=== PATIENT | male | born 1955 | race Caucasian/White ===

== ENCOUNTER 2017-10-27 23:51 | Inpatient (IN) | payer BC ==
[~2017-10-27] VITALS: Ht 180.3 cm; Wt 81.2 kg
[2017-10-28] VITALS (11 sets, daily range): BP systolic 106–127; BP diastolic 54–76
[2017-10-28 00:28] LABS: BASO # 0.1 x10^3/uL (0.0-0.2); BASO % 1 % (0-3); EOS # 0.4 x10^3/uL (0.0-0.7); EOS % 5 % (0-3); HEMATOCRIT 44.5 % (39.0-53.0); HEMOGLOBIN 15.6 g/dL (13.0-17.5); LYMPH # 4.3 x10^3/uL (1.0-4.8); LYMPH % 47 % (24-48); MEAN CORPUSCULAR HEMOGLOBIN 35 pg (25-35); MEAN CORPUSCULAR HGB CONC 35 g/dL (31-37); MEAN CORPUSCULAR VOLUME 100 fL (79-100); MONO # 0.6 x10^3/uL (0.0-1.1); MONO % 7 % (0-9); NEUT # 3.7 x10^3uL (1.8-7.7); NEUT % 41 % (31-73); PLATELET COUNT 295 x10^3/uL (140-400); RED BLOOD COUNT 4.44 x10^6/uL (4.30-5.70); RED CELL DISTRIBUTION WIDTH 13.6 % (11.5-14.5); WHITE BLOOD COUNT 9.1 x10^3/uL (4.0-11.0)
[2017-10-28 00:41] LABS: CALCIUM 8.7 mg/dL (8.5-10.1); CREATININE 1.1 mg/dL (0.7-1.3); GFR 67.8; POTASSIUM 3.4 mmol/L (3.5-5.1)
[2017-10-28 00:43] LABS: PROTHROMBIN TIME PATIENT 13.1 SEC (11.7-14.0)
[2017-10-28 00:47] LABS: ALBUMIN 3.8 g/dL (3.4-5.0); ALBUMIN/GLOBULIN RATIO 1.1 (1.0-1.7); TOTAL BILIRUBIN 0.6 mg/dL (0.2-1.0); TOTAL PROTEIN 7.2 g/dL (6.4-8.2)
[2017-10-28 01:19] LABS: BASE EXCESS ABG -8 mmol/L (-3-3); HCO3 ABG 17 mmol/L (21-28); PCO2 ABG 36 mmHg (35-46); PO2 ABG 105 mmHg (65-108); SAT O2 ABG 97 % (92-99)
[2017-10-28] MEDS ORDERED: ASPIRIN CHEWABLE 81 MG TABLET. PO ONE (01:30)
[2017-10-28] MEDS ORDERED: ONDANSETRON PF 4 MG/2 ML VIAL. IV PRN (01:30)
[2017-10-28] MEDS ORDERED: NITROGLYCERIN OINT 1 GM PACKET. TP ONE (01:30)
[2017-10-28] MEDS ORDERED: FUROSEMIDE 40 MG/4 ML VIAL. IVP ONE ×2 (01:30→02:00)
[2017-10-28] MEDS ORDERED: HEPARIN for IV BOLUS 10,000 UNIT/10 ML VIAL. IV PRN (01:30)
[2017-10-28] MEDS ORDERED: fentaNYL PF VIAL 100 MCG/2 ML VIAL IV PRN (01:30)
[2017-10-28] MEDS ORDERED: ACETAMINOPHEN 325 MG TABLET. PO PRN (01:30)
--- NOTE | 2017-10-28 01:45 | RAD ---
AP chest x-ray HISTORY: Chest pain shortness of breath. FINDINGS: Small left pleural effusion at the costophrenic angle. Borderline cardiomegaly. Mediastinal silhouette is normal. Focal opacity right lower lobe. There is mild interstitial reticulation at the lung bases likely mild edema. No pneumothorax. Bones are unremarkable. IMPRESSION: 1. Right lower lobe pulmonary infiltrate may represent pneumonia. Follow-up x-rays advised to document that this resolves. 2. Mild lower lobe pulmonary interstitial edema and very small left pleural effusion could be due to congestive heart failure or volume overload. Electronically signed by: Abhijeet Ford MD (10/28/2017 1:42 AM) [facility]
--- NOTE | 2017-10-28 01:56 | PHYS DOC ---
Adult General Chief Complaint Chief Complaint: DYSPNEA/RESPIRATOY DISTRESS HPI HPI 61-year-old male presents to the emergency department via EMS secondary to progressive shortness of breath. Patient states this been ongoing for several hours. He states when it first started several hours ago he had some burning across to his chest but no tightness or heaviness. He states he's never had shortness of breath like this in the past. He denies any nausea or diaphoresis. When EMS was called on their arrival they noted that his oxygen saturation was in the 70s. He was given a couple of rounds of DuoNeb in route and placed on a CPAP. Patient states he was much more comfortable on a CPAP. Patient denies any fever chills or sweats. He's had no cough or congestion. He denies hemoptysis. He also states that he has not had any unilateral leg swelling. He states he's never had a problem with congestive heart failure in the past.[] Review of Systems Review of Systems Constitutional: Denies fever or chills [] Eyes: Denies change in visual acuity, redness, or eye pain [] HENT: Denies nasal congestion or sore throat [] Respiratory: Per history of present illness[] Cardiovascular: No additional information not addressed in HPI [] GI: Denies abdominal pain, nausea, vomiting, bloody stools or diarrhea [] : Denies dysuria or hematuria [] Musculoskeletal: Denies back pain or joint pain [] Integument: Denies rash or skin lesions [] Neurologic: Denies headache, focal weakness or sensory changes [] Endocrine: Denies polyuria or polydipsia [] All other systems were reviewed and found to be within normal limits, except as documented in this note. Current Medications Current Medications Current Medications Medications (Trade) Dose Ordered Sig/Raymundo Start Time Stop Time Status Last Admin Dose Admin Acetaminophen (Tylenol) 650 mg PRN Q4HRS PRN 10/28/17 01:30 10/29/17 01:29 Aspirin (Children'S Aspirin) 324 mg 1X ONCE 10/28/17 01:30 10/28/17 01:31 DC 10/28/17 01:28 324 MG Enoxaparin Sodium (Lovenox Per Pharmacy Treatment Dosing) 1 each PRN DAILY PRN 10/28/17 01:30 Cancel Fentanyl Citrate (Fentanyl 2ml Vial) 50 mcg PRN Q1HR PRN 10/28/17 01:30 10/29/17 01:29 Furosemide (Lasix) 40 mg 1X ONCE 10/28/17 02:00 10/28/17 02:01 Heparin Sodium (Porcine) (Heparin Sodium) 2,000 unit PRN Q6HRS PRN 10/28/17 01:30 Heparin Sodium/ Dextrose 500 ml @ 0 mls/hr CONT PRN 10/28/17 01:30 Info (Anti-Coagulation Monitoring By Pharmacy) 1 each PRN DAILY PRN 10/28/17 02:00 Nitroglycerin (Nitro-Bid Oint) 1 inch 1X ONCE 10/28/17 01:30 10/28/17 01:31 DC 10/28/17 01:29 1 INCH Ondansetron HCl (Zofran) 4 mg PRN Q8HRS PRN 10/28/17 01:30 10/29/17 01:29 Allergies Allergies Allergies Coded Allergies Type Severity Reaction Last Updated Verified No Known Drug Allergies 10/28/17 No Physical Exam Physical Exam Constitutional: Well developed, well nourished, moderate respiratory distress, non-toxic appearance. [] HENT: Normocephalic, atraumatic, bilateral external ears normal, oropharynx moist, no oral exudates, nose normal. [] Eyes: PERRLA, EOMI, conjunctiva normal, no discharge. [] Neck: Normal range of motion, no tenderness, supple, no stridor. [] Cardiovascular:Heart rate regular rhythm, no murmur [] Lungs & Thorax: Bibasilar rales no wheezing[] Abdomen: Bowel sounds normal, soft, no tenderness, no masses, no pulsatile masses. [] Skin: Warm, dry, no erythema, no rash. [] Back: No tenderness, no CVA tenderness. [] Extremities: He has some healing wounds on his lower extremities that he states are from weeds. [] Neurologic: Alert and oriented X 3, normal motor function, normal sensory function, no focal deficits noted. [] Psychologic: Anxious. [] Current Patient Data Vital Signs Vital Signs Date Time Temp Pulse Resp B/P (MAP) Pulse Ox O2 Delivery O2 Flow Rate FiO2 10/28/17 01:38 110 26 123/67 (85) 97 BiPAP/CPAP Lab Values Laboratory Tests Test 10/28/17 00:15 10/28/17 01:15 White Blood Count 9.1 x10^3/uL (4.0-11.0) Red Blood Count 4.44 x10^6/uL (4.30-5.70) Hemoglobin 15.6 g/dL (13.0-17.5) Hematocrit 44.5 % (39.0-53.0) Mean Corpuscular Volume 100 fL (79-100) Mean Corpuscular Hemoglobin 35 pg (25-35) Mean Corpuscular Hemoglobin Concent 35 g/dL (31-37) Red Cell Distribution Width 13.6 % (11.5-14.5) Platelet Count 295 x10^3/uL (140-400) Neutrophils (%) (Auto) 41 % (31-73) Lymphocytes (%) (Auto) 47 % (24-48) Monocytes (%) (Auto) 7 % (0-9) Eosinophils (%) (Auto) 5 % (0-3) H Basophils (%) (Auto) 1 % (0-3) Neutrophils # (Auto) 3.7 x10^3uL (1.8-7.7) Lymphocytes # (Auto) 4.3 x10^3/uL (1.0-4.8) Monocytes # (Auto) 0.6 x10^3/uL (0.0-1.1) Eosinophils # (Auto) 0.4 x10^3/uL (0.0-0.7) Basophils # (Auto) 0.1 x10^3/uL (0.0-0.2) Prothrombin Time 13.1 SEC (11.7-14.0) Prothrombin Time INR 1.0 (0.8-1.1) Sodium Level 124 mmol/L (136-145) L Potassium Level 3.4 mmol/L (3.5-5.1) L Chloride Level 91 mmol/L (98-107) L Carbon Dioxide Level 20 mmol/L (21-32) L Anion Gap 13 (6-14) Blood Urea Nitrogen 13 mg/dL (8-26) Creatinine 1.1 mg/dL (0.7-1.3) Estimated GFR (Cockcroft-Gault) 67.8 BUN/Creatinine Ratio 12 (6-20) Glucose Level 125 mg/dL (70-99) H Calcium Level 8.7 mg/dL (8.5-10.1) Total Bilirubin 0.6 mg/dL (0.2-1.0) Aspartate Amino Transferase (AST) 53 U/L (15-37) H Alanine Aminotransferase (ALT) 28 U/L (16-63) Alkaline Phosphatase 48 U/L (46-116) Troponin I Quantitative 0.078 ng/mL (0.000-0.055) ZC-Kck-X-Type Natriuretic Peptide 2686 pg/mL (0-124) H Total Protein 7.2 g/dL (6.4-8.2) Albumin 3.8 g/dL (3.4-5.0) Albumin/Globulin Ratio 1.1 (1.0-1.7) O2 Saturation 97 % (92-99) Arterial Blood pH 7.30 (7.35-7.45) L Arterial Blood pCO2 at Patient Temp 36 mmHg (35-46) Arterial Blood pO2 at Patient Temp 105 mmHg (65-108) Arterial Blood HCO3 17 mmol/L (21-28) L Arterial Blood Base Excess -8 mmol/L (-3-3) L FiO2 80.0 Laboratory Tests 10/28/17 00:15 Laboratory Tests 10/28/17 00:15 EKG EKG [EKG: Sinus tachycardia rate of 114 incomplete right bundle branch block with concerning ST depression anterior laterally EKG #2 done at 0154 on 94 shows marked improvement in the anterior lateral ST depression as his oxygenation is now much ] Radiology/Procedures Radiology/Procedures [] Impressions: PROCEDURE: CHEST AP ONLY AP chest x-ray HISTORY: Chest pain shortness of breath. FINDINGS: Small left pleural effusion at the costophrenic angle. Borderline cardiomegaly. Mediastinal silhouette is normal. Focal opacity right lower lobe. There is mild interstitial reticulation at the lung bases likely mild edema. No pneumothorax. Bones are unremarkable. IMPRESSION: 1. Right lower lobe pulmonary infiltrate may represent pneumonia. Follow-up x-rays advised to document that this resolves. 2. Mild lower lobe pulmonary interstitial edema and very small left pleural effusion could be due to congestive heart failure or volume overload. Course & Med Decision Making Course & Med Decision Making Pertinent Labs and Imaging studies reviewed. (See chart for details) [ED course: Evaluation reveals a 61-year-old male presents in moderate respiratory distress on CPAP initial EKG was abnormal this follow-up EKG was marked improved patient was given aspirin, Lasix, nitroglycerin and a heparin drip and remained chest pain-free throughout his stay in the department. His initial troponin was slightly elevated. We will admit the patient to the [facility] for likely heart catheterization and/or echo cardiogram in the morning. CRITICAL CARE: Time spent was 35 minutes. This includes medical management, evaluation, reevaluation, discussion with consultants and family. Critical Care does NOT include time spent on separately billed procedures. ] Dragon Disclaimer Dragon Disclaimer This electronic medical record was generated, in whole or in part, using a voice recognition dictation system. Departure Departure Impression: Primary Impression: Acute coronary syndrome Additional Impression: CHF (congestive heart failure) Disposition: 09 ADMITTED INPATIENT Admitting Physician: Xie. Brandon Condition: CRITICAL Referrals: NO PCP (PCP) Problem Qualifiers Additional Impression: CHF (congestive heart failure) Heart failure type: systolic Heart failure chronicity: acute Qualified Codes: I50.21 - Acute systolic (congestive) heart failure TRELL CALDERON DO Oct 28, 2017 01:56
[2017-10-28] MEDS: HEPARIN 25,000UTS/500ML PREMIX 500 ML IV PRN ×2 (02:23→17:19)
[2017-10-28] MEDS: ANTI-COAG MONITOR BY PHARMACY. MC PRN (03:41)
--- NOTE | 2017-10-28 06:39 | EKG ---
[facility] [address] [place] [address] Test Date: 2017-10-27 Test Time: 23:58:50 Pat Name: SAIMA MARTIN Department: Room: 108 1 Gender: M Online Services Manager: : 1955 Requested By: TRELL CALDERON Order Number: [id number] Reading MD: Stuart Alvarez MD Measurements Intervals [place] Rate: 114 P: -11 [place]: 132 QRS: 74 QRSD: 108 T: 144 QT: 316 QTc: 438 Interpretive Statements SINUS TACHYCARDIA SUSPECT INFEROLATERAL/ISCHEMIA Electronically Signed On 10-28-2017 12:34:57 CDT by Stuart Alvarez MD
--- NOTE | 2017-10-28 07:03 | EKG ---
[facility] [address] [place] [address] Test Date: 2017-10-28 Test Time: 01:54:02 Pat Name: SAIMA MARTIN Department: Room: 108 1 Gender: M Employee Development Specialist: ANUSHKA : 1955 Requested By: TRELL CALDERON Order Number: [id number] Reading MD: Stuart Alvarez MD Measurements Intervals [place] Rate: 108 P: 56 [place]: 142 QRS: 64 QRSD: 98 T: 128 QT: 336 QTc: 454 Interpretive Statements SINUS TACHYCARDIA NON-SPECIFIC ST/T CHANGES Electronically Signed On 10-28-2017 12:35:06 CDT by Stuart Alvarez MD
[2017-10-28] MEDS ORDERED: FUROSEMIDE 40 MG/4 ML VIAL. IVP SCH (09:00)
[2017-10-28 09:06] LABS: CALCIUM 8.5 mg/dL (8.5-10.1); CREATININE 1.1 mg/dL (0.7-1.3); GFR 67.8; MAGNESIUM 1.6 mg/dL (1.8-2.4); POTASSIUM 3.3 mmol/L (3.5-5.1)
--- NOTE | 2017-10-28 09:06 | PDOC2 ---
CLARISSA LORENZ TELEPHONE CLEANER 10/28/17 0906: CARDIAC CONSULT DATE OF CONSULT Date of Consult DATE: 10/28/17 TIME: 08:36 REASON FOR CONSULT Reason for Consult: ACS REFERRING PHYSICIAN Referring Physician: Isauro SOURCE Source: Chart review, Patient HISTORY OF PRESENT ILLNESS HISTORY OF PRESENT ILLNESS This is a pleasant 61 yo male admitted for complains of SOA. Reports that in the last week he has been having more heartburn than usual. Denies any HALE or exertional CP but last night he woke up SOA. Reports that he takes combo BP med for about 5 yrs now otherwise denies any other routine medications. Denies any chest pain, leg swelling, palpitations, diaphoresis, n/ v. No recent falls, injury or any recent infections or use of antibiotics. Reports no hx of CAD, VTE or arrhythmias. No known past stress test. PAST MEDICAL HISTORY Cardiovascular: HTN Pulmonary: No pertinent hx CENTRAL NERVOUS SYSTEM: Other (No pertinent history) GI: GERD Heme/Onc: No pertinent hx Hepatobiliary: No pertinent hx Psych: No pertinent hx Musculoskeletal: Osteoarthritis Rheumatologic: No pertinent hx Infectious disease: No pertinent hx ENT: No pertinent hx Renal/: No pertinent hx Endocrine: No pertinent hx Dermatology: Other (recent leg rash from mowing, described it as poison Elisa exposure. ) PAST SURGICAL HISTORY Past Surgical History: Cataract Removal FAMILY HISTORY Family History: Coronary Artery Disease (father) SOCIAL HISTORY Smoke: 1 pack per day (>40 yrs) ALCOHOL: other (2 beers daily at night) Drugs: None Lives: with Family CURRENT MEDICATIONS CURRENT MEDICATIONS Current Medications Medications (Trade) Dose Ordered Sig/Raymundo Route PRN Reason Start Time Stop Time Status Last Admin Dose Admin Aspirin (Children'S Aspirin) 324 mg 1X ONCE PO 10/28/17 01:30 10/28/17 01:31 DC 10/28/17 01:28 Nitroglycerin (Nitro-Bid Oint) 1 inch 1X ONCE TP 10/28/17 01:30 10/28/17 01:31 DC 10/28/17 01:29 Furosemide (Lasix) 40 mg 1X ONCE IVP 10/28/17 01:30 10/28/17 01:31 DC 10/28/17 01:28 Heparin Sodium/ Dextrose 500 ml @ 0 mls/hr CONT PRN IV SEE I/O RECORD 10/28/17 01:30 10/28/17 02:23 Heparin Sodium (Porcine) (Heparin Sodium) 2,000 unit PRN Q6HRS PRN IV FOR UFH LEVEL LESS THAN 0.2 10/28/17 01:30 10/28/17 02:17 Furosemide (Lasix) 40 mg 1X ONCE IVP 10/28/17 02:00 10/28/17 02:01 DC 10/28/17 02:13 Info (Anti-Coagulation Monitoring By Pharmacy) 1 each PRN DAILY PRN MC SEE COMMENTS 10/28/17 02:00 10/28/17 03:41 ALLERGIES ALLERGIES: Coded Allergies: No Known Drug Allergies (Unverified , 10/28/17) ROS Review of System 14 point ROS evaluated with pertinent positives noted per HPI PHYSICAL EXAM General: Alert, Oriented X3, Cooperative HEENT: Atraumatic, Mucous membr. moist/pink Lungs: Other (faint crackles) Heart: Regular rate (sinus tach), Normal S1, Normal S2, Other (diatolic murmur to PERCY border 3/6 ) Abdomen: Soft, No tenderness Extremities: No cyanosis, No edema Skin: Other (pink-red rash superior to left medial ankle with ping puntuate lesion to right ankle, recently mowed grass) Neuro: Normal speech, Sensation intact Psych/Mental Status: Mood NL MUSCULOSKELETAL: Osteoarthritic changes both hands VITALS VITALS Vital Signs Date Time Temp Pulse Resp B/P (MAP) Pulse Ox O2 Delivery O2 Flow Rate FiO2 10/28/17 06:00 100 17 110/68 (82) 96 Nasal Cannula 5.0 10/28/17 04:45 97.8 97.8 LABS Lab: Laboratory Tests Test 10/28/17 00:15 10/28/17 01:15 10/28/17 04:50 White Blood Count 9.1 x10^3/uL (4.0-11.0) Red Blood Count 4.44 x10^6/uL (4.30-5.70) Hemoglobin 15.6 g/dL (13.0-17.5) Hematocrit 44.5 % (39.0-53.0) Mean Corpuscular Volume 100 fL (79-100) Mean Corpuscular Hemoglobin 35 pg (25-35) Mean Corpuscular Hemoglobin Concent 35 g/dL (31-37) Red Cell Distribution Width 13.6 % (11.5-14.5) Platelet Count 295 x10^3/uL (140-400) Neutrophils (%) (Auto) 41 % (31-73) Lymphocytes (%) (Auto) 47 % (24-48) Monocytes (%) (Auto) 7 % (0-9) Eosinophils (%) (Auto) 5 % (0-3) Basophils (%) (Auto) 1 % (0-3) Neutrophils # (Auto) 3.7 x10^3uL (1.8-7.7) Lymphocytes # (Auto) 4.3 x10^3/uL (1.0-4.8) Monocytes # (Auto) 0.6 x10^3/uL (0.0-1.1) Eosinophils # (Auto) 0.4 x10^3/uL (0.0-0.7) Basophils # (Auto) 0.1 x10^3/uL (0.0-0.2) Prothrombin Time 13.1 SEC (11.7-14.0) Prothromb Time International Ratio 1.0 (0.8-1.1) Sodium Level 124 mmol/L (136-145) Potassium Level 3.4 mmol/L (3.5-5.1) Chloride Level 91 mmol/L (98-107) Carbon Dioxide Level 20 mmol/L (21-32) Anion Gap 13 (6-14) Blood Urea Nitrogen 13 mg/dL (8-26) Creatinine 1.1 mg/dL (0.7-1.3) Estimated GFR (Cockcroft-Gault) 67.8 BUN/Creatinine Ratio 12 (6-20) Glucose Level 125 mg/dL (70-99) Calcium Level 8.7 mg/dL (8.5-10.1) Total Bilirubin 0.6 mg/dL (0.2-1.0) Aspartate Amino Transf (AST/SGOT) 53 U/L (15-37) Alanine Aminotransferase (ALT/SGPT) 28 U/L (16-63) Alkaline Phosphatase 48 U/L (46-116) Troponin I Quantitative 0.078 ng/mL (0.000-0.055) 1.320 ng/mL (0.000-0.055) VG-Cfm-F-Type Natriuretic Peptide 2686 pg/mL (0-124) Total Protein 7.2 g/dL (6.4-8.2) Albumin 3.8 g/dL (3.4-5.0) Albumin/Globulin Ratio 1.1 (1.0-1.7) O2 Saturation 97 % (92-99) Arterial Blood pH 7.30 (7.35-7.45) Arterial Blood pCO2 at Patient Temp 36 mmHg (35-46) Arterial Blood pO2 at Patient Temp 105 mmHg (65-108) Arterial Blood HCO3 17 mmol/L (21-28) Arterial Blood Base Excess -8 mmol/L (-3-3) FiO2 80.0 ASSESSMENT/PLAN ASSESSMENT/PLAN 1. NSTEMI: Trop at 1.3, EKG with anterolateral ST depression 2. Acute CHF with possible diastolic dysfunction 3. HTN: controlled 4. Hypokalemia/hyponatremia 5. Tobaccoism Recommendations 1. LHC today, risks and benefits explained with spouse at the bedside. 2. Heparin in place. ASA. Low rate NS in anticipation to contrast load 3. Continue with lasix therapy. BP currently controlled will reeval need post LHC. 4. TSH, lipids, UDS, UA, BMP and Mg and TTE. 5. Smoking cessation. Dietitian consult. 6. Replace K and Mg as warranted KT KIRKPATRICK MD 10/28/17 0940: CARDIAC CONSULT ASSESSMENT/PLAN ASSESSMENT/PLAN Pt. seen and examined. Agree with above NEON SIGN MECHANIC note. Plan for LHC today. Thanks CLARISSA LORENZ APRN Oct 28, 2017 09:06 KT KIRKPATRICK MD Oct 28, 2017 09:40
[2017-10-28 09:08] LABS: CHOLESTEROL/HDL RATIO 2.5
[2017-10-28] MEDS ORDERED: LABETALOL 20 MG/4 ML DISP.SYRIN. IVP PRN (09:15)
[2017-10-28] MEDS ORDERED: IV NORMAL SALINE 1000ML BAG 1,000 ML IV ONE (09:30)
[2017-10-28] MEDS: ASPIRIN ENTERIC COATED 325 MG TABLET.DR. PO SCH (09:30)
[2017-10-28] MEDS ORDERED: POTASSIUM CHLORIDE 20 MEQ TABLET.ER. PO ONE (11:30)
[2017-10-28] MEDS ORDERED: MAGNESIUM SULFATE 2GM 50 ML IV ONE (11:30)
[2017-10-28 12:42] LABS: BARBITURATES NEG (NEG); BENZODIAZEPINES NEG (NEG); CANNABINOIDS NEG (NEG); COCAINE NEG (NEG); METHADONE NEG (NEG); OPIATES NEG (NEG); PHENCYCLIDINE NEG (NEG)
[2017-10-28 12:48] LABS: AMPHETAMINE/METHAMPHETAMINE NEG (NEG)
--- NOTE | 2017-10-28 12:55 | PDOC1 ---
History and Physical Date of Admission Date of Admission DATE: 10/28/17 TIME: 12:55 Identification/Chief Complaint Chief Complaint short of breath Source Source: Chart review, Patient History of Present Illness History of Present Illness Mr. Dunn, is a 61-year-old male admit w. progressive shortness of breath. new dyspnea for hours on admit, better now pain, with burning in chest without pressure. Pain was 6/10 and now is better 0s. He was given a couple of rounds of DuoNeb in route and placed on a CPAP. Patient states he was much more comfortable on a CPAP not much medical history Past Medical History Cardiovascular: HTN Pulmonary: No pertinent hx CENTRAL NERVOUS SYSTEM: Other (No pertinent history) GI: GERD Heme/Onc: No pertinent hx Hepatobiliary: No pertinent hx Psych: No pertinent hx Musculoskeletal: Osteoarthritis Rheumatologic: No pertinent hx Infectious disease: No pertinent hx ENT: No pertinent hx Renal/: No pertinent hx Endocrine: No pertinent hx Dermatology: Other (recent leg rash from mowing, described it as poison Elisa exposure. ) Past Surgical History Past Surgical History: Cataract Removal Family History Family History: Coronary Artery Disease (father) Social History Smoke: 1 pack per day (>40 yrs) ALCOHOL: other (2 beers daily at night) Drugs: None Current Medications Current Medications Current Medications Aspirin (Children'S Aspirin) 324 mg 1X ONCE PO Last administered on 10/28/17at 01:28; Start 10/28/17 at 01:30; Stop 10/28/17 at 01:31; Status DC Nitroglycerin (Nitro-Bid Oint) 1 inch 1X ONCE TP Last administered on at 01:29; Start 10/28/17 at 01:30; Stop 10/28/17 at 01:31; Status DC Furosemide (Lasix) 40 mg 1X ONCE IVP Last administered on 10/28/17at 01:28; Start 10/28/17 at 01:30; Stop 10/28/17 at 01:31; Status DC Enoxaparin Sodium (Lovenox Per Pharmacy Treatment Dosing) 1 each PRN DAILY PRN MC SEE COMMENTS; Start 10/28/17 at 01:30; Status Cancel Ondansetron HCl (Zofran) 4 mg PRN Q8HRS PRN IV NAUSEA/VOMITING 1ST CHOICE; Start 10/28/17 at 01:30; Stop 10/29/17 at 01:29 Fentanyl Citrate (Fentanyl 2ml Vial) 50 mcg PRN Q1HR PRN IV SEVERE PAIN; Start 10/28/17 at 01:30; Stop 10/29/17 at 01:29 Acetaminophen (Tylenol) 650 mg PRN Q4HRS PRN PO FEVER; Start 10/28/17 at 01:30; Stop 10/29/17 at 01:29 Heparin Sodium/ Dextrose 500 ml @ 0 mls/hr CONT PRN IV SEE I/O RECORD Last administered on 10/28/17at 02:23; Start 10/28/17 at 01:30 Heparin Sodium (Porcine) (Heparin Sodium) 2,000 unit PRN Q6HRS PRN IV FOR UFH LEVEL LESS THAN 0.2 Last administered on 10/28/17at 02:17; Start 10/28/17 at 01:30 Furosemide (Lasix) 40 mg [id number] IVP ; Start 10/28/17 at 09:00 Furosemide (Lasix) 40 mg 1X ONCE IVP Last administered on 10/28/17at 02:13; Start 10/28/17 at 02:00; Stop 10/28/17 at 02:01; Status DC Info (Anti-Coagulation Monitoring By Pharmacy) 1 each PRN DAILY PRN MC SEE COMMENTS Last administered on 10/28/17at 03:41; Start 10/28/17 at 02:00 Aspirin (Ecotrin) 325 mg DAILYWBKFT PO ; Start 10/28/17 at 09:30 Sodium Chloride 1,000 ml @ 50 mls/hr 1X ONCE IV Last administered on at 11:37; Start 10/28/17 at 09:30; Stop 10/29/17 at 05:29 Labetalol HCl (Normodyne Iv Push) 20 mg PRN Q2HR PRN IVP HYPERTENSION, SEE COMMENTS; Start 10/28/17 at 09:15 Magnesium Sulfate 50 ml @ 25 mls/hr 1X ONCE IV Last administered on 10/28/17at 11:29; Start 10/28/17 at 11:30; Stop 10/28/17 at 13:29 Potassium Chloride (Klor-Con) 40 meq 1X ONCE PO ; Start 10/28/17 at 11:30; Stop 10/28/17 at 11:31; Status DC Allergies Allergies: Coded Allergies: No Known Drug Allergies (Unverified , 10/28/17) ROS General: No: Chills, Night Sweats, Fatigue, Malaise, Appetite, Other PSYCHOLOGICAL ROS: No: Anxiety, Behavioral Disorder, Concentration difficultie , Decreased libido, Depression, Disorientation, Hallucinations, Hostility, Irritablity, Memory difficulties, Mood Swings, Obsessive thoughts, Physical abuse, Sexual abuse, Sleep disturbances, Suicidal ideation, Other Eyes: No Blurry vision, No Decreased vision, No Double vision, No Dry eyes, No Excessive tearing, No Eye Pain, No Itchy Eyes, No Loss of vision, No Photophobia , No Scotomata, No Uses contacts, No Uses glasses, No Other HEENT: No: Heacaches, Visual Changes, Hearing change, Nasal congestion, Nasal discharge, Oral lesions, Sinus pain, Sore Throat, Epistaxis, Sneezing, Snoring, Tinnitus, Vertigo, Vocal changes, Other Respiratory: No: Cough, Hemoptysis, Orthopnea, Pleuritic Pain, Shortness of breath, SOB with excertion, Sputum Changes, Stridor, Tachypnea, Wheezing, Other Cardiovascular: No Chest Pain, No Palpitations, No Orthopnea, No Paroxysmal Noc. Dyspnea, No Edema, No Lt Headedness, No Other Gastrointestinal: No Nausea, No Vomiting, No Abdominal Pain, No Diarrhea, No Constipation, No Melena, No Hematochezia, No Other Genitourinary: No Dysuria, No Frequency, No Incontinence, No Hematuria, No Retention, No Discharge, No Urgency, No Pain, No Flank Pain, No Other, No , No , No , No , No , No , No Musculoskeletal: No Gait Disturbance, No Joint Pain, No Joint Stiffness, No Joint Swelling, No Muscle Pain, No Muscular Weakness, No Pain In:, No Swelling In:, No Other Neurological: No Behavorial Changes, No Bowel/Bladder ControlChng, No Confusion , No Dizziness, No Gait Disturbance, No Headaches, No Impaired Coord/balance, No Memory Loss, No Numbness/Tingling, No Seizures, No Speech Problems, No Tremors, No Visual Changes, No Weakness, No Other Skin: Yes Dry Skin; No Eczema, No Hair Changes, No Lumps, No Mole Changes, No Mottling, No Nail Changes, No Pruritus, No Rash, No Skin Lesion Changes, No Other, No Acne Physical Exam General: Alert, Cooperative, No acute distress HEENT: EOMI Lungs: Normal air movement Heart: no murmurs Abdomen: Normal bowel sounds, Soft Rectal Exam: not examined Extremities: No cyanosis, No edema Skin: No rashes Neuro: Normal gait, Sensation intact Psych/Mental Status: Mental status NL, Mood NL Vitals Vitals Vital Signs Date Time Temp Pulse Resp B/P (MAP) Pulse Ox O2 Delivery O2 Flow Rate FiO2 10/28/17 11:00 98.9 100 18 111/65 (80) 98 Nasal Cannula 5.0 98.9 Labs Labs Laboratory Tests Test 10/28/17 00:15 10/28/17 01:15 10/28/17 04:50 10/28/17 08:28 White Blood Count 9.1 x10^3/uL (4.0-11.0) Red Blood Count 4.44 x10^6/uL (4.30-5.70) Hemoglobin 15.6 g/dL (13.0-17.5) Hematocrit 44.5 % (39.0-53.0) Mean Corpuscular Volume 100 fL (79-100) Mean Corpuscular Hemoglobin 35 pg (25-35) Mean Corpuscular Hemoglobin Concent 35 g/dL (31-37) Red Cell Distribution Width 13.6 % (11.5-14.5) Platelet Count 295 x10^3/uL (140-400) Neutrophils (%) (Auto) 41 % (31-73) Lymphocytes (%) (Auto) 47 % (24-48) Monocytes (%) (Auto) 7 % (0-9) Eosinophils (%) (Auto) 5 % (0-3) Basophils (%) (Auto) 1 % (0-3) Neutrophils # (Auto) 3.7 x10^3uL (1.8-7.7) Lymphocytes # (Auto) 4.3 x10^3/uL (1.0-4.8) Monocytes # (Auto) 0.6 x10^3/uL (0.0-1.1) Eosinophils # (Auto) 0.4 x10^3/uL (0.0-0.7) Basophils # (Auto) 0.1 x10^3/uL (0.0-0.2) Prothrombin Time 13.1 SEC (11.7-14.0) Prothromb Time International Ratio 1.0 (0.8-1.1) Sodium Level 124 mmol/L (136-145) 127 mmol/L (136-145) Potassium Level 3.4 mmol/L (3.5-5.1) 3.3 mmol/L (3.5-5.1) Chloride Level 91 mmol/L (98-107) 94 mmol/L (98-107) Carbon Dioxide Level 20 mmol/L (21-32) 18 mmol/L (21-32) Anion Gap 13 (6-14) 15 (6-14) Blood Urea Nitrogen 13 mg/dL (8-26) 14 mg/dL (8-26) Creatinine 1.1 mg/dL (0.7-1.3) 1.1 mg/dL (0.7-1.3) Estimated GFR (Cockcroft-Gault) 67.8 67.8 BUN/Creatinine Ratio 12 (6-20) Glucose Level 125 mg/dL (70-99) 115 mg/dL (70-99) Calcium Level 8.7 mg/dL (8.5-10.1) 8.5 mg/dL (8.5-10.1) Total Bilirubin 0.6 mg/dL (0.2-1.0) Aspartate Amino Transf (AST/SGOT) 53 U/L (15-37) Alanine Aminotransferase (ALT/SGPT) 28 U/L (16-63) Alkaline Phosphatase 48 U/L (46-116) Troponin I Quantitative 0.078 ng/mL (0.000-0.055) 1.320 ng/mL (0.000-0.055) 2.411 ng/mL (0.000-0.055) BT-Qxr-E-Type Natriuretic Peptide 2686 pg/mL (0-124) Total Protein 7.2 g/dL (6.4-8.2) Albumin 3.8 g/dL (3.4-5.0) Albumin/Globulin Ratio 1.1 (1.0-1.7) O2 Saturation 97 % (92-99) Arterial Blood pH 7.30 (7.35-7.45) Arterial Blood pCO2 at Patient Temp 36 mmHg (35-46) Arterial Blood pO2 at Patient Temp 105 mmHg (65-108) Arterial Blood HCO3 17 mmol/L (21-28) Arterial Blood Base Excess -8 mmol/L (-3-3) FiO2 80.0 Magnesium Level 1.6 mg/dL (1.8-2.4) Triglycerides Level 62 mg/dL (0-150) Cholesterol Level 192 mg/dL (0-200) LDL Cholesterol, Calculated 104 mg/dL (0-100) VLDL Cholesterol, Calculated 12 mg/dL (0-40) Non-HDL Cholesterol Calculated 116 mg/dL (0-129) HDL Cholesterol 76 mg/dL (40-60) Cholesterol/HDL Ratio 2.5 Thyroid Stimulating Hormone (TSH) 0.963 uIU/mL (0.358-3.74) Heparin Anti-Xa Act, Unfractionated 0.26 IU/mL (0.30-0.70) Test 10/28/17 11:50 Urine Opiates Screen Neg (NEG) Urine Methadone Screen Neg (NEG) Urine Barbiturates Neg (NEG) Urine Phencyclidine Screen Neg (NEG) Urine Amphetamine/Methamphetamine Neg (NEG) Urine Benzodiazepines Screen Neg (NEG) Urine Cocaine Screen Neg (NEG) Urine Cannabinoids Screen Neg (NEG) Urine Ethyl Alcohol Neg (NEG) Laboratory Tests Test 10/28/17 00:15 10/28/17 01:15 10/28/17 04:50 10/28/17 08:28 White Blood Count 9.1 x10^3/uL (4.0-11.0) Red Blood Count 4.44 x10^6/uL (4.30-5.70) Hemoglobin 15.6 g/dL (13.0-17.5) Hematocrit 44.5 % (39.0-53.0) Mean Corpuscular Volume 100 fL (79-100) Mean Corpuscular Hemoglobin 35 pg (25-35) Mean Corpuscular Hemoglobin Concent 35 g/dL (31-37) Red Cell Distribution Width 13.6 % (11.5-14.5) Platelet Count 295 x10^3/uL (140-400) Neutrophils (%) (Auto) 41 % (31-73) Lymphocytes (%) (Auto) 47 % (24-48) Monocytes (%) (Auto) 7 % (0-9) Eosinophils (%) (Auto) 5 % (0-3) Basophils (%) (Auto) 1 % (0-3) Neutrophils # (Auto) 3.7 x10^3uL (1.8-7.7) Lymphocytes # (Auto) 4.3 x10^3/uL (1.0-4.8) Monocytes # (Auto) 0.6 x10^3/uL (0.0-1.1) Eosinophils # (Auto) 0.4 x10^3/uL (0.0-0.7) Basophils # (Auto) 0.1 x10^3/uL (0.0-0.2) Prothrombin Time 13.1 SEC (11.7-14.0) Prothromb Time International Ratio 1.0 (0.8-1.1) Sodium Level 124 mmol/L (136-145) 127 mmol/L (136-145) Potassium Level 3.4 mmol/L (3.5-5.1) 3.3 mmol/L (3.5-5.1) Chloride Level 91 mmol/L (98-107) 94 mmol/L (98-107) Carbon Dioxide Level 20 mmol/L (21-32) 18 mmol/L (21-32) Anion Gap 13 (6-14) 15 (6-14) Blood Urea Nitrogen 13 mg/dL (8-26) 14 mg/dL (8-26) Creatinine 1.1 mg/dL (0.7-1.3) 1.1 mg/dL (0.7-1.3) Estimated GFR (Cockcroft-Gault) 67.8 67.8 BUN/Creatinine Ratio 12 (6-20) Glucose Level 125 mg/dL (70-99) 115 mg/dL (70-99) Calcium Level 8.7 mg/dL (8.5-10.1) 8.5 mg/dL (8.5-10.1) Total Bilirubin 0.6 mg/dL (0.2-1.0) Aspartate Amino Transf (AST/SGOT) 53 U/L (15-37) Alanine Aminotransferase (ALT/SGPT) 28 U/L (16-63) Alkaline Phosphatase 48 U/L (46-116) Troponin I Quantitative 0.078 ng/mL (0.000-0.055) 1.320 ng/mL (0.000-0.055) 2.411 ng/mL (0.000-0.055) OO-Jhf-F-Type Natriuretic Peptide 2686 pg/mL (0-124) Total Protein 7.2 g/dL (6.4-8.2) Albumin 3.8 g/dL (3.4-5.0) Albumin/Globulin Ratio 1.1 (1.0-1.7) O2 Saturation 97 % (92-99) Arterial Blood pH 7.30 (7.35-7.45) Arterial Blood pCO2 at Patient Temp 36 mmHg (35-46) Arterial Blood pO2 at Patient Temp 105 mmHg (65-108) Arterial Blood HCO3 17 mmol/L (21-28) Arterial Blood Base Excess -8 mmol/L (-3-3) FiO2 80.0 Magnesium Level 1.6 mg/dL (1.8-2.4) Triglycerides Level 62 mg/dL (0-150) Cholesterol Level 192 mg/dL (0-200) LDL Cholesterol, Calculated 104 mg/dL (0-100) VLDL Cholesterol, Calculated 12 mg/dL (0-40) Non-HDL Cholesterol Calculated 116 mg/dL (0-129) HDL Cholesterol 76 mg/dL (40-60) Cholesterol/HDL Ratio 2.5 Thyroid Stimulating Hormone (TSH) 0.963 uIU/mL (0.358-3.74) Heparin Anti-Xa Act, Unfractionated 0.26 IU/mL (0.30-0.70) Test 10/28/17 11:50 Urine Opiates Screen Neg (NEG) Urine Methadone Screen Neg (NEG) Urine Barbiturates Neg (NEG) Urine Phencyclidine Screen Neg (NEG) Urine Amphetamine/Methamphetamine Neg (NEG) Urine Benzodiazepines Screen Neg (NEG) Urine Cocaine Screen Neg (NEG) Urine Cannabinoids Screen Neg (NEG) Urine Ethyl Alcohol Neg (NEG) VTE Prophylaxis Ordered VTE Prophylaxis Devices: No VTE Pharmacological Prophylaxi: Yes Assessment/Plan Assessment/Plan acute systolic CHF, IV lasix given NSTEMI, acute [place] tobaccoism htn SANTOSH GRAF MD Oct 28, 2017 12:55
[2017-10-28 13:35] LABS: BILIRUBIN,URINE NEGATIVE (NEG); CLARITY,URINE CLEAR; NITRITE,URINE NEGATIVE (NEG); PH,URINE 6.5; PROTEIN,URINE NEGATIVE (NEG-TRACE); UROBILINOGEN,URINE 0.2 mg/dL (0.2 mg/dL)
[2017-10-28 13:51] LABS: COLOR,URINE STRAW; RBC,URINE RARE /HPF (0-2); WBC,URINE RARE /HPF (0-4)
[2017-10-28 13:52] LABS: BACTERIA,URINE 0 /HPF (0-FEW); SQUAMOUS EPITHELIAL CELL,UR OCC /LPF
[2017-10-28] MEDS ORDERED: LIDOCAINE 1% PF 2 ML VIAL. ONE (14:04)
[2017-10-28] MEDS ORDERED: IODIXANOL 320 MG/ML 100 ML VIAL. ONE (14:04)
[2017-10-28] MEDS ORDERED: HEPARIN for IV BOLUS 10,000 UNIT/10 ML VIAL. ONE (15:10)
[2017-10-28] MEDS ORDERED: MIDAZOLAM HCL/PF 2 MG/2 ML VIAL. ONE (15:10)
[2017-10-28] MEDS ORDERED: VERAPAMIL 5 MG/2 ML VIAL. ONE (15:10)
[2017-10-28] MEDS ORDERED: NITROGLYCERIN 200 MCG/2 ML SYRINGE FOR CATH/VASC LAB. ONE (15:10)
[2017-10-28] MEDS ORDERED: fentaNYL PF VIAL 100 MCG/2 ML VIAL ONE (15:10)
[2017-10-28] MEDS ORDERED: fentaNYL PF VIAL 100 MCG/2 ML VIAL IV ONE (16:00)
[2017-10-28] MEDS ORDERED: NITROGLYCERIN 200 MCG/2 ML SYRINGE FOR CATH/VASC LAB. IART ONE (16:00)
[2017-10-28] MEDS ORDERED: VERAPAMIL 5 MG/2 ML VIAL. IART ONE (16:00)
[2017-10-28] MEDS ORDERED: CONTRAST GIVEN. MC PRN (16:00)
[2017-10-28] MEDS ORDERED: LIDOCAINE 1% PF 2 ML VIAL. INJ ONE (16:00)
[2017-10-28] MEDS ORDERED: MIDAZOLAM HCL/PF 2 MG/2 ML VIAL. IV ONE (16:00)
[2017-10-28] MEDS ORDERED: HEPARIN for IV BOLUS 10,000 UNIT/10 ML VIAL. IART ONE (16:00)
[2017-10-28] MEDS ORDERED: IODIXANOL 320 MG/ML 100 ML VIAL. IART ONE (16:00)
--- NOTE | 2017-10-28 17:51 | CARD ---
MR#: [id number] Date of Study: 10/28/2017 Ordering Physician: CLARISSA LORENZ, Referring Physician: ANKIT LI Tech: RT Steven (R) LEFTY APPROVED REPORT Technologist: RT Steven (R) LEFTY Procedure(s) performed: MODERATE SEDATION:35 MIN Coronary angiography HISTORY The patient is a 61 year-old male with a history of : hypertension, dyslipidemia. INDICATION The indication(s) include : non-STEMI . PROCEDURE NARRATIVE INFORMED CONSENT: After explaining the risks and benefits of the procedure and alternatives, informed consent was obtained. The patient was brought electively to the cardiac catheterization lab. A timeout was performed confi rming the patient's name, date of , procedure, and site of procedure. All necessary personnel w ere wearing the appropriate protective equipment and radiation monitor devices. (See nursing notes for medications administered). ACCESS: The right wrist was sterilely prepped and draped in the usual fashion. The right wrist was infiltrat ed with 1 mL of 2% lidocaine for subcutaneous anesthesia. A 6 Czech Terumo glide sheath was inserte d into the right radial artery without difficulty. CORONARY ANGIOGRAPHY: Right and left coronary angiography was performed using a 6Fr TIG 4.0 catheter. Left ventricular en d diastolic pressure was obtained with a pigtail catheter and pullback was performed after left ventr iculography. All catheter exchanges and advancements were performed over a guidewire. CLOSURE: At case completion the right radial sheath was removed and a Terumo radial band was applied with 13 m l of air. COMPLICATIONS: The patient tolerated the procedure well and there were no immediate complications. FINDINGS: HEMODYNAMICS: AO: 128/78 LEFT VENTRICULOGRAM: Deferred due to known EF from echo. CORONARY ANGIOGRAPHY: LM is a large caliber vessel with normal angiographic appearance. LAD is a moderate caliber vessel proximally tapering to a 2.5 mm vessel in the mid to distal segment with a critical proximal to mid 95% stenosis. The vessel is heavily calcified in the proximal segment . -Large 1st septal insulation manager is noted. D1 is a small caliber vessel with an ostial 70% stenosis. LCx is a moderate caliber non-dominant vessel with a proximal 100% occlusion. OM1 is a small caliber vessel with normal angiographic appearance. OM2 is a very small caliber vessel that fills via faint left to left collaterals. LPL1 is a small caliber vessel that has a proximal subtotal occlusion, the distal vessel fills via fa int left to left collaterals. RCA is a large caliber dominant vessel with a long proximal to mid 60-70% stenosis. RPDA and RPL are moderate caliber vessels with normal angiographic appearance. Conclusion 1. Three vessel coronary artery disease with heavily calcified LAD and occluded LCx. (SYNTAX score 39 - suggestive of complex disease best treated by CABG if amenable) Recommendations Surgical consultation If deemed non-surgical candidate, plan for high risk PCI on . Signed by : Stuart Alvarez, Electronically Approved : 10/28/2017 17:51:03
[2017-10-28] MEDS: METOPROLOL TART IMMED RELEASE 25 MG TABLET. PO SCH (20:45)
[2017-10-29] VITALS (7 sets, daily range): BP systolic 108–131; BP diastolic 60–89
[2017-10-29] MEDS: HEPARIN 25,000UTS/500ML PREMIX 500 ML IV PRN (02:02)
--- NOTE | 2017-10-29 02:23 | RAD ---
MR#: [id number] Date of Study: 10/28/2017 Ordering Physician: KT KIRKPATRICK, Referring Physician: ANKIT LI Tech: Camila Wheeler RT R, CT RDMS AB, T APPROVED REPORT Patient Location: IN-PATIENT Laterality:Bilateral Indications PRE OP Doppler Spectral Velocity Analysis Right Left pCCA 48/22 cm/spCCA 59/22 cm/s mCCA 35/20 cm/smCCA 45/18 cm/s dCCA 27/15 cm/sdCCA 49/22 cm/s ECA ECA 196/ cm/s pICA 88/31 cm/spICA 74/37 cm/s Ada 86/36 cm/smICA 68/35 cm/s dICA 58/28 cm/sdICA 60/29 cm/s Vert. 48/ cm/sVert. 55/ cm/s ICA/CCA 1.83ICA/CCA 1.25 Findings Grayscale images of the bilateral common carotid, external and internal carotid vessels reveal diffus e atherosclerotic plaque grossly in the range of 50%. Spectral waveforms and peak systolic velocities in the internal carotid vessels reveal overall 0 to l ess than 50% stenosis. The right external carotid artery is not well visualized and may be occluded proximally. The left ext ernal carotid artery demonstrates elevated velocities suggestive greater than 50% stenosis. Bilateral vertebral velocities are blunted but antegrade fashion. ICA to CCA ratios on the right side are suggestive of moderate disease and within normal limits on th e left side. Critical Notification Critical Value: No <Conclusion> 1. Probable moderate right external and internal carotid disease in the range of 50%. No significant left-sided disease. Signed by : Kt Kirkpatrick, Electronically Approved : 10/29/2017 02:22:46
--- NOTE | 2017-10-29 02:25 | RAD ---
MR#: [id number] Date of Study: 10/28/2017 Ordering Physician: STUART KIRKPATRICK, Referring Physician: ANKIT LI Tech: Camila Wheeler RT R, [facility] APPROV[facility] REPORT Patient Location: IN-PATIENT Indications PRE OP Vein Measurements Great Saphenous Small Saphenous RightLeft RightLeft Saph-Fem. Junction 5.10mm4.60mmProximal 4.30mm3.60mm Mid Thigh 4.00mm3.90mmMid 3.40mm3.10mm Distal Thigh 3.00mm3.40mmDistal 4.40mm3.30mm Proximal Calf 3.20mm3.60mm Mid Calf 3.10mm3.10mm Distal Calf 3.40mm3.30mm Findings Bilateral greater and lesser saphenous veins were mapped for bypass conduit evaluation. The bilateral lesser saphenous veins appear to be adequate bypass conduits with measurements as noted above. The right great saphenous vein does not reveal any obvious evidence of thrombus and appears to be pat ent throughout its course and has adequate dimensions for bypass conduit. The left great saphenous ve in also appears to have adequate dimensions for bypass conduit but note is made that it is bifurcatin g below the knee. Critical Notification Critical Value: No <Conclusion> 1. Adequate bypass conduits in the form of the greater and lesser saphenous veins. Note is made that the left great saphenous vein bifurcates below the knee. Signed by : Stuart Kirkpatrick, Electronically Approved : 10/29/2017 02:24:30
[2017-10-29 03:24] LABS: BASO # 0.1 x10^3/uL (0.0-0.2); BASO % 1 % (0-3); EOS # 0.1 x10^3/uL (0.0-0.7); EOS % 1 % (0-3); HEMATOCRIT 42.1 % (39.0-53.0); HEMOGLOBIN 14.9 g/dL (13.0-17.5); LYMPH # 1.7 x10^3/uL (1.0-4.8); LYMPH % 21 % (24-48); MEAN CORPUSCULAR HEMOGLOBIN 35 pg (25-35); MEAN CORPUSCULAR HGB CONC 35 g/dL (31-37); MEAN CORPUSCULAR VOLUME 100 fL (79-100); MONO # 0.7 x10^3/uL (0.0-1.1); MONO % 9 % (0-9); NEUT # 5.5 x10^3uL (1.8-7.7); NEUT % 69 % (31-73); PLATELET COUNT 276 x10^3/uL (140-400); RED BLOOD COUNT 4.22 x10^6/uL (4.30-5.70); RED CELL DISTRIBUTION WIDTH 13.1 % (11.5-14.5)
[2017-10-29 04:09] LABS: ALBUMIN 3.4 g/dL (3.4-5.0); ALBUMIN/GLOBULIN RATIO 1.1 (1.0-1.7); CALCIUM 8.4 mg/dL (8.5-10.1); GFR 75.7; POTASSIUM 3.4 mmol/L (3.5-5.1); TOTAL BILIRUBIN 1.1 mg/dL (0.2-1.0); TOTAL PROTEIN 6.5 g/dL (6.4-8.2)
--- NOTE | 2017-10-29 08:29 | RAD ---
CT CHEST WO CONTRAST Indication: Preop coronary artery bypass graft Technique: Noncontrast CT imaging was performed of the chest, multiplanar reconstruction images submitted. One or more of the following individualized dose reduction techniques were utilized for this examination: 1. Automated exposure control 2. Adjustment of the mA and/or kV according to patient size 3. Use of iterative reconstruction technique. Comparison: None Findings: There are small dependent pleural effusions bilaterally, adjacent mild atelectasis and also mild infiltrate of the right lower lobe separate from the effusion extending more superiorly to the infrahilar region. There is no pneumothorax. There is no significant pericardial effusion. There is severe coronary calcification. Thoracic aortic caliber is within normal limits. The major airways are patent. No significantly enlarged nodes are identified of the chest, small mediastinal nodes present. There is atherosclerotic calcification near the visualized origins of the superior mesenteric artery and celiac artery. There are some small foci of groundglass density of the upper lobes bilaterally anteriorly abutting the pleural surfaces. There is mild centrilobular emphysema. IMPRESSION: 1. There are small dependent pleural effusions bilaterally with adjacent mild atelectasis, also mild infiltrate of the right lower lobe extending to the right infrahilar region. There are some small foci of faint groundglass density of the upper lobes bilaterally abutting the pleural surfaces. 2. There is severe coronary calcification. 3. There is mild centrilobular emphysema. Electronically signed by: Urban Jc MD (10/29/2017 8:26 AM) [id number]
[2017-10-29] MEDS: METOPROLOL TART IMMED RELEASE 25 MG TABLET. PO SCH ×2 (08:39→21:01)
[2017-10-29] MEDS ORDERED: POTASSIUM CHLORIDE 20 MEQ TABLET.ER. PO ONE (09:00)
[2017-10-29] MEDS ORDERED: FUROSEMIDE 40 MG/4 ML VIAL. IVP SCH (09:00)
[2017-10-29] MEDS ORDERED: ALPRAZolam 0.25 MG TABLET PO PRN (09:15)
--- NOTE | 2017-10-29 09:18 | PDOC ---
LORIRAMSES Linnea CANS VACUUM TESTER 10/29/17 0918: CARDIO Progress Notes Date and Time Date of Service 10/29/2017 Time of Evaluation 0906 Subjective Subjective: No Chest Pain, No shortness of breath, No Palpitations, No Dizziness Vitals Vitals Vital Signs Date Time Temp Pulse Resp B/P (MAP) Pulse Ox O2 Delivery O2 Flow Rate FiO2 10/29/17 08:39 94 126/84 10/29/17 07:30 Nasal Cannula 2.0 10/29/17 07:00 98.6 16 96 98.6 Weight Weight [ ] Input and Output Intake and Output Intake and Output 10/29/17 07:00 Intake Total 2230 ml Output Total 4400 ml Balance -2170 ml Intake Oral 750 ml IV Total 1480 ml Output Urine Total 4400 ml # Voids 2 Laboratory Labs Laboratory Tests Test 10/28/17 11:50 10/29/17 01:20 10/29/17 07:10 Urine Collection Type Unknown Urine Color Straw Urine Clarity Clear Urine pH 6.5 Urine Specific [place] 1.010 Urine Protein Negative mg/dL (NEG-TRACE) Urine Glucose (UA) Negative mg/dL (NEG) Urine Ketones (Stick) Negative mg/dL (NEG) Urine Blood Negative (NEG) Urine Nitrite Negative (NEG) Urine Bilirubin Negative (NEG) Urine Urobilinogen Dipstick 0.2 mg/dL (0.2 mg/dL) Urine Leukocyte Esterase Negative (NEG) Urine RBC Rare /HPF (0-2) Urine WBC Rare /HPF (0-4) Urine Squamous Epithelial Cells Occ /LPF Urine Bacteria 0 /HPF (0-FEW) Urine Opiates Screen Neg (NEG) Urine Methadone Screen Neg (NEG) Urine Barbiturates Neg (NEG) Urine Phencyclidine Screen Neg (NEG) Urine Amphetamine/Methamphetamine Neg (NEG) Urine Benzodiazepines Screen Neg (NEG) Urine Cocaine Screen Neg (NEG) Urine Cannabinoids Screen Neg (NEG) Urine Ethyl Alcohol Neg (NEG) White Blood Count 8.0 x10^3/uL (4.0-11.0) Red Blood Count 4.22 x10^6/uL (4.30-5.70) Hemoglobin 14.9 g/dL (13.0-17.5) Hematocrit 42.1 % (39.0-53.0) Mean Corpuscular Volume 100 fL (79-100) Mean Corpuscular Hemoglobin 35 pg (25-35) Mean Corpuscular Hemoglobin Concent 35 g/dL (31-37) Red Cell Distribution Width 13.1 % (11.5-14.5) Platelet Count 276 x10^3/uL (140-400) Neutrophils (%) (Auto) 69 % (31-73) Lymphocytes (%) (Auto) 21 % (24-48) Monocytes (%) (Auto) 9 % (0-9) Eosinophils (%) (Auto) 1 % (0-3) Basophils (%) (Auto) 1 % (0-3) Neutrophils # (Auto) 5.5 x10^3uL (1.8-7.7) Lymphocytes # (Auto) 1.7 x10^3/uL (1.0-4.8) Monocytes # (Auto) 0.7 x10^3/uL (0.0-1.1) Eosinophils # (Auto) 0.1 x10^3/uL (0.0-0.7) Basophils # (Auto) 0.1 x10^3/uL (0.0-0.2) Heparin Anti-Xa Act, Unfractionated 0.45 IU/mL (0.30-0.70) 0.50 IU/mL (0.30-0.70) Sodium Level 134 mmol/L (136-145) Potassium Level 3.4 mmol/L (3.5-5.1) Chloride Level 100 mmol/L (98-107) Carbon Dioxide Level 22 mmol/L (21-32) Anion Gap 12 (6-14) Blood Urea Nitrogen 12 mg/dL (8-26) Creatinine 1.0 mg/dL (0.7-1.3) Estimated GFR (Cockcroft-Gault) 75.7 BUN/Creatinine Ratio 12 (6-20) Glucose Level 97 mg/dL (70-99) Calcium Level 8.4 mg/dL (8.5-10.1) Total Bilirubin 1.1 mg/dL (0.2-1.0) Aspartate Amino Transf (AST/SGOT) 27 U/L (15-37) Alanine Aminotransferase (ALT/SGPT) 21 U/L (16-63) Alkaline Phosphatase 43 U/L (46-116) Total Protein 6.5 g/dL (6.4-8.2) Albumin 3.4 g/dL (3.4-5.0) Albumin/Globulin Ratio 1.1 (1.0-1.7) Physical Exam HEENT: Neck Supple W Full Motion Chest: Symmetric LUNGS: Other (soft basilar crackles R>L) Heart: S1S2, RRR, no murmurs, other (tele: SR) Abdomen: Soft N/T Extremities: No Edema, Other (right radial puncture site C/D/I; 2+ pulse at site; fingers mobile; brisk cap refill) Neurology: alert, oriented, follow commands Assessment Assessment 1. NSTEMI --troponin peaked @ 2.4 --cardiac cath with 3 vessel CAD; remains on heparin gtt --tentatively scheduled for CABG tomorrow, however, patient indicating he must leave to take care of financial issues ----advised of high risk of repeat IA with possible as outcome; states he must leave, even if he dies --notified primary teacher instrumental and cardiac surgeon 2. Acute CHF --LVEF unknown, TTE remains pending --continue IV diuretics; hypokalemic and will replace 3. HTN --controlled with meds 4. Hypokalemia/hyponatremia --replete K today 5. HLD --statin therapy 6. Emphysema with persistent tobacco abuse --CT demonstrates emphysema --cessation advised 7. moderate REIA and JEROME disease KT KIRKPATRICK MD 10/29/17 1714: CARDIO Progress Notes Plan Plan Pt. seen and examined. Agree with above MARINE SUPERINTENDENT note. Plan for high risk CABG in a.m. Discussed with patient. Supportive care. RAMSES SANDOVAL APRN Oct 29, 2017 09:18 KT KIRKPATRICK MD Oct 29, 2017 17:14
[2017-10-29] MEDS: ASPIRIN ENTERIC COATED 325 MG TABLET.DR. PO SCH (09:24)
[2017-10-29] MEDS: ANTI-COAG MONITOR BY PHARMACY. MC PRN (10:35)
--- NOTE | 2017-10-29 10:50 | CARD ---
MR#: [id number] Date of Study: 10/29/2017 Ordering Physician: CLARISSA LORENZ, Referring Physician: ANKIT LI Tech: Jesenia Faye RDCS APPROVED REPORT EXAM: Two-dimensional and M-mode echocardiogram with Doppler and color Doppler. Other Information Quality : Fair INDICATION Non STEMI Pre-Op CABG 2D DIMENSIONS RVDd2.5 (2.9-3.5cm)Left Atrium(2D)4.6 (1.6-4.0cm) IVSd1.1 (0.7-1.1cm)Aortic Root(2D)3.0 (2.0-3.7cm) LVDd5.8 (3.9-5.9cm)LVOT Diameter2.1 (1.8-2.4cm) PWd1.1 (0.7-1.1cm)LVDs5.3 (2.5-4.0cm) FS (%) 9.4 %SV34.5 ml LVEF(%)20.4 (>50%) Aortic Valve AoV Peak Tony.78.4cm/sAoV VTI11.5cm AO Peak GR.2.5mmHgLVOT Peak Tony.63.5cm/s AO Mean GR.2mmHgAVA (VMAX)2.76cm2 VANESA (VTI)3.20cm2 Mitral Valve MV E Irqbxiar107.9cm/sMV DECEL AOOT24fw MV A Velocity3.7cm/sE/A Ratio29.2 Tricuspid Valve TR P. [id number]/sRAP [id number] TR Peak Gr.[id number] Pulmonary Vein S1 Wteucrmx30.5cm/sD2 Rggnictf30.7cm/s LEFT VENTRICLE The left ventricle is normal size. There is normal left ventricular wall thickness. Left ventricle sy stolic function is severely impaired. The Ejection Fraction is 20-25%. There is severe global hypokin esis of the left ventricle with predominant anterior, apical and lateral wall hypokinesis. The inferi or wall is grossly normal. Tissue Doppler imaging reveals moderate left ventricular diastolic dysfunc tion. RIGHT VENTRICLE The right ventricle is normal size. The right ventricular systolic function is normal. ATRIA The left atrium is mildly dilated. The right atrium size is normal. The interatrial septum is intact with no evidence for an atrial septal defect or patent foramen ovale as noted on 2-D or Doppler imagi ng. AORTIC VALVE The aortic valve is calcified but opens well. Doppler and Color Flow revealed trace aortic regurgitat ion. There is no significant aortic valvular stenosis. MITRAL VALVE The mitral valve is calcified but opens well. The posterior leaflet appears restricted. There is no e vidence of mitral valve prolapse. There is no mitral valve stenosis. Doppler and Color-flow revealed mild to moderate mitral regurgitation. TRICUSPID VALVE The tricuspid valve is normal in structure and function. Doppler and Color Flow revealed trace to mil d tricuspid regurgitation. There is moderate pulmonary hypertension. The PA pressure was estimated at 51 mmHg. There is no tricuspid valve stenosis. PULMONIC VALVE The pulmonic valve is not well visualized. Doppler and Color Flow revealed mild pulmonic valvular reg urgitation. There is no pulmonic valvular stenosis. GREAT VESSELS The aortic root is normal in size. The ascending aorta is normal in size. The IVC is normal in size a nd collapses >50% with inspiration. PERICARDIAL EFFUSION There is no evidence of significant pericardial effusion. Critical Notification Critical Value: No <Conclusion> There is severe global hypokinesis of the left ventricle with predominant anterior, apical and latera l wall hypokinesis. The inferior wall is grossly normal. Doppler and Color-flow revealed mild to moderate mitral regurgitation. Doppler and Color Flow revealed trace to mild tricuspid regurgitation. There is moderate pulmonary hy pertension. The PA pressure was estimated at 51 mmHg. Left ventricle systolic function is severely impaired. The Ejection Fraction is 20-25%. Signed by : Stuart Alvarez, Electronically Approved : 10/29/2017 10:49:06
--- NOTE | 2017-10-29 12:16 | PDOC ---
PROGRESS NOTES Chief Complaint Chief Complaint acute systolic CHF, IV lasix given NSTEMI, acute NV 3 vessel CAD, need CABG tobacco use disorder hx htn History of Present Illness History of Present Illness pain better cath showed need for CABG, multivessel dz, cont current Vitals Vitals Vital Signs Date Time Temp Pulse Resp B/P (MAP) Pulse Ox O2 Delivery O2 Flow Rate FiO2 10/29/17 08:39 94 126/84 10/29/17 07:30 Nasal Cannula 2.0 10/29/17 07:00 98.6 16 96 98.6 Physical Exam General: Alert, Oriented X3, Cooperative, No acute distress Heart: Regular rate (sinus tach), Normal S1, Normal S2, No murmurs, Other ( diatolic murmur to PERCY border /6 ) Abdomen: Normal bowel sounds, Soft Extremities: No cyanosis, No edema Skin: No rashes Labs LABS Laboratory Tests Test 10/29/17 01:20 10/29/17 07:10 White Blood Count 8.0 x10^3/uL (4.0-11.0) Red Blood Count 4.22 x10^6/uL (4.30-5.70) Hemoglobin 14.9 g/dL (13.0-17.5) Hematocrit 42.1 % (39.0-53.0) Mean Corpuscular Volume 100 fL (79-100) Mean Corpuscular Hemoglobin 35 pg (25-35) Mean Corpuscular Hemoglobin Concent 35 g/dL (31-37) Red Cell Distribution Width 13.1 % (11.5-14.5) Platelet Count 276 x10^3/uL (140-400) Neutrophils (%) (Auto) 69 % (31-73) Lymphocytes (%) (Auto) 21 % (24-48) Monocytes (%) (Auto) 9 % (0-9) Eosinophils (%) (Auto) 1 % (0-3) Basophils (%) (Auto) 1 % (0-3) Neutrophils # (Auto) 5.5 x10^3uL (1.8-7.7) Lymphocytes # (Auto) 1.7 x10^3/uL (1.0-4.8) Monocytes # (Auto) 0.7 x10^3/uL (0.0-1.1) Eosinophils # (Auto) 0.1 x10^3/uL (0.0-0.7) Basophils # (Auto) 0.1 x10^3/uL (0.0-0.2) Heparin Anti-Xa Act, Unfractionated 0.45 IU/mL (0.30-0.70) 0.50 IU/mL (0.30-0.70) Sodium Level 134 mmol/L (136-145) Potassium Level 3.4 mmol/L (3.5-5.1) Chloride Level 100 mmol/L (98-107) Carbon Dioxide Level 22 mmol/L (21-32) Anion Gap 12 (6-14) Blood Urea Nitrogen 12 mg/dL (8-26) Creatinine 1.0 mg/dL (0.7-1.3) Estimated GFR (Cockcroft-Gault) 75.7 BUN/Creatinine Ratio 12 (6-20) Glucose Level 97 mg/dL (70-99) Calcium Level 8.4 mg/dL (8.5-10.1) Total Bilirubin 1.1 mg/dL (0.2-1.0) Aspartate Amino Transf (AST/SGOT) 27 U/L (15-37) Alanine Aminotransferase (ALT/SGPT) 21 U/L (16-63) Alkaline Phosphatase 43 U/L (46-116) Troponin I Quantitative 1.495 ng/mL (0.000-0.055) Total Protein 6.5 g/dL (6.4-8.2) Albumin 3.4 g/dL (3.4-5.0) Albumin/Globulin Ratio 1.1 (1.0-1.7) Comment Review of Relevant I have reviewed the following items bryce (where applicable) has been applied. Labs Laboratory Tests Test 10/28/17 00:15 10/28/17 01:15 10/28/17 04:50 10/28/17 04:52 White Blood Count 9.1 x10^3/uL (4.0-11.0) Red Blood Count 4.44 x10^6/uL (4.30-5.70) Hemoglobin 15.6 g/dL (13.0-17.5) Hematocrit 44.5 % (39.0-53.0) Mean Corpuscular Volume 100 fL (79-100) Mean Corpuscular Hemoglobin 35 pg (25-35) Mean Corpuscular Hemoglobin Concent 35 g/dL (31-37) Red Cell Distribution Width 13.6 % (11.5-14.5) Platelet Count 295 x10^3/uL (140-400) Neutrophils (%) (Auto) 41 % (31-73) Lymphocytes (%) (Auto) 47 % (24-48) Monocytes (%) (Auto) 7 % (0-9) Eosinophils (%) (Auto) 5 % (0-3) Basophils (%) (Auto) 1 % (0-3) Neutrophils # (Auto) 3.7 x10^3uL (1.8-7.7) Lymphocytes # (Auto) 4.3 x10^3/uL (1.0-4.8) Monocytes # (Auto) 0.6 x10^3/uL (0.0-1.1) Eosinophils # (Auto) 0.4 x10^3/uL (0.0-0.7) Basophils # (Auto) 0.1 x10^3/uL (0.0-0.2) Prothrombin Time 13.1 SEC (11.7-14.0) Prothromb Time International Ratio 1.0 (0.8-1.1) Sodium Level 124 mmol/L (136-145) 127 mmol/L (136-145) Potassium Level 3.4 mmol/L (3.5-5.1) 3.3 mmol/L (3.5-5.1) Chloride Level 91 mmol/L (98-107) 94 mmol/L (98-107) Carbon Dioxide Level 20 mmol/L (21-32) 18 mmol/L (21-32) Anion Gap 13 (6-14) 15 (6-14) Blood Urea Nitrogen 13 mg/dL (8-26) 14 mg/dL (8-26) Creatinine 1.1 mg/dL (0.7-1.3) 1.1 mg/dL (0.7-1.3) Estimated GFR (Cockcroft-Gault) 67.8 67.8 BUN/Creatinine Ratio 12 (6-20) Glucose Level 125 mg/dL (70-99) 115 mg/dL (70-99) Calcium Level 8.7 mg/dL (8.5-10.1) 8.5 mg/dL (8.5-10.1) Total Bilirubin 0.6 mg/dL (0.2-1.0) Aspartate Amino Transf (AST/SGOT) 53 U/L (15-37) Alanine Aminotransferase (ALT/SGPT) 28 U/L (16-63) Alkaline Phosphatase 48 U/L (46-116) Troponin I Quantitative 0.078 ng/mL (0.000-0.055) 1.320 ng/mL (0.000-0.055) XM-Xkw-V-Type Natriuretic Peptide 2686 pg/mL (0-124) Total Protein 7.2 g/dL (6.4-8.2) Albumin 3.8 g/dL (3.4-5.0) Albumin/Globulin Ratio 1.1 (1.0-1.7) O2 Saturation 97 % (92-99) Arterial Blood pH 7.30 (7.35-7.45) Arterial Blood pCO2 at Patient Temp 36 mmHg (35-46) Arterial Blood pO2 at Patient Temp 105 mmHg (65-108) Arterial Blood HCO3 17 mmol/L (21-28) Arterial Blood Base Excess -8 mmol/L (-3-3) FiO2 80.0 Magnesium Level 1.6 mg/dL (1.8-2.4) Triglycerides Level 62 mg/dL (0-150) Cholesterol Level 192 mg/dL (0-200) LDL Cholesterol, Calculated 104 mg/dL (0-100) VLDL Cholesterol, Calculated 12 mg/dL (0-40) Non-HDL Cholesterol Calculated 116 mg/dL (0-129) HDL Cholesterol 76 mg/dL (40-60) Cholesterol/HDL Ratio 2.5 Thyroid Stimulating Hormone (TSH) 0.963 uIU/mL (0.358-3.74) Nasal Screen MRSA (PCR) Negative (Negative) Test 10/28/17 08:28 10/28/17 11:50 10/29/17 01:20 10/29/17 07:10 Heparin Anti-Xa Act, Unfractionated 0.26 IU/mL (0.30-0.70) 0.45 IU/mL (0.30-0.70) 0.50 IU/mL (0.30-0.70) Troponin I Quantitative 2.411 ng/mL (0.000-0.055) 1.495 ng/mL (0.000-0.055) Urine Collection Type Unknown Urine Color Straw Urine Clarity Clear Urine pH 6.5 Urine Specific [place] 1.010 Urine Protein Negative mg/dL (NEG-TRACE) Urine Glucose (UA) Negative mg/dL (NEG) Urine Ketones (Stick) Negative mg/dL (NEG) Urine Blood Negative (NEG) Urine Nitrite Negative (NEG) Urine Bilirubin Negative (NEG) Urine Urobilinogen Dipstick 0.2 mg/dL (0.2 mg/dL) Urine Leukocyte Esterase Negative (NEG) Urine RBC Rare /HPF (0-2) Urine WBC Rare /HPF (0-4) Urine Squamous Epithelial Cells Occ /LPF Urine Bacteria 0 /HPF (0-FEW) Urine Opiates Screen Neg (NEG) Urine Methadone Screen Neg (NEG) Urine Barbiturates Neg (NEG) Urine Phencyclidine Screen Neg (NEG) Urine Amphetamine/Methamphetamine Neg (NEG) Urine Benzodiazepines Screen Neg (NEG) Urine Cocaine Screen Neg (NEG) Urine Cannabinoids Screen Neg (NEG) Urine Ethyl Alcohol Neg (NEG) White Blood Count 8.0 x10^3/uL (4.0-11.0) Red Blood Count 4.22 x10^6/uL (4.30-5.70) Hemoglobin 14.9 g/dL (13.0-17.5) Hematocrit 42.1 % (39.0-53.0) Mean Corpuscular Volume 100 fL (79-100) Mean Corpuscular Hemoglobin 35 pg (25-35) Mean Corpuscular Hemoglobin Concent 35 g/dL (31-37) Red Cell Distribution Width 13.1 % (11.5-14.5) Platelet Count 276 x10^3/uL (140-400) Neutrophils (%) (Auto) 69 % (31-73) Lymphocytes (%) (Auto) 21 % (24-48) Monocytes (%) (Auto) 9 % (0-9) Eosinophils (%) (Auto) 1 % (0-3) Basophils (%) (Auto) 1 % (0-3) Neutrophils # (Auto) 5.5 x10^3uL (1.8-7.7) Lymphocytes # (Auto) 1.7 x10^3/uL (1.0-4.8) Monocytes # (Auto) 0.7 x10^3/uL (0.0-1.1) Eosinophils # (Auto) 0.1 x10^3/uL (0.0-0.7) Basophils # (Auto) 0.1 x10^3/uL (0.0-0.2) Sodium Level 134 mmol/L (136-145) Potassium Level 3.4 mmol/L (3.5-5.1) Chloride Level 100 mmol/L (98-107) Carbon Dioxide Level 22 mmol/L (21-32) Anion Gap 12 (6-14) Blood Urea Nitrogen 12 mg/dL (8-26) Creatinine 1.0 mg/dL (0.7-1.3) Estimated GFR (Cockcroft-Gault) 75.7 BUN/Creatinine Ratio 12 (6-20) Glucose Level 97 mg/dL (70-99) Calcium Level 8.4 mg/dL (8.5-10.1) Total Bilirubin 1.1 mg/dL (0.2-1.0) Aspartate Amino Transf (AST/SGOT) 27 U/L (15-37) Alanine Aminotransferase (ALT/SGPT) 21 U/L (16-63) Alkaline Phosphatase 43 U/L (46-116) Total Protein 6.5 g/dL (6.4-8.2) Albumin 3.4 g/dL (3.4-5.0) Albumin/Globulin Ratio 1.1 (1.0-1.7) Laboratory Tests Test 10/29/17 01:20 10/29/17 07:10 White Blood Count 8.0 x10^3/uL (4.0-11.0) Red Blood Count 4.22 x10^6/uL (4.30-5.70) Hemoglobin 14.9 g/dL (13.0-17.5) Hematocrit 42.1 % (39.0-53.0) Mean Corpuscular Volume 100 fL (79-100) Mean Corpuscular Hemoglobin 35 pg (25-35) Mean Corpuscular Hemoglobin Concent 35 g/dL (31-37) Red Cell Distribution Width 13.1 % (11.5-14.5) Platelet Count 276 x10^3/uL (140-400) Neutrophils (%) (Auto) 69 % (31-73) Lymphocytes (%) (Auto) 21 % (24-48) Monocytes (%) (Auto) 9 % (0-9) Eosinophils (%) (Auto) 1 % (0-3) Basophils (%) (Auto) 1 % (0-3) Neutrophils # (Auto) 5.5 x10^3uL (1.8-7.7) Lymphocytes # (Auto) 1.7 x10^3/uL (1.0-4.8) Monocytes # (Auto) 0.7 x10^3/uL (0.0-1.1) Eosinophils # (Auto) 0.1 x10^3/uL (0.0-0.7) Basophils # (Auto) 0.1 x10^3/uL (0.0-0.2) Heparin Anti-Xa Act, Unfractionated 0.45 IU/mL (0.30-0.70) 0.50 IU/mL (0.30-0.70) Sodium Level 134 mmol/L (136-145) Potassium Level 3.4 mmol/L (3.5-5.1) Chloride Level 100 mmol/L (98-107) Carbon Dioxide Level 22 mmol/L (21-32) Anion Gap 12 (6-14) Blood Urea Nitrogen 12 mg/dL (8-26) Creatinine 1.0 mg/dL (0.7-1.3) Estimated GFR (Cockcroft-Gault) 75.7 BUN/Creatinine Ratio 12 (6-20) Glucose Level 97 mg/dL (70-99) Calcium Level 8.4 mg/dL (8.5-10.1) Total Bilirubin 1.1 mg/dL (0.2-1.0) Aspartate Amino Transf (AST/SGOT) 27 U/L (15-37) Alanine Aminotransferase (ALT/SGPT) 21 U/L (16-63) Alkaline Phosphatase 43 U/L (46-116) Troponin I Quantitative 1.495 ng/mL (0.000-0.055) Total Protein 6.5 g/dL (6.4-8.2) Albumin 3.4 g/dL (3.4-5.0) Albumin/Globulin Ratio 1.1 (1.0-1.7) Medications Current Medications Aspirin (Children'S Aspirin) 324 mg 1X ONCE PO Last administered on 10/28/17at 01:28; Start 10/28/17 at 01:30; Stop 10/28/17 at 01:31; Status DC Nitroglycerin (Nitro-Bid Oint) 1 inch 1X ONCE TP Last administered on at 01:29; Start 10/28/17 at 01:30; Stop 10/28/17 at 01:31; Status DC Furosemide (Lasix) 40 mg 1X ONCE IVP Last administered on 10/28/17at 01:28; Start 10/28/17 at 01:30; Stop 10/28/17 at 01:31; Status DC Enoxaparin Sodium (Lovenox Per Pharmacy Treatment Dosing) 1 each PRN DAILY PRN MC SEE COMMENTS; Start 10/28/17 at 01:30; Status Cancel Ondansetron HCl (Zofran) 4 mg PRN Q8HRS PRN IV NAUSEA/VOMITING 1ST CHOICE; Start 10/28/17 at 01:30; Stop 10/29/17 at 01:29; Status DC Fentanyl Citrate (Fentanyl 2ml Vial) 50 mcg PRN Q1HR PRN IV SEVERE PAIN; Start 10/28/17 at 01:30; Stop 10/29/17 at 01:29; Status DC Acetaminophen (Tylenol) 650 mg PRN Q4HRS PRN PO FEVER; Start 10/28/17 at 01:30; Stop 10/29/17 at 01:29; Status DC Heparin Sodium/ Dextrose 500 ml @ 0 mls/hr CONT PRN IV SEE I/O RECORD Last administered on 10/29/17at 02:02; Start 10/28/17 at 01:30; Stop 10/30/17 at 00:05 Heparin Sodium (Porcine) (Heparin Sodium) 2,000 unit PRN Q6HRS PRN IV FOR UFH LEVEL LESS THAN 0.2 Last administered on 10/28/17at 02:17; Start 10/28/17 at 01:30 Furosemide (Lasix) 40 mg [id number] IVP ; Start 10/28/17 at 09:00; Stop 10/28/17 at 13: 04; Status DC Furosemide (Lasix) 40 mg 1X ONCE IVP Last administered on 10/28/17at 02:13; Start 10/28/17 at 02:00; Stop 10/28/17 at 02:01; Status DC Info (Anti-Coagulation Monitoring By Pharmacy) 1 each PRN DAILY PRN MC SEE COMMENTS Last administered on 10/29/17at 10:35; Start 10/28/17 at 02:00 Aspirin (Ecotrin) 325 mg [id number] PO Last administered on 10/29/17at 09:24; Start 10/28/17 at 09:30 Sodium Chloride 1,000 ml @ 50 mls/hr 1X ONCE IV Last administered on at 11:37; Start 10/28/17 at 09:30; Stop 10/29/17 at 05:29; Status DC Labetalol HCl (Normodyne Iv Push) 20 mg PRN Q2HR PRN IVP HYPERTENSION, SEE COMMENTS; Start 10/28/17 at 09:15; Stop 10/29/17 at 23:55 Magnesium Sulfate 50 ml @ 25 mls/hr 1X ONCE IV Last administered on 10/28/17at 11:29; Start 10/28/17 at 11:30; Stop 10/28/17 at 13:29; Status DC Potassium Chloride (Klor-Con) 40 meq 1X ONCE PO Last administered on 10/28/17at 16:42; Start 10/28/17 at 11:30; Stop 10/28/17 at 11:31; Status DC Furosemide (Lasix) 40 mg DAILY IVP Last administered on 10/29/17at 09:35; Start 10/29/17 at 09:00 Iodixanol (Visipaque 320) 100 ml STK-MED ONCE .ROUTE ; Start 10/28/17 at 14:04; Stop 10/28/17 at 14:05; Status DC Lidocaine HCl (Xylocaine-Mpf 1% 2ml Vial) 2 ml STK-MED ONCE .ROUTE ; Start at 14:04; Stop 10/28/17 at 14:05; Status DC Heparin Sodium/ Sodium Chloride 1,000 ml @ As Directed STK-MED ONCE .ROUTE ; Start 10/28/17 at 14:05; Stop 10/28/17 at 14:06; Status DC Fentanyl Citrate (Fentanyl 2ml Vial) 100 mcg STK-MED ONCE .ROUTE ; Start at 15:10; Stop 10/28/17 at 15:11; Status DC Midazolam HCl (Versed) 2 mg STK-MED ONCE .ROUTE ; Start 10/28/17 at 15:10; Stop 10/28/17 at 15:11; Status DC Heparin Sodium (Porcine) (Heparin Sodium) 10,000 unit STK-MED ONCE .ROUTE ; Start 10/28/17 at 15:10; Stop 10/28/17 at 15:11; Status DC Verapamil HCl (Verapamil) 5 mg STK-MED ONCE .ROUTE ; Start 10/28/17 at 15:10; Stop 10/28/17 at 15:11; Status DC Nitroglycerin (Nitroglycerin) 200 mcg STK-MED ONCE .ROUTE ; Start 10/28/17 at 15: 10; Stop 10/28/17 at 15:11; Status DC Nitroglycerin (Nitroglycerin) 200 mcg 1X ONCE IART Last administered on at 15:57; Start 10/28/17 at 16:00; Stop 10/28/17 at 16:01; Status DC Verapamil HCl (Verapamil) 2.5 mg 1X ONCE IART Last administered on 10/28/17at 15 :57; Start 10/28/17 at 16:00; Stop 10/28/17 at 16:01; Status DC Heparin Sodium (Porcine) (Heparin Sodium) 2,500 unit 1X ONCE IART Last administered on 10/28/17at 15:30; Start 10/28/17 at 16:00; Stop 10/28/17 at 16:01; Status DC Heparin Sodium/ Sodium Chloride (HEPARIN for ARTERIAL LINE FLUSH) 1,000 unit 1X ONCE IART Last administered on 10/28/17at 15:56; Start 10/28/17 at 16:00; Stop 10/28/17 at 16:01; Status DC Midazolam HCl (Versed) 2 mg 1X ONCE IV Last administered on 10/28/17at 15:58; Start 10/28/17 at 16:00; Stop 10/28/17 at 16:01; Status DC Fentanyl Citrate (Fentanyl 2ml Vial) 50 mcg 1X ONCE IV Last administered on 10/28/17at 15:58; Start 10/28/17 at 16:00; Stop 10/28/17 at 16:01; Status DC Iodixanol (Visipaque 320) 65 ml 1X ONCE IART Last administered on 10/28/17at 15: 56; Start 10/28/17 at 16:00; Stop 10/28/17 at 16:01; Status DC Lidocaine HCl (Xylocaine-Mpf 1% 2ml Vial) 1 ml 1X ONCE INJ Last administered on 10/28/17at 15:57; Start 10/28/17 at 16:00; Stop 10/28/17 at 16:01; Status DC Info (CONTRAST GIVEN -- Rx MONITORING) 1 each PRN DAILY PRN MC SEE COMMENTS; Start 10/28/17 at 16:00; Stop 10/30/17 at 15:59 Metoprolol Tartrate (Lopressor) 12.5 mg BID PO Last administered on 10/29/17at 08 :39; Start 10/28/17 at 21:00; Stop 10/29/17 at 23:55 Potassium Chloride (Klor-Con) 40 meq 1X ONCE PO Last administered on 10/29/17at 09:24; Start 10/29/17 at 09:00; Stop 10/29/17 at 09:01; Status DC Alprazolam (Xanax) 0.25 mg PRN Q8HRS PRN PO ANXIETY / AGITATION; Start 10/29/17 at 09:15 Potassium Chloride 70 meq/ Sodium Bicarbonate 12.5 meq/Lidocaine HCl 24 ml/ Parenteral Electrolytes 571.5 ml @ 571.5 mls/ hr 1X ONCE IRR ; Start 10/30/17 at 06:00; Stop 10/30/17 at 06:59 Potassium Chloride 15 meq/ Sodium Bicarbonate 12.5 meq/Parenteral Electrolytes 520 ml @ 520 mls/hr 1X ONCE IRR ; Start 10/30/17 at 06:00; Stop 10/30/17 at 06: 59 Heparin Sodium (Porcine) 33693 unit/Ringer's Solution 1,020 ml @ 1,020 mls/hr 1X ONCE IRR ; Start 10/30/17 at 06:00; Stop 10/30/17 at 06:59 Heparin Sodium (Porcine) 800 unit/ Nitroglycerin 4 mg/Verapamil HCl 8 mg/Sodium Bicarbonate 0.34 meq/Ringer's Solution 512.34 ml @ 512.34 mls/hr 1X ONCE IRR ; Start 10/30/17 at 06:00; Stop 10/30/17 at 06:59 Ondansetron HCl (Zofran) 4 mg PRN Q6HRS PRN IV NAUSEA/VOMITING; Start 10/30/17 at 07:00; Stop 10/31/17 at 06:59 Fentanyl Citrate (Fentanyl 2ml Vial) 25 mcg PRN Q5MIN PRN IV MILD PAIN; Start 10/30/17 at 07:00; Stop 10/31/17 at 06:59 Fentanyl Citrate (Fentanyl 2ml Vial) 50 mcg PRN Q5MIN PRN IV MODERATE TO SEVERE PAIN; Start 10/30/17 at 07:00; Stop 10/31/17 at 06:59 Morphine Sulfate (Morphine Sulfate) 1 mg PRN Q10MIN PRN IV SEVERE PAIN; Start 10/30/17 at 07:00; Stop 10/31/17 at 06:59 Ringer's Solution 1,000 ml @ 30 mls/hr Q24H IV ; Start 10/30/17 at 07:00; Stop 10/30/17 at 18:59 Lidocaine HCl (Xylocaine-Mpf 1% 2ml Vial) 2 ml PRN 1X PRN ID IV START; Start at 07:00; Stop 10/31/17 at 06:59 Hydromorphone HCl (Dilaudid) 0.5 mg PRN Q10MIN PRN IV SEV PAIN, Second choice; Start 10/30/17 at 07:00; Stop 10/31/17 at 06:59 Prochlorperazine Edisylate (Compazine) 5 mg PACU PRN PRN IV NAUSEA, MRX1; Start 10/30/17 at 07:00; Stop 10/31/17 at 06:59 Vitals/I & O Vital Sign - Last 24 Hours 10/28/17 10/28/17 10/28/17 10/28/17 14:47 15:57 15:58 16:00 Temp 98.6 98.6 Pulse 106 95 98 Resp 18 15 15 B/P (MAP) 127/73 (91) Pulse Ox 94 95 94 O2 Delivery Nasal Cannula Nasal Cannula Nasal Cannula O2 Flow Rate 2.0 2.0 2.0 10/28/17 10/28/17 10/28/17 10/28/17 18:37 19:41 20:45 23:00 Temp 99.0 98.8 99.0 98.8 Pulse 101 99 94 Resp 18 18 B/P (MAP) 113/69 (84) 121/68 120/76 (91) Pulse Ox 97 92 O2 Delivery Nasal Cannula Nasal Cannula Nasal Cannula O2 Flow Rate 2.0 2.0 2.0 10/29/17 10/29/17 10/29/17 10/29/17 03:00 07:00 07:30 08:39 Temp 98.5 98.6 98.5 98.6 Pulse 93 94 94 Resp 16 16 B/P (MAP) 116/75 (89) 126/84 (98) 126/84 Pulse Ox 94 96 O2 Delivery Nasal Cannula Nasal Cannula Nasal Cannula O2 Flow Rate 2.0 2.0 2.0 Intake and Output 10/28/17 10/28/17 10/29/17 15:00 23:00 07:00 Intake Total 0 ml 450 ml 1780 ml Output Total 2200 ml 700 ml 1500 ml Balance -2200 ml -250 ml 280 ml SANTOSH GRAF MD Oct 29, 2017 12:15
--- NOTE | 2017-10-29 16:56 | PDOC2 ---
CONSULT Date of Consult Date of Consult DATE: 10/29/17 TIME: 16:41 Reason for Consult Reason for Consult: NSTEMI CHF Referring Physician Referring Physician: Dr Ardon Identification/Chief Complaint Chief Complaint SOB Source Source: Chart review, Patient History of Present Illness Reason for Visit: Patient is a 61 y old male with a hx of HTN, lifelong heavy smoking and strong family hx of IHD, who presented yesterday with SOB. Found to be in CHF and NSTEMI. Trop peaked at 2,4. LHC showed a 95% proximal LAD stenosis, 70 ostial D1 , a tight proximal/mid RCA lesion. He has severe ischemic cardiomyopathy with EF 20-25% Past Medical History Cardiovascular: HTN Pulmonary: No pertinent hx CENTRAL NERVOUS SYSTEM: Other (No pertinent history) GI: GERD Heme/Onc: No pertinent hx Hepatobiliary: No pertinent hx Psych: No pertinent hx Musculoskeletal: Osteoarthritis Rheumatologic: No pertinent hx Infectious disease: No pertinent hx ENT: No pertinent hx Renal/: No pertinent hx Endocrine: No pertinent hx Dermatology: Other (recent leg rash from mowing, described it as poison Elisa exposure. ) Past Surgical History Past Surgical History: Cataract Removal Family History Family History: Coronary Artery Disease (father) Social History 1 pack per day (>40 yrs) ALCOHOL: other (2 beers daily at night) Drugs: None Lives: with Family Current Medications Current Medications Current Medications Aspirin (Children'S Aspirin) 324 mg 1X ONCE PO Last administered on 10/28/17at 01:28; Start 10/28/17 at 01:30; Stop 10/28/17 at 01:31; Status DC Nitroglycerin (Nitro-Bid Oint) 1 inch 1X ONCE TP Last administered on at 01:29; Start 10/28/17 at 01:30; Stop 10/28/17 at 01:31; Status DC Furosemide (Lasix) 40 mg 1X ONCE IVP Last administered on 10/28/17at 01:28; Start 10/28/17 at 01:30; Stop 10/28/17 at 01:31; Status DC Enoxaparin Sodium (Lovenox Per Pharmacy Treatment Dosing) 1 each PRN DAILY PRN MC SEE COMMENTS; Start 10/28/17 at 01:30; Status Cancel Ondansetron HCl (Zofran) 4 mg PRN Q8HRS PRN IV NAUSEA/VOMITING 1ST CHOICE; Start 10/28/17 at 01:30; Stop 10/29/17 at 01:29; Status DC Fentanyl Citrate (Fentanyl 2ml Vial) 50 mcg PRN Q1HR PRN IV SEVERE PAIN; Start 10/28/17 at 01:30; Stop 10/29/17 at 01:29; Status DC Acetaminophen (Tylenol) 650 mg PRN Q4HRS PRN PO FEVER; Start 10/28/17 at 01:30; Stop 10/29/17 at 01:29; Status DC Heparin Sodium/ Dextrose 500 ml @ 0 mls/hr CONT PRN IV SEE I/O RECORD Last administered on 10/29/17at 02:02; Start 10/28/17 at 01:30; Stop 10/30/17 at 00:05 Heparin Sodium (Porcine) (Heparin Sodium) 2,000 unit PRN Q6HRS PRN IV FOR UFH LEVEL LESS THAN 0.2 Last administered on 10/28/17at 02:17; Start 10/28/17 at 01:30 Furosemide (Lasix) 40 mg [id number] IVP ; Start 10/28/17 at 09:00; Stop 10/28/17 at 13: 04; Status DC Furosemide (Lasix) 40 mg 1X ONCE IVP Last administered on 10/28/17at 02:13; Start 10/28/17 at 02:00; Stop 10/28/17 at 02:01; Status DC Info (Anti-Coagulation Monitoring By Pharmacy) 1 each PRN DAILY PRN MC SEE COMMENTS Last administered on 10/29/17at 10:35; Start 10/28/17 at 02:00 Aspirin (Ecotrin) 325 mg DAILYWBKFT PO Last administered on 10/29/17at 09:24; Start 10/28/17 at 09:30; Stop 10/29/17 at 14:52; Status DC Sodium Chloride 1,000 ml @ 50 mls/hr 1X ONCE IV Last administered on at 11:37; Start 10/28/17 at 09:30; Stop 10/29/17 at 05:29; Status DC Labetalol HCl (Normodyne Iv Push) 20 mg PRN Q2HR PRN IVP HYPERTENSION, SEE COMMENTS; Start 10/28/17 at 09:15; Stop 10/29/17 at 23:55 Magnesium Sulfate 50 ml @ 25 mls/hr 1X ONCE IV Last administered on 10/28/17at 11:29; Start 10/28/17 at 11:30; Stop 10/28/17 at 13:29; Status DC Potassium Chloride (Klor-Con) 40 meq 1X ONCE PO Last administered on 10/28/17at 16:42; Start 10/28/17 at 11:30; Stop 10/28/17 at 11:31; Status DC Furosemide (Lasix) 40 mg DAILY IVP Last administered on 10/29/17at 09:35; Start 10/29/17 at 09:00; Stop 10/29/17 at 14:54; Status DC Iodixanol (Visipaque 320) 100 ml STK-MED ONCE .ROUTE ; Start 10/28/17 at 14:04; Stop 10/28/17 at 14:05; Status DC Lidocaine HCl (Xylocaine-Mpf 1% 2ml Vial) 2 ml STK-MED ONCE .ROUTE ; Start at 14:04; Stop 10/28/17 at 14:05; Status DC Heparin Sodium/ Sodium Chloride 1,000 ml @ As Directed STK-MED ONCE .ROUTE ; Start 10/28/17 at 14:05; Stop 10/28/17 at 14:06; Status DC Fentanyl Citrate (Fentanyl 2ml Vial) 100 mcg STK-MED ONCE .ROUTE ; Start at 15:10; Stop 10/28/17 at 15:11; Status DC Midazolam HCl (Versed) 2 mg STK-MED ONCE .ROUTE ; Start 10/28/17 at 15:10; Stop 10/28/17 at 15:11; Status DC Heparin Sodium (Porcine) (Heparin Sodium) 10,000 unit STK-MED ONCE .ROUTE ; Start 10/28/17 at 15:10; Stop 10/28/17 at 15:11; Status DC Verapamil HCl (Verapamil) 5 mg STK-MED ONCE .ROUTE ; Start 10/28/17 at 15:10; Stop 10/28/17 at 15:11; Status DC Nitroglycerin (Nitroglycerin) 200 mcg STK-MED ONCE .ROUTE ; Start 10/28/17 at 15: 10; Stop 10/28/17 at 15:11; Status DC Nitroglycerin (Nitroglycerin) 200 mcg 1X ONCE IART Last administered on 15:57; Start 10/28/17 at 16:00; Stop 10/28/17 at 16:01; Status DC Verapamil HCl (Verapamil) 2.5 mg 1X ONCE IART Last administered on 10/28/17at 15 :57; Start 10/28/17 at 16:00; Stop 10/28/17 at 16:01; Status DC Heparin Sodium (Porcine) (Heparin Sodium) 2,500 unit 1X ONCE IART Last administered on 10/28/17at 15:30; Start 10/28/17 at 16:00; Stop 10/28/17 at 16:01; Status DC Heparin Sodium/ Sodium Chloride (HEPARIN for ARTERIAL LINE FLUSH) 1,000 unit 1X ONCE IART Last administered on 10/28/17at 15:56; Start 10/28/17 at 16:00; Stop 10/28/17 at 16:01; Status DC Midazolam HCl (Versed) 2 mg 1X ONCE IV Last administered on 10/28/17at 15:58; Start 10/28/17 at 16:00; Stop 10/28/17 at 16:01; Status DC Fentanyl Citrate (Fentanyl 2ml Vial) 50 mcg 1X ONCE IV Last administered on 10/28/17at 15:58; Start 10/28/17 at 16:00; Stop 10/28/17 at 16:01; Status DC Iodixanol (Visipaque 320) 65 ml 1X ONCE IART Last administered on 10/28/17at 15: 56; Start 10/28/17 at 16:00; Stop 10/28/17 at 16:01; Status DC Lidocaine HCl (Xylocaine-Mpf 1% 2ml Vial) 1 ml 1X ONCE INJ Last administered on 10/28/17at 15:57; Start 10/28/17 at 16:00; Stop 10/28/17 at 16:01; Status DC Info (CONTRAST GIVEN -- Rx MONITORING) 1 each PRN DAILY PRN MC SEE COMMENTS; Start 10/28/17 at 16:00; Stop 10/30/17 at 15:59 Metoprolol Tartrate (Lopressor) 12.5 mg BID PO Last administered on 10/29/17at 08 :39; Start 10/28/17 at 21:00; Stop 10/29/17 at 23:55 Potassium Chloride (Klor-Con) 40 meq 1X ONCE PO Last administered on 10/29/17at 09:24; Start 10/29/17 at 09:00; Stop 10/29/17 at 09:01; Status DC Alprazolam (Xanax) 0.25 mg PRN Q8HRS PRN PO ANXIETY / AGITATION; Start 10/29/17 at 09:15; Stop 10/29/17 at 22:00 Potassium Chloride 70 meq/ Sodium Bicarbonate 12.5 meq/Lidocaine HCl 24 ml/ Parenteral Electrolytes 571.5 ml @ 571.5 mls/ hr 1X ONCE IRR ; Start 10/30/17 at 06:00; Stop 10/30/17 at 06:59 Potassium Chloride 15 meq/ Sodium Bicarbonate 12.5 meq/Parenteral Electrolytes 520 ml @ 520 mls/hr 1X ONCE IRR ; Start 10/30/17 at 06:00; Stop 10/30/17 at 06: 59 Heparin Sodium (Porcine) 14339 unit/Ringer's Solution 1,020 ml @ 1,020 mls/hr 1X ONCE IRR ; Start 10/30/17 at 06:00; Stop 10/30/17 at 06:59 Heparin Sodium (Porcine) 800 unit/ Nitroglycerin 4 mg/Verapamil HCl 8 mg/Sodium Bicarbonate 0.34 meq/Ringer's Solution 512.34 ml @ 512.34 mls/hr 1X ONCE IRR ; Start 10/30/17 at 06:00; Stop 10/30/17 at 06:59 Ondansetron HCl (Zofran) 4 mg PRN Q6HRS PRN IV NAUSEA/VOMITING; Start 10/30/17 at 07:00; Stop 10/31/17 at 06:59 Fentanyl Citrate (Fentanyl 2ml Vial) 25 mcg PRN Q5MIN PRN IV MILD PAIN; Start 10/30/17 at 07:00; Stop 10/31/17 at 06:59 Fentanyl Citrate (Fentanyl 2ml Vial) 50 mcg PRN Q5MIN PRN IV MODERATE TO SEVERE PAIN; Start 10/30/17 at 07:00; Stop 10/31/17 at 06:59 Morphine Sulfate (Morphine Sulfate) 1 mg PRN Q10MIN PRN IV SEVERE PAIN; Start 10/30/17 at 07:00; Stop 10/31/17 at 06:59 Ringer's Solution 1,000 ml @ 30 mls/hr Q24H IV ; Start 10/30/17 at 07:00; Stop 10/30/17 at 18:59 Lidocaine HCl (Xylocaine-Mpf 1% 2ml Vial) 2 ml PRN 1X PRN ID IV START; Start at 07:00; Stop 10/31/17 at 06:59 Hydromorphone HCl (Dilaudid) 0.5 mg PRN Q10MIN PRN IV SEV PAIN, Second choice; Start 10/30/17 at 07:00; Stop 10/31/17 at 06:59 Prochlorperazine Edisylate (Compazine) 5 mg PACU PRN PRN IV NAUSEA, MRX1; Start 10/30/17 at 07:00; Stop 10/31/17 at 06:59 Allergies Allergies: Coded Allergies: No Known Drug Allergies (Unverified , 10/28/17) ROS General: No: Chills, Night Sweats, Fatigue, Malaise, Appetite PSYCHOLOGICAL ROS: No: Anxiety, Behavioral Disorder, Concentration difficultie , Decreased libido, Depression, Disorientation, Hallucinations, Hostility, Irritablity, Memory difficulties, Mood Swings, Obsessive thoughts, Physical abuse, Sexual abuse, Sleep disturbances, Suicidal ideation Eyes: No Blurry vision, No Decreased vision, No Double vision, No Dry eyes, No Excessive tearing, No Eye Pain, No Itchy Eyes, No Loss of vision, No Photophobia , No Scotomata, No Uses contacts, No Uses glasses HEENT: No: Heacaches, Visual Changes, Hearing change, Nasal congestion, Nasal discharge, Oral lesions, Sinus pain, Sore Throat, Epistaxis, Sneezing, Snoring, Tinnitus, Vertigo, Vocal changes ALLERGY AND IMMUNOLOGY: No: Hives, Insect Bite Sensitivity, Itchy/Watery Eyes, Nasal Congestion, Post Nasal Drip, Seasonal Allergies Hematological and Lymphatic: No: Bleeding Problems, Blood Clots, Blood Transfusions, Brusing, Night Sweats, Pallor, Swollen Lymph Nodes ENDOCRINE: No: Breast Changes, Galactorrhea, Hair Pattern Changes, Hot Flashes , Malaise/lethargy, Mood Swings, Palpitations, Polydipsia/polyuria, Skin Changes , Temperature Intolerance, Unexpected Weight Changes Respiratory: YES: Shortness of breath; No: Cough, Hemoptysis, Orthopnea, Pleuritic Pain, SOB with excertion, Sputum Changes, Stridor, Tachypnea, Wheezing Cardiovascular: yes Chest Pain; No Palpitations, No Orthopnea, No Paroxysmal Noc. Dyspnea, No Edema, No Lt Headedness Gastrointestinal: No Nausea, No Vomiting, No Abdominal Pain, No Diarrhea, No Constipation, No Melena, No Hematochezia Genitourinary: No Dysuria, No Frequency, No Incontinence, No Hematuria, No Retention, No Discharge, No Urgency, No Pain, No Flank Pain Musculoskeletal: No Gait Disturbance, No Joint Pain, No Joint Stiffness, No Joint Swelling, No Muscle Pain, No Muscular Weakness, No Pain In:, No Swelling In:, No Other Neurological: No Behavorial Changes, No Bowel/Bladder ControlChng, No Confusion , No Dizziness, No Gait Disturbance, No Headaches, No Impaired Coord/balance, No Memory Loss, No Numbness/Tingling, No Seizures, No Speech Problems, No Tremors, No Visual Changes, No Weakness Skin: No Dry Skin, No Eczema, No Hair Changes, No Lumps, No Mole Changes, No Mottling, No Nail Changes, No Pruritus, No Rash, No Skin Lesion Changes, No Acne Physical Exam General: Alert, Oriented X3, No acute distress HEENT: PERRLA Lungs: Clear to auscultation Heart: Regular rate, Normal S1, Normal S2 Abdomen: Soft, No tenderness Extremities: No edema Skin: No significant lesion Neuro: Normal gait, Normal speech, Strength at 5/5 X4 ext, Normal tone, Sensation intact, Cranial nerves 3-12 NL, Reflexes 2+ Psych/Mental Status: Mental status NL MUSCULOSKELETAL: No deformity Vitals VITALS Vital Signs Date Time Temp Pulse Resp B/P (MAP) Pulse Ox O2 Delivery O2 Flow Rate FiO2 10/29/17 14:46 97.7 95 18 131/89 (103) 97 Nasal Cannula 2.0 97.7 Labs Labs Laboratory Tests Test 10/28/17 00:15 10/28/17 01:15 10/28/17 04:50 10/28/17 04:52 White Blood Count 9.1 x10^3/uL (4.0-11.0) Red Blood Count 4.44 x10^6/uL (4.30-5.70) Hemoglobin 15.6 g/dL (13.0-17.5) Hematocrit 44.5 % (39.0-53.0) Mean Corpuscular Volume 100 fL (79-100) Mean Corpuscular Hemoglobin 35 pg (25-35) Mean Corpuscular Hemoglobin Concent 35 g/dL (31-37) Red Cell Distribution Width 13.6 % (11.5-14.5) Platelet Count 295 x10^3/uL (140-400) Neutrophils (%) (Auto) 41 % (31-73) Lymphocytes (%) (Auto) 47 % (24-48) Monocytes (%) (Auto) 7 % (0-9) Eosinophils (%) (Auto) 5 % (0-3) Basophils (%) (Auto) 1 % (0-3) Neutrophils # (Auto) 3.7 x10^3uL (1.8-7.7) Lymphocytes # (Auto) 4.3 x10^3/uL (1.0-4.8) Monocytes # (Auto) 0.6 x10^3/uL (0.0-1.1) Eosinophils # (Auto) 0.4 x10^3/uL (0.0-0.7) Basophils # (Auto) 0.1 x10^3/uL (0.0-0.2) Prothrombin Time 13.1 SEC (11.7-14.0) Prothromb Time International Ratio 1.0 (0.8-1.1) Sodium Level 124 mmol/L (136-145) 127 mmol/L (136-145) Potassium Level 3.4 mmol/L (3.5-5.1) 3.3 mmol/L (3.5-5.1) Chloride Level 91 mmol/L (98-107) 94 mmol/L (98-107) Carbon Dioxide Level 20 mmol/L (21-32) 18 mmol/L (21-32) Anion Gap 13 (6-14) 15 (6-14) Blood Urea Nitrogen 13 mg/dL (8-26) 14 mg/dL (8-26) Creatinine 1.1 mg/dL (0.7-1.3) 1.1 mg/dL (0.7-1.3) Estimated GFR (Cockcroft-Gault) 67.8 67.8 BUN/Creatinine Ratio 12 (6-20) Glucose Level 125 mg/dL (70-99) 115 mg/dL (70-99) Calcium Level 8.7 mg/dL (8.5-10.1) 8.5 mg/dL (8.5-10.1) Total Bilirubin 0.6 mg/dL (0.2-1.0) Aspartate Amino Transf (AST/SGOT) 53 U/L (15-37) Alanine Aminotransferase (ALT/SGPT) 28 U/L (16-63) Alkaline Phosphatase 48 U/L (46-116) Troponin I Quantitative 0.078 ng/mL (0.000-0.055) 1.320 ng/mL (0.000-0.055) GC-Tdf-J-Type Natriuretic Peptide 2686 pg/mL (0-124) Total Protein 7.2 g/dL (6.4-8.2) Albumin 3.8 g/dL (3.4-5.0) Albumin/Globulin Ratio 1.1 (1.0-1.7) O2 Saturation 97 % (92-99) Arterial Blood pH 7.30 (7.35-7.45) Arterial Blood pCO2 at Patient Temp 36 mmHg (35-46) Arterial Blood pO2 at Patient Temp 105 mmHg (65-108) Arterial Blood HCO3 17 mmol/L (21-28) Arterial Blood Base Excess -8 mmol/L (-3-3) FiO2 80.0 Magnesium Level 1.6 mg/dL (1.8-2.4) Triglycerides Level 62 mg/dL (0-150) Cholesterol Level 192 mg/dL (0-200) LDL Cholesterol, Calculated 104 mg/dL (0-100) VLDL Cholesterol, Calculated 12 mg/dL (0-40) Non-HDL Cholesterol Calculated 116 mg/dL (0-129) HDL Cholesterol 76 mg/dL (40-60) Cholesterol/HDL Ratio 2.5 Thyroid Stimulating Hormone (TSH) 0.963 uIU/mL (0.358-3.74) Nasal Screen MRSA (PCR) Negative (Negative) Test 10/28/17 08:28 10/28/17 11:50 10/29/17 01:20 10/29/17 07:10 Heparin Anti-Xa Act, Unfractionated 0.26 IU/mL (0.30-0.70) 0.45 IU/mL (0.30-0.70) 0.50 IU/mL (0.30-0.70) Troponin I Quantitative 2.411 ng/mL (0.000-0.055) 1.495 ng/mL (0.000-0.055) Urine Collection Type Unknown Urine Color Straw Urine Clarity Clear Urine pH 6.5 Urine Specific [place] 1.010 Urine Protein Negative mg/dL (NEG-TRACE) Urine Glucose (UA) Negative mg/dL (NEG) Urine Ketones (Stick) Negative mg/dL (NEG) Urine Blood Negative (NEG) Urine Nitrite Negative (NEG) Urine Bilirubin Negative (NEG) Urine Urobilinogen Dipstick 0.2 mg/dL (0.2 mg/dL) Urine Leukocyte Esterase Negative (NEG) Urine RBC Rare /HPF (0-2) Urine WBC Rare /HPF (0-4) Urine Squamous Epithelial Cells Occ /LPF Urine Bacteria 0 /HPF (0-FEW) Urine Opiates Screen Neg (NEG) Urine Methadone Screen Neg (NEG) Urine Barbiturates Neg (NEG) Urine Phencyclidine Screen Neg (NEG) Urine Amphetamine/Methamphetamine Neg (NEG) Urine Benzodiazepines Screen Neg (NEG) Urine Cocaine Screen Neg (NEG) Urine Cannabinoids Screen Neg (NEG) Urine Ethyl Alcohol Neg (NEG) White Blood Count 8.0 x10^3/uL (4.0-11.0) Red Blood Count 4.22 x10^6/uL (4.30-5.70) Hemoglobin 14.9 g/dL (13.0-17.5) Hematocrit 42.1 % (39.0-53.0) Mean Corpuscular Volume 100 fL (79-100) Mean Corpuscular Hemoglobin 35 pg (25-35) Mean Corpuscular Hemoglobin Concent 35 g/dL (31-37) Red Cell Distribution Width 13.1 % (11.5-14.5) Platelet Count 276 x10^3/uL (140-400) Neutrophils (%) (Auto) 69 % (31-73) Lymphocytes (%) (Auto) 21 % (24-48) Monocytes (%) (Auto) 9 % (0-9) Eosinophils (%) (Auto) 1 % (0-3) Basophils (%) (Auto) 1 % (0-3) Neutrophils # (Auto) 5.5 x10^3uL (1.8-7.7) Lymphocytes # (Auto) 1.7 x10^3/uL (1.0-4.8) Monocytes # (Auto) 0.7 x10^3/uL (0.0-1.1) Eosinophils # (Auto) 0.1 x10^3/uL (0.0-0.7) Basophils # (Auto) 0.1 x10^3/uL (0.0-0.2) Sodium Level 134 mmol/L (136-145) Potassium Level 3.4 mmol/L (3.5-5.1) Chloride Level 100 mmol/L (98-107) Carbon Dioxide Level 22 mmol/L (21-32) Anion Gap 12 (6-14) Blood Urea Nitrogen 12 mg/dL (8-26) Creatinine 1.0 mg/dL (0.7-1.3) Estimated GFR (Cockcroft-Gault) 75.7 BUN/Creatinine Ratio 12 (6-20) Glucose Level 97 mg/dL (70-99) Calcium Level 8.4 mg/dL (8.5-10.1) Total Bilirubin 1.1 mg/dL (0.2-1.0) Aspartate Amino Transf (AST/SGOT) 27 U/L (15-37) Alanine Aminotransferase (ALT/SGPT) 21 U/L (16-63) Alkaline Phosphatase 43 U/L (46-116) Total Protein 6.5 g/dL (6.4-8.2) Albumin 3.4 g/dL (3.4-5.0) Albumin/Globulin Ratio 1.1 (1.0-1.7) Laboratory Tests Test 10/29/17 01:20 10/29/17 07:10 White Blood Count 8.0 x10^3/uL (4.0-11.0) Red Blood Count 4.22 x10^6/uL (4.30-5.70) Hemoglobin 14.9 g/dL (13.0-17.5) Hematocrit 42.1 % (39.0-53.0) Mean Corpuscular Volume 100 fL (79-100) Mean Corpuscular Hemoglobin 35 pg (25-35) Mean Corpuscular Hemoglobin Concent 35 g/dL (31-37) Red Cell Distribution Width 13.1 % (11.5-14.5) Platelet Count 276 x10^3/uL (140-400) Neutrophils (%) (Auto) 69 % (31-73) Lymphocytes (%) (Auto) 21 % (24-48) Monocytes (%) (Auto) 9 % (0-9) Eosinophils (%) (Auto) 1 % (0-3) Basophils (%) (Auto) 1 % (0-3) Neutrophils # (Auto) 5.5 x10^3uL (1.8-7.7) Lymphocytes # (Auto) 1.7 x10^3/uL (1.0-4.8) Monocytes # (Auto) 0.7 x10^3/uL (0.0-1.1) Eosinophils # (Auto) 0.1 x10^3/uL (0.0-0.7) Basophils # (Auto) 0.1 x10^3/uL (0.0-0.2) Heparin Anti-Xa Act, Unfractionated 0.45 IU/mL (0.30-0.70) 0.50 IU/mL (0.30-0.70) Sodium Level 134 mmol/L (136-145) Potassium Level 3.4 mmol/L (3.5-5.1) Chloride Level 100 mmol/L (98-107) Carbon Dioxide Level 22 mmol/L (21-32) Anion Gap 12 (6-14) Blood Urea Nitrogen 12 mg/dL (8-26) Creatinine 1.0 mg/dL (0.7-1.3) Estimated GFR (Cockcroft-Gault) 75.7 BUN/Creatinine Ratio 12 (6-20) Glucose Level 97 mg/dL (70-99) Calcium Level 8.4 mg/dL (8.5-10.1) Total Bilirubin 1.1 mg/dL (0.2-1.0) Aspartate Amino Transf (AST/SGOT) 27 U/L (15-37) Alanine Aminotransferase (ALT/SGPT) 21 U/L (16-63) Alkaline Phosphatase 43 U/L (46-116) Troponin I Quantitative 1.495 ng/mL (0.000-0.055) Total Protein 6.5 g/dL (6.4-8.2) Albumin 3.4 g/dL (3.4-5.0) Albumin/Globulin Ratio 1.1 (1.0-1.7) Assessment/Plan Assessment/Plan 61 y old male with a hx of HTN, lifelong heavy smoking and strong family hx of IHD, who presents with CHF and NSTEMI. No Q waves on EKG. Trop peaked at 2,4. LHC showed a 95% proximal LAD stenosis, 70 ostial D1, a tight proximal/mid RCA lesion. He has severe ischemic cardiomyopathy with EF 20-25%. Risks which include but are not limited to mortality 5%, stroke 5%, renal failure needing dialysis 5%, resternotomy for bleeding 5%, VDRF 10%, arrhythmia 30%. The patient accepts these risks and agrees to proceed. Informed consent has been obtained. Plan for high risk CABG tomorrow SHAY HARRIS MD Oct 29, 2017 16:56
[2017-10-30] VITALS (8 sets, daily range): BP systolic 80–123; BP diastolic 48–83
[2017-10-30] MEDS ORDERED: POTASSIUM CHLORIDE 15 MEQ, SODIUM BICARBONATE VIAL 12.5 MEQ in IV ELECTROLYTE-S (PH 7.4... IRR ONE (06:00)
[2017-10-30] MEDS ORDERED: HEPARIN PRESERVATIVE FREE 800 UNIT, NITROGLYCERIN 4 MG, VERAPAMIL 8 MG, SODIUM BICARBON... IRR ONE ×5 (06:00)
[2017-10-30] MEDS ORDERED: POTASSIUM CHLORIDE 70 MEQ, SODIUM BICARBONATE VIAL 12.5 MEQ, LIDOCAINE 2% 24 ML in IV E... IRR ONE (06:00)
[2017-10-30] MEDS ORDERED: HEPARIN 20,000 UNIT in IV RINGERS,LACTATED 1000ML 1,000 ML IRR ONE (06:00)
[2017-10-30] MEDS ORDERED: ASPIRIN 300 MG SUPP.RECT ONE (06:06)
[2017-10-30] MEDS ORDERED: SURGICEL HEMOSTAT 4X8 EACH. ONE (06:06)
[2017-10-30] MEDS ORDERED: VANCOMYCIN 10GM VIAL for OR. ONE (06:06)
[2017-10-30] MEDS ORDERED: PAPAVERINE 60 MG/2 ML VIAL FOR OR ONLY. ONE (06:06)
[2017-10-30] MEDS ORDERED: 0.9 % SODIUM CHLORIDE 20 ML VIAL. IJ ONE ×3 (06:06→06:07)
[2017-10-30] MEDS ORDERED: ROCURONIUM 100 MG/10 ML VIAL. ONE ×2 (06:08→08:19)
[2017-10-30] MEDS ORDERED: ETOMIDATE 20 MG/10 ML VIAL. IV ONE (06:08)
[2017-10-30] MEDS ORDERED: LIDOCAINE 2% PF Vial for OR 5 ML VIAL. ONE ×2 (06:08→13:36)
[2017-10-30] MEDS ORDERED: ePHEDrine PF IN SALINE 50 MG/5 ML DISP.SYRIN IV ONE (06:09)
[2017-10-30] MEDS ORDERED: HEPARIN 30,000 UNIT/30 ML VIAL. ONE ×3 (06:09→13:38)
[2017-10-30] MEDS ORDERED: PHENYLEPHRINE 10 MG/ML VIAL. ONE (06:09)
[2017-10-30] MEDS ORDERED: NITROGLYCERIN PREMIX 250 ML IV ONE (06:09)
[2017-10-30] MEDS ORDERED: AMINOCAPROIC ACID 5,000 MG/20 ML VIAL. IV ONE (06:09)
[2017-10-30] MEDS ORDERED: MIDAZOLAM HCL/PF 2 MG/2 ML VIAL. ONE ×4 (06:11→14:10)
[2017-10-30] MEDS ORDERED: SUFentanil 100 MCG/2 ML AMPUL. ONE ×2 (06:11→08:19)
[2017-10-30] MEDS ORDERED: ONDANSETRON PF 4 MG/2 ML VIAL. IV PRN ×2 (07:00→13:00)
[2017-10-30] MEDS ORDERED: IV RINGERS,LACTATED 1000ML 1,000 ML IV SCH (07:00)
[2017-10-30] MEDS ORDERED: LIDOCAINE 1% PF 2 ML VIAL. ID PRN (07:00)
[2017-10-30] MEDS ORDERED: HYDROmorphone 2 MG/ML VIAL IV PRN (07:00)
[2017-10-30] MEDS ORDERED: PROCHLORPERAZINE 10 MG/2 ML VIAL. IV PRN ×2 (07:00→13:00)
[2017-10-30] MEDS ORDERED: fentaNYL PF VIAL 100 MCG/2 ML VIAL IV PRN ×2 (07:00)
[2017-10-30] MEDS ORDERED: MORPHINE SULFATE 2 MG/ML VIAL. IV PRN (07:00)
[2017-10-30] MEDS ORDERED: LIDOCAINE 2% PF 2ML VIAL. ONE (07:05)
[2017-10-30 07:06] LABS: CALCIUM 8.6 mg/dL (8.5-10.1); GFR 75.7; MAGNESIUM 1.6 mg/dL (1.8-2.4); POTASSIUM 3.6 mmol/L (3.5-5.1)
[2017-10-30] MEDS ORDERED: ISOFLURANE > 120 MINUTES. IH ONE (08:22)
[2017-10-30] MEDS ORDERED: NOREPINEPHRIN 8MG/250ML PREMIX 250 ML IV ONE (10:45)
[2017-10-30] MEDS ORDERED: PROTAMINE 50 MG/5 ML VIAL. IV ONE ×2 (11:19→14:44)
[2017-10-30] MEDS ORDERED: PROTAMINE 250 MG/25 ML VIAL IV ONE ×2 (11:19→14:44)
[2017-10-30] MEDS ORDERED: MIDAZOLAM HCL/PF 5 MG/5 ML VIAL. ONE (11:54)
[2017-10-30] MEDS ORDERED: PROPOFOL 20 ML IV ONE (12:36)
--- NOTE | 2017-10-30 12:36 | PDOC ---
PROGRESS NOTES Chief Complaint Chief Complaint acute systolic CHF, NSTEMI, acute NH 3 vessel CAD, CABG surg planned tobacco use disorder - htn History of Present Illness History of Present Illness to CABG today then transfer to ICU will follow Vitals Vitals Vital Signs Date Time Temp Pulse Resp B/P (MAP) Pulse Ox O2 Delivery O2 Flow Rate FiO2 10/30/17 04:25 98.3 90 20 119/75 (90) 96 Room Air 98.3 123/83 (96) 10/29/17 22:25 2.0 Physical Exam General: Alert, Oriented X3, No acute distress Heart: Regular rate, Normal S1, Normal S2 Abdomen: Soft, No tenderness Extremities: No edema Skin: No significant lesion Labs LABS Laboratory Tests Test 10/30/17 04:17 10/30/17 06:50 Glucose (Fingerstick) 99 mg/dL (70-99) Sodium Level 129 mmol/L (136-145) Potassium Level 3.6 mmol/L (3.5-5.1) Chloride Level 98 mmol/L (98-107) Carbon Dioxide Level 22 mmol/L (21-32) Anion Gap 9 (6-14) Blood Urea Nitrogen 13 mg/dL (8-26) Creatinine 1.0 mg/dL (0.7-1.3) Estimated GFR (Cockcroft-Gault) 75.7 Glucose Level 102 mg/dL (70-99) Calcium Level 8.6 mg/dL (8.5-10.1) Magnesium Level 1.6 mg/dL (1.8-2.4) Comment Review of Relevant I have reviewed the following items bryce (where applicable) has been applied. Labs Laboratory Tests Test 10/29/17 01:20 10/29/17 07:10 10/30/17 04:17 10/30/17 06:50 White Blood Count 8.0 x10^3/uL (4.0-11.0) Red Blood Count 4.22 x10^6/uL (4.30-5.70) Hemoglobin 14.9 g/dL (13.0-17.5) Hematocrit 42.1 % (39.0-53.0) Mean Corpuscular Volume 100 fL (79-100) Mean Corpuscular Hemoglobin 35 pg (25-35) Mean Corpuscular Hemoglobin Concent 35 g/dL (31-37) Red Cell Distribution Width 13.1 % (11.5-14.5) Platelet Count 276 x10^3/uL (140-400) Neutrophils (%) (Auto) 69 % (31-73) Lymphocytes (%) (Auto) 21 % (24-48) Monocytes (%) (Auto) 9 % (0-9) Eosinophils (%) (Auto) 1 % (0-3) Basophils (%) (Auto) 1 % (0-3) Neutrophils # (Auto) 5.5 x10^3uL (1.8-7.7) Lymphocytes # (Auto) 1.7 x10^3/uL (1.0-4.8) Monocytes # (Auto) 0.7 x10^3/uL (0.0-1.1) Eosinophils # (Auto) 0.1 x10^3/uL (0.0-0.7) Basophils # (Auto) 0.1 x10^3/uL (0.0-0.2) Heparin Anti-Xa Act, Unfractionated 0.45 IU/mL (0.30-0.70) 0.50 IU/mL (0.30-0.70) Sodium Level 134 mmol/L (136-145) 129 mmol/L (136-145) Potassium Level 3.4 mmol/L (3.5-5.1) 3.6 mmol/L (3.5-5.1) Chloride Level 100 mmol/L (98-107) 98 mmol/L (98-107) Carbon Dioxide Level 22 mmol/L (21-32) 22 mmol/L (21-32) Anion Gap 12 (6-14) 9 (6-14) Blood Urea Nitrogen 12 mg/dL (8-26) 13 mg/dL (8-26) Creatinine 1.0 mg/dL (0.7-1.3) 1.0 mg/dL (0.7-1.3) Estimated GFR (Cockcroft-Gault) 75.7 75.7 BUN/Creatinine Ratio 12 (6-20) Glucose Level 97 mg/dL (70-99) 102 mg/dL (70-99) Calcium Level 8.4 mg/dL (8.5-10.1) 8.6 mg/dL (8.5-10.1) Total Bilirubin 1.1 mg/dL (0.2-1.0) Aspartate Amino Transf (AST/SGOT) 27 U/L (15-37) Alanine Aminotransferase (ALT/SGPT) 21 U/L (16-63) Alkaline Phosphatase 43 U/L (46-116) Troponin I Quantitative 1.495 ng/mL (0.000-0.055) Total Protein 6.5 g/dL (6.4-8.2) Albumin 3.4 g/dL (3.4-5.0) Albumin/Globulin Ratio 1.1 (1.0-1.7) Glucose (Fingerstick) 99 mg/dL (70-99) Magnesium Level 1.6 mg/dL (1.8-2.4) Laboratory Tests Test 10/30/17 04:17 10/30/17 06:50 Glucose (Fingerstick) 99 mg/dL (70-99) Sodium Level 129 mmol/L (136-145) Potassium Level 3.6 mmol/L (3.5-5.1) Chloride Level 98 mmol/L (98-107) Carbon Dioxide Level 22 mmol/L (21-32) Anion Gap 9 (6-14) Blood Urea Nitrogen 13 mg/dL (8-26) Creatinine 1.0 mg/dL (0.7-1.3) Estimated GFR (Cockcroft-Gault) 75.7 Glucose Level 102 mg/dL (70-99) Calcium Level 8.6 mg/dL (8.5-10.1) Magnesium Level 1.6 mg/dL (1.8-2.4) Medications Current Medications Aspirin (Children'S Aspirin) 324 mg 1X ONCE PO Last administered on 10/28/17 01:28; Start 10/28/17 at 01:30; Stop 10/28/17 at 01:31; Status DC Nitroglycerin (Nitro-Bid Oint) 1 inch 1X ONCE TP Last administered on 01:29; Start 10/28/17 at 01:30; Stop 10/28/17 at 01:31; Status DC Furosemide (Lasix) 40 mg 1X ONCE IVP Last administered on 10/28/17 01:28; Start 10/28/17 at 01:30; Stop 10/28/17 at 01:31; Status DC Enoxaparin Sodium (Lovenox Per Pharmacy Treatment Dosing) 1 each PRN DAILY PRN MC SEE COMMENTS; Start 10/28/17 at 01:30; Status Cancel Ondansetron HCl (Zofran) 4 mg PRN Q8HRS PRN IV NAUSEA/VOMITING 1ST CHOICE; Start 10/28/17 at 01:30; Stop 10/29/17 at 01:29; Status DC Fentanyl Citrate (Fentanyl 2ml Vial) 50 mcg PRN Q1HR PRN IV SEVERE PAIN; Start 10/28/17 at 01:30; Stop 10/29/17 at 01:29; Status DC Acetaminophen (Tylenol) 650 mg PRN Q4HRS PRN PO FEVER; Start 10/28/17 at 01:30; Stop 10/29/17 at 01:29; Status DC Heparin Sodium/ Dextrose 500 ml @ 0 mls/hr CONT PRN IV SEE I/O RECORD Last administered on 10/29/17at 02:02; Start 10/28/17 at 01:30; Stop 10/30/17 at 00:05; Status DC Heparin Sodium (Porcine) (Heparin Sodium) 2,000 unit PRN Q6HRS PRN IV FOR UFH LEVEL LESS THAN 0.2 Last administered on 10/28/17at 02:17; Start 10/28/17 at 01:30 ; Stop 10/30/17 at 07:44; Status DC Furosemide (Lasix) 40 mg [id number] IVP ; Start 10/28/17 at 09:00; Stop 10/28/17 at 13: 04; Status DC Furosemide (Lasix) 40 mg 1X ONCE IVP Last administered on 10/28/17at 02:13; Start 10/28/17 at 02:00; Stop 10/28/17 at 02:01; Status DC Info (Anti-Coagulation Monitoring By Pharmacy) 1 each PRN DAILY PRN MC SEE COMMENTS Last administered on 10/29/17at 10:35; Start 10/28/17 at 02:00; Stop at 07:44; Status DC Aspirin (Ecotrin) 325 mg [id number] PO Last administered on 10/29/17at 09:24; Start 10/28/17 at 09:30; Stop 10/29/17 at 14:52; Status DC Sodium Chloride 1,000 ml @ 50 mls/hr 1X ONCE IV Last administered on at 11:37; Start 10/28/17 at 09:30; Stop 10/29/17 at 05:29; Status DC Labetalol HCl (Normodyne Iv Push) 20 mg PRN Q2HR PRN IVP HYPERTENSION, SEE COMMENTS; Start 10/28/17 at 09:15; Stop 10/29/17 at 23:55; Status DC Magnesium Sulfate 50 ml @ 25 mls/hr 1X ONCE IV Last administered on 10/28/17at 11:29; Start 10/28/17 at 11:30; Stop 10/28/17 at 13:29; Status DC Potassium Chloride (Klor-Con) 40 meq 1X ONCE PO Last administered on 10/28/17at 16:42; Start 10/28/17 at 11:30; Stop 10/28/17 at 11:31; Status DC Furosemide (Lasix) 40 mg DAILY IVP Last administered on 10/29/17at 09:35; Start 10/29/17 at 09:00; Stop 10/29/17 at 14:54; Status DC Iodixanol (Visipaque 320) 100 ml STK-MED ONCE .ROUTE ; Start 10/28/17 at 14:04; Stop 10/28/17 at 14:05; Status DC Lidocaine HCl (Xylocaine-Mpf 1% 2ml Vial) 2 ml STK-MED ONCE .ROUTE ; Start at 14:04; Stop 10/28/17 at 14:05; Status DC Heparin Sodium/ Sodium Chloride 1,000 ml @ As Directed STK-MED ONCE .ROUTE ; Start 10/28/17 at 14:05; Stop 10/28/17 at 14:06; Status DC Fentanyl Citrate (Fentanyl 2ml Vial) 100 mcg STK-MED ONCE .ROUTE ; Start at 15:10; Stop 10/28/17 at 15:11; Status DC Midazolam HCl (Versed) 2 mg STK-MED ONCE .ROUTE ; Start 10/28/17 at 15:10; Stop 10/28/17 at 15:11; Status DC Heparin Sodium (Porcine) (Heparin Sodium) 10,000 unit STK-MED ONCE .ROUTE ; Start 10/28/17 at 15:10; Stop 10/28/17 at 15:11; Status DC Verapamil HCl (Verapamil) 5 mg STK-MED ONCE .ROUTE ; Start 10/28/17 at 15:10; Stop 10/28/17 at 15:11; Status DC Nitroglycerin (Nitroglycerin) 200 mcg STK-MED ONCE .ROUTE ; Start 10/28/17 at 15: 10; Stop 10/28/17 at 15:11; Status DC Nitroglycerin (Nitroglycerin) 200 mcg 1X ONCE IART Last administered on at 15:57; Start 10/28/17 at 16:00; Stop 10/28/17 at 16:01; Status DC Verapamil HCl (Verapamil) 2.5 mg 1X ONCE IART Last administered on 10/28/17at 15 :57; Start 10/28/17 at 16:00; Stop 10/28/17 at 16:01; Status DC Heparin Sodium (Porcine) (Heparin Sodium) 2,500 unit 1X ONCE IART Last administered on 10/28/17at 15:30; Start 10/28/17 at 16:00; Stop 10/28/17 at 16:01; Status DC Heparin Sodium/ Sodium Chloride (HEPARIN for ARTERIAL LINE FLUSH) 1,000 unit 1X ONCE IART Last administered on 10/28/17at 15:56; Start 10/28/17 at 16:00; Stop 10/28/17 at 16:01; Status DC Midazolam HCl (Versed) 2 mg 1X ONCE IV Last administered on 10/28/17at 15:58; Start 10/28/17 at 16:00; Stop 10/28/17 at 16:01; Status DC Fentanyl Citrate (Fentanyl 2ml Vial) 50 mcg 1X ONCE IV Last administered on 10/28/17at 15:58; Start 10/28/17 at 16:00; Stop 10/28/17 at 16:01; Status DC Iodixanol (Visipaque 320) 65 ml 1X ONCE IART Last administered on 10/28/17at 15: 56; Start 10/28/17 at 16:00; Stop 10/28/17 at 16:01; Status DC Lidocaine HCl (Xylocaine-Mpf 1% 2ml Vial) 1 ml 1X ONCE INJ Last administered on 10/28/17at 15:57; Start 10/28/17 at 16:00; Stop 10/28/17 at 16:01; Status DC Info (CONTRAST GIVEN -- Rx MONITORING) 1 each PRN DAILY PRN MC SEE COMMENTS; Start 10/28/17 at 16:00; Stop 10/30/17 at 15:59 Metoprolol Tartrate (Lopressor) 12.5 mg BID PO Last administered on 10/29/17at 21 :01; Start 10/28/17 at 21:00; Stop 10/29/17 at 23:55; Status DC Potassium Chloride (Klor-Con) 40 meq 1X ONCE PO Last administered on 10/29/17at 09:24; Start 10/29/17 at 09:00; Stop 10/29/17 at 09:01; Status DC Alprazolam (Xanax) 0.25 mg PRN Q8HRS PRN PO ANXIETY / AGITATION Last administered on 10/29/17at 21:00; Start 10/29/17 at 09:15; Stop 10/29/17 at 22:00; Status DC Potassium Chloride 70 meq/ Sodium Bicarbonate 12.5 meq/Lidocaine HCl 24 ml/ Parenteral Electrolytes 571.5 ml @ 571.5 mls/ hr 1X ONCE IRR Last administered on 10/30/17at 10:59; Start 10/30/17 at 06:00; Stop 10/30/17 at 06:59; Status DC Potassium Chloride 15 meq/ Sodium Bicarbonate 12.5 meq/Parenteral Electrolytes 520 ml @ 520 mls/hr 1X ONCE IRR Last administered on 10/30/17at 10:59; Start at 06:00; Stop 10/30/17 at 06:59; Status DC Heparin Sodium (Porcine) 16365 unit/Ringer's Solution 1,020 ml @ 1,020 mls/hr 1X ONCE IRR Last administered on 10/30/17at 08:58; Start 10/30/17 at 06:00; Stop 10/30/17 at 06:59; Status DC Heparin Sodium (Porcine) 800 unit/ Nitroglycerin 4 mg/Verapamil HCl 8 mg/Sodium Bicarbonate 0.34 meq/Ringer's Solution 512.34 ml @ 512.34 mls/hr 1X ONCE IRR ; Start 10/30/17 at 06:00; Stop 10/30/17 at 06:59; Status DC Ondansetron HCl (Zofran) 4 mg PRN Q6HRS PRN IV NAUSEA/VOMITING; Start 10/30/17 at 07:00; Stop 10/31/17 at 06:59 Fentanyl Citrate (Fentanyl 2ml Vial) 25 mcg PRN Q5MIN PRN IV MILD PAIN; Start 10/30/17 at 07:00; Stop 10/31/17 at 06:59 Fentanyl Citrate (Fentanyl 2ml Vial) 50 mcg PRN Q5MIN PRN IV MODERATE TO SEVERE PAIN; Start 10/30/17 at 07:00; Stop 10/31/17 at 06:59 Morphine Sulfate (Morphine Sulfate) 1 mg PRN Q10MIN PRN IV SEVERE PAIN; Start 10/30/17 at 07:00; Stop 10/31/17 at 06:59 Ringer's Solution 1,000 ml @ 30 mls/hr Q24H IV ; Start 10/30/17 at 07:00; Stop 10/30/17 at 18:59 Lidocaine HCl (Xylocaine-Mpf 1% 2ml Vial) 2 ml PRN 1X PRN ID IV START; Start at 07:00; Stop 10/31/17 at 06:59 Hydromorphone HCl (Dilaudid) 0.5 mg PRN Q10MIN PRN IV SEV PAIN, Second choice; Start 10/30/17 at 07:00; Stop 10/31/17 at 06:59 Prochlorperazine Edisylate (Compazine) 5 mg PACU PRN PRN IV NAUSEA, MRX1; Start 10/30/17 at 07:00; Stop 10/31/17 at 06:59 Cefazolin Sodium 1 gm/Sodium Chloride 500 ml @ 500 mls/hr 1X ONCE IRR Last administered on 10/30/17at 08:58; Start 10/30/17 at 06:00; Stop 10/30/17 at 06:59; Status DC Etomidate (Amidate) 20 mg STK-MED ONCE IV ; Start 10/30/17 at 06:08; Stop at 06:09; Status DC Lidocaine HCl (Lidocaine Pf 2% Vial) 5 ml STK-MED ONCE .ROUTE ; Start 10/30/17 at 06:08; Stop 10/30/17 at 06:09; Status DC Rocuronium [place] (Zemuron) 100 mg STK-MED ONCE .ROUTE ; Start 10/30/17 at 06:08 ; Stop 9/6/18 at 06:09; Status DC Phenylephrine HCl (Rui-Synephrine Inj) 10 mg STK-MED ONCE .ROUTE ; Start at 06:09; Stop 10/30/17 at 06:10; Status DC Ephedrine Sulfate (ePHEDrine PF IN SALINE SYRINGE) 50 mg STK-MED ONCE IV ; Start 10/30/17 at 06:09; Stop 10/30/17 at 06:10; Status DC Heparin Sodium (Porcine) 30,000 unit STK-MED ONCE .ROUTE ; Start 10/30/17 at 06: 09; Stop 10/30/17 at 06:10; Status DC Aminocaproic Acid (Amicar) 5,000 mg STK-MED ONCE IV ; Start 10/30/17 at 06:09; Stop 10/30/17 at 06:10; Status DC Nitroglycerin/ Dextrose 250 ml @ As Directed STK-MED ONCE IV ; Start 10/30/17 at 06:09; Stop 10/30/17 at 06:10; Status DC Midazolam HCl (Versed) 2 mg STK-MED ONCE .ROUTE ; Start 10/30/17 at 06:11; Stop 10/30/17 at 06:12; Status DC Sufentanil Citrate (Sufenta) 100 mcg STK-MED ONCE .ROUTE ; Start 10/30/17 at 06: 11; Stop 10/30/17 at 06:12; Status DC Lidocaine HCl (Xylocaine-Mpf 2% Vial) 2 ml STK-MED ONCE .ROUTE ; Start 10/30/17 at 07:05; Stop 10/30/17 at 07:06; Status DC Vancomycin HCl (VANCO for OR ONLY) 10 gm STK-MED ONCE .ROUTE Last administered on 10/30/17at 08:58; Start 10/30/17 at 06:06; Stop 10/30/17 at 07:06; Status DC Cellulose (Surgicel Hemostat 4x8) 1 each STK-MED ONCE .ROUTE Last administered on 10/30/17at 08:58; Start 10/30/17 at 06:06; Stop 10/30/17 at 07:06; Status DC Papaverine HCl 60 mg STK-MED ONCE .ROUTE Last administered on 10/30/17at 08:58; Start 10/30/17 at 06:06; Stop 10/30/17 at 07:07; Status DC Aspirin (Aspirin) 300 mg STK-MED ONCE .ROUTE Last administered on 10/30/17at 10: 36; Start 10/30/17 at 06:06; Stop 10/30/17 at 07:07; Status DC Sodium Chloride (SODIUM CHLORIDE 20ml) 20 ml STK-MED ONCE IJ Last administered on 10/30/17at 08:58; Start 10/30/17 at 06:06; Stop 10/30/17 at 07:07; Status DC Sodium Chloride (SODIUM CHLORIDE 20ml) 20 ml STK-MED ONCE IJ Last administered on 10/30/17at 08:58; Start 10/30/17 at 06:06; Stop 10/30/17 at 07:07; Status DC Sodium Chloride (SODIUM CHLORIDE 20ml) 20 ml STK-MED ONCE IJ Last administered on 10/30/17at 08:58; Start 10/30/17 at 06:07; Stop 10/30/17 at 07:07; Status DC Cefazolin Sodium/ Dextrose 50 ml @ 100 mls/hr 1X PREOP PRN IV PRIOR TO SURGERY Last administered on 10/30/17at 08:13; Start 10/30/17 at 08:15 Rocuronium [place] (Zemuron) 100 mg STK-MED ONCE .ROUTE ; Start 10/30/17 at 08:19 ; Stop 10/30/17 at 08:20; Status DC Sufentanil Citrate (Sufenta) 100 mcg STK-MED ONCE .ROUTE ; Start 10/30/17 at 08: 19; Stop 10/30/17 at 08:20; Status DC Isoflurane (Isoflurane) 90 ml STK-MED ONCE IH ; Start 10/30/17 at 08:22; Stop 10/30/17 at 08:23; Status DC Midazolam HCl (Versed) 2 mg STK-MED ONCE .ROUTE ; Start 10/30/17 at 08:55; Stop 10/30/17 at 08:56; Status DC Cefazolin Sodium/ Dextrose 50 ml @ 100 mls/hr 1X ONCE IV ; Start 10/30/17 at 10 :45; Stop 10/30/17 at 11:14; Status DC Epinephrine HCl 4 mg/Sodium Chloride 254 ml @ 3.81 mls/hr 1X ONCE IV ; Start 10/30/17 at 10:45; Stop 11/02/17 at 05:24 Norepinephrine Bitartrate 250 ml @ 1.875 mls/ hr 1X ONCE IV ; Start 10/30/17 at 10:45; Stop 11/05/17 at 00:04 Midazolam HCl (Versed) 2 mg STK-MED ONCE .ROUTE ; Start 10/30/17 at 11:03; Stop 10/30/17 at 11:04; Status DC Protamine Sulfate (Protamine) 50 mg STK-MED ONCE IV ; Start 10/30/17 at 11:19; Stop 10/30/17 at 11:20; Status DC Protamine Sulfate (Protamine) 250 mg STK-MED ONCE IV ; Start 10/30/17 at 11:19; Stop 10/30/17 at 11:20; Status DC Midazolam HCl (Versed) 5 mg STK-MED ONCE .ROUTE ; Start 10/30/17 at 11:54; Stop 10/30/17 at 11:55; Status DC Vitals/I & O Vital Sign - Last 24 Hours 10/29/17 10/29/17 10/29/17 10/29/17 14:46 17:10 17:10 18:37 Temp 97.7 98.4 97.7 98.4 Pulse 95 89 88 92 Resp 18 18 B/P (MAP) 131/89 (103) 118/72 (87) 116/76 (89) 121/78 (92) Pulse Ox 97 96 O2 Delivery Nasal Cannula Nasal Cannula O2 Flow Rate 2.0 2.0 10/29/17 10/29/17 10/29/17 10/29/17 19:30 20:00 21:01 22:25 Temp 97.7 98.5 97.7 98.5 Pulse 98 95 87 Resp 20 18 B/P (MAP) 123/78 (93) 128/75 108/60 (76) Pulse Ox 98 99 O2 Delivery Room Air Nasal Cannula Nasal Cannula O2 Flow Rate 2.0 2.0 10/30/17 10/30/17 03:00 04:25 Temp 98.3 98.3 Pulse 82 90 Resp 20 B/P (MAP) 119/75 (90) 123/83 (96) Pulse Ox 96 O2 Delivery Room Air Intake and Output 10/29/17 10/29/17 10/30/17 15:00 23:00 07:00 Intake Total 760 ml 1750 ml 306 ml Output Total 550 ml 600 ml 400 ml Balance 210 ml 1150 ml -94 ml SANTOSH GRAF MD Oct 30, 2017 12:36
[2017-10-30] MEDS ORDERED: ALBUTEROL SULFATE 2.5 MG/3 ML NEBU. NEB PRN (13:00)
[2017-10-30] MEDS ORDERED: ASPIRIN 300 MG SUPP.RECT PR PRN (13:00)
[2017-10-30] MEDS ORDERED: ELECTROLYTE (ICU) PROTOCOL. MC PRN (13:00)
[2017-10-30] MEDS ORDERED: ACETAMINOPHEN 325 MG TABLET. PO PRN (13:00)
[2017-10-30] MEDS ORDERED: MEPERIDINE PF 25 MG/ML VIAL. IV PRN (13:00)
[2017-10-30] MEDS ORDERED: ACETAMINOPHEN 650 MG SUPP.RECT. PR PRN (13:00)
[2017-10-30] MEDS ORDERED: MAGNESIUM SULFATE 1GM 100 ML IV PRN (13:00)
[2017-10-30] MEDS ORDERED: DEXTROSE 50% 25 GM / 50ML DISP.SYRIN. IV PRN (13:00)
[2017-10-30] MEDS ORDERED: PROPOFOL 100 ML IV PRN (13:00)
[2017-10-30] MEDS ORDERED: BISACODYL 10 MG SUPP.RECT. PR PRN (13:00)
[2017-10-30] MEDS ORDERED: MANNITOL 25% 12.5 G/50 ML VIAL FOR OR. ONE ×2 (13:36→14:53)
[2017-10-30] MEDS ORDERED: SODIUM BICARB ADULT 8.4% 50 MEQ/50 ML DISP.SYRIN. ONE ×3 (13:36→15:24)
[2017-10-30] MEDS ORDERED: CALCIUM CHLORIDE 1,000 MG/10 ML DISP.SYRIN ONE ×2 (13:36→14:53)
[2017-10-30] MEDS ORDERED: HEPARIN for IV BOLUS 10,000 UNIT/10 ML VIAL. ONE ×3 (13:36→14:54)
[2017-10-30] MEDS ORDERED: ALBUMIN HUMAN 25% 100 ML IV ONE (13:36)
[2017-10-30] MEDS ORDERED: MAGNESIUM SULFATE 5 GM/10 ML VIAL. ONE (13:36)
[2017-10-30] MEDS ORDERED: MILRINONE 20MG/100ML PREMIX 100 ML IV ONE (13:43)
[2017-10-30] MEDS ORDERED: MILRINONE 10 MG/10 ML VIAL. IV ONE (13:43)
[2017-10-30] MEDS ORDERED: EPINEPHrine SYRINGE 1 MG/10 ML SYRINGE ONE (13:53)
[2017-10-30] MEDS: FAMOTIDINE 20 MG/2 ML VIAL IVP SCH ×2 (14:00→21:19)
[2017-10-30] MEDS ORDERED: ESMOLOL 100 MG/10 ML VIAL. IV ONE (14:20)
--- NOTE | 2017-10-30 14:39 | CARD ---
MR#: [id number] Date of Study: 10/30/2017 Ordering Physician: KT KIRKPATRICK, Referring Physician: ANKIT LI Tech: CATALINA Moreno APPROVED REPORT EXAM: Two-dimensional and M-mode echocardiogram with Doppler and color Doppler. INDICATION Pre-Op 2D DIMENSIONS FS (%) 18.0 %LVEF(%)35.0 (>50%) Reason For Test : Pre Op CABG PROCEDURE After obtaining informed consent, patient underwent transesophageal echo in the OR Type of Sedation : General Anesthesia Transesophageal probe was inserted and advanced into esophagus by Kj Kirkpatrick MD. The KUNAL was performed without complications. Throughout the procedure, the blood pressure, pulse oximetry, cardiac rhythm, and rate were monitored . LEFT VENTRICLE The left ventricle is normal size. There is normal left ventricular wall thickness. The ejection frac tion is severely impaired. The Ejection Fraction improved from 20-25% to 30-35% The mid to distal LV is severely hypokinetic with full thickness, likely due to stunning. Tissue Doppler imaging reveals m oderate left ventricular diastolic dysfunction. RIGHT VENTRICLE The right ventricle is normal size. There is normal right ventricular wall thickness. The right ventr icular systolic function is normal. ATRIA The left atrium size is normal. The right atrium size is normal. The interatrial septum is intact wit h no evidence for an atrial septal defect or patent foramen ovale as noted on 2-D or Doppler imaging. There is no thrombus noted in the left atrial appendage. AORTIC VALVE The aortic valve is thickened but opens well. Doppler and Color Flow revealed no significant aortic r egurgitation. There is no significant aortic valvular stenosis. There is no aortic valvular vegetatio n. MITRAL VALVE The mitral valve is thickened but opens well. There is no evidence of mitral valve prolapse. There is no mitral valve stenosis. Doppler and Color-flow revealed mild mitral regurgitation. TRICUSPID VALVE The tricuspid valve leaflets are thickened , but open well. Doppler and Color Flow revealed mild tric uspid regurgitation. There is no tricuspid valve prolapse or vegetation. There is no tricuspid valve stenosis. PULMONIC VALVE The pulmonic valve is not well visualized. Doppler and Color Flow revealed no pulmonic valvular regur gitation. There is no pulmonic valvular stenosis. GREAT VESSELS The aortic root is normal in size. The IVC is normal in size and collapses >50% with inspiration. Critical Notification Critical Value: No <Conclusion> The ejection fraction is severely impaired. The Ejection Fraction improved from 20-25% to 30-35% The mid to distal LV is severely hypokinetic with full thickness, likely due to stunning. There is no thrombus noted in the left atrial appendage. Doppler and Color-flow revealed mild mitral regurgitation. Signed by : Kt Kirkpatrick, Electronically Approved : 10/30/2017 14:39:14
[2017-10-30] MEDS ORDERED: ALBUMIN HUMAN 5% 500 ML IV ONE ×2 (14:57→15:16)
[2017-10-30] MEDS ORDERED: AMIODARONE 900 MG in IV DEXTROSE 5% 500 ML IV PRN (15:45)
[2017-10-30 15:52] LABS: HEMATOCRIT 24.9 % (39.0-53.0); HEMOGLOBIN 8.7 g/dL (13.0-17.5); WHITE BLOOD COUNT 9.2 x10^3/uL (4.0-11.0)
--- NOTE | 2017-10-30 15:57 | PDOC ---
BRIEF OPERATIVE NOTE Date: Oct 30, 2017 Pre-Op Diagnosis NSTEMI Severe ischemic cardiomyopathy (EF 20%) Diabetes Hypertension Hyperlipidemia Heavy smoker COPD Post-Op Diagnosis NSTEMI Severe ischemic cardiomyopathy (EF 20%) Diabetes Hypertension Hyperlipidemia Heavy smoker COPD Procedure Performed CABG x 4 (free TUCKER to LAD, SVG to LPL, SVG to diagonal, SVG to RPDA) Endoscopic left and open right greater saphenous vein harvest Surgeon Charan Harris MD Water Softener Service Supervisor Melinda Sanders, BRICKLAYER SEWERSherron Zimmer BRICKLAYER SEWER Anesthesiologist Dr Lovell Anesthesia Type: General Blood Loss Cellsaver IV Fluid Crystalloid: 4500 mls Colloid: 500 mls Cellsaver: 900 mls 1 unit PRBC Urine Output 1000 mls Specimens Obtained None Findings CPB time:185 min x-clamp time: 118 min Off CPB on epinephrine and levophed Post CPB KUNAL showed slightly improved EF 30-35% Small 1,5mm RPDA and LPL targets Calcified 2mm diagonal Diffusely calcified LAD, only distal portion was appropriate for anastomosis Too much tension on TUCKER owing to very distal anastomosis and left rotation of apex. Re-instituted CPB and performed a free graft TUCKER to LAD, which was tension free Complications None immediate CHARAN HARRIS MD Oct 30, 2017 15:57
--- NOTE | 2017-10-30 15:58 | PDOC4 ---
Operative Note Operative Note Date Oct 30, 2017 Preoperative diagnosis NSTEMI Severe ischemic cardiomyopathy (EF 20%) Diabetes Hypertension Hyperlipidemia Heavy smoker COPD Postoperative diagnosis NSTEMI Severe ischemic cardiomyopathy (EF 20%) Diabetes Hypertension Hyperlipidemia Heavy smoker COPD Procedure performed CABG x 4 (free TUCKER to LAD, SVG to LPL, SVG to diagonal, SVG to RPDA) Endoscopic left and open right greater saphenous vein harvest Surgeon Charan Harris MD Die Set Up Worker Melinda Sanders, FAMILIA Leong Anesthesiologist Dr Lovell Anesthesia type General Blood loss Cellsaver IV fluids Crystalloid: 4500 mls Colloid: 500 mls Cellsaver: 900 mls 1 unit PRBC Urine output 1000 mls Specimens obtained None Findings CPB time:185 min x-clamp time: 118 min Off CPB on epinephrine and levophed Post CPB KUNAL showed slightly improved EF 30-35% Small 1,5mm RPDA and LPL targets Calcified 2mm diagonal Diffusely calcified LAD, only distal portion was appropriate for anastomosis Too much tension on TUCKER owing to very distal anastomosis and left rotation of apex. Re-instituted CPB and performed a free graft TUCKER to LAD, which was tension free Complications None immediate Indication Patient is a 61 y old male with a hx of HTN, lifelong heavy smoking and strong family hx of IHD, who presented with SOB. Found to be in CHF and NSTEMI. Trop peaked at 2,4. LHC showed a 95% proximal LAD stenosis, 70 ostial D1, a tight proximal/mid RCA lesion and an occluded LCx. He has severe ischemic cardiomyopathy with EF 20-25%. A CABG was indicated. Operation After appropriate identification, the patient was brought to the operating room and placed supine on the operating table. Anesthesia was induced and the airway was secured with an endotracheal tube. A right IJ [place]-Mikala catheter was placed. A right radial arterial line was placed. Antibiotics were delivered and the patient was preped and draped in the usual standard surgical sterile fashion. A timeout was then performed. The preoperative KUNAL showed severely impaired LV function with an EF of 15-20%. A median sternotomy was performed and the left internal mammary artery was harvested, which was of moderate size, with excellent flow. Simultaneously the left greater saphenous vein was harvested endoscopically, which was of good quality and caliber. We also harvested open the right greater saphenous vein, since the vein from the left was not long enough. The right vein was of good quality and caliber. The pericardium was incised. The patient was heparinized. Cardiopulmonary bypass was established through the ascending aorta and the right atrium. A retrograde catheter was placed in the coronary sinus. The patient was cooled to 34. Arrest was achieved with induction antegrade and retrograde cold blood cardioplegia. The cross-clamp was applied and diastolic arrest was achieved. Intermittent dosages of antegrade and retrograde cardioplegia were given every 20 minutes. Grafts: Saphenous vein graft to right posterior descending coronary artery, end to side anastomosis with 7-0 Prolene. 1,5 mm vessel. Saphenous vein graft to left posterolateral coronary artery, end to side anastomosis with 7-0 Prolene, 1.5mm vessel. Saphenous vein graft to diagonal coronary artery, end to side anastomosis with 7 -0 Prolene, 2 mm diffusely calcified vessel. Left internal mammary artery to distal left anterior descending coronary artery , end to side anastomosis with 7-0 Prolene. 2 mm diffusely calcified vessel. Three proximal anastomosis were performed using a 5-0 Prolene running suture. The cross-clamp was removed. The heart was allowed to rewarm and reperfuse. The grafts were de-aired. The patient resumed normal sinus rhythm after cardioversion and was from cardiopulmonary bypass with pharmacologic support of epinephrine and levophed. The post CPB KUNAL showed slightly improved EF of 30%. All cannulae were removed. Heparin was reversed with protamine. I then examined all the grafts and felt that there was too much tension on the TUCKER, since the anastomosis was at the very distal LAD. At that point I decided to re-heparinize and re-establish CPB through the ascending aorta and right atrium. The proximal TUCKER was divided and secured with a 0 Silk and surgical clips. A side bitting clamped was applied onto the aorta and the proximal TUCKER was sewn on the ascending aorta with a running 6-0 Prolene suture. The patient resumed normal sinus rhythm and was from cardiopulmonary bypass with pharmacologic support of epinephrine and levophed. All cannulae were again removed. Heparin was reversed with protamine. Atrial and ventricular pacing wires were placed. Hemostasis was confirmed. Angled 32 Latvian chest tubes were placed in the left and right pleural spaces, a 32Fr angled in the posterior pericardium and a 32 straight in the anterior pericardium. The sternotomy was closed with seven stainless steel wires. The incision was closed with a layer of 0 Vicryl, followed by 2-0 Vicryl and then 4-0 Monocryl for the epidermis. Sterile dressings were applied. The total cardiopulmonary bypass time was 185 minutes and the cross-clamp time was 118 minutes. The instrument, sponge and needle counts were correct. The patient was then transferred to the ICU in critical condition. CHARAN HARRIS MD Oct 30, 2017 15:58
[2017-10-30 16:04] LABS: PROTHROMBIN TIME PATIENT 21.7 SEC (11.7-14.0)
--- NOTE | 2017-10-30 16:21 | RAD ---
Portable chest, 10/30/2017: HISTORY: Postop evaluation Comparison is made to a study from 10/28/2017. There has been an interval median sternotomy. The ET tube tip lies well above the dean. A right jugular [place]-Mikala catheter is in place with its tip overlying the right hilum. The tip of the NG tube lies in the distal esophagus superior to the level of the GE junction. Bilateral chest tubes and 2 mediastinal drains are in place. The heart is at the upper limits of normal in size. Coronary artery calcifications are present. The pulmonary vascularity appears to be within normal limits. Moderate discoid atelectasis is present in the left parahilar region. No pneumothorax or significant pleural fluid is evident. IMPRESSION: 1. Numerous tubes and catheters have been placed as described above. Of note is malpositioned of the NG tube with its tip lying in the distal esophagus. 2. Moderate left parahilar discoid atelectasis. Note: The findings were called to the patient's nurse in the ICU at 4:17 PM on 10/30/2017. Electronically signed by: Will Joaquin MD (10/30/2017 4:18 PM) [facility]
[2017-10-30 16:49] LABS: BASE EXCESS COOX -6 mmol/L (-3-3); HCO3 COOX 19 mmol/L (21-28); METHEMOGLOBIN 0.2 % (0.0-1.9); OXYHEMOGLOBIN 95.6 %; PCO2 COOX 39 mmHg (35-46); PO2 COOX 98 mmHg (65-108); SAT O2 COOX 96 % (92-99)
[2017-10-30 16:52] LABS: HEMATOCRIT 29.6 % (39.0-53.0); HEMOGLOBIN 10.5 g/dL (13.0-17.5); RED BLOOD COUNT 3.05 x10^6/uL (4.30-5.70); RED CELL DISTRIBUTION WIDTH 14.9 % (11.5-14.5); WHITE BLOOD COUNT 11.6 x10^3/uL (4.0-11.0)
[2017-10-30] MEDS ORDERED: SODIUM BICARB ADULT 8.4% 50 MEQ/50 ML DISP.SYRIN. IV ONE ×4 (17:00)
[2017-10-30 17:02] LABS: PROTHROMBIN TIME PATIENT 19.1 SEC (11.7-14.0)
[2017-10-30 17:03] LABS: CALCIUM 8.5 mg/dL (8.5-10.1); CREATININE 1.1 mg/dL (0.7-1.3); GFR 67.8; POTASSIUM 3.8 mmol/L (3.5-5.1)
[2017-10-30 17:04] LABS: MAGNESIUM 1.7 mg/dL (1.8-2.4)
[2017-10-30] MEDS: INSULIN REGULAR VIAL 150 UNIT in 0.9 % SODIUM CHLORIDE 150ML 150 ML IV PRN (17:13)
[2017-10-30] MEDS: IV RINGERS,LACTATED 1000ML 1,000 ML IV SCH (17:15)
[2017-10-30] MEDS: MORPHINE SULFATE 2 MG/ML VIAL. IV PRN ×4 (17:43→23:08)
--- NOTE | 2017-10-30 17:43 | EKG ---
[facility] [address] [place] [address] Test Date: 2017-10-30 Test Time: 16:48:32 Pat Name: SAIMA MARTIN Department: Room: 111 1 Gender: M Artist Scientific: PRAVEEN : 1955 Requested By: RAMSES SANDOVAL Order Number: [id number] Reading MD: Stuart Alvarez MD Measurements Intervals [place] Rate: 117 P: -20 NC: 110 QRS: 57 QRSD: 80 T: 75 QT: 334 QTc: 470 Interpretive Statements SINUS TACHYCARDIA Electronically Signed On 11-04-2017 12:09:28 CDT by Stuart Alvarez MD
[2017-10-30] MEDS: POTASSIUM CHLORIDE 20MEQ 50 ML IV SCH ×2 (18:10→19:12)
[2017-10-30] MEDS: ALBUMIN HUMAN 5% 250 ML IV PRN ×2 (18:21→19:16)
[2017-10-30 20:24] LABS: BASE EXCESS ABG -2 mmol/L (-3-3); HCO3 ABG 22 mmol/L (21-28); PCO2 ABG 35 mmHg (35-46); PO2 ABG 65 mmHg (65-108); SAT O2 ABG 92 % (92-99)
[2017-10-30 20:55] LABS: FIO2 ABG 40
[2017-10-30] MEDS ORDERED: CHLORHEXIDINE 0.12% 15 ML MOUTHWASH. MM SCH (21:00)
[2017-10-30 21:06] LABS: HEMATOCRIT 22.8 % (39.0-53.0); HEMOGLOBIN 8.1 g/dL (13.0-17.5); RED BLOOD COUNT 2.35 x10^6/uL (4.30-5.70); RED CELL DISTRIBUTION WIDTH 15.2 % (11.5-14.5); WHITE BLOOD COUNT 12.6 x10^3/uL (4.0-11.0)
[2017-10-30] MEDS: ALPRAZolam 0.25 MG TABLET PO PRN (21:19)
[2017-10-30] MEDS: SENNOSIDES/DOCUSATE 8.6/50MG TABLET. PO SCH (21:19)
[2017-10-30] MEDS: oxyCODONE/APAP 5/325 1 TAB TABLET PO PRN (21:20)
[2017-10-30] MEDS ORDERED: POTASSIUM CHLORIDE 20MEQ 50 ML IV ONE (21:45)
[2017-10-31] VITALS (29 sets, daily range): BP systolic 91–148; BP diastolic 43–65
[2017-10-31] MEDS: MORPHINE SULFATE 2 MG/ML VIAL. IV PRN (01:19)
[2017-10-31] MEDS: oxyCODONE/APAP 5/325 1 TAB TABLET PO PRN ×5 (01:20→21:12)
--- NOTE | 2017-10-31 04:05 | EKG ---
[facility] [address] [place] [address] Test Date: 2017-10-31 Test Time: 03:10:17 Pat Name: SAIMA MARTIN Department: Room: 111 1 Gender: M General Partner: JUNIOR : 1955 Requested By: RAMSES SANDOVAL Order Number: [id number] Reading MD: Stuart Alvarez MD Measurements Intervals [place] Rate: 108 P: 38 [place]: 142 QRS: 41 QRSD: 80 T: 76 QT: 330 QTc: 446 Interpretive Statements SINUS TACHYCARDIA NON-SPECIFIC ST/T CHANGES Electronically Signed On 11-01-2017 6:54:20 CDT by Stuart Alvarez MD
[2017-10-31 05:12] LABS: RED CELL DISTRIBUTION WIDTH 15.3 % (11.5-14.5); WHITE BLOOD COUNT 8.9 x10^3/uL (4.0-11.0)
[2017-10-31 05:21] LABS: HEMATOCRIT 19.4 % (39.0-53.0)
[2017-10-31 05:50] LABS: CALCIUM 8.6 mg/dL (8.5-10.1); CREATININE 1.4 mg/dL (0.7-1.3); GFR 51.4; POTASSIUM 4.7 mmol/L (3.5-5.1)
[2017-10-31] MEDS: ALBUMIN HUMAN 5% 250 ML IV PRN ×2 (05:54→10:49)
[2017-10-31] MEDS ORDERED: MAGNESIUM SULFATE 1GM 100 ML IV ONE (06:45)
[2017-10-31] MEDS: SENNOSIDES/DOCUSATE 8.6/50MG TABLET. PO SCH ×2 (07:48→21:11)
[2017-10-31] MEDS: ALPRAZolam 0.25 MG TABLET PO PRN ×2 (07:48→17:29)
[2017-10-31] MEDS: FAMOTIDINE 20 MG/2 ML VIAL IVP SCH (07:48)
[2017-10-31] MEDS: ASPIRIN ENTERIC COATED 325 MG TABLET.DR. PO SCH (07:48)
--- NOTE | 2017-10-31 08:08 | RAD ---
Portable chest, 10/31/2017: HISTORY: Postop evaluation Comparison is made to yesterday's study. The ET tube and NG tube have been removed. The right jugular [place]-Mikala catheter tip now lies at the level the proximal right main pulmonary artery. Bilateral chest tubes and mediastinal drains remain in place. The heart is enlarged and unchanged. A moderate left basilar opacity has developed obscuring the hemidiaphragm. The appearance suggests a combination of left lower lobe atelectasis and probable pleural fluid. There is a lesser degree right lower lobe atelectasis. No pneumothorax is seen. IMPRESSION: 1. A moderate left basilar opacity has developed suggesting left lower lobe atelectasis and probable pleural fluid. 2. Partial right lower lobe atelectasis. Electronically signed by: Will Joaquin MD (10/31/2017 8:06 AM) [facility]
[2017-10-31] MEDS ORDERED: METOPROLOL TART IMMED RELEASE 25 MG TABLET. PO SCH (09:00)
[2017-10-31] MEDS ORDERED: FUROSEMIDE 40 MG/4 ML VIAL. IVP ONE (09:15)
--- NOTE | 2017-10-31 09:34 | PDOC ---
RAMSES SANDOVAL SOFA BACK UPHOLSTERER 10/31/17 0934: CARDIO Progress Notes Date and Time Date of Service 10/31/2017 Time of Evaluation 0933 Subjective Subjective: No Chest Pain, No Palpitations, No Dizziness, Other (would be a great vacation if I wasn't sick) Vitals Vitals Vital Signs Date Time Temp Pulse Resp B/P (MAP) Pulse Ox O2 Delivery O2 Flow Rate FiO2 10/31/17 09:03 10/31/17 09:03 97.5 104 20 97 Nasal Cannula 3.0 97.5 Weight Weight [ ] Input and Output Intake and Output Intake and Output 10/31/17 07:00 Intake Total 1807 ml Output Total 2382 ml Balance -575 ml Intake Oral 50 ml IV Total 1457 ml Blood Product IV Normal Saline Flush 300 ml Output Urine Total 955 ml Gastric Drainage Total 20 ml Chest Tube Drainage Total 1407 ml Laboratory Labs Laboratory Tests Test 10/30/17 10:00 10/30/17 11:17 10/30/17 11:47 10/30/17 12:17 Activated Clotting Time 431 SEC (90-125) 500 SEC (90-125) 411 SEC (90-125) 494 SEC (90-125) Test 10/30/17 12:48 10/30/17 13:18 10/30/17 14:02 10/30/17 14:14 Activated Clotting Time 441 SEC (90-125) 480 SEC (90-125) 399 SEC (90-125) 399 SEC (90-125) Test 10/30/17 14:32 10/30/17 15:00 10/30/17 15:45 10/30/17 16:35 Activated Clotting Time > 1005 SEC (90-125) 118 SEC (90-125) White Blood Count 9.2 x10^3/uL (4.0-11.0) 11.6 x10^3/uL (4.0-11.0) Hemoglobin 8.7 g/dL (13.0-17.5) 10.5 g/dL (13.0-17.5) Hematocrit 24.9 % (39.0-53.0) 29.6 % (39.0-53.0) Platelet Count 74 x10^3/uL (140-400) 92 x10^3/uL (140-400) Prothrombin Time 21.7 SEC (11.7-14.0) 19.1 SEC (11.7-14.0) Prothromb Time International Ratio 2.0 (0.8-1.1) 1.7 (0.8-1.1) Activated Partial Thromboplast Time 43 SEC (24-38) 36 SEC (24-38) Fibrinogen 103 mg/dL (200-440) Red Blood Count 3.05 x10^6/uL (4.30-5.70) Mean Corpuscular Volume 97 fL (79-100) Mean Corpuscular Hemoglobin 34 pg (25-35) Mean Corpuscular Hemoglobin Concent 35 g/dL (31-37) Red Cell Distribution Width 14.9 % (11.5-14.5) Sodium Level 140 mmol/L (136-145) Potassium Level 3.8 mmol/L (3.5-5.1) Chloride Level 109 mmol/L (98-107) Carbon Dioxide Level 23 mmol/L (21-32) Anion Gap 8 (6-14) Blood Urea Nitrogen 12 mg/dL (8-26) Creatinine 1.1 mg/dL (0.7-1.3) Estimated GFR (Cockcroft-Gault) 67.8 Glucose Level 170 mg/dL (70-99) Calcium Level 8.5 mg/dL (8.5-10.1) Magnesium Level 1.7 mg/dL (1.8-2.4) Test 10/30/17 16:45 10/30/17 18:05 10/30/17 19:07 10/30/17 20:10 O2 Saturation 96 % (92-99) Arterial Blood pH 7.31 (7.35-7.45) Arterial Blood pCO2 at Patient Temp 39 mmHg (35-46) Arterial Blood pO2 at Patient Temp 98 mmHg (65-108) Arterial Blood HCO3 19 mmol/L (21-28) Arterial Blood Base Excess -6 mmol/L (-3-3) Oxyhemoglobin 95.6 % Methemoglobin 0.2 % (0.0-1.9) Carbon Monoxide, Quantitative 0.4 % (0.0-1.9) FiO2 80 Glucose (Fingerstick) 166 mg/dL (70-99) 153 mg/dL (70-99) 147 mg/dL (70-99) 116 mg/dL (70-99) Test 10/30/17 20:15 10/30/17 20:50 10/30/17 21:19 10/30/17 22:21 O2 Saturation 92 % (92-99) Arterial Blood pH 7.43 (7.35-7.45) Arterial Blood pCO2 at Patient Temp 35 mmHg (35-46) Arterial Blood pO2 at Patient Temp 65 mmHg (65-108) Arterial Blood HCO3 22 mmol/L (21-28) Arterial Blood Base Excess -2 mmol/L (-3-3) FiO2 40 White Blood Count 12.6 x10^3/uL (4.0-11.0) Red Blood Count 2.35 x10^6/uL (4.30-5.70) Hemoglobin 8.1 g/dL (13.0-17.5) Hematocrit 22.8 % (39.0-53.0) Mean Corpuscular Volume 97 fL (79-100) Mean Corpuscular Hemoglobin 34 pg (25-35) Mean Corpuscular Hemoglobin Concent 36 g/dL (31-37) Red Cell Distribution Width 15.2 % (11.5-14.5) Platelet Count 152 x10^3/uL (140-400) Potassium Level 4.4 mmol/L (3.5-5.1) Glucose (Fingerstick) 163 mg/dL (70-99) 166 mg/dL (70-99) Test 10/30/17 23:25 10/31/17 00:27 10/31/17 01:31 10/31/17 02:27 Glucose (Fingerstick) 129 mg/dL (70-99) 112 mg/dL (70-99) 139 mg/dL (70-99) 140 mg/dL (70-99) Test 10/31/17 03:44 10/31/17 04:56 10/31/17 04:59 10/31/17 06:01 Glucose (Fingerstick) 131 mg/dL (70-99) 141 mg/dL (70-99) 144 mg/dL (70-99) White Blood Count 8.9 x10^3/uL (4.0-11.0) Red Blood Count 2.00 x10^6/uL (4.30-5.70) Hemoglobin 7.0 g/dL (13.0-17.5) Hematocrit 19.4 % (39.0-53.0) Mean Corpuscular Volume 97 fL (79-100) Mean Corpuscular Hemoglobin 35 pg (25-35) Mean Corpuscular Hemoglobin Concent 36 g/dL (31-37) Red Cell Distribution Width 15.3 % (11.5-14.5) Platelet Count 140 x10^3/uL (140-400) Sodium Level 144 mmol/L (136-145) Potassium Level 4.7 mmol/L (3.5-5.1) Chloride Level 110 mmol/L (98-107) Carbon Dioxide Level 21 mmol/L (21-32) Anion Gap 13 (6-14) Blood Urea Nitrogen 15 mg/dL (8-26) Creatinine 1.4 mg/dL (0.7-1.3) Estimated GFR (Cockcroft-Gault) 51.4 Glucose Level 142 mg/dL (70-99) Calcium Level 8.6 mg/dL (8.5-10.1) Magnesium Level 2.0 mg/dL (1.8-2.4) Physical Exam HEENT: Neck Supple W Full Motion Chest: Symmetric LUNGS: Other (diminished in bases anteriorly) Heart: S1S2, RRR, no murmurs, other (tele: SR; pericardial rub) Abdomen: Soft N/T Extremities: No Edema, Other (right radial puncture site C/D/I; 2+ pulse at site; fingers mobile; brisk cap refill) Neurology: alert, oriented, follow commands Assessment Assessment 1. NSTEMI --troponin peaked @ 2.4 --s/p CABG X x 4: free TUCKER to LAD, SVG to LPL, SVG to diagonal, SVG to RPDA ; POD #1 --low dose inotropes being weaned --management per CTS; ASA, beta-blockers, statins 2. ischemic cardiomyopathy --LVEF 20-25% --continue beta-blockers 3. HTN --controlled with meds 4. HLD --statin therapy 5. Emphysema with persistent tobacco abuse --CT demonstrates emphysema --cessation advised 6. moderate REIA and JEROME disease 7. acute blood loss anemia, post-operative, expectant --to be transfused. KT KIRKPATRICK MD 10/31/17 3567: CARDIO Progress Notes Plan Plan Pt. seen and examined. Agree with above CURLING MACHINE OPERATOR note. Doing well POD #1 UOP minimal. On pressors per Dr. Sales Will follow along. RAMSES SANDOVAL APRN Oct 31, 2017 09:34 KT KIRKPATRICK MD Oct 31, 2017 17:41
[2017-10-31] MEDS: ALBUTEROL SULFATE 2.5 MG/3 ML NEBU. NEB SCH ×3 (09:58→19:26)
[2017-10-31] MEDS: IV RINGERS,LACTATED 1000ML 1,000 ML IV SCH (12:33)
[2017-10-31 12:48] LABS: HEMATOCRIT 21.9 % (39.0-53.0)
[2017-10-31 13:05] LABS: HEMOGLOBIN 7.7 g/dL (13.0-17.5)
--- NOTE | 2017-10-31 13:53 | PDOC ---
Progress Note Subjective Subjective Fast track extubation yesterday. 2 lit NC. On epinephrine for low EF and to improve cardiac output. Levophed weaned off. Systolic blood pressure above 90, sinus tachycardia 90-100. Hemoglobin this morning was 7, one unit PRBC given repeat H&H 7.7. 40 mg IV Lasix given with excellent response. Mediastinal tubes still a little oozy approximately 40-50 mL per hour. Cardiac index was above 2.5 , [place]-Mikala catheter has now been removed. Right thigh saphenous vein harvest site with ecchymosis but otherwise soft without significant swelling. Creatinine 1.4. ROS ROS No nausea No vomiting No pain No rash Vital Sign Vital Signs Vital Signs Date Time Temp Pulse Resp B/P (MAP) Pulse Ox O2 Delivery O2 Flow Rate FiO2 10/31/17 10:35 20 97 Nasal Cannula 2.0 10/31/17 10:00 10/31/17 10:00 97.7 97 97.7 Physical Exam PHYSICAL EXAM GENERAL: NAD, Alert HEENT: PERRL, OC/OP NECK: Supple, no JVD, no LN LUNGS: Clear HEART: S1S2, no gallop, no murmur ABD: Soft, NT, no organomegaly, no rebound EXT: No edema, no cyanosis ENVIRONMENTAL MANAGER: Alert, oriented x 3, no focal neurologic deficit SKIN: No rash IV: ok Labs Lab Laboratory Tests Test 10/30/17 14:02 10/30/17 14:14 10/30/17 14:32 10/30/17 15:00 Activated Clotting Time 399 SEC (90-125) 399 SEC (90-125) > 1005 SEC (90-125) 118 SEC (90-125) Test 10/30/17 15:45 10/30/17 16:35 10/30/17 16:45 10/30/17 18:05 White Blood Count 9.2 x10^3/uL (4.0-11.0) 11.6 x10^3/uL (4.0-11.0) Hemoglobin 8.7 g/dL (13.0-17.5) 10.5 g/dL (13.0-17.5) Hematocrit 24.9 % (39.0-53.0) 29.6 % (39.0-53.0) Platelet Count 74 x10^3/uL (140-400) 92 x10^3/uL (140-400) Prothrombin Time 21.7 SEC (11.7-14.0) 19.1 SEC (11.7-14.0) Prothromb Time International Ratio 2.0 (0.8-1.1) 1.7 (0.8-1.1) Activated Partial Thromboplast Time 43 SEC (24-38) 36 SEC (24-38) Fibrinogen 103 mg/dL (200-440) Red Blood Count 3.05 x10^6/uL (4.30-5.70) Mean Corpuscular Volume 97 fL (79-100) Mean Corpuscular Hemoglobin 34 pg (25-35) Mean Corpuscular Hemoglobin Concent 35 g/dL (31-37) Red Cell Distribution Width 14.9 % (11.5-14.5) Sodium Level 140 mmol/L (136-145) Potassium Level 3.8 mmol/L (3.5-5.1) Chloride Level 109 mmol/L (98-107) Carbon Dioxide Level 23 mmol/L (21-32) Anion Gap 8 (6-14) Blood Urea Nitrogen 12 mg/dL (8-26) Creatinine 1.1 mg/dL (0.7-1.3) Estimated GFR (Cockcroft-Gault) 67.8 Glucose Level 170 mg/dL (70-99) Calcium Level 8.5 mg/dL (8.5-10.1) Magnesium Level 1.7 mg/dL (1.8-2.4) O2 Saturation 96 % (92-99) Arterial Blood pH 7.31 (7.35-7.45) Arterial Blood pCO2 at Patient Temp 39 mmHg (35-46) Arterial Blood pO2 at Patient Temp 98 mmHg (65-108) Arterial Blood HCO3 19 mmol/L (21-28) Arterial Blood Base Excess -6 mmol/L (-3-3) Oxyhemoglobin 95.6 % Methemoglobin 0.2 % (0.0-1.9) Carbon Monoxide, Quantitative 0.4 % (0.0-1.9) FiO2 80 Glucose (Fingerstick) 166 mg/dL (70-99) 153 mg/dL (70-99) Test 10/30/17 19:07 10/30/17 20:10 10/30/17 20:15 10/30/17 20:50 Glucose (Fingerstick) 147 mg/dL (70-99) 116 mg/dL (70-99) O2 Saturation 92 % (92-99) Arterial Blood pH 7.43 (7.35-7.45) Arterial Blood pCO2 at Patient Temp 35 mmHg (35-46) Arterial Blood pO2 at Patient Temp 65 mmHg (65-108) Arterial Blood HCO3 22 mmol/L (21-28) Arterial Blood Base Excess -2 mmol/L (-3-3) FiO2 40 White Blood Count 12.6 x10^3/uL (4.0-11.0) Red Blood Count 2.35 x10^6/uL (4.30-5.70) Hemoglobin 8.1 g/dL (13.0-17.5) Hematocrit 22.8 % (39.0-53.0) Mean Corpuscular Volume 97 fL (79-100) Mean Corpuscular Hemoglobin 34 pg (25-35) Mean Corpuscular Hemoglobin Concent 36 g/dL (31-37) Red Cell Distribution Width 15.2 % (11.5-14.5) Platelet Count 152 x10^3/uL (140-400) Potassium Level 4.4 mmol/L (3.5-5.1) Test 10/30/17 21:19 10/30/17 22:21 10/30/17 23:25 10/31/17 00:27 Glucose (Fingerstick) 163 mg/dL (70-99) 166 mg/dL (70-99) 129 mg/dL (70-99) 112 mg/dL (70-99) Test 10/31/17 01:31 10/31/17 02:27 10/31/17 03:44 10/31/17 04:56 Glucose (Fingerstick) 139 mg/dL (70-99) 140 mg/dL (70-99) 131 mg/dL (70-99) 141 mg/dL (70-99) Test 10/31/17 04:59 10/31/17 06:01 10/31/17 08:26 10/31/17 09:43 White Blood Count 8.9 x10^3/uL (4.0-11.0) Red Blood Count 2.00 x10^6/uL (4.30-5.70) Hemoglobin 7.0 g/dL (13.0-17.5) Hematocrit 19.4 % (39.0-53.0) Mean Corpuscular Volume 97 fL (79-100) Mean Corpuscular Hemoglobin 35 pg (25-35) Mean Corpuscular Hemoglobin Concent 36 g/dL (31-37) Red Cell Distribution Width 15.3 % (11.5-14.5) Platelet Count 140 x10^3/uL (140-400) Sodium Level 144 mmol/L (136-145) Potassium Level 4.7 mmol/L (3.5-5.1) Chloride Level 110 mmol/L (98-107) Carbon Dioxide Level 21 mmol/L (21-32) Anion Gap 13 (6-14) Blood Urea Nitrogen 15 mg/dL (8-26) Creatinine 1.4 mg/dL (0.7-1.3) Estimated GFR (Cockcroft-Gault) 51.4 Glucose Level 142 mg/dL (70-99) Calcium Level 8.6 mg/dL (8.5-10.1) Magnesium Level 2.0 mg/dL (1.8-2.4) Glucose (Fingerstick) 144 mg/dL (70-99) 164 mg/dL (70-99) 169 mg/dL (70-99) Test // 11:30 10/31/18 11:33 // 13:15 Hemoglobin 7.7 g/dL (13.0-17.5) Hematocrit 21.9 % (39.0-53.0) Glucose (Fingerstick) 82 mg/dL (70-99) 132 mg/dL (70-99) Objective Assessment POD#1, s/p CABG x 4 (TUCKER to LAD, SVG to LPL, SVG to diag, SVG to RPDA). Severe ischemic cardiomyopathy with EF 20% Fast track extubation yesterday. 2 lit NC. On epinephrine for low EF and to improve cardiac output. Levophed weaned off. Systolic blood pressure above 90, sinus tachycardia 90-100. Hemoglobin this morning was 7, one unit PRBC given repeat H&H 7.7. 40 mg IV Lasix given with excellent response. Mediastinal tubes still a little oozy approximately 40-50 mL per hour. Cardiac index was above 2.5 , [place]-Mikala catheter has now been removed. Right thigh saphenous vein harvest site with ecchymosis but otherwise soft without significant swelling. Creatinine 1.4. Plan Plan of Care Will give one more unit PRBC 40 mg IV Lasix twice daily Keep mediastinal tubes today Keep epinephrine to help maintain cardiac output in the immediate postoperative period. We will wean tomorrow. Switch amiodarone drip to po 200 mg twice a day for atrial fibrillation prophylaxis SHAY HARRIS MD Oct 31, 2017 13:53
[2017-10-31] MEDS ORDERED: FUROSEMIDE 40 MG/4 ML VIAL. IVP SCH (14:00)
--- NOTE | 2017-10-31 14:45 | PDOC ---
PROGRESS NOTES Chief Complaint Chief Complaint acute systolic CHF, w/ hypotension NSTEMI, acute LA 3 vessel CAD, CABG surg planned tobacco use disorder - htn History of Present Illness History of Present Illness s.p CABG POD #1, doing well in ICU, some BP support reqw. 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: Alert, oriented x 3, no focal neurologic deficit SKIN: No rash IV: ok General: Alert, Oriented X3, No acute distress Heart: Regular rate, Normal S1, Normal S2 Abdomen: Soft, No tenderness Extremities: No edema Skin: No rashes, No significant lesion Labs LABS Laboratory Tests Test 10/30/17 15:00 10/30/17 15:45 10/30/17 16:35 10/30/17 16:45 Activated Clotting Time 118 SEC (90-125) White Blood Count 9.2 x10^3/uL (4.0-11.0) 11.6 x10^3/uL (4.0-11.0) Hemoglobin 8.7 g/dL (13.0-17.5) 10.5 g/dL (13.0-17.5) Hematocrit 24.9 % (39.0-53.0) 29.6 % (39.0-53.0) Platelet Count 74 x10^3/uL (140-400) 92 x10^3/uL (140-400) Prothrombin Time 21.7 SEC (11.7-14.0) 19.1 SEC (11.7-14.0) Prothromb Time International Ratio 2.0 (0.8-1.1) 1.7 (0.8-1.1) Activated Partial Thromboplast Time 43 SEC (24-38) 36 SEC (24-38) Fibrinogen 103 mg/dL (200-440) Red Blood Count 3.05 x10^6/uL (4.30-5.70) Mean Corpuscular Volume 97 fL (79-100) Mean Corpuscular Hemoglobin 34 pg (25-35) Mean Corpuscular Hemoglobin Concent 35 g/dL (31-37) Red Cell Distribution Width 14.9 % (11.5-14.5) Sodium Level 140 mmol/L (136-145) Potassium Level 3.8 mmol/L (3.5-5.1) Chloride Level 109 mmol/L (98-107) Carbon Dioxide Level 23 mmol/L (21-32) Anion Gap 8 (6-14) Blood Urea Nitrogen 12 mg/dL (8-26) Creatinine 1.1 mg/dL (0.7-1.3) Estimated GFR (Cockcroft-Gault) 67.8 Glucose Level 170 mg/dL (70-99) Calcium Level 8.5 mg/dL (8.5-10.1) Magnesium Level 1.7 mg/dL (1.8-2.4) O2 Saturation 96 % (92-99) Arterial Blood pH 7.31 (7.35-7.45) Arterial Blood pCO2 at Patient Temp 39 mmHg (35-46) Arterial Blood pO2 at Patient Temp 98 mmHg (65-108) Arterial Blood HCO3 19 mmol/L (21-28) Arterial Blood Base Excess -6 mmol/L (-3-3) Oxyhemoglobin 95.6 % Methemoglobin 0.2 % (0.0-1.9) Carbon Monoxide, Quantitative 0.4 % (0.0-1.9) FiO2 80 Glucose (Fingerstick) 166 mg/dL (70-99) Test 10/30/17 18:05 10/30/17 19:07 10/30/17 20:10 10/30/17 20:15 Glucose (Fingerstick) 153 mg/dL (70-99) 147 mg/dL (70-99) 116 mg/dL (70-99) O2 Saturation 92 % (92-99) Arterial Blood pH 7.43 (7.35-7.45) Arterial Blood pCO2 at Patient Temp 35 mmHg (35-46) Arterial Blood pO2 at Patient Temp 65 mmHg (65-108) Arterial Blood HCO3 22 mmol/L (21-28) Arterial Blood Base Excess -2 mmol/L (-3-3) FiO2 40 Test 10/30/17 20:50 10/30/17 21:19 10/30/17 22:21 10/30/17 23:25 White Blood Count 12.6 x10^3/uL (4.0-11.0) Red Blood Count 2.35 x10^6/uL (4.30-5.70) Hemoglobin 8.1 g/dL (13.0-17.5) Hematocrit 22.8 % (39.0-53.0) Mean Corpuscular Volume 97 fL (79-100) Mean Corpuscular Hemoglobin 34 pg (25-35) Mean Corpuscular Hemoglobin Concent 36 g/dL (31-37) Red Cell Distribution Width 15.2 % (11.5-14.5) Platelet Count 152 x10^3/uL (140-400) Potassium Level 4.4 mmol/L (3.5-5.1) Glucose (Fingerstick) 163 mg/dL (70-99) 166 mg/dL (70-99) 129 mg/dL (70-99) Test 10/31/17 00:27 10/31/17 01:31 10/31/17 02:27 10/31/17 03:44 Glucose (Fingerstick) 112 mg/dL (70-99) 139 mg/dL (70-99) 140 mg/dL (70-99) 131 mg/dL (70-99) Test 10/31/17 04:56 10/31/17 04:59 10/31/17 06:01 10/31/17 08:26 Glucose (Fingerstick) 141 mg/dL (70-99) 144 mg/dL (70-99) 164 mg/dL (70-99) White Blood Count 8.9 x10^3/uL (4.0-11.0) Red Blood Count 2.00 x10^6/uL (4.30-5.70) Hemoglobin 7.0 g/dL (13.0-17.5) Hematocrit 19.4 % (39.0-53.0) Mean Corpuscular Volume 97 fL (79-100) Mean Corpuscular Hemoglobin 35 pg (25-35) Mean Corpuscular Hemoglobin Concent 36 g/dL (31-37) Red Cell Distribution Width 15.3 % (11.5-14.5) Platelet Count 140 x10^3/uL (140-400) Sodium Level 144 mmol/L (136-145) Potassium Level 4.7 mmol/L (3.5-5.1) Chloride Level 110 mmol/L (98-107) Carbon Dioxide Level 21 mmol/L (21-32) Anion Gap 13 (6-14) Blood Urea Nitrogen 15 mg/dL (8-26) Creatinine 1.4 mg/dL (0.7-1.3) Estimated GFR (Cockcroft-Gault) 51.4 Glucose Level 142 mg/dL (70-99) Calcium Level 8.6 mg/dL (8.5-10.1) Magnesium Level 2.0 mg/dL (1.8-2.4) Test 10/31/17 09:43 10/31/17 11:30 10/31/17 11:33 10/31/17 13:15 Glucose (Fingerstick) 169 mg/dL (70-99) 82 mg/dL (70-99) 132 mg/dL (70-99) Hemoglobin 7.7 g/dL (13.0-17.5) Hematocrit 21.9 % (39.0-53.0) Test 10/31/17 14:20 Glucose (Fingerstick) 170 mg/dL (70-99) Comment Review of Relevant I have reviewed the following items bryce (where applicable) has been applied. Labs Laboratory Tests Test 10/30/17 04:17 10/30/17 06:50 10/30/17 08:09 10/30/17 10:00 Glucose (Fingerstick) 99 mg/dL (70-99) Sodium Level 129 mmol/L (136-145) Potassium Level 3.6 mmol/L (3.5-5.1) Chloride Level 98 mmol/L (98-107) Carbon Dioxide Level 22 mmol/L (21-32) Anion Gap 9 (6-14) Blood Urea Nitrogen 13 mg/dL (8-26) Creatinine 1.0 mg/dL (0.7-1.3) Estimated GFR (Cockcroft-Gault) 75.7 Glucose Level 102 mg/dL (70-99) Calcium Level 8.6 mg/dL (8.5-10.1) Magnesium Level 1.6 mg/dL (1.8-2.4) Activated Clotting Time 106 SEC (90-125) 431 SEC (90-125) Test 10/30/17 11:17 10/30/17 11:47 10/30/17 12:17 10/30/17 12:48 Activated Clotting Time 500 SEC (90-125) 411 SEC (90-125) 494 SEC (90-125) 441 SEC (90-125) Test 10/30/17 13:18 10/30/17 14:02 10/30/17 14:14 10/30/17 14:32 Activated Clotting Time 480 SEC (90-125) 399 SEC (90-125) 399 SEC (90-125) > 1005 SEC (90-125) Test 10/30/17 15:00 10/30/17 15:45 10/30/17 16:35 10/30/17 16:45 Activated Clotting Time 118 SEC (90-125) White Blood Count 9.2 x10^3/uL (4.0-11.0) 11.6 x10^3/uL (4.0-11.0) Hemoglobin 8.7 g/dL (13.0-17.5) 10.5 g/dL (13.0-17.5) Hematocrit 24.9 % (39.0-53.0) 29.6 % (39.0-53.0) Platelet Count 74 x10^3/uL (140-400) 92 x10^3/uL (140-400) Prothrombin Time 21.7 SEC (11.7-14.0) 19.1 SEC (11.7-14.0) Prothromb Time International Ratio 2.0 (0.8-1.1) 1.7 (0.8-1.1) Activated Partial Thromboplast Time 43 SEC (24-38) 36 SEC (24-38) Fibrinogen 103 mg/dL (200-440) Red Blood Count 3.05 x10^6/uL (4.30-5.70) Mean Corpuscular Volume 97 fL (79-100) Mean Corpuscular Hemoglobin 34 pg (25-35) Mean Corpuscular Hemoglobin Concent 35 g/dL (31-37) Red Cell Distribution Width 14.9 % (11.5-14.5) Sodium Level 140 mmol/L (136-145) Potassium Level 3.8 mmol/L (3.5-5.1) Chloride Level 109 mmol/L (98-107) Carbon Dioxide Level 23 mmol/L (21-32) Anion Gap 8 (6-14) Blood Urea Nitrogen 12 mg/dL (8-26) Creatinine 1.1 mg/dL (0.7-1.3) Estimated GFR (Cockcroft-Gault) 67.8 Glucose Level 170 mg/dL (70-99) Calcium Level 8.5 mg/dL (8.5-10.1) Magnesium Level 1.7 mg/dL (1.8-2.4) O2 Saturation 96 % (92-99) Arterial Blood pH 7.31 (7.35-7.45) Arterial Blood pCO2 at Patient Temp 39 mmHg (35-46) Arterial Blood pO2 at Patient Temp 98 mmHg (65-108) Arterial Blood HCO3 19 mmol/L (21-28) Arterial Blood Base Excess -6 mmol/L (-3-3) Oxyhemoglobin 95.6 % Methemoglobin 0.2 % (0.0-1.9) Carbon Monoxide, Quantitative 0.4 % (0.0-1.9) FiO2 80 Glucose (Fingerstick) 166 mg/dL (70-99) Test 10/30/17 18:05 10/30/17 19:07 10/30/17 20:10 10/30/17 20:15 Glucose (Fingerstick) 153 mg/dL (70-99) 147 mg/dL (70-99) 116 mg/dL (70-99) O2 Saturation 92 % (92-99) Arterial Blood pH 7.43 (7.35-7.45) Arterial Blood pCO2 at Patient Temp 35 mmHg (35-46) Arterial Blood pO2 at Patient Temp 65 mmHg (65-108) Arterial Blood HCO3 22 mmol/L (21-28) Arterial Blood Base Excess -2 mmol/L (-3-3) FiO2 40 Test 10/30/17 20:50 10/30/17 21:19 10/30/17 22:21 10/30/17 23:25 White Blood Count 12.6 x10^3/uL (4.0-11.0) Red Blood Count 2.35 x10^6/uL (4.30-5.70) Hemoglobin 8.1 g/dL (13.0-17.5) Hematocrit 22.8 % (39.0-53.0) Mean Corpuscular Volume 97 fL (79-100) Mean Corpuscular Hemoglobin 34 pg (25-35) Mean Corpuscular Hemoglobin Concent 36 g/dL (31-37) Red Cell Distribution Width 15.2 % (11.5-14.5) Platelet Count 152 x10^3/uL (140-400) Potassium Level 4.4 mmol/L (3.5-5.1) Glucose (Fingerstick) 163 mg/dL (70-99) 166 mg/dL (70-99) 129 mg/dL (70-99) Test 10/31/17 00:27 10/31/17 01:31 10/31/17 02:27 10/31/17 03:44 Glucose (Fingerstick) 112 mg/dL (70-99) 139 mg/dL (70-99) 140 mg/dL (70-99) 131 mg/dL (70-99) Test 10/31/17 04:56 10/31/17 04:59 10/31/17 06:01 10/31/17 08:26 Glucose (Fingerstick) 141 mg/dL (70-99) 144 mg/dL (70-99) 164 mg/dL (70-99) White Blood Count 8.9 x10^3/uL (4.0-11.0) Red Blood Count 2.00 x10^6/uL (4.30-5.70) Hemoglobin 7.0 g/dL (13.0-17.5) Hematocrit 19.4 % (39.0-53.0) Mean Corpuscular Volume 97 fL (79-100) Mean Corpuscular Hemoglobin 35 pg (25-35) Mean Corpuscular Hemoglobin Concent 36 g/dL (31-37) Red Cell Distribution Width 15.3 % (11.5-14.5) Platelet Count 140 x10^3/uL (140-400) Sodium Level 144 mmol/L (136-145) Potassium Level 4.7 mmol/L (3.5-5.1) Chloride Level 110 mmol/L (98-107) Carbon Dioxide Level 21 mmol/L (21-32) Anion Gap 13 (6-14) Blood Urea Nitrogen 15 mg/dL (8-26) Creatinine 1.4 mg/dL (0.7-1.3) Estimated GFR (Cockcroft-Gault) 51.4 Glucose Level 142 mg/dL (70-99) Calcium Level 8.6 mg/dL (8.5-10.1) Magnesium Level 2.0 mg/dL (1.8-2.4) Test 10/31/17 09:43 10/31/17 11:30 10/31/17 11:33 10/31/17 13:15 Glucose (Fingerstick) 169 mg/dL (70-99) 82 mg/dL (70-99) 132 mg/dL (70-99) Hemoglobin 7.7 g/dL (13.0-17.5) Hematocrit 21.9 % (39.0-53.0) Test 10/31/17 14:20 Glucose (Fingerstick) 170 mg/dL (70-99) Laboratory Tests Test 10/30/17 15:00 10/30/17 15:45 10/30/17 16:35 10/30/17 16:45 Activated Clotting Time 118 SEC (90-125) White Blood Count 9.2 x10^3/uL (4.0-11.0) 11.6 x10^3/uL (4.0-11.0) Hemoglobin 8.7 g/dL (13.0-17.5) 10.5 g/dL (13.0-17.5) Hematocrit 24.9 % (39.0-53.0) 29.6 % (39.0-53.0) Platelet Count 74 x10^3/uL (140-400) 92 x10^3/uL (140-400) Prothrombin Time 21.7 SEC (11.7-14.0) 19.1 SEC (11.7-14.0) Prothromb Time International Ratio 2.0 (0.8-1.1) 1.7 (0.8-1.1) Activated Partial Thromboplast Time 43 SEC (24-38) 36 SEC (24-38) Fibrinogen 103 mg/dL (200-440) Red Blood Count 3.05 x10^6/uL (4.30-5.70) Mean Corpuscular Volume 97 fL (79-100) Mean Corpuscular Hemoglobin 34 pg (25-35) Mean Corpuscular Hemoglobin Concent 35 g/dL (31-37) Red Cell Distribution Width 14.9 % (11.5-14.5) Sodium Level 140 mmol/L (136-145) Potassium Level 3.8 mmol/L (3.5-5.1) Chloride Level 109 mmol/L (98-107) Carbon Dioxide Level 23 mmol/L (21-32) Anion Gap 8 (6-14) Blood Urea Nitrogen 12 mg/dL (8-26) Creatinine 1.1 mg/dL (0.7-1.3) Estimated GFR (Cockcroft-Gault) 67.8 Glucose Level 170 mg/dL (70-99) Calcium Level 8.5 mg/dL (8.5-10.1) Magnesium Level 1.7 mg/dL (1.8-2.4) O2 Saturation 96 % (92-99) Arterial Blood pH 7.31 (7.35-7.45) Arterial Blood pCO2 at Patient Temp 39 mmHg (35-46) Arterial Blood pO2 at Patient Temp 98 mmHg (65-108) Arterial Blood HCO3 19 mmol/L (21-28) Arterial Blood Base Excess -6 mmol/L (-3-3) Oxyhemoglobin 95.6 % Methemoglobin 0.2 % (0.0-1.9) Carbon Monoxide, Quantitative 0.4 % (0.0-1.9) FiO2 80 Glucose (Fingerstick) 166 mg/dL (70-99) Test 10/30/17 18:05 10/30/17 19:07 10/30/17 20:10 10/30/17 20:15 Glucose (Fingerstick) 153 mg/dL (70-99) 147 mg/dL (70-99) 116 mg/dL (70-99) O2 Saturation 92 % (92-99) Arterial Blood pH 7.43 (7.35-7.45) Arterial Blood pCO2 at Patient Temp 35 mmHg (35-46) Arterial Blood pO2 at Patient Temp 65 mmHg (65-108) Arterial Blood HCO3 22 mmol/L (21-28) Arterial Blood Base Excess -2 mmol/L (-3-3) FiO2 40 Test 10/30/17 20:50 10/30/17 21:19 10/30/17 22:21 10/30/17 23:25 White Blood Count 12.6 x10^3/uL (4.0-11.0) Red Blood Count 2.35 x10^6/uL (4.30-5.70) Hemoglobin 8.1 g/dL (13.0-17.5) Hematocrit 22.8 % (39.0-53.0) Mean Corpuscular Volume 97 fL (79-100) Mean Corpuscular Hemoglobin 34 pg (25-35) Mean Corpuscular Hemoglobin Concent 36 g/dL (31-37) Red Cell Distribution Width 15.2 % (11.5-14.5) Platelet Count 152 x10^3/uL (140-400) Potassium Level 4.4 mmol/L (3.5-5.1) Glucose (Fingerstick) 163 mg/dL (70-99) 166 mg/dL (70-99) 129 mg/dL (70-99) Test 10/31/17 00:27 10/31/17 01:31 10/31/17 02:27 10/31/17 03:44 Glucose (Fingerstick) 112 mg/dL (70-99) 139 mg/dL (70-99) 140 mg/dL (70-99) 131 mg/dL (70-99) Test 10/31/17 04:56 10/31/17 04:59 10/31/17 06:01 10/31/17 08:26 Glucose (Fingerstick) 141 mg/dL (70-99) 144 mg/dL (70-99) 164 mg/dL (70-99) White Blood Count 8.9 x10^3/uL (4.0-11.0) Red Blood Count 2.00 x10^6/uL (4.30-5.70) Hemoglobin 7.0 g/dL (13.0-17.5) Hematocrit 19.4 % (39.0-53.0) Mean Corpuscular Volume 97 fL (79-100) Mean Corpuscular Hemoglobin 35 pg (25-35) Mean Corpuscular Hemoglobin Concent 36 g/dL (31-37) Red Cell Distribution Width 15.3 % (11.5-14.5) Platelet Count 140 x10^3/uL (140-400) Sodium Level 144 mmol/L (136-145) Potassium Level 4.7 mmol/L (3.5-5.1) Chloride Level 110 mmol/L (98-107) Carbon Dioxide Level 21 mmol/L (21-32) Anion Gap 13 (6-14) Blood Urea Nitrogen 15 mg/dL (8-26) Creatinine 1.4 mg/dL (0.7-1.3) Estimated GFR (Cockcroft-Gault) 51.4 Glucose Level 142 mg/dL (70-99) Calcium Level 8.6 mg/dL (8.5-10.1) Magnesium Level 2.0 mg/dL (1.8-2.4) Test 10/31/17 09:43 10/31/17 11:30 10/31/17 11:33 10/31/17 13:15 Glucose (Fingerstick) 169 mg/dL (70-99) 82 mg/dL (70-99) 132 mg/dL (70-99) Hemoglobin 7.7 g/dL (13.0-17.5) Hematocrit 21.9 % (39.0-53.0) Test 10/31/17 14:20 Glucose (Fingerstick) 170 mg/dL (70-99) Medications Current Medications Aspirin (Children'S Aspirin) 324 mg 1X ONCE PO Last administered on 10/28/17at 01:28; Start 10/28/17 at 01:30; Stop 10/28/17 at 01:31; Status DC Nitroglycerin (Nitro-Bid Oint) 1 inch 1X ONCE TP Last administered on at 01:29; Start 10/28/17 at 01:30; Stop 10/28/17 at 01:31; Status DC Furosemide (Lasix) 40 mg 1X ONCE IVP Last administered on 10/28/17at 01:28; Start 10/28/17 at 01:30; Stop 10/28/17 at 01:31; Status DC Enoxaparin Sodium (Lovenox Per Pharmacy Treatment Dosing) 1 each PRN DAILY PRN MC SEE COMMENTS; Start 10/28/17 at 01:30; Status Cancel Ondansetron HCl (Zofran) 4 mg PRN Q8HRS PRN IV NAUSEA/VOMITING 1ST CHOICE; Start 10/28/17 at 01:30; Stop 10/29/17 at 01:29; Status DC Fentanyl Citrate (Fentanyl 2ml Vial) 50 mcg PRN Q1HR PRN IV SEVERE PAIN; Start 10/28/17 at 01:30; Stop 10/29/17 at 01:29; Status DC Acetaminophen (Tylenol) 650 mg PRN Q4HRS PRN PO FEVER; Start 10/28/17 at 01:30; Stop 10/29/17 at 01:29; Status DC Heparin Sodium/ Dextrose 500 ml @ 0 mls/hr CONT PRN IV SEE I/O RECORD Last administered on 10/29/17at 02:02; Start 10/28/17 at 01:30; Stop 10/30/17 at 00:05; Status DC Heparin Sodium (Porcine) (Heparin Sodium) 2,000 unit PRN Q6HRS PRN IV FOR UFH LEVEL LESS THAN 0.2 Last administered on 10/28/17at 02:17; Start 10/28/17 at 01:30 ; Stop 10/30/17 at 07:44; Status DC Furosemide (Lasix) 40 mg [id number] IVP ; Start 10/28/17 at 09:00; Stop 10/28/17 at 13: 04; Status DC Furosemide (Lasix) 40 mg 1X ONCE IVP Last administered on 10/28/17at 02:13; Start 10/28/17 at 02:00; Stop 10/28/17 at 02:01; Status DC Info (Anti-Coagulation Monitoring By Pharmacy) 1 each PRN DAILY PRN MC SEE COMMENTS Last administered on 10/29/17at 10:35; Start 10/28/17 at 02:00; Stop at 07:44; Status DC Aspirin (Ecotrin) 325 mg [id number] PO Last administered on 10/29/17at 09:24; Start 10/28/17 at 09:30; Stop 10/29/17 at 14:52; Status DC Sodium Chloride 1,000 ml @ 50 mls/hr 1X ONCE IV Last administered on at 11:37; Start 10/28/17 at 09:30; Stop 10/29/17 at 05:29; Status DC Labetalol HCl (Normodyne Iv Push) 20 mg PRN Q2HR PRN IVP HYPERTENSION, SEE COMMENTS; Start 10/28/17 at 09:15; Stop 10/29/17 at 23:55; Status DC Magnesium Sulfate 50 ml @ 25 mls/hr 1X ONCE IV Last administered on 10/28/17at 11:29; Start 10/28/17 at 11:30; Stop 10/28/17 at 13:29; Status DC Potassium Chloride (Klor-Con) 40 meq 1X ONCE PO Last administered on 10/28/17at 16:42; Start 10/28/17 at 11:30; Stop 10/28/17 at 11:31; Status DC Furosemide (Lasix) 40 mg DAILY IVP Last administered on 10/29/17at 09:35; Start 10/29/17 at 09:00; Stop 10/29/17 at 14:54; Status DC Iodixanol (Visipaque 320) 100 ml STK-MED ONCE .ROUTE ; Start 10/28/17 at 14:04; Stop 10/28/17 at 14:05; Status DC Lidocaine HCl (Xylocaine-Mpf 1% 2ml Vial) 2 ml STK-MED ONCE .ROUTE ; Start at 14:04; Stop 10/28/17 at 14:05; Status DC Heparin Sodium/ Sodium Chloride 1,000 ml @ As Directed STK-MED ONCE .ROUTE ; Start 10/28/17 at 14:05; Stop 10/28/17 at 14:06; Status DC Fentanyl Citrate (Fentanyl 2ml Vial) 100 mcg STK-MED ONCE .ROUTE ; Start at 15:10; Stop 10/28/17 at 15:11; Status DC Midazolam HCl (Versed) 2 mg STK-MED ONCE .ROUTE ; Start 10/28/17 at 15:10; Stop 10/28/17 at 15:11; Status DC Heparin Sodium (Porcine) (Heparin Sodium) 10,000 unit STK-MED ONCE .ROUTE ; Start 10/28/17 at 15:10; Stop 10/28/17 at 15:11; Status DC Verapamil HCl (Verapamil) 5 mg STK-MED ONCE .ROUTE ; Start 10/28/17 at 15:10; Stop 10/28/17 at 15:11; Status DC Nitroglycerin (Nitroglycerin) 200 mcg STK-MED ONCE .ROUTE ; Start 10/28/17 at 15: 10; Stop 10/28/17 at 15:11; Status DC Nitroglycerin (Nitroglycerin) 200 mcg 1X ONCE IART Last administered on 15:57; Start 10/28/17 at 16:00; Stop 10/28/17 at 16:01; Status DC Verapamil HCl (Verapamil) 2.5 mg 1X ONCE IART Last administered on 10/28/17at 15 :57; Start 10/28/17 at 16:00; Stop 10/28/17 at 16:01; Status DC Heparin Sodium (Porcine) (Heparin Sodium) 2,500 unit 1X ONCE IART Last administered on 10/28/17at 15:30; Start 10/28/17 at 16:00; Stop 10/28/17 at 16:01; Status DC Heparin Sodium/ Sodium Chloride (HEPARIN for ARTERIAL LINE FLUSH) 1,000 unit 1X ONCE IART Last administered on 10/28/17at 15:56; Start 10/28/17 at 16:00; Stop 10/28/17 at 16:01; Status DC Midazolam HCl (Versed) 2 mg 1X ONCE IV Last administered on 10/28/17at 15:58; Start 10/28/17 at 16:00; Stop 10/28/17 at 16:01; Status DC Fentanyl Citrate (Fentanyl 2ml Vial) 50 mcg 1X ONCE IV Last administered on 10/28/17at 15:58; Start 10/28/17 at 16:00; Stop 10/28/17 at 16:01; Status DC Iodixanol (Visipaque 320) 65 ml 1X ONCE IART Last administered on 10/28/17at 15: 56; Start 10/28/17 at 16:00; Stop 10/28/17 at 16:01; Status DC Lidocaine HCl (Xylocaine-Mpf 1% 2ml Vial) 1 ml 1X ONCE INJ Last administered on 10/28/17at 15:57; Start 10/28/17 at 16:00; Stop 10/28/17 at 16:01; Status DC Info (CONTRAST GIVEN -- Rx MONITORING) 1 each PRN DAILY PRN MC SEE COMMENTS; Start 10/28/17 at 16:00; Stop 10/30/17 at 16:00; Status DC Metoprolol Tartrate (Lopressor) 12.5 mg BID PO Last administered on 10/29/17at 21 :01; Start 10/28/17 at 21:00; Stop 10/29/17 at 23:55; Status DC Potassium Chloride (Klor-Con) 40 meq 1X ONCE PO Last administered on 10/29/17at 09:24; Start 10/29/17 at 09:00; Stop 10/29/17 at 09:01; Status DC Alprazolam (Xanax) 0.25 mg PRN Q8HRS PRN PO ANXIETY / AGITATION Last administered on 10/29/17at 21:00; Start 10/29/17 at 09:15; Stop 10/29/17 at 22:00; Status DC Potassium Chloride 70 meq/ Sodium Bicarbonate 12.5 meq/Lidocaine HCl 24 ml/ Parenteral Electrolytes 571.5 ml @ 571.5 mls/ hr 1X ONCE IRR Last administered on 10/30/17at 10:59; Start 10/30/17 at 06:00; Stop 10/30/17 at 06:59; Status DC Potassium Chloride 15 meq/ Sodium Bicarbonate 12.5 meq/Parenteral Electrolytes 520 ml @ 520 mls/hr 1X ONCE IRR Last administered on 10/30/17at 10:59; Start at 06:00; Stop 10/30/17 at 06:59; Status DC Heparin Sodium (Porcine) 83335 unit/Ringer's Solution 1,020 ml @ 1,020 mls/hr 1X ONCE IRR Last administered on 10/30/17at 08:58; Start 10/30/17 at 06:00; Stop 10/30/17 at 06:59; Status DC Heparin Sodium (Porcine) 800 unit/ Nitroglycerin 4 mg/Verapamil HCl 8 mg/Sodium Bicarbonate 0.34 meq/Ringer's Solution 512.34 ml @ 512.34 mls/hr 1X ONCE IRR ; Start 10/30/17 at 06:00; Stop 10/30/17 at 06:59; Status DC Ondansetron HCl (Zofran) 4 mg PRN Q6HRS PRN IV NAUSEA/VOMITING; Start 10/30/17 at 07:00; Stop 10/31/17 at 06:59; Status DC Fentanyl Citrate (Fentanyl 2ml Vial) 25 mcg PRN Q5MIN PRN IV MILD PAIN; Start 10/30/17 at 07:00; Stop 10/31/17 at 06:59; Status DC Fentanyl Citrate (Fentanyl 2ml Vial) 50 mcg PRN Q5MIN PRN IV MODERATE TO SEVERE PAIN; Start 10/30/17 at 07:00; Stop 10/31/17 at 06:59; Status DC Morphine Sulfate (Morphine Sulfate) 1 mg PRN Q10MIN PRN IV SEVERE PAIN; Start 10/30/17 at 07:00; Stop 10/31/17 at 06:59; Status DC Ringer's Solution 1,000 ml @ 30 mls/hr Q24H IV Last administered on 10/30/17at 17:12; Start 10/30/17 at 07:00; Stop 10/30/17 at 18:59; Status DC Lidocaine HCl (Xylocaine-Mpf 1% 2ml Vial) 2 ml PRN 1X PRN ID IV START; Start at 07:00; Stop 10/31/17 at 06:59; Status DC Hydromorphone HCl (Dilaudid) 0.5 mg PRN Q10MIN PRN IV SEV PAIN, Second choice; Start 10/30/17 at 07:00; Stop 10/31/17 at 06:59; Status DC Prochlorperazine Edisylate (Compazine) 5 mg PACU PRN PRN IV NAUSEA, MRX1; Start 10/30/17 at 07:00; Stop 10/31/17 at 06:59; Status DC Cefazolin Sodium 1 gm/Sodium Chloride 500 ml @ 500 mls/hr 1X ONCE IRR Last administered on 10/30/17at 08:58; Start 10/30/17 at 06:00; Stop 10/30/17 at 06:59; Status DC Etomidate (Amidate) 20 mg STK-MED ONCE IV ; Start 10/30/17 at 06:08; Stop at 06:09; Status DC Lidocaine HCl (Lidocaine Pf 2% Vial) 5 ml STK-MED ONCE .ROUTE ; Start 10/30/17 at 06:08; Stop 10/30/17 at 06:09; Status DC Rocuronium [place] (Zemuron) 100 mg STK-MED ONCE .ROUTE ; Start 10/30/17 at 06:08 ; Stop 10/30/17 at 06:09; Status DC Phenylephrine HCl (Rui-Synephrine Inj) 10 mg STK-MED ONCE .ROUTE ; Start at 06:09; Stop 10/30/17 at 06:10; Status DC Ephedrine Sulfate (ePHEDrine PF IN SALINE SYRINGE) 50 mg STK-MED ONCE IV ; Start 10/30/17 at 06:09; Stop 10/30/17 at 06:10; Status DC Heparin Sodium (Porcine) 30,000 unit STK-MED ONCE .ROUTE ; Start 10/30/17 at 06: 09; Stop 10/30/17 at 06:10; Status DC Aminocaproic Acid (Amicar) 5,000 mg STK-MED ONCE IV ; Start 10/30/17 at 06:09; Stop 10/30/17 at 06:10; Status DC Nitroglycerin/ Dextrose 250 ml @ As Directed STK-MED ONCE IV ; Start 10/30/17 at 06:09; Stop 10/30/17 at 06:10; Status DC Midazolam HCl (Versed) 2 mg STK-MED ONCE .ROUTE ; Start 10/30/17 at 06:11; Stop 10/30/17 at 06:12; Status DC Sufentanil Citrate (Sufenta) 100 mcg STK-MED ONCE .ROUTE ; Start 10/30/17 at 06: 11; Stop 10/30/17 at 06:12; Status DC Lidocaine HCl (Xylocaine-Mpf 2% Vial) 2 ml STK-MED ONCE .ROUTE ; Start 10/30/17 at 07:05; Stop 10/30/17 at 07:06; Status DC Vancomycin HCl (VANCO for OR ONLY) 10 gm STK-MED ONCE .ROUTE Last administered on 10/30/17at 08:58; Start 10/30/17 at 06:06; Stop 10/30/17 at 07:06; Status DC Cellulose (Surgicel Hemostat 4x8) 1 each STK-MED ONCE .ROUTE Last administered on 10/30/17at 08:58; Start 10/30/17 at 06:06; Stop 10/30/17 at 07:06; Status DC Papaverine HCl 60 mg STK-MED ONCE .ROUTE Last administered on 10/30/17at 08:58; Start 10/30/17 at 06:06; Stop 10/30/17 at 07:07; Status DC Aspirin (Aspirin) 300 mg STK-MED ONCE .ROUTE Last administered on 10/30/17at 15: 59; Start 10/30/17 at 06:06; Stop 10/30/17 at 07:07; Status DC Sodium Chloride (SODIUM CHLORIDE 20ml) 20 ml STK-MED ONCE IJ Last administered on 10/30/17at 08:58; Start 10/30/17 at 06:06; Stop 10/30/17 at 07:07; Status DC Sodium Chloride (SODIUM CHLORIDE 20ml) 20 ml STK-MED ONCE IJ Last administered on 10/30/17at 08:58; Start 10/30/17 at 06:06; Stop 10/30/17 at 07:07; Status DC Sodium Chloride (SODIUM CHLORIDE 20ml) 20 ml STK-MED ONCE IJ Last administered on 10/30/17at 08:58; Start 10/30/17 at 06:07; Stop 10/30/17 at 07:07; Status DC Cefazolin Sodium/ Dextrose 50 ml @ 100 mls/hr 1X PREOP PRN IV PRIOR TO SURGERY Last administered on 10/30/17at 08:13; Start 10/30/17 at 08:15 Rocuronium [place] (Zemuron) 100 mg STK-MED ONCE .ROUTE ; Start 10/30/17 at 08:19 ; Stop 10/30/17 at 08:20; Status DC Sufentanil Citrate (Sufenta) 100 mcg STK-MED ONCE .ROUTE ; Start 10/30/17 at 08: 19; Stop 10/30/17 at 08:20; Status DC Isoflurane (Isoflurane) 90 ml STK-MED ONCE IH ; Start 10/30/17 at 08:22; Stop 10/30/17 at 08:23; Status DC Midazolam HCl (Versed) 2 mg STK-MED ONCE .ROUTE ; Start 10/30/17 at 08:55; Stop 10/30/17 at 08:56; Status DC Cefazolin Sodium/ Dextrose 50 ml @ 100 mls/hr 1X ONCE IV Last administered on 10/30/17at 13:45; Start 10/30/17 at 10:45; Stop 10/30/17 at 11:14; Status DC Epinephrine HCl 4 mg/Sodium Chloride 254 ml @ 3.81 mls/hr 1X ONCE IV Last administered on 10/30/17at 17:14; Start 10/30/17 at 10:45; Stop 11/02/17 at 05:24 Norepinephrine Bitartrate 250 ml @ 1.875 mls/ hr 1X ONCE IV Last administered on 10/30/17at 17:14; Start 10/30/17 at 10:45; Stop 11/05/17 at 00:04 Midazolam HCl (Versed) 2 mg STK-MED ONCE .ROUTE ; Start 10/30/17 at 11:03; Stop 10/30/17 at 11:04; Status DC Protamine Sulfate (Protamine) 50 mg STK-MED ONCE IV ; Start 10/30/17 at 11:19; Stop 10/30/17 at 11:20; Status DC Protamine Sulfate (Protamine) 250 mg STK-MED ONCE IV ; Start 10/30/17 at 11:19; Stop 10/30/17 at 11:20; Status DC Midazolam HCl (Versed) 5 mg STK-MED ONCE .ROUTE ; Start 10/30/17 at 11:54; Stop 10/30/17 at 11:55; Status DC Propofol 20 ml @ As Directed STK-MED ONCE IV ; Start 10/30/17 at 12:36; Stop 10/30 at 12:37; Status DC Ringer's Solution 1,000 ml @ 30 mls/hr Q24H IV Last administered on 10/31/17at 12:33; Start 10/30/17 at 13:00 Albumin Human 250 ml @ 60 mls/hr PRN Q4HRS PRN IV SEE I/O RECORD Last administered on 10/31/17at 10:49; Start 10/30/17 at 13:00 Insulin Human Regular 150 unit/ Sodium Chloride 151.5 ml @ 0 mls/hr CONT PRN PRN IV SEE I/O RECORD Last administered on 10/30/17at 17:13; Start 10/30/17 at 13: 00 Dextrose (Dextrose 50%-Water Syringe) 25 gm PRN Q15MIN PRN IV LOW BLOOD SUGAR; Start 10/30/17 at 13:00 Info (Icu Electrolyte Protocol) 1 ea CONT PRN PRN MC SEE COMMENTS; Start at 13:00 Magnesium Sulfate/ Dextrose 100 ml @ 100 mls/hr PRN DAILY PRN IV FOR MAG < 2.2 Last administered on 10/30/17at 18:10; Start 10/30/17 at 13:00 Famotidine (Pepcid Vial) 20 mg BID IVP Last administered on 10/31/17at 07:48; Start 10/30/17 at 14:00; Stop 10/31/17 at 14:38; Status DC Ondansetron HCl (Zofran) 4 mg PRN Q4HRS PRN IV NAUSEA/VOMITING; Start 10/30/17 at 13:00 Prochlorperazine Edisylate (Compazine) 10 mg PRN Q6HRS PRN IV NAUSEA/VOMITING; Start 10/30/17 at 13:00 Morphine Sulfate (Morphine Sulfate) 2 mg PRN Q1HR PRN IV PAIN Last administered on 10/31/17at 01:19; Start 10/30/17 at 13:00 Acetaminophen (Tylenol) 650 mg PRN Q4HRS PRN PO MILD PAIN / TEMP; Start at 13:00 Acetaminophen (Tylenol Supp) 650 mg PRN Q4HRS PRN MO MILD PAIN / TEMP; Start at 13:00 Meperidine HCl (Demerol) 12.5 mg PRN Q15MIN PRN IV SHIVERING; Start 10/30/17 at 13:00; Stop 10/31/17 at 13:00; Status DC Propofol 100 ml @ 0 mls/hr CONT PRN PRN IV POSTOP SEDATION UNTIL EXTUBATE Last administered on 10/30/17at 17:11; Start 10/30/17 at 13:00 Senna/Docusate Sodium (Senna Plus) 1 tab BID PO Last administered on 10/31/17at 07:48; Start 10/30/17 at 21:00 Bisacodyl (Dulcolax Supp) 10 mg PRN DAILY PRN MO NO BOWEL MOVEMENT; Start at 13:00 Chlorhexidine Gluconate (Peridex) 15 ml BID MM ; Start 10/30/17 at 21:00; Stop at 21:52; Status DC Aspirin (Ecotrin) 325 mg DAILYWBKFT PO Last administered on 10/31/17at 07:48; Start 10/31/17 at 08:00 Aspirin (Aspirin) 300 mg PRN DAILY PRN MO IF UNABLE TO TAKE PO; Start 10/30/17 at 13:00 Albuterol Sulfate (Ventolin Neb Soln) 2.5 mg PRN Q4HRS PRN NEB SHORTNESS OF BREATH; Start 10/30/17 at 13:00 Metoprolol Tartrate (Lopressor) 25 mg BID PO ; Start 10/31/17 at 09:00; Stop 10/31 at 11:26; Status DC Nicardipine HCl 50 mg/Sodium Chloride 270 ml @ 0 mls/hr CONT PRN PRN IV PER PROTOCOL; Start 10/30/17 at 13:00 Oxycodone/ Acetaminophen (Percocet 5/325) 1 tab PRN Q4HRS PRN PO MILD PAIN; Start 10/30/17 at 13:00 Oxycodone/ Acetaminophen (Percocet 5/325) 2 tab PRN Q4HRS PRN PO MODERATE PAIN , SEVERE PAIN Last administered on 10/31/17at 09:35; Start 10/30/17 at 13:00 Cefazolin Sodium/ Dextrose 50 ml @ 100 mls/hr Q8H IV Last administered on at 12:30; Start 10/30/17 at 20:00; Stop 11/01/17 at 04:29 Polyethylene Glycol (miraLAX PACKET) 17 gm DAILYWSUP PO ; Start 10/31/17 at 17:00 Alprazolam (Xanax) 0.25 mg PRN Q8HRS PRN PO ANXIETY / AGITATION Last administered on 10/31/17at 07:48; Start 10/30/17 at 13:00 Heparin Sodium (Porcine) (Heparin Sodium) 10,000 unit STK-MED ONCE .ROUTE ; Start 10/30/17 at 13:36; Stop 10/30/17 at 13:37; Status DC Lidocaine HCl (Lidocaine Pf 2% Vial) 5 ml STK-MED ONCE .ROUTE ; Start 10/30/17 at 13:36; Stop 10/30/17 at 13:37; Status DC Magnesium Sulfate 5 gm STK-MED ONCE .ROUTE ; Start 10/30/17 at 13:36; Stop at 13:37; Status DC Heparin Sodium (Porcine) 30,000 unit STK-MED ONCE .ROUTE ; Start 10/30/17 at 13: 36; Stop 10/30/17 at 13:37; Status DC Mannitol (Mannitol) 12.5 g STK-MED ONCE .ROUTE ; Start 10/30/17 at 13:36; Stop at 13:37; Status DC Albumin Human 100 ml @ As Directed STK-MED ONCE IV ; Start 10/30/17 at 13:36; Stop 10/30/17 at 13:37; Status DC Calcium Chloride (Calcium Chloride) 1,000 mg STK-MED ONCE .ROUTE ; Start at 13:36; Stop 10/30/17 at 13:37; Status DC Sodium Bicarbonate (Sodium Bicarb Adult 8.4% Syr) 50 meq STK-MED ONCE .ROUTE ; Start 10/30/17 at 13:36; Stop 10/30/17 at 13:37; Status DC Heparin Sodium (Porcine) 30,000 unit STK-MED ONCE .ROUTE ; Start 10/30/17 at 13: 38; Stop 10/30/17 at 13:39; Status DC Milrinone Lactate (Primacor) 10 mg STK-MED ONCE IV ; Start 10/30/17 at 13:43; Stop 10/30/17 at 13:44; Status DC Milrinone Lactate/ Dextrose 100 ml @ As Directed STK-MED ONCE IV ; Start at 13:43; Stop 10/30/17 at 13:44; Status DC Epinephrine HCl (EPINEPHrine SYRINGE) 1 mg STK-MED ONCE .ROUTE ; Start 10/30/17 at 13:53; Stop 10/30/17 at 13:54; Status DC Heparin Sodium (Porcine) (Heparin Sodium) 10,000 unit STK-MED ONCE .ROUTE ; Start 10/30/17 at 14:02; Stop 10/30/17 at 14:03; Status DC Midazolam HCl (Versed) 2 mg STK-MED ONCE .ROUTE ; Start 10/30/17 at 14:10; Stop 10/30/17 at 14:11; Status DC Esmolol HCl (Brevibloc) 100 mg STK-MED ONCE IV ; Start 10/30/17 at 14:20; Stop at 14:21; Status DC Protamine Sulfate (Protamine) 50 mg STK-MED ONCE IV ; Start 10/30/17 at 14:44; Stop 10/30/17 at 14:45; Status DC Protamine Sulfate (Protamine) 250 mg STK-MED ONCE IV ; Start 10/30/17 at 14:44; Stop 10/30/17 at 14:45; Status DC Mannitol (Mannitol) 12.5 g STK-MED ONCE .ROUTE ; Start 10/30/17 at 14:53; Stop at 14:54; Status DC Calcium Chloride (Calcium Chloride) 1,000 mg STK-MED ONCE .ROUTE ; Start at 14:53; Stop 10/30/17 at 14:54; Status DC Sodium Bicarbonate (Sodium Bicarb Adult 8.4% Syr) 50 meq STK-MED ONCE .ROUTE ; Start 10/30/17 at 14:53; Stop 10/30/17 at 14:54; Status DC Heparin Sodium (Porcine) (Heparin Sodium) 10,000 unit STK-MED ONCE .ROUTE ; Start 10/30/17 at 14:54; Stop 10/30/17 at 14:55; Status DC Albumin Human 500 ml @ As Directed STK-MED ONCE IV ; Start 10/30/17 at 14:57; Stop 10/30/17 at 14:58; Status DC Albumin Human 500 ml @ As Directed STK-MED ONCE IV ; Start 10/30/17 at 15:16; Stop 10/30/17 at 15:17; Status DC Sodium Bicarbonate (Sodium Bicarb Adult 8.4% Syr) 50 meq STK-MED ONCE .ROUTE ; Start 10/30/17 at 15:24; Stop 10/30/17 at 15:25; Status DC Amiodarone HCl 900 mg/Dextrose 518 ml @ 33 mls/hr CONT PRN IV SEE I/O RECORD; Start 10/30/17 at 15:45 Sodium Bicarbonate (Sodium Bicarb Adult 8.4% Syr) 50 meq 1X ONCE IV Last administered on 10/30/17at 17:03; Start 10/30/17 at 17:00; Stop 10/30/17 at 17:01; Status DC Sodium Bicarbonate (Sodium Bicarb Adult 8.4% Syr) 50 meq 1X ONCE IV Last administered on 10/30/17at 17:04; Start 10/30/17 at 17:00; Stop 10/30/17 at 17:01; Status DC Sodium Bicarbonate (Sodium Bicarb Adult 8.4% Syr) 50 meq 1X ONCE IV ; Start 10/30/17 at 17:00; Stop 10/30/17 at 17:01; Status DC Sodium Bicarbonate (Sodium Bicarb Adult 8.4% Syr) 50 meq 1X ONCE IV ; Start 10/30/17 at 17:00; Stop 10/30/17 at 17:01; Status DC Potassium Chloride/Water 50 ml @ 50 mls/hr Q1H IV Last administered on at 19:12; Start 10/30/17 at 18:00; Stop 10/30/17 at 19:59; Status DC Potassium Chloride/Water 50 ml @ 50 mls/hr 1X ONCE IV Last administered on 10/30at 21:44; Start 10/30/17 at 21:45; Stop 10/30/17 at 22:44; Status DC Magnesium Sulfate/ Dextrose 100 ml @ 100 mls/hr 1X ONCE IV Last administered on 10/31/17at 06:37; Start 10/31/17 at 06:45; Stop 10/31/17 at 07:44; Status DC Furosemide (Lasix) 40 mg 1X ONCE IVP Last administered on 10/31/17at 09:32; Start 10/31/17 at 09:15; Stop 10/31/17 at 09:23; Status DC Albuterol Sulfate (Ventolin Neb Soln) 2.5 mg RTQID NEB Last administered on 10/31at 09:58; Start 10/31/17 at 10:00 Furosemide (Lasix) 40 mg BID92 IVP ; Start 10/31/17 at 14:00 Amiodarone HCl (Cordarone) 200 mg BID PO ; Start 10/31/17 at 15:00 Famotidine (Pepcid) 20 mg BID PO ; Start 10/31/17 at 21:00 Vitals/I & O Vital Sign - Last 24 Hours 10/30/17 10/30/17 10/30/17 10/30/17 16:15 16:15 16:30 17:00 Temp 97.7 97.7 Pulse 106 Resp 16 B/P (MAP) 108/53 (71) Pulse Ox 100 100 O2 Delivery Ventilator Ventilator Mechanical Ventilator Mechanical Ventilator 10/30/17 10/30/17 10/30/17 10/30/17 17:20 17:43 18:00 19:00 Resp 16 B/P (MAP) Pulse Ox 100 100 O2 Delivery Ventilator Ventilator Mechanical Ventilator 10/30/17 10/30/17 10/30/17 10/30/17 19:00 19:31 19:44 19:49 Temp 98.7 98.7 Pulse 122 Resp 22 16 B/P (MAP) 80/48 (59) Pulse Ox 97 99 100 98 O2 Delivery Ventilator Ventilator Ventilator Ventilator 10/30/17 10/30/17 10/30/17 10/30/17 20:00 20:00 20:00 20:46 Temp 99.2 99.2 Pulse 120 Resp 16 16 B/P (MAP) 103/55 (71) Pulse Ox 99 99 O2 Delivery Mechanical Ventilator Ventilator Nasal Cannula O2 Flow Rate 5.0 10/30/17 10/30/17 10/30/17 10/30/17 21:00 21:00 21:20 22:00 Temp 99.2 99.2 99.2 99.2 Pulse 115 113 Resp 16 18 18 B/P (MAP) 111/51 (71) 119/51 (73) Pulse Ox 100 99 96 O2 Delivery Nasal Cannula Nasal Cannula Nasal Cannula O2 Flow Rate 3.0 3.0 3.0 10/30/17 10/30/17 10/30/17 10/30/17 22:00 23:00 23:00 23:08 Temp 99.3 99.3 Pulse 112 Resp 19 11 B/P (MAP) 105/52 (69) Pulse Ox 96 93 O2 Delivery Nasal Cannula Nasal Cannula O2 Flow Rate 3.0 3.0 10/30/17 10/30/17 10/30/17 10/31/17 23:47 23:59 23:59 01:00 Temp 99.3 99.3 Pulse 110 Resp 12 B/P (MAP) 112/50 (70) Pulse Ox 100 O2 Delivery Nasal Cannula Nasal Cannula O2 Flow Rate 3.0 3.0 10/31/17 10/31/17 10/31/17 10/31/17 01:00 01:19 01:20 01:49 Temp 99.2 99.2 Pulse 110 Resp 13 16 18 14 B/P (MAP) 111/43 (65) Pulse Ox 98 100 100 97 O2 Delivery Nasal Cannula Nasal Cannula Nasal Cannula Nasal Cannula O2 Flow Rate 3.0 3.0 3.0 3.0 10/31/17 10/31/17 10/31/17 10/31/17 02:00 02:00 02:15 03:00 Temp 99.1 99.1 Pulse 107 Resp 12 B/P (MAP) 117/52 (73) 106/50 (68) Pulse Ox 97 O2 Delivery Nasal Cannula O2 Flow Rate 3.0 18 10/31/18 //18 10/31/17 03:00 03:15 03:57 04:00 Temp 99.1 99.1 Pulse 108 Resp 20 B/P (MAP) 118/54 (75) 102/51 (68) Pulse Ox 100 O2 Delivery Nasal Cannula Nasal Cannula O2 Flow Rate 3.0 3.0 10/31/17 10/31/1710/31/18 10/31/17 04:00 05:00 05:00 05:29 Temp 99.1 99.0 99.1 99.0 Pulse 104 100 Resp 14 14 18 B/P (MAP) 102/57 (72) 101/52 (68) Pulse Ox 100 100 100 O2 Delivery Nasal Cannula Nasal Cannula Nasal Cannula O2 Flow Rate 3.0 3.0 3.0 10/31/1710/31/10/31/10/31/17 06:00 06:00 07:00 07:00 Temp 98.5 98.2 98.5 98.2 Pulse 108 101 Resp 16 16 B/P (MAP) 96/50 (65) 98/49 (65) Pulse Ox 95 96 O2 Delivery Nasal Cannula Nasal Cannula O2 Flow Rate 3.0 3.0 10/31/1710/31/10/31/18 10/31/17 08:00 08:00 08:01 08:01 Temp 98.2 98.2 98.2 98.2 Pulse 112 112 Resp 20 20 B/P (MAP) 95/50 95/50 (65) Pulse Ox 94 O2 Delivery Nasal Cannula Nasal Cannula O2 Flow Rate 2.0 3.0 18 10/31/18 10/31/18 10/31/17 08:15 09:03 09:03 09:35 Temp 97.5 97.5 97.5 97.5 Pulse 105 104 Resp 20 20 20 B/P (MAP) 104/50 102/52 (69) Pulse Ox 97 97 O2 Delivery Nasal Cannula Nasal Cannula O2 Flow Rate 3.0 2.0 10/3110/31/17 10/31/17 10/31/17 10:00 10:00 10:02 10:35 Temp 97.7 97.7 Pulse 97 Resp 20 20 B/P (MAP) 106/64 (78) Pulse Ox 97 97 97 O2 Delivery Nasal Cannula Nasal Cannula Nasal Cannula O2 Flow Rate 2.0 2.0 2.0 10/31/17 10/31/17 10/31/17 10/31/17 11:00 11:00 12:00 12:00 Temp 97.8 97.8 Pulse 98 98 Resp 20 20 B/P (MAP) 104/46 (65) 104/50 (68) Pulse Ox 92 92 O2 Delivery Nasal Cannula Nasal Cannula O2 Flow Rate 2.0 2.0 10/31/17 10/31/17 10/31/17 10/31/17 13:00 13:00 14:00 14:00 Temp 97.8 97.8 Pulse 104 94 Resp 20 20 B/P (MAP) 111/58 (75) 91/50 (64) Pulse Ox 92 92 O2 Delivery Nasal Cannula Nasal Cannula O2 Flow Rate 2.0 2.0 10/31/17 14:16 Temp 97.5 97.5 Pulse 95 Resp 18 B/P (MAP) 95/56 Intake and Output 10/30/17 10/30/17 10/31/17 15:00 23:00 07:00 Intake Total 980 ml 827 ml Output Total 1322 ml 1060 ml Balance -342 ml -233 ml SANTOSH GRAF MD Oct 31, 2017 14:45
[2017-10-31] MEDS ORDERED: HYDROmorphone 2 MG/ML VIAL IVP PRN (15:15)
[2017-10-31] MEDS: AMIODARONE HCL 200 MG TABLET. PO SCH ×2 (15:18→21:11)
[2017-10-31] MEDS: INSULIN REGULAR VIAL 150 UNIT in 0.9 % SODIUM CHLORIDE 150ML 150 ML IV PRN (15:36)
[2017-10-31] MEDS: POLYETHYLENE GLYCOL 3350 17 GM PACKET. PO SCH (16:27)
[2017-10-31] MEDS: FUROSEMIDE 40 MG/4 ML VIAL. IVP SCH (21:11)
[2017-10-31] MEDS: FAMOTIDINE 20 MG TABLET. PO SCH (21:11)
[2017-11-01] VITALS (24 sets, daily range): BP systolic 97–137; BP diastolic 37–88
[2017-11-01] MEDS: oxyCODONE/APAP 5/325 1 TAB TABLET PO PRN (04:48)
[2017-11-01 06:43] LABS: BASO # 0.1 x10^3/uL (0.0-0.2); BASO % 1 % (0-3); EOS % 0 % (0-3); HEMATOCRIT 24.8 % (39.0-53.0); HEMOGLOBIN 8.7 g/dL (13.0-17.5); LYMPH # 1.4 x10^3/uL (1.0-4.8); LYMPH % 15 % (24-48); MEAN CORPUSCULAR HEMOGLOBIN 34 pg (25-35); MEAN CORPUSCULAR HGB CONC 35 g/dL (31-37); MEAN CORPUSCULAR VOLUME 97 fL (79-100); MONO # 0.9 x10^3/uL (0.0-1.1); MONO % 10 % (0-9); NEUT # 7.2 x10^3uL (1.8-7.7); NEUT % 75 % (31-73); PLATELET COUNT 121 x10^3/uL (140-400); RED BLOOD COUNT 2.56 x10^6/uL (4.30-5.70); RED CELL DISTRIBUTION WIDTH 15.3 % (11.5-14.5); WHITE BLOOD COUNT 9.6 x10^3/uL (4.0-11.0)
[2017-11-01 06:44] LABS: ALBUMIN 3.3 g/dL (3.4-5.0); ALBUMIN/GLOBULIN RATIO 1.6 (1.0-1.7); CALCIUM 8.6 mg/dL (8.5-10.1); CREATININE 2.2 mg/dL (0.7-1.3); GFR 30.5; MAGNESIUM 1.9 mg/dL (1.8-2.4); POTASSIUM 4.2 mmol/L (3.5-5.1); TOTAL BILIRUBIN 0.5 mg/dL (0.2-1.0); TOTAL PROTEIN 5.4 g/dL (6.4-8.2)
--- NOTE | 2017-11-01 07:20 | PDOC ---
CARDIOLOGY PROGRESS NOTE SUBJECTIVE: No acute events overnight. Intermittent ICU psychosis and Post-op delirium Overall stable OBJECTIVE: Vital SIgns: vss: HR 90's, BP 130/80's, Pox - 95% on 3L I & O +2.5 L Objective: More alert and oriented today. Normal heart tones. Rub improved. Lungs with decreased breath sounds throughout Soft abd. Chest tubes with continued drainage. LLE with mild bruising and tense but no significant pitting edema RLE without much edema. CURRENT MEDICATIONS: Amiodarone 200mg bid ASA 325mg daily Lasix 40mg IVP TID Epi gtt DIAGNOSTIC TESTING: Cr 2.2 Hgb 8 CXR reviewed - mild left basilar atelectasis+/- effusion ASSESSMENT: 1. 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 Post-operative IVAN - Cr 2.2 4. Post-operative acute anemia on underlying anemia of chronic disease PLAN: 1. Check CVP and diurese per trend to prevent further renal failure. 2. Continue transfusion prn. 3. If patient had reaction to milrinone, could try dobutamine now that he is revascularized for improved outpt. 4. Check venous SVO2. KT KIRKPATRICK MD Nov 01, 2017 07:20
[2017-11-01] MEDS: ALBUTEROL SULFATE 2.5 MG/3 ML NEBU. NEB SCH ×4 (08:09→19:43)
[2017-11-01] MEDS: ASPIRIN ENTERIC COATED 325 MG TABLET.DR. PO SCH (08:40)
[2017-11-01] MEDS: FAMOTIDINE 20 MG TABLET. PO SCH (08:41)
[2017-11-01] MEDS: AMIODARONE HCL 200 MG TABLET. PO SCH ×2 (08:41→20:54)
[2017-11-01] MEDS: SENNOSIDES/DOCUSATE 8.6/50MG TABLET. PO SCH ×2 (08:41→20:54)
[2017-11-01 09:08] LABS: ISTAT BE VENOUS -5 mmol/L (0-3); ISTAT HCO3 VEN 20 mmol/L (24-28); ISTAT PCO2 VEN 38 mmHg (41-51); ISTAT PH VEN 7.34 (7.32-7.42); ISTAT PO2 VEN 42 mmHg (20-40); ISTAT SAT O2 VEN 74 %; ISTAT TCO2 VEN 22 mmol/L (21-32)
[2017-11-01] MEDS: FUROSEMIDE 40 MG/4 ML VIAL. IVP SCH ×3 (10:32→20:53)
--- NOTE | 2017-11-01 11:34 | RAD ---
EXAM: PORTABLE CHEST 1V DATE: 11/01/2017 7:02 AM INDICATION: POST OP CABG COMPARISON: 10/31/2017 10/30/2017 FINDINGS/ IMPRESSION: Interval removal of [place] catheter with residual right cordis. Chest tubes are in stable position. Changes of cardiothoracic surgery with sternotomy wires and mediastinal surgical clips are seen. Cardiomediastinal silhouette is grossly stable accounting for differences in positioning and technique. Bilateral parenchymal opacities are grossly stable accounting for differences in projection and technique Small bilateral pleural effusions. No pneumothorax. Electronically signed by: Kevyn Borrego MD (11/01/2017 11:31 AM) [facility]
--- NOTE | 2017-11-01 11:40 | PDOC ---
Progress Note Subjective Subjective Doing well. Ambulated this am. On 2 lit NC. On epinephrine for low EF to improve cardiac output. Normotensive and NSR. Hemoglobin 8.7, Creatinine up to 2 ,2 from 1,4. Mediastinal tubes slowed down significantly, more serous. ROS ROS No nausea No vomiting No pain No rash Vital Sign Vital Signs Vital Signs Date Time Temp Pulse Resp B/P (MAP) Pulse Ox O2 Delivery O2 Flow Rate FiO2 11/01/17 11:00 96 20 134/54 (80) 92 Nasal Cannula 2.0 11/01/17 04:00 98.5 98.5 Physical Exam PHYSICAL EXAM GENERAL: NAD, Alert HEENT: PERRL, OC/OP NECK: Supple, no JVD, no LN LUNGS: Clear HEART: S1S2, no gallop, no murmur ABD: Soft, NT, no organomegaly, no rebound EXT: No edema, no cyanosis PER ASSESSMENT NURSE: Alert, oriented x 3, no focal neurologic deficit SKIN: No rash IV: ok Labs Lab Laboratory Tests Test 10/31/17 13:15 10/31/17 14:20 10/31/17 15:27 10/31/17 16:40 Glucose (Fingerstick) 132 mg/dL (70-99) 170 mg/dL (70-99) 109 mg/dL (70-99) 92 mg/dL (70-99) Test 10/31/17 17:39 11/01/17 06:10 11/01/17 08:08 Glucose (Fingerstick) 123 mg/dL (70-99) White Blood Count 9.6 x10^3/uL (4.0-11.0) Red Blood Count 2.56 x10^6/uL (4.30-5.70) Hemoglobin 8.7 g/dL (13.0-17.5) Hematocrit 24.8 % (39.0-53.0) Mean Corpuscular Volume 97 fL (79-100) Mean Corpuscular Hemoglobin 34 pg (25-35) Mean Corpuscular Hemoglobin Concent 35 g/dL (31-37) Red Cell Distribution Width 15.3 % (11.5-14.5) Platelet Count 121 x10^3/uL (140-400) Neutrophils (%) (Auto) 75 % (31-73) Lymphocytes (%) (Auto) 15 % (24-48) Monocytes (%) (Auto) 10 % (0-9) Eosinophils (%) (Auto) 0 % (0-3) Basophils (%) (Auto) 1 % (0-3) Neutrophils # (Auto) 7.2 x10^3uL (1.8-7.7) Lymphocytes # (Auto) 1.4 x10^3/uL (1.0-4.8) Monocytes # (Auto) 0.9 x10^3/uL (0.0-1.1) Eosinophils # (Auto) 0.0 x10^3/uL (0.0-0.7) Basophils # (Auto) 0.1 x10^3/uL (0.0-0.2) Sodium Level 136 mmol/L (136-145) Potassium Level 4.2 mmol/L (3.5-5.1) Chloride Level 102 mmol/L (98-107) Carbon Dioxide Level 20 mmol/L (21-32) Anion Gap 14 (6-14) Blood Urea Nitrogen 24 mg/dL (8-26) Creatinine 2.2 mg/dL (0.7-1.3) Estimated GFR (Cockcroft-Gault) 30.5 BUN/Creatinine Ratio 11 (6-20) Glucose Level 140 mg/dL (70-99) Calcium Level 8.6 mg/dL (8.5-10.1) Magnesium Level 1.9 mg/dL (1.8-2.4) Total Bilirubin 0.5 mg/dL (0.2-1.0) Aspartate Amino Transf (AST/SGOT) 74 U/L (15-37) Alanine Aminotransferase (ALT/SGPT) 22 U/L (16-63) Alkaline Phosphatase 34 U/L (46-116) Total Protein 5.4 g/dL (6.4-8.2) Albumin 3.3 g/dL (3.4-5.0) Albumin/Globulin Ratio 1.6 (1.0-1.7) Bedside Venous pH 7.34 (7.32-7.42) Bedside Venous pCO2 38 mmHg (41-51) Bedside Venous pO2 42 mmHg (20-40) Venous Blood HCO3 20 mmol/L (24-28) POC Venous O2 Saturation (Yulissa) 74 % Bedside FiO2 21.0 Objective Assessment POD#2, s/p CABG x 4 (TUCKER to LAD, SVG to LPL, SVG to diag, SVG to RPDA). Severe ischemic cardiomyopathy with EF 20% Doing well. Ambulated this am. On 2 lit NC. On epinephrine for low EF to improve cardiac output. Normotensive and NSR. Hemoglobin 8.7, Creatinine up to 2 ,2 from 1,4. Mediastinal tubes slowed down significantly, more serous. Plan Plan of Care Continue 40 mg IV Lasix TID D/c mediastinal tubes, keep pleurals Wean epinephrine to 1mcg today, then off tomorrow Amiodarone po 200 mg twice a day for atrial fibrillation prophylaxis Keep osei, will continue to monitor creatinine, hopefully will plateau. Will manage IVAN with epi and lasix for now SHAY HARRIS MD Nov 01, 2017 11:40
[2017-11-01] MEDS: IV RINGERS,LACTATED 1000ML 1,000 ML IV SCH (14:19)
--- NOTE | 2017-11-01 14:19 | PDOC ---
PROGRESS NOTES Chief Complaint Chief Complaint acute systolic CHF, w/ hypotension NSTEMI, acute CA 3 vessel CAD, s/p CABG surg tobacco use disorder - htn acute renal failure, on CKD3, possible ATN, will hydrate History of Present Illness History of Present Illness s.p CABG 10/30, doing well in ICU, some BP support eating OK , pain OK Vitals Vitals Vital Signs Date Time Temp Pulse Resp B/P (MAP) Pulse Ox O2 Delivery O2 Flow Rate FiO2 11/01/17 13:00 95 19 120/42 (68) 94 Nasal Cannula 2.0 11/01/17 12:00 98.7 98.7 Physical Exam Physical Exam GENERAL: NAD, Alert HEENT: PERRL, OC/OP NECK: Supple, no JVD, no LN LUNGS: Clear HEART: S1S2, no gallop, no murmur ABD: Soft, NT, no organomegaly, no rebound EXT: No edema, no cyanosis 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: Alert, oriented x 3, no focal neurologic deficit SKIN: No rash IV: ok General: Alert, Oriented X3, No acute distress Heart: Regular rate, Normal S1, Normal S2 Abdomen: Soft, No tenderness Extremities: No edema Skin: No rashes, No significant lesion Labs LABS Laboratory Tests Test 10/31/17 14:20 10/31/17 15:27 10/31/17 16:40 10/31/17 17:39 Glucose (Fingerstick) 170 mg/dL (70-99) 109 mg/dL (70-99) 92 mg/dL (70-99) 123 mg/dL (70-99) Test 11/01/17 06:10 11/01/17 08:08 White Blood Count 9.6 x10^3/uL (4.0-11.0) Red Blood Count 2.56 x10^6/uL (4.30-5.70) Hemoglobin 8.7 g/dL (13.0-17.5) Hematocrit 24.8 % (39.0-53.0) Mean Corpuscular Volume 97 fL (79-100) Mean Corpuscular Hemoglobin 34 pg (25-35) Mean Corpuscular Hemoglobin Concent 35 g/dL (31-37) Red Cell Distribution Width 15.3 % (11.5-14.5) Platelet Count 121 x10^3/uL (140-400) Neutrophils (%) (Auto) 75 % (31-73) Lymphocytes (%) (Auto) 15 % (24-48) Monocytes (%) (Auto) 10 % (0-9) Eosinophils (%) (Auto) 0 % (0-3) Basophils (%) (Auto) 1 % (0-3) Neutrophils # (Auto) 7.2 x10^3uL (1.8-7.7) Lymphocytes # (Auto) 1.4 x10^3/uL (1.0-4.8) Monocytes # (Auto) 0.9 x10^3/uL (0.0-1.1) Eosinophils # (Auto) 0.0 x10^3/uL (0.0-0.7) Basophils # (Auto) 0.1 x10^3/uL (0.0-0.2) Sodium Level 136 mmol/L (136-145) Potassium Level 4.2 mmol/L (3.5-5.1) Chloride Level 102 mmol/L (98-107) Carbon Dioxide Level 20 mmol/L (21-32) Anion Gap 14 (6-14) Blood Urea Nitrogen 24 mg/dL (8-26) Creatinine 2.2 mg/dL (0.7-1.3) Estimated GFR (Cockcroft-Gault) 30.5 BUN/Creatinine Ratio 11 (6-20) Glucose Level 140 mg/dL (70-99) Calcium Level 8.6 mg/dL (8.5-10.1) Magnesium Level 1.9 mg/dL (1.8-2.4) Total Bilirubin 0.5 mg/dL (0.2-1.0) Aspartate Amino Transf (AST/SGOT) 74 U/L (15-37) Alanine Aminotransferase (ALT/SGPT) 22 U/L (16-63) Alkaline Phosphatase 34 U/L (46-116) Total Protein 5.4 g/dL (6.4-8.2) Albumin 3.3 g/dL (3.4-5.0) Albumin/Globulin Ratio 1.6 (1.0-1.7) Bedside Venous pH 7.34 (7.32-7.42) Bedside Venous pCO2 38 mmHg (41-51) Bedside Venous pO2 42 mmHg (20-40) Venous Blood HCO3 20 mmol/L (24-28) POC Venous O2 Saturation (Yulissa) 74 % Bedside FiO2 21.0 Comment Review of Relevant I have reviewed the following items bryce (where applicable) has been applied. Labs Laboratory Tests Test 10/30/17 14:14 10/30/17 14:32 10/30/17 15:00 10/30/17 15:45 Activated Clotting Time 399 SEC (90-125) > 1005 SEC (90-125) 118 SEC (90-125) White Blood Count 9.2 x10^3/uL (4.0-11.0) Hemoglobin 8.7 g/dL (13.0-17.5) Hematocrit 24.9 % (39.0-53.0) Platelet Count 74 x10^3/uL (140-400) Prothrombin Time 21.7 SEC (11.7-14.0) Prothromb Time International Ratio 2.0 (0.8-1.1) Activated Partial Thromboplast Time 43 SEC (24-38) Fibrinogen 103 mg/dL (200-440) Test 10/30/17 16:35 10/30/17 16:45 10/30/17 18:05 10/30/17 19:07 White Blood Count 11.6 x10^3/uL (4.0-11.0) Red Blood Count 3.05 x10^6/uL (4.30-5.70) Hemoglobin 10.5 g/dL (13.0-17.5) Hematocrit 29.6 % (39.0-53.0) Mean Corpuscular Volume 97 fL (79-100) Mean Corpuscular Hemoglobin 34 pg (25-35) Mean Corpuscular Hemoglobin Concent 35 g/dL (31-37) Red Cell Distribution Width 14.9 % (11.5-14.5) Platelet Count 92 x10^3/uL (140-400) Prothrombin Time 19.1 SEC (11.7-14.0) Prothromb Time International Ratio 1.7 (0.8-1.1) Activated Partial Thromboplast Time 36 SEC (24-38) Sodium Level 140 mmol/L (136-145) Potassium Level 3.8 mmol/L (3.5-5.1) Chloride Level 109 mmol/L (98-107) Carbon Dioxide Level 23 mmol/L (21-32) Anion Gap 8 (6-14) Blood Urea Nitrogen 12 mg/dL (8-26) Creatinine 1.1 mg/dL (0.7-1.3) Estimated GFR (Cockcroft-Gault) 67.8 Glucose Level 170 mg/dL (70-99) Calcium Level 8.5 mg/dL (8.5-10.1) Magnesium Level 1.7 mg/dL (1.8-2.4) O2 Saturation 96 % (92-99) Arterial Blood pH 7.31 (7.35-7.45) Arterial Blood pCO2 at Patient Temp 39 mmHg (35-46) Arterial Blood pO2 at Patient Temp 98 mmHg (65-108) Arterial Blood HCO3 19 mmol/L (21-28) Arterial Blood Base Excess -6 mmol/L (-3-3) Oxyhemoglobin 95.6 % Methemoglobin 0.2 % (0.0-1.9) Carbon Monoxide, Quantitative 0.4 % (0.0-1.9) FiO2 80 Glucose (Fingerstick) 166 mg/dL (70-99) 153 mg/dL (70-99) 147 mg/dL (70-99) Test 10/30/17 20:10 10/30/17 20:15 10/30/17 20:50 10/30/17 21:19 Glucose (Fingerstick) 116 mg/dL (70-99) 163 mg/dL (70-99) O2 Saturation 92 % (92-99) Arterial Blood pH 7.43 (7.35-7.45) Arterial Blood pCO2 at Patient Temp 35 mmHg (35-46) Arterial Blood pO2 at Patient Temp 65 mmHg (65-108) Arterial Blood HCO3 22 mmol/L (21-28) Arterial Blood Base Excess -2 mmol/L (-3-3) FiO2 40 White Blood Count 12.6 x10^3/uL (4.0-11.0) Red Blood Count 2.35 x10^6/uL (4.30-5.70) Hemoglobin 8.1 g/dL (13.0-17.5) Hematocrit 22.8 % (39.0-53.0) Mean Corpuscular Volume 97 fL (79-100) Mean Corpuscular Hemoglobin 34 pg (25-35) Mean Corpuscular Hemoglobin Concent 36 g/dL (31-37) Red Cell Distribution Width 15.2 % (11.5-14.5) Platelet Count 152 x10^3/uL (140-400) Potassium Level 4.4 mmol/L (3.5-5.1) Test 10/30/17 22:21 10/30/17 23:25 10/31/17 00:27 10/31/17 01:31 Glucose (Fingerstick) 166 mg/dL (70-99) 129 mg/dL (70-99) 112 mg/dL (70-99) 139 mg/dL (70-99) Test 10/31/17 02:27 10/31/17 03:44 10/31/17 04:56 10/31/17 04:59 Glucose (Fingerstick) 140 mg/dL (70-99) 131 mg/dL (70-99) 141 mg/dL (70-99) White Blood Count 8.9 x10^3/uL (4.0-11.0) Red Blood Count 2.00 x10^6/uL (4.30-5.70) Hemoglobin 7.0 g/dL (13.0-17.5) Hematocrit 19.4 % (39.0-53.0) Mean Corpuscular Volume 97 fL (79-100) Mean Corpuscular Hemoglobin 35 pg (25-35) Mean Corpuscular Hemoglobin Concent 36 g/dL (31-37) Red Cell Distribution Width 15.3 % (11.5-14.5) Platelet Count 140 x10^3/uL (140-400) Sodium Level 144 mmol/L (136-145) Potassium Level 4.7 mmol/L (3.5-5.1) Chloride Level 110 mmol/L (98-107) Carbon Dioxide Level 21 mmol/L (21-32) Anion Gap 13 (6-14) Blood Urea Nitrogen 15 mg/dL (8-26) Creatinine 1.4 mg/dL (0.7-1.3) Estimated GFR (Cockcroft-Gault) 51.4 Glucose Level 142 mg/dL (70-99) Calcium Level 8.6 mg/dL (8.5-10.1) Magnesium Level 2.0 mg/dL (1.8-2.4) Test 10/31/17 06:01 10/31/17 08:26 10/31/17 09:43 10/31/17 11:30 Glucose (Fingerstick) 144 mg/dL (70-99) 164 mg/dL (70-99) 169 mg/dL (70-99) Hemoglobin 7.7 g/dL (13.0-17.5) Hematocrit 21.9 % (39.0-53.0) Test 10/31/17 11:33 10/31/17 13:15 10/31/17 14:20 10/31/17 15:27 Glucose (Fingerstick) 82 mg/dL (70-99) 132 mg/dL (70-99) 170 mg/dL (70-99) 109 mg/dL (70-99) Test 10/31/17 16:40 10/31/17 17:39 11/01/17 06:10 11/01/17 08:08 Glucose (Fingerstick) 92 mg/dL (70-99) 123 mg/dL (70-99) White Blood Count 9.6 x10^3/uL (4.0-11.0) Red Blood Count 2.56 x10^6/uL (4.30-5.70) Hemoglobin 8.7 g/dL (13.0-17.5) Hematocrit 24.8 % (39.0-53.0) Mean Corpuscular Volume 97 fL (79-100) Mean Corpuscular Hemoglobin 34 pg (25-35) Mean Corpuscular Hemoglobin Concent 35 g/dL (31-37) Red Cell Distribution Width 15.3 % (11.5-14.5) Platelet Count 121 x10^3/uL (140-400) Neutrophils (%) (Auto) 75 % (31-73) Lymphocytes (%) (Auto) 15 % (24-48) Monocytes (%) (Auto) 10 % (0-9) Eosinophils (%) (Auto) 0 % (0-3) Basophils (%) (Auto) 1 % (0-3) Neutrophils # (Auto) 7.2 x10^3uL (1.8-7.7) Lymphocytes # (Auto) 1.4 x10^3/uL (1.0-4.8) Monocytes # (Auto) 0.9 x10^3/uL (0.0-1.1) Eosinophils # (Auto) 0.0 x10^3/uL (0.0-0.7) Basophils # (Auto) 0.1 x10^3/uL (0.0-0.2) Sodium Level 136 mmol/L (136-145) Potassium Level 4.2 mmol/L (3.5-5.1) Chloride Level 102 mmol/L (98-107) Carbon Dioxide Level 20 mmol/L (21-32) Anion Gap 14 (6-14) Blood Urea Nitrogen 24 mg/dL (8-26) Creatinine 2.2 mg/dL (0.7-1.3) Estimated GFR (Cockcroft-Gault) 30.5 BUN/Creatinine Ratio 11 (6-20) Glucose Level 140 mg/dL (70-99) Calcium Level 8.6 mg/dL (8.5-10.1) Magnesium Level 1.9 mg/dL (1.8-2.4) Total Bilirubin 0.5 mg/dL (0.2-1.0) Aspartate Amino Transf (AST/SGOT) 74 U/L (15-37) Alanine Aminotransferase (ALT/SGPT) 22 U/L (16-63) Alkaline Phosphatase 34 U/L (46-116) Total Protein 5.4 g/dL (6.4-8.2) Albumin 3.3 g/dL (3.4-5.0) Albumin/Globulin Ratio 1.6 (1.0-1.7) Bedside Venous pH 7.34 (7.32-7.42) Bedside Venous pCO2 38 mmHg (41-51) Bedside Venous pO2 42 mmHg (20-40) Venous Blood HCO3 20 mmol/L (24-28) POC Venous O2 Saturation (Yulissa) 74 % Bedside FiO2 21.0 Laboratory Tests Test 10/31/17 14:20 10/31/17 15:27 10/31/17 16:40 10/31/17 17:39 Glucose (Fingerstick) 170 mg/dL (70-99) 109 mg/dL (70-99) 92 mg/dL (70-99) 123 mg/dL (70-99) Test 11/01/17 06:10 11/01/17 08:08 White Blood Count 9.6 x10^3/uL (4.0-11.0) Red Blood Count 2.56 x10^6/uL (4.30-5.70) Hemoglobin 8.7 g/dL (13.0-17.5) Hematocrit 24.8 % (39.0-53.0) Mean Corpuscular Volume 97 fL (79-100) Mean Corpuscular Hemoglobin 34 pg (25-35) Mean Corpuscular Hemoglobin Concent 35 g/dL (31-37) Red Cell Distribution Width 15.3 % (11.5-14.5) Platelet Count 121 x10^3/uL (140-400) Neutrophils (%) (Auto) 75 % (31-73) Lymphocytes (%) (Auto) 15 % (24-48) Monocytes (%) (Auto) 10 % (0-9) Eosinophils (%) (Auto) 0 % (0-3) Basophils (%) (Auto) 1 % (0-3) Neutrophils # (Auto) 7.2 x10^3uL (1.8-7.7) Lymphocytes # (Auto) 1.4 x10^3/uL (1.0-4.8) Monocytes # (Auto) 0.9 x10^3/uL (0.0-1.1) Eosinophils # (Auto) 0.0 x10^3/uL (0.0-0.7) Basophils # (Auto) 0.1 x10^3/uL (0.0-0.2) Sodium Level 136 mmol/L (136-145) Potassium Level 4.2 mmol/L (3.5-5.1) Chloride Level 102 mmol/L (98-107) Carbon Dioxide Level 20 mmol/L (21-32) Anion Gap 14 (6-14) Blood Urea Nitrogen 24 mg/dL (8-26) Creatinine 2.2 mg/dL (0.7-1.3) Estimated GFR (Cockcroft-Gault) 30.5 BUN/Creatinine Ratio 11 (6-20) Glucose Level 140 mg/dL (70-99) Calcium Level 8.6 mg/dL (8.5-10.1) Magnesium Level 1.9 mg/dL (1.8-2.4) Total Bilirubin 0.5 mg/dL (0.2-1.0) Aspartate Amino Transf (AST/SGOT) 74 U/L (15-37) Alanine Aminotransferase (ALT/SGPT) 22 U/L (16-63) Alkaline Phosphatase 34 U/L (46-116) Total Protein 5.4 g/dL (6.4-8.2) Albumin 3.3 g/dL (3.4-5.0) Albumin/Globulin Ratio 1.6 (1.0-1.7) Bedside Venous pH 7.34 (7.32-7.42) Bedside Venous pCO2 38 mmHg (41-51) Bedside Venous pO2 42 mmHg (20-40) Venous Blood HCO3 20 mmol/L (24-28) POC Venous O2 Saturation (Yulissa) 74 % Bedside FiO2 21.0 Medications Current Medications Aspirin (Children'S Aspirin) 324 mg 1X ONCE PO Last administered on 10/28/17at :28; Start 10/28/17 at :30; Stop 10/28/17 at :31; Status DC Nitroglycerin (Nitro-Bid Oint) 1 inch 1X ONCE TP Last administered on at :29; Start 10/28/17 at 01:30; Stop 10/28/17 at :31; Status DC Furosemide (Lasix) 40 mg 1X ONCE IVP Last administered on 10/28/17at :28; Start 10/28/17 at :30; Stop 10/28/17 at :31; Status DC Enoxaparin Sodium (Lovenox Per Pharmacy Treatment Dosing) 1 each PRN DAILY PRN MC SEE COMMENTS; Start 10/28/17 at 01:30; Status Cancel Ondansetron HCl (Zofran) 4 mg PRN Q8HRS PRN IV NAUSEA/VOMITING 1ST CHOICE; Start 10/28/17 at 01:30; Stop 10/29/17 at 01:29; Status DC Fentanyl Citrate (Fentanyl 2ml Vial) 50 mcg PRN Q1HR PRN IV SEVERE PAIN; Start 10/28/17 at 01:30; Stop 10/29/17 at 01:29; Status DC Acetaminophen (Tylenol) 650 mg PRN Q4HRS PRN PO FEVER; Start 10/28/17 at 01:30; Stop 10/29/17 at 01:29; Status DC Heparin Sodium/ Dextrose 500 ml @ 0 mls/hr CONT PRN IV SEE I/O RECORD Last administered on 10/29/17at 02:02; Start 10/28/17 at 01:30; Stop 10/30/17 at 00:05; Status DC Heparin Sodium (Porcine) (Heparin Sodium) 2,000 unit PRN Q6HRS PRN IV FOR UFH LEVEL LESS THAN 0.2 Last administered on 10/28/17 02:17; Start 10/28/17 at 01:30 ; Stop 10/30/17 at 07:44; Status DC Furosemide (Lasix) 40 mg [id number] IVP ; Start 10/28/17 at 09:00; Stop 10/28/17 at 13: 04; Status DC Furosemide (Lasix) 40 mg 1X ONCE IVP Last administered on 10/28/17at 02:13; Start 10/28/17 at 02:00; Stop 10/28/17 at 02:01; Status DC Info (Anti-Coagulation Monitoring By Pharmacy) 1 each PRN DAILY PRN MC SEE COMMENTS Last administered on 10/29/17at 10:35; Start 10/28/17 at 02:00; Stop at 07:44; Status DC Aspirin (Ecotrin) 325 mg [id number] PO Last administered on 10/29/17at 09:24; Start 10/28/17 at 09:30; Stop 10/29/17 at 14:52; Status DC Sodium Chloride 1,000 ml @ 50 mls/hr 1X ONCE IV Last administered on at 11:37; Start 10/28/17 at 09:30; Stop 10/29/17 at 05:29; Status DC Labetalol HCl (Normodyne Iv Push) 20 mg PRN Q2HR PRN IVP HYPERTENSION, SEE COMMENTS; Start 10/28/17 at 09:15; Stop 10/29/17 at 23:55; Status DC Magnesium Sulfate 50 ml @ 25 mls/hr 1X ONCE IV Last administered on 10/28/17at 11:29; Start 10/28/17 at 11:30; Stop 10/28/17 at 13:29; Status DC Potassium Chloride (Klor-Con) 40 meq 1X ONCE PO Last administered on 10/28/17at 16:42; Start 10/28/17 at 11:30; Stop 10/28/17 at 11:31; Status DC Furosemide (Lasix) 40 mg DAILY IVP Last administered on 10/29/17at 09:35; Start 10/29/17 at 09:00; Stop 10/29/17 at 14:54; Status DC Iodixanol (Visipaque 320) 100 ml STK-MED ONCE .ROUTE ; Start 10/28/17 at 14:04; Stop 10/28/17 at 14:05; Status DC Lidocaine HCl (Xylocaine-Mpf 1% 2ml Vial) 2 ml STK-MED ONCE .ROUTE ; Start at 14:04; Stop 10/28/17 at 14:05; Status DC Heparin Sodium/ Sodium Chloride 1,000 ml @ As Directed STK-MED ONCE .ROUTE ; Start 10/28/17 at 14:05; Stop 10/28/17 at 14:06; Status DC Fentanyl Citrate (Fentanyl 2ml Vial) 100 mcg STK-MED ONCE .ROUTE ; Start at 15:10; Stop 10/28/17 at 15:11; Status DC Midazolam HCl (Versed) 2 mg STK-MED ONCE .ROUTE ; Start 10/28/17 at 15:10; Stop 10/28/17 at 15:11; Status DC Heparin Sodium (Porcine) (Heparin Sodium) 10,000 unit STK-MED ONCE .ROUTE ; Start 10/28/17 at 15:10; Stop 10/28/17 at 15:11; Status DC Verapamil HCl (Verapamil) 5 mg STK-MED ONCE .ROUTE ; Start 10/28/17 at 15:10; Stop 10/28/17 at 15:11; Status DC Nitroglycerin (Nitroglycerin) 200 mcg STK-MED ONCE .ROUTE ; Start 10/28/17 at 15: 10; Stop 10/28/17 at 15:11; Status DC Nitroglycerin (Nitroglycerin) 200 mcg 1X ONCE IART Last administered on at 15:57; Start 10/28/17 at 16:00; Stop 10/28/17 at 16:01; Status DC Verapamil HCl (Verapamil) 2.5 mg 1X ONCE IART Last administered on 10/28/17at 15 :57; Start 10/28/17 at 16:00; Stop 10/28/17 at 16:01; Status DC Heparin Sodium (Porcine) (Heparin Sodium) 2,500 unit 1X ONCE IART Last administered on 10/28/17at 15:30; Start 10/28/17 at 16:00; Stop 10/28/17 at 16:01; Status DC Heparin Sodium/ Sodium Chloride (HEPARIN for ARTERIAL LINE FLUSH) 1,000 unit 1X ONCE IART Last administered on 10/28/17at 15:56; Start 10/28/17 at 16:00; Stop 10/28/17 at 16:01; Status DC Midazolam HCl (Versed) 2 mg 1X ONCE IV Last administered on 10/28/17at 15:58; Start 10/28/17 at 16:00; Stop 10/28/17 at 16:01; Status DC Fentanyl Citrate (Fentanyl 2ml Vial) 50 mcg 1X ONCE IV Last administered on 10/28/17at 15:58; Start 10/28/17 at 16:00; Stop 10/28/17 at 16:01; Status DC Iodixanol (Visipaque 320) 65 ml 1X ONCE IART Last administered on 10/28/17at 15: 56; Start 10/28/17 at 16:00; Stop 10/28/17 at 16:01; Status DC Lidocaine HCl (Xylocaine-Mpf 1% 2ml Vial) 1 ml 1X ONCE INJ Last administered on 10/28/17at 15:57; Start 10/28/17 at 16:00; Stop 10/28/17 at 16:01; Status DC Info (CONTRAST GIVEN -- Rx MONITORING) 1 each PRN DAILY PRN MC SEE COMMENTS; Start 10/28/17 at 16:00; Stop 10/30/17 at 16:00; Status DC Metoprolol Tartrate (Lopressor) 12.5 mg BID PO Last administered on 10/29/17at 21 :01; Start 10/28/17 at 21:00; Stop 10/29/17 at 23:55; Status DC Potassium Chloride (Klor-Con) 40 meq 1X ONCE PO Last administered on 10/29/17at 09:24; Start 10/29/17 at 09:00; Stop 10/29/17 at 09:01; Status DC Alprazolam (Xanax) 0.25 mg PRN Q8HRS PRN PO ANXIETY / AGITATION Last administered on 10/29/17at 21:00; Start 10/29/17 at 09:15; Stop 10/29/17 at 22:00; Status DC Potassium Chloride 70 meq/ Sodium Bicarbonate 12.5 meq/Lidocaine HCl 24 ml/ Parenteral Electrolytes 571.5 ml @ 571.5 mls/ hr 1X ONCE IRR Last administered on 10/30/17at 10:59; Start 10/30/17 at 06:00; Stop 10/30/17 at 06:59; Status DC Potassium Chloride 15 meq/ Sodium Bicarbonate 12.5 meq/Parenteral Electrolytes 520 ml @ 520 mls/hr 1X ONCE IRR Last administered on 10/30/17at 10:59; Start at 06:00; Stop 10/30/17 at 06:59; Status DC Heparin Sodium (Porcine) 99678 unit/Ringer's Solution 1,020 ml @ 1,020 mls/hr 1X ONCE IRR Last administered on 10/30/17at 08:58; Start 10/30/17 at 06:00; Stop 10/30/17 at 06:59; Status DC Heparin Sodium (Porcine) 800 unit/ Nitroglycerin 4 mg/Verapamil HCl 8 mg/Sodium Bicarbonate 0.34 meq/Ringer's Solution 512.34 ml @ 512.34 mls/hr 1X ONCE IRR ; Start 10/30/17 at 06:00; Stop 10/30/17 at 06:59; Status DC Ondansetron HCl (Zofran) 4 mg PRN Q6HRS PRN IV NAUSEA/VOMITING; Start 10/30/17 at 07:00; Stop 10/31/17 at 06:59; Status DC Fentanyl Citrate (Fentanyl 2ml Vial) 25 mcg PRN Q5MIN PRN IV MILD PAIN; Start 10/30/17 at 07:00; Stop 10/31/17 at 06:59; Status DC Fentanyl Citrate (Fentanyl 2ml Vial) 50 mcg PRN Q5MIN PRN IV MODERATE TO SEVERE PAIN; Start 10/30/17 at 07:00; Stop 10/31/17 at 06:59; Status DC Morphine Sulfate (Morphine Sulfate) 1 mg PRN Q10MIN PRN IV SEVERE PAIN; Start 10/30/17 at 07:00; Stop 10/31/17 at 06:59; Status DC Ringer's Solution 1,000 ml @ 30 mls/hr Q24H IV Last administered on 10/30/17at 17:12; Start 10/30/17 at 07:00; Stop 10/30/17 at 18:59; Status DC Lidocaine HCl (Xylocaine-Mpf 1% 2ml Vial) 2 ml PRN 1X PRN ID IV START; Start at 07:00; Stop 10/31/17 at 06:59; Status DC Hydromorphone HCl (Dilaudid) 0.5 mg PRN Q10MIN PRN IV SEV PAIN, Second choice; Start 10/30/17 at 07:00; Stop 10/31/17 at 06:59; Status DC Prochlorperazine Edisylate (Compazine) 5 mg PACU PRN PRN IV NAUSEA, MRX1; Start 10/30/17 at 07:00; Stop 10/31/17 at 06:59; Status DC Cefazolin Sodium 1 gm/Sodium Chloride 500 ml @ 500 mls/hr 1X ONCE IRR Last administered on 10/30/17at 08:58; Start 10/30/17 at 06:00; Stop 10/30/17 at 06:59; Status DC Etomidate (Amidate) 20 mg STK-MED ONCE IV ; Start 10/30/17 at 06:08; Stop at 06:09; Status DC Lidocaine HCl (Lidocaine Pf 2% Vial) 5 ml STK-MED ONCE .ROUTE ; Start 10/30/17 at 06:08; Stop 10/30/17 at 06:09; Status DC Rocuronium [place] (Zemuron) 100 mg STK-MED ONCE .ROUTE ; Start 10/30/17 at 06:08 ; Stop 10/30/17 at 06:09; Status DC Phenylephrine HCl (Rui-Synephrine Inj) 10 mg STK-MED ONCE .ROUTE ; Start at 06:09; Stop 10/30/17 at 06:10; Status DC Ephedrine Sulfate (ePHEDrine PF IN SALINE SYRINGE) 50 mg STK-MED ONCE IV ; Start 10/30/17 at 06:09; Stop 10/30/17 at 06:10; Status DC Heparin Sodium (Porcine) 30,000 unit STK-MED ONCE .ROUTE ; Start 10/30/17 at 06: 09; Stop 10/30/17 at 06:10; Status DC Aminocaproic Acid (Amicar) 5,000 mg STK-MED ONCE IV ; Start 10/30/17 at 06:09; Stop 10/30/17 at 06:10; Status DC Nitroglycerin/ Dextrose 250 ml @ As Directed STK-MED ONCE IV ; Start 10/30/17 at 06:09; Stop 10/30/17 at 06:10; Status DC Midazolam HCl (Versed) 2 mg STK-MED ONCE .ROUTE ; Start 10/30/17 at 06:11; Stop 10/30/17 at 06:12; Status DC Sufentanil Citrate (Sufenta) 100 mcg STK-MED ONCE .ROUTE ; Start 10/30/17 at 06: 11; Stop 10/30/17 at 06:12; Status DC Lidocaine HCl (Xylocaine-Mpf 2% Vial) 2 ml STK-MED ONCE .ROUTE ; Start 10/30/17 at 07:05; Stop 10/30/17 at 07:06; Status DC Vancomycin HCl (VANCO for OR ONLY) 10 gm STK-MED ONCE .ROUTE Last administered on 10/30/17at 08:58; Start 10/30/17 at 06:06; Stop 10/30/17 at 07:06; Status DC Cellulose (Surgicel Hemostat 4x8) 1 each STK-MED ONCE .ROUTE Last administered on 10/30/17at 08:58; Start 10/30/17 at 06:06; Stop 10/30/17 at 07:06; Status DC Papaverine HCl 60 mg STK-MED ONCE .ROUTE Last administered on 10/30/17at 08:58; Start 10/30/17 at 06:06; Stop 10/30/17 at 07:07; Status DC Aspirin (Aspirin) 300 mg STK-MED ONCE .ROUTE Last administered on 10/30/17at 15: 59; Start 10/30/17 at 06:06; Stop 10/30/17 at 07:07; Status DC Sodium Chloride (SODIUM CHLORIDE 20ml) 20 ml STK-MED ONCE IJ Last administered on 10/30/17at 08:58; Start 10/30/17 at 06:06; Stop 10/30/17 at 07:07; Status DC Sodium Chloride (SODIUM CHLORIDE 20ml) 20 ml STK-MED ONCE IJ Last administered on 10/30/17at 08:58; Start 10/30/17 at 06:06; Stop 10/30/17 at 07:07; Status DC Sodium Chloride (SODIUM CHLORIDE 20ml) 20 ml STK-MED ONCE IJ Last administered on 10/30/17at 08:58; Start 10/30/17 at 06:07; Stop 10/30/17 at 07:07; Status DC Cefazolin Sodium/ Dextrose 50 ml @ 100 mls/hr 1X PREOP PRN IV PRIOR TO SURGERY Last administered on 10/30/17at 08:13; Start 10/30/17 at 08:15; Stop at 13:38; Status DC Rocuronium [place] (Zemuron) 100 mg STK-MED ONCE .ROUTE ; Start 10/30/17 at 08:19 ; Stop 10/30/17 at 08:20; Status DC Sufentanil Citrate (Sufenta) 100 mcg STK-MED ONCE .ROUTE ; Start 10/30/17 at 08: 19; Stop 10/30/17 at 08:20; Status DC Isoflurane (Isoflurane) 90 ml STK-MED ONCE IH ; Start 10/30/17 at 08:22; Stop 10/30/17 at 08:23; Status DC Midazolam HCl (Versed) 2 mg STK-MED ONCE .ROUTE ; Start 10/30/17 at 08:55; Stop 10/30/17 at 08:56; Status DC Cefazolin Sodium/ Dextrose 50 ml @ 100 mls/hr 1X ONCE IV Last administered on 10/30/17at 13:45; Start 10/30/17 at 10:45; Stop 10/30/17 at 11:14; Status DC Epinephrine HCl 4 mg/Sodium Chloride 254 ml @ 3.81 mls/hr 1X ONCE IV Last administered on 10/30/17at 17:14; Start 10/30/17 at 10:45; Stop 11/02/17 at 05:24 Norepinephrine Bitartrate 250 ml @ 1.875 mls/ hr 1X ONCE IV Last administered on 10/30/17at 17:14; Start 10/30/17 at 10:45; Stop 11/05/17 at 00:04 Midazolam HCl (Versed) 2 mg STK-MED ONCE .ROUTE ; Start 10/30/17 at 11:03; Stop 10/30/17 at 11:04; Status DC Protamine Sulfate (Protamine) 50 mg STK-MED ONCE IV ; Start 10/30/17 at 11:19; Stop 10/30/17 at 11:20; Status DC Protamine Sulfate (Protamine) 250 mg STK-MED ONCE IV ; Start 10/30/17 at 11:19; Stop 10/30/17 at 11:20; Status DC Midazolam HCl (Versed) 5 mg STK-MED ONCE .ROUTE ; Start 10/30/17 at 11:54; Stop 10/30/17 at 11:55; Status DC Propofol 20 ml @ As Directed STK-MED ONCE IV ; Start 10/30/17 at 12:36; Stop 10/30 at 12:37; Status DC Ringer's Solution 1,000 ml @ 30 mls/hr Q24H IV Last administered on 10/31/17at 12:33; Start 10/30/17 at 13:00 Albumin Human 250 ml @ 60 mls/hr PRN Q4HRS PRN IV SEE I/O RECORD Last administered on 10/31/17at 10:49; Start 10/30/17 at 13:00 Insulin Human Regular 150 unit/ Sodium Chloride 151.5 ml @ 0 mls/hr CONT PRN PRN IV SEE I/O RECORD Last administered on 10/31/17at 15:36; Start 10/30/17 at 13: 00 Dextrose (Dextrose 50%-Water Syringe) 25 gm PRN Q15MIN PRN IV LOW BLOOD SUGAR; Start 10/30/17 at 13:00 Info (Icu Electrolyte Protocol) 1 ea CONT PRN PRN MC SEE COMMENTS; Start at 13:00 Magnesium Sulfate/ Dextrose 100 ml @ 100 mls/hr PRN DAILY PRN IV FOR MAG < 2.2 Last administered on 10/30/17at 18:10; Start 10/30/17 at 13:00 Famotidine (Pepcid Vial) 20 mg BID IVP Last administered on 10/31/17at 07:48; Start 10/30/17 at 14:00; Stop 10/31/17 at 14:38; Status DC Ondansetron HCl (Zofran) 4 mg PRN Q4HRS PRN IV NAUSEA/VOMITING 1ST CHOIC; Start 10/30/17 at 13:00 Prochlorperazine Edisylate (Compazine) 10 mg PRN Q6HRS PRN IV NAUSEA/VOMITING 2ND CHOICE; Start 10/30/17 at 13:00 Morphine Sulfate (Morphine Sulfate) 2 mg PRN Q1HR PRN IV MODERATE PAIN Last administered on 10/31/17at 01:19; Start 10/30/17 at 13:00 Acetaminophen (Tylenol) 650 mg PRN Q4HRS PRN PO MILD PAIN / TEMP; Start at 13:00 Acetaminophen (Tylenol Supp) 650 mg PRN Q4HRS PRN VT MILD PAIN / TEMP; Start at 13:00 Meperidine HCl (Demerol) 12.5 mg PRN Q15MIN PRN IV SHIVERING; Start 10/30/17 at 13:00; Stop 10/31/17 at 13:00; Status DC Propofol 100 ml @ 0 mls/hr CONT PRN PRN IV POSTOP SEDATION UNTIL EXTUBATE Last administered on 10/30/17at 17:11; Start 10/30/17 at 13:00; Stop 10/31/17 at 15:11; Status DC Senna/Docusate Sodium (Senna Plus) 1 tab BID PO Last administered on 11/01/17at 08:41; Start 10/30/17 at 21:00 Bisacodyl (Dulcolax Supp) 10 mg PRN DAILY PRN [place] NO BOWEL MOVEMENT; Start at 13:00 Chlorhexidine Gluconate (Peridex) 15 ml BID MM ; Start 10/30/17 at 21:00; Stop at 21:52; Status DC Aspirin (Ecotrin) 325 mg DAILYWBKFT PO Last administered on 11/01/17at 08:40; Start 10/31/17 at 08:00 Aspirin (Aspirin) 300 mg PRN DAILY PRN VT IF UNABLE TO TAKE PO; Start 10/30/17 at 13:00 Albuterol Sulfate (Ventolin Neb Soln) 2.5 mg PRN Q4HRS PRN NEB SHORTNESS OF BREATH Last administered on 11/01/17at 05:41; Start 10/30/17 at 13:00 Metoprolol Tartrate (Lopressor) 25 mg BID PO ; Start 10/31/17 at 09:00; Stop 10/31 at 11:26; Status DC Nicardipine HCl 50 mg/Sodium Chloride 270 ml @ 0 mls/hr CONT PRN PRN IV PER PROTOCOL; Start 10/30/17 at 13:00 Oxycodone/ Acetaminophen (Percocet 5/325) 1 tab PRN Q4HRS PRN PO MODERATE PAIN Last administered on 11/01/17at 04:48; Start 10/30/17 at 13:00 Oxycodone/ Acetaminophen (Percocet 5/325) 2 tab PRN Q4HRS PRN PO SEVERE PAIN Last administered on 10/31/17at 21:12; Start 10/30/17 at 13:00 Cefazolin Sodium/ Dextrose 50 ml @ 100 mls/hr Q8H IV Last administered on at 04:16; Start 10/30/17 at 20:00; Stop 11/01/17 at 04:29; Status DC Polyethylene Glycol (miraLAX PACKET) 17 gm DAILYWSUP PO ; Start 10/31/17 at 17:00 Alprazolam (Xanax) 0.25 mg PRN Q8HRS PRN PO ANXIETY / AGITATION Last administered on 10/31/17at 17:29; Start 10/30/17 at 13:00 Heparin Sodium (Porcine) (Heparin Sodium) 10,000 unit STK-MED ONCE .ROUTE ; Start 10/30/17 at 13:36; Stop 10/30/17 at 13:37; Status DC Lidocaine HCl (Lidocaine Pf 2% Vial) 5 ml STK-MED ONCE .ROUTE ; Start 10/30/17 at 13:36; Stop 10/30/17 at 13:37; Status DC Magnesium Sulfate 5 gm STK-MED ONCE .ROUTE ; Start 10/30/17 at 13:36; Stop at 13:37; Status DC Heparin Sodium (Porcine) 30,000 unit STK-MED ONCE .ROUTE ; Start 10/30/17 at 13: 36; Stop 10/30/17 at 13:37; Status DC Mannitol (Mannitol) 12.5 g STK-MED ONCE .ROUTE ; Start 10/30/17 at 13:36; Stop at 13:37; Status DC Albumin Human 100 ml @ As Directed STK-MED ONCE IV ; Start 10/30/17 at 13:36; Stop 10/30/17 at 13:37; Status DC Calcium Chloride (Calcium Chloride) 1,000 mg STK-MED ONCE .ROUTE ; Start at 13:36; Stop 10/30/17 at 13:37; Status DC Sodium Bicarbonate (Sodium Bicarb Adult 8.4% Syr) 50 meq STK-MED ONCE .ROUTE ; Start 10/30/17 at 13:36; Stop 10/30/17 at 13:37; Status DC Heparin Sodium (Porcine) 30,000 unit STK-MED ONCE .ROUTE ; Start 10/30/17 at 13: 38; Stop 10/30/17 at 13:39; Status DC Milrinone Lactate (Primacor) 10 mg STK-MED ONCE IV ; Start 10/30/17 at 13:43; Stop 10/30/17 at 13:44; Status DC Milrinone Lactate/ Dextrose 100 ml @ As Directed STK-MED ONCE IV ; Start at 13:43; Stop 10/30/17 at 13:44; Status DC Epinephrine HCl (EPINEPHrine SYRINGE) 1 mg STK-MED ONCE .ROUTE ; Start 10/30/17 at 13:53; Stop 10/30/17 at 13:54; Status DC Heparin Sodium (Porcine) (Heparin Sodium) 10,000 unit STK-MED ONCE .ROUTE ; Start 10/30/17 at 14:02; Stop 10/30/17 at 14:03; Status DC Midazolam HCl (Versed) 2 mg STK-MED ONCE .ROUTE ; Start 10/30/17 at 14:10; Stop 10/30/17 at 14:11; Status DC Esmolol HCl (Brevibloc) 100 mg STK-MED ONCE IV ; Start 10/30/17 at 14:20; Stop at 14:21; Status DC Protamine Sulfate (Protamine) 50 mg STK-MED ONCE IV ; Start 10/30/17 at 14:44; Stop 10/30/17 at 14:45; Status DC Protamine Sulfate (Protamine) 250 mg STK-MED ONCE IV ; Start 10/30/17 at 14:44; Stop 10/30/17 at 14:45; Status DC Mannitol (Mannitol) 12.5 g STK-MED ONCE .ROUTE ; Start 10/30/17 at 14:53; Stop at 14:54; Status DC Calcium Chloride (Calcium Chloride) 1,000 mg STK-MED ONCE .ROUTE ; Start at 14:53; Stop 10/30/17 at 14:54; Status DC Sodium Bicarbonate (Sodium Bicarb Adult 8.4% Syr) 50 meq STK-MED ONCE .ROUTE ; Start 10/30/17 at 14:53; Stop 10/30/17 at 14:54; Status DC Heparin Sodium (Porcine) (Heparin Sodium) 10,000 unit STK-MED ONCE .ROUTE ; Start 10/30/17 at 14:54; Stop 10/30/17 at 14:55; Status DC Albumin Human 500 ml @ As Directed STK-MED ONCE IV ; Start 10/30/17 at 14:57; Stop 10/30/17 at 14:58; Status DC Albumin Human 500 ml @ As Directed STK-MED ONCE IV ; Start 10/30/17 at 15:16; Stop 10/30/17 at 15:17; Status DC Sodium Bicarbonate (Sodium Bicarb Adult 8.4% Syr) 50 meq STK-MED ONCE .ROUTE ; Start 10/30/17 at 15:24; Stop 10/30/17 at 15:25; Status DC Amiodarone HCl 900 mg/Dextrose 518 ml @ 33 mls/hr CONT PRN IV SEE I/O RECORD; Start 10/30/17 at 15:45; Stop 10/31/17 at 15:11; Status DC Sodium Bicarbonate (Sodium Bicarb Adult 8.4% Syr) 50 meq 1X ONCE IV Last administered on 10/30/17at 17:03; Start 10/30/17 at 17:00; Stop 10/30/17 at 17:01; Status DC Sodium Bicarbonate (Sodium Bicarb Adult 8.4% Syr) 50 meq 1X ONCE IV Last administered on 10/30/17at 17:04; Start 10/30/17 at 17:00; Stop 10/30/17 at 17:01; Status DC Sodium Bicarbonate (Sodium Bicarb Adult 8.4% Syr) 50 meq 1X ONCE IV ; Start 10/30/17 at 17:00; Stop 10/30/17 at 17:01; Status DC Sodium Bicarbonate (Sodium Bicarb Adult 8.4% Syr) 50 meq 1X ONCE IV ; Start 10/30/17 at 17:00; Stop 10/30/17 at 17:01; Status DC Potassium Chloride/Water 50 ml @ 50 mls/hr Q1H IV Last administered on 19:12; Start 10/30/17 at 18:00; Stop 10/30/17 at 19:59; Status DC Potassium Chloride/Water 50 ml @ 50 mls/hr 1X ONCE IV Last administered on 10/30at 21:44; Start 10/30/17 at 21:45; Stop 10/30/17 at 22:44; Status DC Magnesium Sulfate/ Dextrose 100 ml @ 100 mls/hr 1X ONCE IV Last administered on 10/31/17at 06:37; Start 10/31/17 at 06:45; Stop 10/31/17 at 07:44; Status DC Furosemide (Lasix) 40 mg 1X ONCE IVP Last administered on 10/31/17at 09:32; Start 10/31/17 at 09:15; Stop 10/31/17 at 09:23; Status DC Albuterol Sulfate (Ventolin Neb Soln) 2.5 mg RTQID NEB Last administered on 11/01at 12:01; Start 10/31/17 at 10:00 Furosemide (Lasix) 40 mg BID92 IVP Last administered on 10/31/17 15:40; Start 10/31/17 at 14:00; Stop 10/31/17 at 17:51; Status DC Amiodarone HCl (Cordarone) 200 mg BID PO Last administered on 11/01/17at 08:41; Start 10/31/17 at 15:00 Famotidine (Pepcid) 20 mg BID PO Last administered on 11/01/17at 08:41; Start 10/31/17 at 21:00 Hydromorphone HCl (Dilaudid) 0.2 mg PRN Q4HRS PRN IVP SEVERE PAIN; Start at 15:15 Epinephrine HCl 4 mg/Sodium Chloride 254 ml @ 0 mls/hr CONT PRN IV SEE I/O RECORD Last administered on 10/31/17at 15:48; Start 10/31/17 at 15:30 Furosemide (Lasix) 40 mg TID IVP Last administered on 11/01/17at 10:32; Start 10/31/17 at 21:00 Vitals/I & O Vital Sign - Last 24 Hours 10/31/17 10/31/17 10/31/17 10/31/17 14:16 14:35 15:00 15:00 Temp 97.5 97.8 97.5 97.8 Pulse 95 90 91 Resp 18 20 20 B/P (MAP) 95/56 102/49 114/53 (73) Pulse Ox 94 O2 Delivery Nasal Cannula O2 Flow Rate 2.0 10/31/17 10/31/17 10/31/17 10/31/17 15:18 15:18 16:00 16:00 Pulse 91 Resp 20 B/P (MAP) 114/53 Pulse Ox 94 O2 Delivery Nasal Cannula Nasal Cannula O2 Flow Rate 2.0 2.0 10/31/17 10/31/17 10/31/17 10/31/17 16:00 16:01 16:20 17:00 Pulse 92 95 Resp 20 20 B/P (MAP) 108/50 (69) 101/62 (75) Pulse Ox 97 97 97 95 O2 Delivery Nasal Cannula Nasal Cannula Nasal Cannula O2 Flow Rate 2.0 2.0 2.0 10/31/17 10/31/17 10/31/17 10/31/17 17:00 18:00 18:00 19:00 Temp 97.9 97.9 Pulse 92 91 Resp 20 20 B/P (MAP) 100/65 (77) 124/57 (79) Pulse Ox 94 91 O2 Delivery Nasal Cannula Nasal Cannula O2 Flow Rate 2.0 2.0 10/31/17 10/31/17 10/31/17 10/31/17 19:27 20:00 20:00 21:00 Temp 98.2 98.2 Pulse 93 95 Resp 22 18 B/P (MAP) 112/46 (68) 148/62 (90) Pulse Ox 97 94 96 O2 Delivery Nasal Cannula Nasal Cannula Nasal Cannula Nasal Cannula O2 Flow Rate 2.0 2.0 2.0 2.0 10/31/17 10/31/17 10/31/17 10/31/17 21:11 21:12 22:00 23:00 Pulse 96 94 95 Resp 18 19 21 B/P (MAP) 126/51 127/54 (78) 112/55 (74) Pulse Ox 97 O2 Delivery Nasal Cannula Nasal Cannula Nasal Cannula O2 Flow Rate 2.0 2.0 2.0 10/31/17 11/01/17 11/01/17 11/01/17 23:05 00:00 00:00 01:00 Temp 98.8 98.8 Pulse 98 97 Resp 15 20 23 B/P (MAP) 109/56 (73) 110/55 (73) Pulse Ox 95 97 O2 Delivery Nasal Cannula Nasal Cannula Nasal Cannula Nasal Cannula O2 Flow Rate 2.0 2.0 2.0 2.0 11/01/17 11/01/17 11/01/17 11/01/17 02:00 03:00 04:00 04:00 Temp 98.5 98.5 Pulse 94 92 92 Resp 25 13 16 B/P (MAP) 105/55 (72) 133/57 (82) 134/59 (84) Pulse Ox 96 O2 Delivery Nasal Cannula Nasal Cannula Nasal Cannula Nasal Cannula O2 Flow Rate 2.0 2.0 2.0 2.0 11/01/17 11/01/17 11/01/17 11/01/17 04:48 05:00 05:41 05:54 Pulse 92 Resp 24 18 25 B/P (MAP) 126/57 (80) Pulse Ox 95 96 97 O2 Delivery Nasal Cannula Nasal Cannula Nasal Cannula Nasal Cannula O2 Flow Rate 2.0 2.0 2.0 2.0 11/01/17 11/01/17 11/01/17 11/01/17 06:00 07:00 08:00 08:00 Pulse 96 92 92 Resp 20 22 22 B/P (MAP) 137/52 (80) 112/45 (67) 116/44 (68) Pulse Ox 96 98 O2 Delivery Nasal Cannula Nasal Cannula Nasal Cannula Nasal Cannula O2 Flow Rate 2.0 2.0 2.0 2.0 11/01/17 11/01/17 11/01/17 11/01/17 08:02 08:41 09:00 10:00 Pulse 96 91 92 Resp 22 19 B/P (MAP) 108/45 105/43 (63) 131/48 (75) Pulse Ox 97 98 93 O2 Delivery Nasal Cannula Nasal Cannula Nasal Cannula O2 Flow Rate 2.0 2.0 2.0 11/01/17 11/01/17 11/01/17 11/01/17 11:00 12:00 12:00 12:01 Temp 98.7 98.7 Pulse 96 94 Resp 20 18 B/P (MAP) 134/54 (80) 103/37 (59) Pulse Ox 92 97 O2 Delivery Nasal Cannula Nasal Cannula Nasal Cannula Nasal Cannula O2 Flow Rate 2.0 2.0 2.0 2.0 11/01/17 13:00 Pulse 95 Resp 19 B/P (MAP) 120/42 (68) Pulse Ox 94 O2 Delivery Nasal Cannula O2 Flow Rate 2.0 Intake and Output 10/31/17 10/31/17 11/01/17 15:00 23:00 07:00 Intake Total 1290 ml 1471 ml 1851.2 ml Output Total 690 ml 615 ml 775 ml Balance 600 ml 856 ml 1076.2 ml SANTOSH GRAF MD Nov 01, 2017 14:19
[2017-11-01] MEDS: POLYETHYLENE GLYCOL 3350 17 GM PACKET. PO SCH (17:00)
[2017-11-02] VITALS (24 sets, daily range): BP systolic 92–126; BP diastolic 50–76
[2017-11-02] MEDS: IV RINGERS,LACTATED 1000ML 1,000 ML IV SCH (04:50)
[2017-11-02 05:42] LABS: BASO % 0 % (0-3); EOS % 0 % (0-3); HEMATOCRIT 25.6 % (39.0-53.0); HEMOGLOBIN 9.1 g/dL (13.0-17.5); LYMPH # 0.9 x10^3/uL (1.0-4.8); LYMPH % 10 % (24-48); MEAN CORPUSCULAR HEMOGLOBIN 35 pg (25-35); MEAN CORPUSCULAR HGB CONC 36 g/dL (31-37); MEAN CORPUSCULAR VOLUME 97 fL (79-100); MONO # 0.8 x10^3/uL (0.0-1.1); MONO % 9 % (0-9); NEUT # 6.6 x10^3uL (1.8-7.7); NEUT % 80 % (31-73); PLATELET COUNT 135 x10^3/uL (140-400); RED BLOOD COUNT 2.64 x10^6/uL (4.30-5.70); RED CELL DISTRIBUTION WIDTH 15.3 % (11.5-14.5); WHITE BLOOD COUNT 8.2 x10^3/uL (4.0-11.0)
[2017-11-02] MEDS: ALBUTEROL SULFATE 2.5 MG/3 ML NEBU. NEB SCH ×4 (05:44→19:49)
[2017-11-02 06:02] LABS: CALCIUM 8.3 mg/dL (8.5-10.1); MAGNESIUM 1.8 mg/dL (1.8-2.4); POTASSIUM 3.6 mmol/L (3.5-5.1)
[2017-11-02] MEDS ORDERED: MAGNESIUM SULFATE 1GM 100 ML IV ONE (06:15)
[2017-11-02] MEDS: POTASSIUM CHLORIDE 20MEQ 50 ML IV SCH ×2 (06:21→07:23)
--- NOTE | 2017-11-02 08:37 | RAD ---
EXAM: PORTABLE CHEST 1V DATE: 11/02/2017 7:31 AM INDICATION: POST OP COMPARISON: 11/01/2017, 10/31/2017 FINDINGS/ IMPRESSION: Right IJ cordis is in stable position. Bilateral chest tubes are in stable position. The PICC mediastinal drain is not visualized.. Cardiomediastinal silhouette is grossly stable accounting for differences in positioning and technique. Bilateral parenchymal opacities are grossly stable accounting for differences in projection and technique Small bilateral pleural effusions. No pneumothorax. Electronically signed by: Kevyn Borrego MD (11/02/2017 8:33 AM) [facility]
[2017-11-02] MEDS: FUROSEMIDE 40 MG/4 ML VIAL. IVP SCH ×3 (09:00→21:25)
[2017-11-02] MEDS: SENNOSIDES/DOCUSATE 8.6/50MG TABLET. PO SCH ×2 (10:15→21:25)
[2017-11-02] MEDS: AMIODARONE HCL 200 MG TABLET. PO SCH ×2 (10:16→21:25)
[2017-11-02] MEDS: ASPIRIN ENTERIC COATED 325 MG TABLET.DR. PO SCH (10:16)
[2017-11-02] MEDS: FAMOTIDINE 20 MG TABLET. PO SCH (10:16)
--- NOTE | 2017-11-02 11:03 | PDOC ---
CARDIOLOGY PROGRESS NOTE SUBJECTIVE: No acute events overnight. No arrhythmias on tele. OBJECTIVE: Vital SIgns: AF, HR 100, BP 113/80, Pox 95% on 3L I & O Even since 10/29/2017 Objective: Exam stable Lungs fairly clear heart tones regular. no murmurs trace edema no neurologic abn. CURRENT MEDICATIONS: asa amiodarone lasix epi gtt DIAGNOSTIC TESTING: CXR: Stable appearance. Cr 2.0 hgb stable. ASSESSMENT: 1. 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 Post-operative IVAN - Cr 2.0 4. Post-operative acute anemia on underlying anemia of chronic disease PLAN: -Would decrease lasix to 40mg daily to keep even to slightly negative. -Epi titration per Dr. Sales -Continue rehab. -Will start statin therapy. Supportive care. KT KIRKPATRICK MD Nov 02, 2017 11:03
[2017-11-02] MEDS: ALPRAZolam 0.25 MG TABLET PO PRN ×2 (11:06→21:25)
--- NOTE | 2017-11-02 14:50 | PDOC ---
PROGRESS NOTES Chief Complaint Chief Complaint acute systolic CHF, w/ hypotension NSTEMI, acute MS 3 vessel CAD, CABG surg 10/30 tobacco use disorder - htn acute renal failure, on CKD3, possible ATN, will hydrate History of Present Illness History of Present Illness s.p CABG 10/30 doing well atill in ICU, can only walk about 40 feet before resting eating OK , pain OK Vitals Vitals Vital Signs Date Time Temp Pulse Resp B/P (MAP) Pulse Ox O2 Delivery O2 Flow Rate FiO2 11/02/17 12:26 97 Nasal Cannula 2.0 11/02/17 10:16 103 115/71 11/02/17 10:00 20 11/02/17 08:00 98.2 98.2 Physical Exam Physical Exam GENERAL: NAD, Alert HEENT: PERRL, OC/OP NECK: Supple, no JVD, no LN LUNGS: Clear HEART: S1S2, no gallop, no murmur ABD: Soft, NT, no organomegaly, no rebound EXT: No edema, no cyanosis [employer] M113: Alert, oriented x 3, no focal neurologic deficit SKIN: No rash IV: ok General: Alert, Oriented X3, No acute distress Heart: Regular rate, Normal S1, Normal S2 Abdomen: Soft, No tenderness Extremities: No edema Skin: No rashes, No significant lesion Labs LABS Laboratory Tests Test 11/02/17 05:20 White Blood Count 8.2 x10^3/uL (4.0-11.0) Red Blood Count 2.64 x10^6/uL (4.30-5.70) Hemoglobin 9.1 g/dL (13.0-17.5) Hematocrit 25.6 % (39.0-53.0) Mean Corpuscular Volume 97 fL (79-100) Mean Corpuscular Hemoglobin 35 pg (25-35) Mean Corpuscular Hemoglobin Concent 36 g/dL (31-37) Red Cell Distribution Width 15.3 % (11.5-14.5) Platelet Count 135 x10^3/uL (140-400) Neutrophils (%) (Auto) 80 % (31-73) Lymphocytes (%) (Auto) 10 % (24-48) Monocytes (%) (Auto) 9 % (0-9) Eosinophils (%) (Auto) 0 % (0-3) Basophils (%) (Auto) 0 % (0-3) Neutrophils # (Auto) 6.6 x10^3uL (1.8-7.7) Lymphocytes # (Auto) 0.9 x10^3/uL (1.0-4.8) Monocytes # (Auto) 0.8 x10^3/uL (0.0-1.1) Eosinophils # (Auto) 0.0 x10^3/uL (0.0-0.7) Basophils # (Auto) 0.0 x10^3/uL (0.0-0.2) Sodium Level 136 mmol/L (136-145) Potassium Level 3.6 mmol/L (3.5-5.1) Chloride Level 102 mmol/L (98-107) Carbon Dioxide Level 22 mmol/L (21-32) Anion Gap 12 (6-14) Blood Urea Nitrogen 33 mg/dL (8-26) Creatinine 2.0 mg/dL (0.7-1.3) Estimated GFR (Cockcroft-Gault) 34.0 Glucose Level 115 mg/dL (70-99) Calcium Level 8.3 mg/dL (8.5-10.1) Magnesium Level 1.8 mg/dL (1.8-2.4) Comment Review of Relevant I have reviewed the following items bryce (where applicable) has been applied. Labs Laboratory Tests Test 10/31/17 15:27 10/31/17 16:40 10/31/17 17:39 11/01/17 06:10 Glucose (Fingerstick) 109 mg/dL (70-99) 92 mg/dL (70-99) 123 mg/dL (70-99) White Blood Count 9.6 x10^3/uL (4.0-11.0) Red Blood Count 2.56 x10^6/uL (4.30-5.70) Hemoglobin 8.7 g/dL (13.0-17.5) Hematocrit 24.8 % (39.0-53.0) Mean Corpuscular Volume 97 fL (79-100) Mean Corpuscular Hemoglobin 34 pg (25-35) Mean Corpuscular Hemoglobin Concent 35 g/dL (31-37) Red Cell Distribution Width 15.3 % (11.5-14.5) Platelet Count 121 x10^3/uL (140-400) Neutrophils (%) (Auto) 75 % (31-73) Lymphocytes (%) (Auto) 15 % (24-48) Monocytes (%) (Auto) 10 % (0-9) Eosinophils (%) (Auto) 0 % (0-3) Basophils (%) (Auto) 1 % (0-3) Neutrophils # (Auto) 7.2 x10^3uL (1.8-7.7) Lymphocytes # (Auto) 1.4 x10^3/uL (1.0-4.8) Monocytes # (Auto) 0.9 x10^3/uL (0.0-1.1) Eosinophils # (Auto) 0.0 x10^3/uL (0.0-0.7) Basophils # (Auto) 0.1 x10^3/uL (0.0-0.2) Sodium Level 136 mmol/L (136-145) Potassium Level 4.2 mmol/L (3.5-5.1) Chloride Level 102 mmol/L (98-107) Carbon Dioxide Level 20 mmol/L (21-32) Anion Gap 14 (6-14) Blood Urea Nitrogen 24 mg/dL (8-26) Creatinine 2.2 mg/dL (0.7-1.3) Estimated GFR (Cockcroft-Gault) 30.5 BUN/Creatinine Ratio 11 (6-20) Glucose Level 140 mg/dL (70-99) Calcium Level 8.6 mg/dL (8.5-10.1) Magnesium Level 1.9 mg/dL (1.8-2.4) Total Bilirubin 0.5 mg/dL (0.2-1.0) Aspartate Amino Transf (AST/SGOT) 74 U/L (15-37) Alanine Aminotransferase (ALT/SGPT) 22 U/L (16-63) Alkaline Phosphatase 34 U/L (46-116) Total Protein 5.4 g/dL (6.4-8.2) Albumin 3.3 g/dL (3.4-5.0) Albumin/Globulin Ratio 1.6 (1.0-1.7) Test 11/01/17 08:08 11/02/17 05:20 Bedside Venous pH 7.34 (7.32-7.42) Bedside Venous pCO2 38 mmHg (41-51) Bedside Venous pO2 42 mmHg (20-40) Venous Blood HCO3 20 mmol/L (24-28) POC Venous O2 Saturation (Yulissa) 74 % Bedside FiO2 21.0 White Blood Count 8.2 x10^3/uL (4.0-11.0) Red Blood Count 2.64 x10^6/uL (4.30-5.70) Hemoglobin 9.1 g/dL (13.0-17.5) Hematocrit 25.6 % (39.0-53.0) Mean Corpuscular Volume 97 fL (79-100) Mean Corpuscular Hemoglobin 35 pg (25-35) Mean Corpuscular Hemoglobin Concent 36 g/dL (31-37) Red Cell Distribution Width 15.3 % (11.5-14.5) Platelet Count 135 x10^3/uL (140-400) Neutrophils (%) (Auto) 80 % (31-73) Lymphocytes (%) (Auto) 10 % (24-48) Monocytes (%) (Auto) 9 % (0-9) Eosinophils (%) (Auto) 0 % (0-3) Basophils (%) (Auto) 0 % (0-3) Neutrophils # (Auto) 6.6 x10^3uL (1.8-7.7) Lymphocytes # (Auto) 0.9 x10^3/uL (1.0-4.8) Monocytes # (Auto) 0.8 x10^3/uL (0.0-1.1) Eosinophils # (Auto) 0.0 x10^3/uL (0.0-0.7) Basophils # (Auto) 0.0 x10^3/uL (0.0-0.2) Sodium Level 136 mmol/L (136-145) Potassium Level 3.6 mmol/L (3.5-5.1) Chloride Level 102 mmol/L (98-107) Carbon Dioxide Level 22 mmol/L (21-32) Anion Gap 12 (6-14) Blood Urea Nitrogen 33 mg/dL (8-26) Creatinine 2.0 mg/dL (0.7-1.3) Estimated GFR (Cockcroft-Gault) 34.0 Glucose Level 115 mg/dL (70-99) Calcium Level 8.3 mg/dL (8.5-10.1) Magnesium Level 1.8 mg/dL (1.8-2.4) Laboratory Tests Test 11/02/17 05:20 White Blood Count 8.2 x10^3/uL (4.0-11.0) Red Blood Count 2.64 x10^6/uL (4.30-5.70) Hemoglobin 9.1 g/dL (13.0-17.5) Hematocrit 25.6 % (39.0-53.0) Mean Corpuscular Volume 97 fL (79-100) Mean Corpuscular Hemoglobin 35 pg (25-35) Mean Corpuscular Hemoglobin Concent 36 g/dL (31-37) Red Cell Distribution Width 15.3 % (11.5-14.5) Platelet Count 135 x10^3/uL (140-400) Neutrophils (%) (Auto) 80 % (31-73) Lymphocytes (%) (Auto) 10 % (24-48) Monocytes (%) (Auto) 9 % (0-9) Eosinophils (%) (Auto) 0 % (0-3) Basophils (%) (Auto) 0 % (0-3) Neutrophils # (Auto) 6.6 x10^3uL (1.8-7.7) Lymphocytes # (Auto) 0.9 x10^3/uL (1.0-4.8) Monocytes # (Auto) 0.8 x10^3/uL (0.0-1.1) Eosinophils # (Auto) 0.0 x10^3/uL (0.0-0.7) Basophils # (Auto) 0.0 x10^3/uL (0.0-0.2) Sodium Level 136 mmol/L (136-145) Potassium Level 3.6 mmol/L (3.5-5.1) Chloride Level 102 mmol/L (98-107) Carbon Dioxide Level 22 mmol/L (21-32) Anion Gap 12 (6-14) Blood Urea Nitrogen 33 mg/dL (8-26) Creatinine 2.0 mg/dL (0.7-1.3) Estimated GFR (Cockcroft-Gault) 34.0 Glucose Level 115 mg/dL (70-99) Calcium Level 8.3 mg/dL (8.5-10.1) Magnesium Level 1.8 mg/dL (1.8-2.4) Medications Current Medications Aspirin (Children'S Aspirin) 324 mg 1X ONCE PO Last administered on 10/28/17at 01:28; Start 10/28/17 at 01:30; Stop 10/28/17 at 01:31; Status DC Nitroglycerin (Nitro-Bid Oint) 1 inch 1X ONCE TP Last administered on at 01:29; Start 10/28/17 at 01:30; Stop 10/28/17 at 01:31; Status DC Furosemide (Lasix) 40 mg 1X ONCE IVP Last administered on 10/28/17at 01:28; Start 10/28/17 at 01:30; Stop 10/28/17 at 01:31; Status DC Enoxaparin Sodium (Lovenox Per Pharmacy Treatment Dosing) 1 each PRN DAILY PRN MC SEE COMMENTS; Start 10/28/17 at 01:30; Status Cancel Ondansetron HCl (Zofran) 4 mg PRN Q8HRS PRN IV NAUSEA/VOMITING 1ST CHOICE; Start 10/28/17 at 01:30; Stop 10/29/17 at 01:29; Status DC Fentanyl Citrate (Fentanyl 2ml Vial) 50 mcg PRN Q1HR PRN IV SEVERE PAIN; Start 10/28/17 at 01:30; Stop 10/29/17 at 01:29; Status DC Acetaminophen (Tylenol) 650 mg PRN Q4HRS PRN PO FEVER; Start 10/28/17 at 01:30; Stop 10/29/17 at 01:29; Status DC Heparin Sodium/ Dextrose 500 ml @ 0 mls/hr CONT PRN IV SEE I/O RECORD Last administered on 10/29/17at 02:02; Start 10/28/17 at 01:30; Stop 10/30/17 at 00:05; Status DC Heparin Sodium (Porcine) (Heparin Sodium) 2,000 unit PRN Q6HRS PRN IV FOR UFH LEVEL LESS THAN 0.2 Last administered on 10/28/17at 02:17; Start 10/28/17 at 01:30 ; Stop 10/30/17 at 07:44; Status DC Furosemide (Lasix) 40 mg [id number] IVP ; Start 10/28/17 at 09:00; Stop 10/28/17 at 13: 04; Status DC Furosemide (Lasix) 40 mg 1X ONCE IVP Last administered on 10/28/17at 02:13; Start 10/28/17 at 02:00; Stop 10/28/17 at 02:01; Status DC Info (Anti-Coagulation Monitoring By Pharmacy) 1 each PRN DAILY PRN MC SEE COMMENTS Last administered on 10/29/17at 10:35; Start 10/28/17 at 02:00; Stop at 07:44; Status DC Aspirin (Ecotrin) 325 mg DAILYWBKFT PO Last administered on 10/29/17at 09:24; Start 10/28/17 at 09:30; Stop 10/29/17 at 14:52; Status DC Sodium Chloride 1,000 ml @ 50 mls/hr 1X ONCE IV Last administered on at 11:37; Start 10/28/17 at 09:30; Stop 10/29/17 at 05:29; Status DC Labetalol HCl (Normodyne Iv Push) 20 mg PRN Q2HR PRN IVP HYPERTENSION, SEE COMMENTS; Start 10/28/17 at 09:15; Stop 10/29/17 at 23:55; Status DC Magnesium Sulfate 50 ml @ 25 mls/hr 1X ONCE IV Last administered on 10/28/17at 11:29; Start 10/28/17 at 11:30; Stop 10/28/17 at 13:29; Status DC Potassium Chloride (Klor-Con) 40 meq 1X ONCE PO Last administered on 10/28/17at 16:42; Start 10/28/17 at 11:30; Stop 10/28/17 at 11:31; Status DC Furosemide (Lasix) 40 mg DAILY IVP Last administered on 10/29/17at 09:35; Start 10/29/17 at 09:00; Stop 10/29/17 at 14:54; Status DC Iodixanol (Visipaque 320) 100 ml STK-MED ONCE .ROUTE ; Start 10/28/17 at 14:04; Stop 10/28/17 at 14:05; Status DC Lidocaine HCl (Xylocaine-Mpf 1% 2ml Vial) 2 ml STK-MED ONCE .ROUTE ; Start at 14:04; Stop 10/28/17 at 14:05; Status DC Heparin Sodium/ Sodium Chloride 1,000 ml @ As Directed STK-MED ONCE .ROUTE ; Start 10/28/17 at 14:05; Stop 10/28/17 at 14:06; Status DC Fentanyl Citrate (Fentanyl 2ml Vial) 100 mcg STK-MED ONCE .ROUTE ; Start at 15:10; Stop 10/28/17 at 15:11; Status DC Midazolam HCl (Versed) 2 mg STK-MED ONCE .ROUTE ; Start 10/28/17 at 15:10; Stop 10/28/17 at 15:11; Status DC Heparin Sodium (Porcine) (Heparin Sodium) 10,000 unit STK-MED ONCE .ROUTE ; Start 10/28/17 at 15:10; Stop 10/28/17 at 15:11; Status DC Verapamil HCl (Verapamil) 5 mg STK-MED ONCE .ROUTE ; Start 10/28/17 at 15:10; Stop 10/28/17 at 15:11; Status DC Nitroglycerin (Nitroglycerin) 200 mcg STK-MED ONCE .ROUTE ; Start 10/28/17 at 15: 10; Stop 10/28/17 at 15:11; Status DC Nitroglycerin (Nitroglycerin) 200 mcg 1X ONCE IART Last administered on at 15:57; Start 10/28/17 at 16:00; Stop 10/28/17 at 16:01; Status DC Verapamil HCl (Verapamil) 2.5 mg 1X ONCE IART Last administered on 10/28/17at 15 :57; Start 10/28/17 at 16:00; Stop 10/28/17 at 16:01; Status DC Heparin Sodium (Porcine) (Heparin Sodium) 2,500 unit 1X ONCE IART Last administered on 10/28/17at 15:30; Start 10/28/17 at 16:00; Stop 10/28/17 at 16:01; Status DC Heparin Sodium/ Sodium Chloride (HEPARIN for ARTERIAL LINE FLUSH) 1,000 unit 1X ONCE IART Last administered on 10/28/17at 15:56; Start 10/28/17 at 16:00; Stop 10/28/17 at 16:01; Status DC Midazolam HCl (Versed) 2 mg 1X ONCE IV Last administered on 10/28/17at 15:58; Start 10/28/17 at 16:00; Stop 10/28/17 at 16:01; Status DC Fentanyl Citrate (Fentanyl 2ml Vial) 50 mcg 1X ONCE IV Last administered on 10/28/17at 15:58; Start 10/28/17 at 16:00; Stop 10/28/17 at 16:01; Status DC Iodixanol (Visipaque 320) 65 ml 1X ONCE IART Last administered on 10/28/17at 15: 56; Start 10/28/17 at 16:00; Stop 10/28/17 at 16:01; Status DC Lidocaine HCl (Xylocaine-Mpf 1% 2ml Vial) 1 ml 1X ONCE INJ Last administered on 10/28/17at 15:57; Start 10/28/17 at 16:00; Stop 10/28/17 at 16:01; Status DC Info (CONTRAST GIVEN -- Rx MONITORING) 1 each PRN DAILY PRN MC SEE COMMENTS; Start 10/28/17 at 16:00; Stop 10/30/17 at 16:00; Status DC Metoprolol Tartrate (Lopressor) 12.5 mg BID PO Last administered on 10/29/17at 21 :01; Start 10/28/17 at 21:00; Stop 10/29/17 at 23:55; Status DC Potassium Chloride (Klor-Con) 40 meq 1X ONCE PO Last administered on 10/29/17at 09:24; Start 10/29/17 at 09:00; Stop 10/29/17 at 09:01; Status DC Alprazolam (Xanax) 0.25 mg PRN Q8HRS PRN PO ANXIETY / AGITATION Last administered on 10/29/17at 21:00; Start 10/29/17 at 09:15; Stop 10/29/17 at 22:00; Status DC Potassium Chloride 70 meq/ Sodium Bicarbonate 12.5 meq/Lidocaine HCl 24 ml/ Parenteral Electrolytes 571.5 ml @ 571.5 mls/ hr 1X ONCE IRR Last administered on 10/30/17at 10:59; Start 10/30/17 at 06:00; Stop 10/30/17 at 06:59; Status DC Potassium Chloride 15 meq/ Sodium Bicarbonate 12.5 meq/Parenteral Electrolytes 520 ml @ 520 mls/hr 1X ONCE IRR Last administered on 10/30/17at 10:59; Start at 06:00; Stop 10/30/17 at 06:59; Status DC Heparin Sodium (Porcine) 81574 unit/Ringer's Solution 1,020 ml @ 1,020 mls/hr 1X ONCE IRR Last administered on 10/30/17at 08:58; Start 10/30/17 at 06:00; Stop 10/30/17 at 06:59; Status DC Heparin Sodium (Porcine) 800 unit/ Nitroglycerin 4 mg/Verapamil HCl 8 mg/Sodium Bicarbonate 0.34 meq/Ringer's Solution 512.34 ml @ 512.34 mls/hr 1X ONCE IRR ; Start 10/30/17 at 06:00; Stop 10/30/17 at 06:59; Status DC Ondansetron HCl (Zofran) 4 mg PRN Q6HRS PRN IV NAUSEA/VOMITING; Start 10/30/17 at 07:00; Stop 10/31/17 at 06:59; Status DC Fentanyl Citrate (Fentanyl 2ml Vial) 25 mcg PRN Q5MIN PRN IV MILD PAIN; Start 10/30/17 at 07:00; Stop 10/31/17 at 06:59; Status DC Fentanyl Citrate (Fentanyl 2ml Vial) 50 mcg PRN Q5MIN PRN IV MODERATE TO SEVERE PAIN; Start 10/30/17 at 07:00; Stop 10/31/17 at 06:59; Status DC Morphine Sulfate (Morphine Sulfate) 1 mg PRN Q10MIN PRN IV SEVERE PAIN; Start 10/30/17 at 07:00; Stop 10/31/17 at 06:59; Status DC Ringer's Solution 1,000 ml @ 30 mls/hr Q24H IV Last administered on 10/30/17at 17:12; Start 10/30/17 at 07:00; Stop 10/30/17 at 18:59; Status DC Lidocaine HCl (Xylocaine-Mpf 1% 2ml Vial) 2 ml PRN 1X PRN ID IV START; Start at 07:00; Stop 10/31/17 at 06:59; Status DC Hydromorphone HCl (Dilaudid) 0.5 mg PRN Q10MIN PRN IV SEV PAIN, Second choice; Start 10/30/17 at 07:00; Stop 10/31/17 at 06:59; Status DC Prochlorperazine Edisylate (Compazine) 5 mg PACU PRN PRN IV NAUSEA, MRX1; Start 10/30/17 at 07:00; Stop 10/31/17 at 06:59; Status DC Cefazolin Sodium 1 gm/Sodium Chloride 500 ml @ 500 mls/hr 1X ONCE IRR Last administered on 10/30/17at 08:58; Start 10/30/17 at 06:00; Stop 10/30/17 at 06:59; Status DC Etomidate (Amidate) 20 mg STK-MED ONCE IV ; Start 10/30/17 at 06:08; Stop at 06:09; Status DC Lidocaine HCl (Lidocaine Pf 2% Vial) 5 ml STK-MED ONCE .ROUTE ; Start 10/30/17 at 06:08; Stop 10/30/17 at 06:09; Status DC Rocuronium [place] (Zemuron) 100 mg STK-MED ONCE .ROUTE ; Start 10/30/17 at 06:08 ; Stop 10/30/17 at 06:09; Status DC Phenylephrine HCl (Rui-Synephrine Inj) 10 mg STK-MED ONCE .ROUTE ; Start at 06:09; Stop 10/30/17 at 06:10; Status DC Ephedrine Sulfate (ePHEDrine PF IN SALINE SYRINGE) 50 mg STK-MED ONCE IV ; Start 10/30/17 at 06:09; Stop 10/30/17 at 06:10; Status DC Heparin Sodium (Porcine) 30,000 unit STK-MED ONCE .ROUTE ; Start 10/30/17 at 06: 09; Stop 10/30/17 at 06:10; Status DC Aminocaproic Acid (Amicar) 5,000 mg STK-MED ONCE IV ; Start 10/30/17 at 06:09; Stop 10/30/17 at 06:10; Status DC Nitroglycerin/ Dextrose 250 ml @ As Directed STK-MED ONCE IV ; Start 10/30/17 at 06:09; Stop 10/30/17 at 06:10; Status DC Midazolam HCl (Versed) 2 mg STK-MED ONCE .ROUTE ; Start 10/30/17 at 06:11; Stop 10/30/17 at 06:12; Status DC Sufentanil Citrate (Sufenta) 100 mcg STK-MED ONCE .ROUTE ; Start 10/30/17 at 06: 11; Stop 10/30/17 at 06:12; Status DC Lidocaine HCl (Xylocaine-Mpf 2% Vial) 2 ml STK-MED ONCE .ROUTE ; Start 10/30/17 at 07:05; Stop 10/30/17 at 07:06; Status DC Vancomycin HCl (VANCO for OR ONLY) 10 gm STK-MED ONCE .ROUTE Last administered on 10/30/17at 08:58; Start 10/30/17 at 06:06; Stop 10/30/17 at 07:06; Status DC Cellulose (Surgicel Hemostat 4x8) 1 each STK-MED ONCE .ROUTE Last administered on 10/30/17at 08:58; Start 10/30/17 at 06:06; Stop 10/30/17 at 07:06; Status DC Papaverine HCl 60 mg STK-MED ONCE .ROUTE Last administered on 10/30/17at 08:58; Start 10/30/17 at 06:06; Stop 10/30/17 at 07:07; Status DC Aspirin (Aspirin) 300 mg STK-MED ONCE .ROUTE Last administered on 10/30/17at 15: 59; Start 10/30/17 at 06:06; Stop 10/30/17 at 07:07; Status DC Sodium Chloride (SODIUM CHLORIDE 20ml) 20 ml STK-MED ONCE IJ Last administered on 10/30/17at 08:58; Start 10/30/17 at 06:06; Stop 10/30/17 at 07:07; Status DC Sodium Chloride (SODIUM CHLORIDE 20ml) 20 ml STK-MED ONCE IJ Last administered on 10/30/17at 08:58; Start 10/30/17 at 06:06; Stop 10/30/17 at 07:07; Status DC Sodium Chloride (SODIUM CHLORIDE 20ml) 20 ml STK-MED ONCE IJ Last administered on 10/30/17at 08:58; Start 10/30/17 at 06:07; Stop 10/30/17 at 07:07; Status DC Cefazolin Sodium/ Dextrose 50 ml @ 100 mls/hr 1X PREOP PRN IV PRIOR TO SURGERY Last administered on 10/30/17at 08:13; Start 10/30/17 at 08:15; Stop at 13:38; Status DC Rocuronium [place] (Zemuron) 100 mg STK-MED ONCE .ROUTE ; Start 10/30/17 at 08:19 ; Stop 10/30/17 at 08:20; Status DC Sufentanil Citrate (Sufenta) 100 mcg STK-MED ONCE .ROUTE ; Start 10/30/17 at 08: 19; Stop 10/30/17 at 08:20; Status DC Isoflurane (Isoflurane) 90 ml STK-MED ONCE IH ; Start 10/30/17 at 08:22; Stop 10/30/17 at 08:23; Status DC Midazolam HCl (Versed) 2 mg STK-MED ONCE .ROUTE ; Start 10/30/17 at 08:55; Stop 10/30/17 at 08:56; Status DC Cefazolin Sodium/ Dextrose 50 ml @ 100 mls/hr 1X ONCE IV Last administered on 10/30/17at 13:45; Start 10/30/17 at 10:45; Stop 10/30/17 at 11:14; Status DC Epinephrine HCl 4 mg/Sodium Chloride 254 ml @ 3.81 mls/hr 1X ONCE IV Last administered on 10/30/17at 17:14; Start 10/30/17 at 10:45; Stop 11/02/17 at 05:24; Status DC Norepinephrine Bitartrate 250 ml @ 1.875 mls/ hr 1X ONCE IV Last administered on 10/30/17at 17:14; Start 10/30/17 at 10:45; Stop 11/05/17 at 00:04 Midazolam HCl (Versed) 2 mg STK-MED ONCE .ROUTE ; Start 10/30/17 at 11:03; Stop 10/30/17 at 11:04; Status DC Protamine Sulfate (Protamine) 50 mg STK-MED ONCE IV ; Start 10/30/17 at 11:19; Stop 10/30/17 at 11:20; Status DC Protamine Sulfate (Protamine) 250 mg STK-MED ONCE IV ; Start 10/30/17 at 11:19; Stop 10/30/17 at 11:20; Status DC Midazolam HCl (Versed) 5 mg STK-MED ONCE .ROUTE ; Start 10/30/17 at 11:54; Stop 10/30/17 at 11:55; Status DC Propofol 20 ml @ As Directed STK-MED ONCE IV ; Start 10/30/17 at 12:36; Stop 10/30 at 12:37; Status DC Ringer's Solution 1,000 ml @ 30 mls/hr Q24H IV Last administered on 11/02/17at 04:50; Start 10/30/17 at 13:00 Albumin Human 250 ml @ 60 mls/hr PRN Q4HRS PRN IV SEE I/O RECORD Last administered on 10/31/17at 10:49; Start 10/30/17 at 13:00 Insulin Human Regular 150 unit/ Sodium Chloride 151.5 ml @ 0 mls/hr CONT PRN PRN IV SEE I/O RECORD Last administered on 10/31/17at 15:36; Start 10/30/17 at 13: 00 Dextrose (Dextrose 50%-Water Syringe) 25 gm PRN Q15MIN PRN IV LOW BLOOD SUGAR; Start 10/30/17 at 13:00 Info ([facility] Electrolyte Protocol) 1 ea CONT PRN PRN MC SEE COMMENTS; Start at 13:00 Magnesium Sulfate/ Dextrose 100 ml @ 100 mls/hr PRN DAILY PRN IV FOR MAG < 2.2 Last administered on 10/30/17at 18:10; Start 10/30/17 at 13:00 Famotidine (Pepcid Vial) 20 mg BID IVP Last administered on 10/31/17at 07:48; Start 10/30/17 at 14:00; Stop 10/31/17 at 14:38; Status DC Ondansetron HCl (Zofran) 4 mg PRN Q4HRS PRN IV NAUSEA/VOMITING 1ST CHOIC; Start 10/30/17 at 13:00 Prochlorperazine Edisylate (Compazine) 10 mg PRN Q6HRS PRN IV NAUSEA/VOMITING 2ND CHOICE; Start 10/30/17 at 13:00 Morphine Sulfate (Morphine Sulfate) 2 mg PRN Q1HR PRN IV MODERATE PAIN Last administered on 10/31/17at 01:19; Start 10/30/17 at 13:00 Acetaminophen (Tylenol) 650 mg PRN Q4HRS PRN PO MILD PAIN / TEMP; Start at 13:00 Acetaminophen (Tylenol Supp) [address] MILD PAIN / TEMP; Start at 13:00 Meperidine HCl (Demerol) 12.5 mg PRN Q15MIN PRN IV SHIVERING; Start 10/30/17 at 13:00; Stop 10/31/17 at 13:00; Status DC Propofol 100 ml @ 0 mls/hr CONT PRN PRN IV POSTOP SEDATION UNTIL EXTUBATE Last administered on 10/30/17at 17:11; Start 10/30/17 at 13:00; Stop 10/31/17 at 15:11; Status DC Senna/Docusate Sodium (Senna Plus) 1 tab BID PO Last administered on 11/02/17at 10:15; Start 10/30/17 at 21:00 Bisacodyl (Dulcolax Supp) [address] NO BOWEL MOVEMENT; Start at 13:00 Chlorhexidine Gluconate (Peridex) 15 ml BID MM ; Start 10/30/17 at 21:00; Stop at 21:52; Status DC Aspirin (Ecotrin) 325 mg DAILYWBKFT PO Last administered on 11/02/17at 10:16; Start 10/31/17 at 08:00 Aspirin (Aspirin) [address] IF UNABLE TO TAKE PO; Start 10/30/17 at 13:00 Albuterol Sulfate (Ventolin Neb Soln) 2.5 mg PRN Q4HRS PRN NEB SHORTNESS OF BREATH Last administered on 11/01/17at 05:41; Start 10/30/17 at 13:00 Metoprolol Tartrate (Lopressor) 25 mg BID PO ; Start 10/31/17 at 09:00; Stop 10/31 at 11:26; Status DC Nicardipine HCl 50 mg/Sodium Chloride 270 ml @ 0 mls/hr CONT PRN PRN IV PER PROTOCOL; Start 10/30/17 at 13:00 Oxycodone/ Acetaminophen (Percocet 5/325) 1 tab PRN Q4HRS PRN PO MODERATE PAIN Last administered on 11/01/17at 04:48; Start 10/30/17 at 13:00 Oxycodone/ Acetaminophen (Percocet 5/325) 2 tab PRN Q4HRS PRN PO SEVERE PAIN Last administered on 10/31/17at 21:12; Start 10/30/17 at 13:00 Cefazolin Sodium/ Dextrose 50 ml @ 100 mls/hr Q8H IV Last administered on at 04:16; Start 10/30/17 at 20:00; Stop 11/01/17 at 04:29; Status DC Polyethylene Glycol (miraLAX PACKET) 17 gm DAILYWSUP PO Last administered on 11/01/17at 17:00; Start 10/31/17 at 17:00 Alprazolam (Xanax) 0.25 mg PRN Q8HRS PRN PO ANXIETY / AGITATION Last administered on 11/02/17at 11:06; Start 10/30/17 at 13:00 Heparin Sodium (Porcine) (Heparin Sodium) 10,000 unit STK-MED ONCE .ROUTE ; Start 10/30/17 at 13:36; Stop 10/30/17 at 13:37; Status DC Lidocaine HCl (Lidocaine Pf 2% Vial) 5 ml STK-MED ONCE .ROUTE ; Start 10/30/17 at 13:36; Stop 10/30/17 at 13:37; Status DC Magnesium Sulfate 5 gm STK-MED ONCE .ROUTE ; Start 10/30/17 at 13:36; Stop at 13:37; Status DC Heparin Sodium (Porcine) 30,000 unit STK-MED ONCE .ROUTE ; Start 10/30/17 at 13: 36; Stop 10/30/17 at 13:37; Status DC Mannitol (Mannitol) 12.5 g STK-MED ONCE .ROUTE ; Start 10/30/17 at 13:36; Stop at 13:37; Status DC Albumin Human 100 ml @ As Directed STK-MED ONCE IV ; Start 10/30/17 at 13:36; Stop 10/30/17 at 13:37; Status DC Calcium Chloride (Calcium Chloride) 1,000 mg STK-MED ONCE .ROUTE ; Start at 13:36; Stop 10/30/17 at 13:37; Status DC Sodium Bicarbonate (Sodium Bicarb Adult 8.4% Syr) 50 meq STK-MED ONCE .ROUTE ; Start 10/30/17 at 13:36; Stop 10/30/17 at 13:37; Status DC Heparin Sodium (Porcine) 30,000 unit STK-MED ONCE .ROUTE ; Start 10/30/17 at 13: 38; Stop 10/30/17 at 13:39; Status DC Milrinone Lactate (Primacor) 10 mg STK-MED ONCE IV ; Start 10/30/17 at 13:43; Stop 10/30/17 at 13:44; Status DC Milrinone Lactate/ Dextrose 100 ml @ As Directed STK-MED ONCE IV ; Start at 13:43; Stop 10/30/17 at 13:44; Status DC Epinephrine HCl (EPINEPHrine SYRINGE) 1 mg STK-MED ONCE .ROUTE ; Start 10/30/17 at 13:53; Stop 10/30/17 at 13:54; Status DC Heparin Sodium (Porcine) (Heparin Sodium) 10,000 unit STK-MED ONCE .ROUTE ; Start 10/30/17 at 14:02; Stop 10/30/17 at 14:03; Status DC Midazolam HCl (Versed) 2 mg STK-MED ONCE .ROUTE ; Start 10/30/17 at 14:10; Stop 10/30/17 at 14:11; Status DC Esmolol HCl (Brevibloc) 100 mg STK-MED ONCE IV ; Start 10/30/17 at 14:20; Stop at 14:21; Status DC Protamine Sulfate (Protamine) 50 mg STK-MED ONCE IV ; Start 10/30/17 at 14:44; Stop 10/30/17 at 14:45; Status DC Protamine Sulfate (Protamine) 250 mg STK-MED ONCE IV ; Start 10/30/17 at 14:44; Stop 10/30/17 at 14:45; Status DC Mannitol (Mannitol) 12.5 g STK-MED ONCE .ROUTE ; Start 10/30/17 at 14:53; Stop at 14:54; Status DC Calcium Chloride (Calcium Chloride) 1,000 mg STK-MED ONCE .ROUTE ; Start at 14:53; Stop 10/30/17 at 14:54; Status DC Sodium Bicarbonate (Sodium Bicarb Adult 8.4% Syr) 50 meq STK-MED ONCE .ROUTE ; Start 10/30/17 at 14:53; Stop 10/30/17 at 14:54; Status DC Heparin Sodium (Porcine) (Heparin Sodium) 10,000 unit STK-MED ONCE .ROUTE ; Start 10/30/17 at 14:54; Stop 10/30/17 at 14:55; Status DC Albumin Human 500 ml @ As Directed STK-MED ONCE IV ; Start 10/30/17 at 14:57; Stop 10/30/17 at 14:58; Status DC Albumin Human 500 ml @ As Directed STK-MED ONCE IV ; Start 10/30/17 at 15:16; Stop 10/30/17 at 15:17; Status DC Sodium Bicarbonate (Sodium Bicarb Adult 8.4% Syr) 50 meq STK-MED ONCE .ROUTE ; Start 10/30/17 at 15:24; Stop 10/30/17 at 15:25; Status DC Amiodarone HCl 900 mg/Dextrose 518 ml @ 33 mls/hr CONT PRN IV SEE I/O RECORD; Start 10/30/17 at 15:45; Stop 10/31/17 at 15:11; Status DC Sodium Bicarbonate (Sodium Bicarb Adult 8.4% Syr) 50 meq 1X ONCE IV Last administered on 10/30/17at 17:03; Start 10/30/17 at 17:00; Stop 10/30/17 at 17:01; Status DC Sodium Bicarbonate (Sodium Bicarb Adult 8.4% Syr) 50 meq 1X ONCE IV Last administered on 10/30/17at 17:04; Start 10/30/17 at 17:00; Stop 10/30/17 at 17:01; Status DC Sodium Bicarbonate (Sodium Bicarb Adult 8.4% Syr) 50 meq 1X ONCE IV ; Start 10/30/17 at 17:00; Stop 10/30/17 at 17:01; Status DC Sodium Bicarbonate (Sodium Bicarb Adult 8.4% Syr) 50 meq 1X ONCE IV ; Start 10/30/17 at 17:00; Stop 10/30/17 at 17:01; Status DC Potassium Chloride/Water 50 ml @ 50 mls/hr Q1H IV Last administered on at 19:12; Start 10/30/17 at 18:00; Stop 10/30/17 at 19:59; Status DC Potassium Chloride/Water 50 ml @ 50 mls/hr 1X ONCE IV Last administered on 10/30at 21:44; Start 10/30/17 at 21:45; Stop 10/30/17 at 22:44; Status DC Magnesium Sulfate/ Dextrose 100 ml @ 100 mls/hr 1X ONCE IV Last administered on 10/31/17 06:37; Start 10/31/17 at 06:45; Stop 10/31/17 at 07:44; Status DC Furosemide (Lasix) 40 mg 1X ONCE IVP Last administered on 10/31/17at 09:32; Start 10/31/17 at 09:15; Stop 10/31/17 at 09:23; Status DC Albuterol Sulfate (Ventolin Neb Soln) 2.5 mg RTQID NEB Last administered on 11/02at 12:24; Start 10/31/17 at 10:00 Furosemide (Lasix) 40 mg [id number] IVP Last administered on 10/31/17at 15:40; Start 10/31/17 at 14:00; Stop 10/31/17 at 17:51; Status DC Amiodarone HCl (Cordarone) 200 mg BID PO Last administered on 11/02/17 10:16; Start 10/31/17 at 15:00 Famotidine (Pepcid) 20 mg BID PO Last administered on 11/01/17at 08:41; Start 10/31/17 at 21:00; Stop 11/01/17 at 15:42; Status DC Hydromorphone HCl (Dilaudid) 0.2 mg PRN Q4HRS PRN IVP SEVERE PAIN; Start at 15:15 Epinephrine HCl 4 mg/Sodium Chloride 254 ml @ 0 mls/hr CONT PRN IV SEE I/O RECORD Last administered on 10/31/17at 15:48; Start 10/31/17 at 15:30 Furosemide (Lasix) 40 mg TID IVP Last administered on 11/02/17at 09:00; Start 10/31/17 at 21:00 Famotidine (Pepcid) 20 mg DAILYAC PO Last administered on 11/02/17 10:16; Start 11/02/17 at 07:30 Magnesium Sulfate/ Dextrose 100 ml @ 100 mls/hr 1X ONCE IV Last administered on 11/02/17at 07:24; Start 11/02/17 at 06:15; Stop 11/02/17 at 07:14; Status DC Potassium Chloride/Water 50 ml @ 50 mls/hr Q1H IV Last administered on at 07:23; Start 11/02/17 at 06:30; Stop 11/02/17 at 08:29; Status DC Atorvastatin Calcium (Lipitor) 40 mg QHS PO ; Start 11/02/17 at 21:00 Vitals/I & O Vital Sign - Last 24 Hours 11/01/17 11/01/17 11/01/17 11/01/17 15:00 16:00 16:00 16:04 Pulse 101 100 Resp 24 26 B/P (MAP) 106/66 (79) 97/62 (74) Pulse Ox 96 96 92 O2 Delivery Room Air Room Air Room Air Room Air 11/01/17 11/01/17 11/01/17 11/01/17 17:00 18:00 19:00 19:42 Pulse 97 100 97 Resp 22 20 23 B/P (MAP) 108/61 (77) 107/63 (78) 102/69 (80) Pulse Ox 96 95 95 O2 Delivery Room Air Room Air Room Air Room Air 11/01/17 11/01/17 11/01/17 11/01/17 19:43 20:00 20:54 21:00 Temp 97.9 97.9 Pulse 99 99 101 Resp 20 19 B/P (MAP) 113/66 (82) 108/63 101/68 (79) Pulse Ox 95 93 94 O2 Delivery Room Air Room Air Room Air 11/01/17 11/01/17 11/02/17 11/02/17 22:00 23:00 00:00 00:00 Temp 99.1 99.1 Pulse 102 99 101 Resp 15 22 B/P (MAP) 109/65 (80) 105/67 (80) 111/69 (83) Pulse Ox 94 92 93 O2 Delivery Room Air Room Air Room Air Room Air 11/02/17 11/02/17 11/02/17 11/02/17 01:00 02:00 03:00 03:47 Pulse 101 98 101 Resp 22 15 22 B/P (MAP) 116/68 (84) 112/65 (81) 115/67 (83) Pulse Ox 92 92 94 O2 Delivery Room Air Room Air Room Air Room Air 11/02/17 11/02/17 11/02/17 11/02/17 04:00 05:00 05:45 06:00 Temp 98.9 98.9 Pulse 100 101 103 Resp 24 24 22 B/P (MAP) 115/67 (83) 126/76 (93) 115/71 (86) Pulse Ox 93 92 94 92 O2 Delivery Room Air Room Air Room Air Room Air 11/02/17 11/02/17 11/02/17 11/02/17 07:00 08:00 08:00 09:00 Temp 98.2 98.2 Pulse 99 103 101 Resp 22 20 20 B/P (MAP) 115/71 (86) 114/68 (83) 110/71 (84) Pulse Ox 92 94 94 O2 Delivery Room Air Room Air Room Air Room Air 11/02/17 11/02/17 11/02/17 10:00 10:16 12:26 Pulse 100 103 Resp 20 B/P (MAP) 113/68 (83) 115/71 Pulse Ox 94 97 O2 Delivery Room Air Nasal Cannula O2 Flow Rate 2.0 Intake and Output 11/01/17 11/01/17 11/02/17 15:00 23:00 07:00 Intake Total 420 ml 354 ml Output Total 435 ml 585 ml 765 ml Balance -435 ml -165 ml -411 ml SANTOSH GRAF MD Nov 02, 2017 14:50
[2017-11-02] MEDS: POLYETHYLENE GLYCOL 3350 17 GM PACKET. PO SCH (17:00)
[2017-11-02] MEDS: ATORVASTATIN CALCIUM 40 MG TABLET. PO SCH (21:24)
--- NOTE | 2017-11-02 21:32 | PDOC ---
Progress Note Subjective Subjective Doing well. Ambulating. On 2 lit NC. On epinephrine for low EF to improve cardiac output. Normotensive and NSR. Hemoglobin 9,1, Creatinine down to 2 from 2.2 . Third spacing output from pleural tubes, serous. ROS ROS No nausea No vomiting No pain No rash Vital Sign Vital Signs Vital Signs Date Time Temp Pulse Resp B/P (MAP) Pulse Ox O2 Delivery O2 Flow Rate FiO2 11/02/17 21:25 100 100/66 11/02/17 20:00 Nasal Cannula 2.0 11/02/17 20:00 98.8 20 96 98.8 Physical Exam PHYSICAL EXAM GENERAL: NAD, Alert HEENT: PERRL, OC/OP NECK: Supple, no JVD, no LN LUNGS: Clear HEART: S1S2, no gallop, no murmur ABD: Soft, NT, no organomegaly, no rebound EXT: No edema, no cyanosis SQUAD BOSS: Alert, oriented x 3, no focal neurologic deficit SKIN: No rash IV: ok Labs Lab Laboratory Tests Test 11/02/17 05:20 White Blood Count 8.2 x10^3/uL (4.0-11.0) Red Blood Count 2.64 x10^6/uL (4.30-5.70) Hemoglobin 9.1 g/dL (13.0-17.5) Hematocrit 25.6 % (39.0-53.0) Mean Corpuscular Volume 97 fL (79-100) Mean Corpuscular Hemoglobin 35 pg (25-35) Mean Corpuscular Hemoglobin Concent 36 g/dL (31-37) Red Cell Distribution Width 15.3 % (11.5-14.5) Platelet Count 135 x10^3/uL (140-400) Neutrophils (%) (Auto) 80 % (31-73) Lymphocytes (%) (Auto) 10 % (24-48) Monocytes (%) (Auto) 9 % (0-9) Eosinophils (%) (Auto) 0 % (0-3) Basophils (%) (Auto) 0 % (0-3) Neutrophils # (Auto) 6.6 x10^3uL (1.8-7.7) Lymphocytes # (Auto) 0.9 x10^3/uL (1.0-4.8) Monocytes # (Auto) 0.8 x10^3/uL (0.0-1.1) Eosinophils # (Auto) 0.0 x10^3/uL (0.0-0.7) Basophils # (Auto) 0.0 x10^3/uL (0.0-0.2) Sodium Level 136 mmol/L (136-145) Potassium Level 3.6 mmol/L (3.5-5.1) Chloride Level 102 mmol/L (98-107) Carbon Dioxide Level 22 mmol/L (21-32) Anion Gap 12 (6-14) Blood Urea Nitrogen 33 mg/dL (8-26) Creatinine 2.0 mg/dL (0.7-1.3) Estimated GFR (Cockcroft-Gault) 34.0 Glucose Level 115 mg/dL (70-99) Calcium Level 8.3 mg/dL (8.5-10.1) Magnesium Level 1.8 mg/dL (1.8-2.4) Objective Assessment POD#3, s/p CABG x 4 (TUCKER to LAD, SVG to LPL, SVG to diag, SVG to RPDA). Severe ischemic cardiomyopathy with EF 20% Plan Plan of Care Reduce Lasix to BID from TID. If maintains good UO this pm, then daily is OK Epinephrine off Amiodarone po 200 mg twice a day for atrial fibrillation prophylaxis D/c farnaz Keep in ICU for another day, mainly for nursing care SHAY HARRIS MD Nov 02, 2017 21:32
--- NOTE | 2017-11-02 21:48 | RAD ---
Indication:CHEST TUBE PLACEMENT TECHNIQUE:Portable AP chest X-ray COMPARISON:11/01/2017 FINDINGS: Stable position of bilateral chest tubes. Small right pneumothorax. No measurable left pneumothorax. CABG changes noted. Mild blunting of the bilateral costophrenic angle suggesting pleural effusion. Visualized bony thorax is within normal limits. IMPRESSION: 1. Trace to Small right pneumothorax. No measurable left pneumothorax. 2. Trace bilateral pleural effusions. Electronically signed by: Parth Pennington DO (11/02/2017 9:45 PM) [facility]
[2017-11-03] VITALS (15 sets, daily range): BP systolic 93–118; BP diastolic 53–69
[2017-11-03] MEDS ORDERED: MAGNESIUM SULFATE 1GM 100 ML IV ONE (07:45)
[2017-11-03 08:05] LABS: CALCIUM 8.1 mg/dL (8.5-10.1); CREATININE 1.7 mg/dL (0.7-1.3); MAGNESIUM 1.7 mg/dL (1.8-2.4); POTASSIUM 3.6 mmol/L (3.5-5.1)
[2017-11-03] MEDS: ALBUTEROL SULFATE 2.5 MG/3 ML NEBU. NEB SCH ×4 (08:25→19:30)
[2017-11-03] MEDS: FUROSEMIDE 40 MG/4 ML VIAL. IVP SCH (09:09)
[2017-11-03] MEDS: POTASSIUM CHLORIDE 20MEQ 50 ML IV SCH ×2 (09:09→09:45)
[2017-11-03] MEDS: ALPRAZolam 0.25 MG TABLET PO PRN (09:11)
[2017-11-03] MEDS: SENNOSIDES/DOCUSATE 8.6/50MG TABLET. PO SCH ×2 (09:11→19:30)
[2017-11-03] MEDS: FAMOTIDINE 20 MG TABLET. PO SCH (09:11)
[2017-11-03] MEDS: AMIODARONE HCL 200 MG TABLET. PO SCH ×2 (09:12→19:30)
[2017-11-03] MEDS: ASPIRIN ENTERIC COATED 325 MG TABLET.DR. PO SCH (09:12)
--- NOTE | 2017-11-03 10:30 | PDOC2 ---
CONSULT Date of Consult Date of Consult DATE: 11/03/17 TIME: 10:25 Reason for Consult Reason for Consult: IVAN Referring Physician Referring Physician: GUILLERMO Identification/Chief Complaint Chief Complaint CHF Source Source: Chart review, Patient History of Present Illness Reason for Visit: THIS IS A 61 YR WITH CAD. HE HAS UNDERGONE A 4 VESSEL CABG. NO CKD NOTED. POST OP CR IS 2.2 AND NOW BETTER AT 1.7. HAS HAD LE EDEMA AND HAS BEEN ON DIURETICS. HEMODYNAMICALLY STABLE NOW BUT SUSPECT HAD SOME HYPOTENSION. EF IS 25%. HX OF HTN. NO HX OF ANY OTHER PROBLEMS OTHER THAN NOCTURIA Past Medical History Cardiovascular: HTN Pulmonary: No pertinent hx CENTRAL NERVOUS SYSTEM: Other (No pertinent history) GI: GERD Heme/Onc: No pertinent hx Hepatobiliary: No pertinent hx Psych: No pertinent hx Musculoskeletal: Osteoarthritis Rheumatologic: No pertinent hx Infectious disease: No pertinent hx ENT: No pertinent hx Renal/: No pertinent hx Endocrine: No pertinent hx Dermatology: Other (recent leg rash from mowing, described it as poison Elisa exposure. ) Past Surgical History Past Surgical History: Cataract Removal Family History Family History: Coronary Artery Disease (father) Social History 1 pack per day (>40 yrs) ALCOHOL: other (2 beers daily at night) Drugs: None Lives: with Family Current Medications Current Medications Current Medications Aspirin (Children'S Aspirin) 324 mg 1X ONCE PO Last administered on 10/28/17at 01:28; Start 10/28/17 at 01:30; Stop 10/28/17 at 01:31; Status DC Nitroglycerin (Nitro-Bid Oint) 1 inch 1X ONCE TP Last administered on at 01:29; Start 10/28/17 at 01:30; Stop 10/28/17 at 01:31; Status DC Furosemide (Lasix) 40 mg 1X ONCE IVP Last administered on 10/28/17at 01:28; Start 10/28/17 at 01:30; Stop 10/28/17 at 01:31; Status DC Enoxaparin Sodium (Lovenox Per Pharmacy Treatment Dosing) 1 each PRN DAILY PRN MC SEE COMMENTS; Start 10/28/17 at 01:30; Status Cancel Ondansetron HCl (Zofran) 4 mg PRN Q8HRS PRN IV NAUSEA/VOMITING 1ST CHOICE; Start 10/28/17 at 01:30; Stop 10/29/17 at 01:29; Status DC Fentanyl Citrate (Fentanyl 2ml Vial) 50 mcg PRN Q1HR PRN IV SEVERE PAIN; Start 10/28/17 at 01:30; Stop 10/29/17 at 01:29; Status DC Acetaminophen (Tylenol) 650 mg PRN Q4HRS PRN PO FEVER; Start 10/28/17 at 01:30; Stop 10/29/17 at 01:29; Status DC Heparin Sodium/ Dextrose 500 ml @ 0 mls/hr CONT PRN IV SEE I/O RECORD Last administered on 10/29/17at 02:02; Start 10/28/17 at 01:30; Stop 10/30/17 at 00:05; Status DC Heparin Sodium (Porcine) (Heparin Sodium) 2,000 unit PRN Q6HRS PRN IV FOR UFH LEVEL LESS THAN 0.2 Last administered on 10/28/17at 02:17; Start 10/28/17 at 01:30 ; Stop 10/30/17 at 07:44; Status DC Furosemide (Lasix) 40 mg [id number] IVP ; Start 10/28/17 at 09:00; Stop 10/28/17 at 13: 04; Status DC Furosemide (Lasix) 40 mg 1X ONCE IVP Last administered on 10/28/17at 02:13; Start 10/28/17 at 02:00; Stop 10/28/17 at 02:01; Status DC Info (Anti-Coagulation Monitoring By Pharmacy) 1 each PRN DAILY PRN MC SEE COMMENTS Last administered on 10/29/17at 10:35; Start 10/28/17 at 02:00; Stop at 07:44; Status DC Aspirin (Ecotrin) 325 mg DAILYWBKFT PO Last administered on 10/29/17at 09:24; Start 10/28/17 at 09:30; Stop 10/29/17 at 14:52; Status DC Sodium Chloride 1,000 ml @ 50 mls/hr 1X ONCE IV Last administered on at 11:37; Start 10/28/17 at 09:30; Stop 10/29/17 at 05:29; Status DC Labetalol HCl (Normodyne Iv Push) 20 mg PRN Q2HR PRN IVP HYPERTENSION, SEE COMMENTS; Start 10/28/17 at 09:15; Stop 10/29/17 at 23:55; Status DC Magnesium Sulfate 50 ml @ 25 mls/hr 1X ONCE IV Last administered on 10/28/17at 11:29; Start 10/28/17 at 11:30; Stop 10/28/17 at 13:29; Status DC Potassium Chloride (Klor-Con) 40 meq 1X ONCE PO Last administered on 10/28/17at 16:42; Start 10/28/17 at 11:30; Stop 10/28/17 at 11:31; Status DC Furosemide (Lasix) 40 mg DAILY IVP Last administered on 10/29/17at 09:35; Start 10/29/17 at 09:00; Stop 10/29/17 at 14:54; Status DC Iodixanol (Visipaque 320) 100 ml STK-MED ONCE .ROUTE ; Start 10/28/17 at 14:04; Stop 10/28/17 at 14:05; Status DC Lidocaine HCl (Xylocaine-Mpf 1% 2ml Vial) 2 ml STK-MED ONCE .ROUTE ; Start at 14:04; Stop 10/28/17 at 14:05; Status DC Heparin Sodium/ Sodium Chloride 1,000 ml @ As Directed STK-MED ONCE .ROUTE ; Start 10/28/17 at 14:05; Stop 10/28/17 at 14:06; Status DC Fentanyl Citrate (Fentanyl 2ml Vial) 100 mcg STK-MED ONCE .ROUTE ; Start at 15:10; Stop 10/28/17 at 15:11; Status DC Midazolam HCl (Versed) 2 mg STK-MED ONCE .ROUTE ; Start 10/28/17 at 15:10; Stop 10/28/17 at 15:11; Status DC Heparin Sodium (Porcine) (Heparin Sodium) 10,000 unit STK-MED ONCE .ROUTE ; Start 10/28/17 at 15:10; Stop 10/28/17 at 15:11; Status DC Verapamil HCl (Verapamil) 5 mg STK-MED ONCE .ROUTE ; Start 10/28/17 at 15:10; Stop 10/28/17 at 15:11; Status DC Nitroglycerin (Nitroglycerin) 200 mcg STK-MED ONCE .ROUTE ; Start 10/28/17 at 15: 10; Stop 10/28/17 at 15:11; Status DC Nitroglycerin (Nitroglycerin) 200 mcg 1X ONCE IART Last administered on at 15:57; Start 10/28/17 at 16:00; Stop 10/28/17 at 16:01; Status DC Verapamil HCl (Verapamil) 2.5 mg 1X ONCE IART Last administered on 10/28/17at 15 :57; Start 10/28/17 at 16:00; Stop 10/28/17 at 16:01; Status DC Heparin Sodium (Porcine) (Heparin Sodium) 2,500 unit 1X ONCE IART Last administered on 10/28/17at 15:30; Start 10/28/17 at 16:00; Stop 10/28/17 at 16:01; Status DC Heparin Sodium/ Sodium Chloride (HEPARIN for ARTERIAL LINE FLUSH) 1,000 unit 1X ONCE IART Last administered on 10/28/17at 15:56; Start 10/28/17 at 16:00; Stop 10/28/17 at 16:01; Status DC Midazolam HCl (Versed) 2 mg 1X ONCE IV Last administered on 10/28/17at 15:58; Start 10/28/17 at 16:00; Stop 10/28/17 at 16:01; Status DC Fentanyl Citrate (Fentanyl 2ml Vial) 50 mcg 1X ONCE IV Last administered on 10/28/17at 15:58; Start 10/28/17 at 16:00; Stop 10/28/17 at 16:01; Status DC Iodixanol (Visipaque 320) 65 ml 1X ONCE IART Last administered on 10/28/17at 15: 56; Start 10/28/17 at 16:00; Stop 10/28/17 at 16:01; Status DC Lidocaine HCl (Xylocaine-Mpf 1% 2ml Vial) 1 ml 1X ONCE INJ Last administered on 10/28/17at 15:57; Start 10/28/17 at 16:00; Stop 10/28/17 at 16:01; Status DC Info (CONTRAST GIVEN -- Rx MONITORING) 1 each PRN DAILY PRN MC SEE COMMENTS; Start 10/28/17 at 16:00; Stop 10/30/17 at 16:00; Status DC Metoprolol Tartrate (Lopressor) 12.5 mg BID PO Last administered on 10/29/17at 21 :01; Start 10/28/17 at 21:00; Stop 10/29/17 at 23:55; Status DC Potassium Chloride (Klor-Con) 40 meq 1X ONCE PO Last administered on 10/29/17at 09:24; Start 10/29/17 at 09:00; Stop 10/29/17 at 09:01; Status DC Alprazolam (Xanax) 0.25 mg PRN Q8HRS PRN PO ANXIETY / AGITATION Last administered on 10/29/17at 21:00; Start 10/29/17 at 09:15; Stop 10/29/17 at 22:00; Status DC Potassium Chloride 70 meq/ Sodium Bicarbonate 12.5 meq/Lidocaine HCl 24 ml/ Parenteral Electrolytes 571.5 ml @ 571.5 mls/ hr 1X ONCE IRR Last administered on 10/30/17at 10:59; Start 10/30/17 at 06:00; Stop 10/30/17 at 06:59; Status DC Potassium Chloride 15 meq/ Sodium Bicarbonate 12.5 meq/Parenteral Electrolytes 520 ml @ 520 mls/hr 1X ONCE IRR Last administered on 10/30/17at 10:59; Start at 06:00; Stop 10/30/17 at 06:59; Status DC Heparin Sodium (Porcine) 04452 unit/Ringer's Solution 1,020 ml @ 1,020 mls/hr 1X ONCE IRR Last administered on 10/30/17at 08:58; Start 10/30/17 at 06:00; Stop 10/30/17 at 06:59; Status DC Heparin Sodium (Porcine) 800 unit/ Nitroglycerin 4 mg/Verapamil HCl 8 mg/Sodium Bicarbonate 0.34 meq/Ringer's Solution 512.34 ml @ 512.34 mls/hr 1X ONCE IRR ; Start 10/30/17 at 06:00; Stop 10/30/17 at 06:59; Status DC Ondansetron HCl (Zofran) 4 mg PRN Q6HRS PRN IV NAUSEA/VOMITING; Start 10/30/17 at 07:00; Stop 10/31/17 at 06:59; Status DC Fentanyl Citrate (Fentanyl 2ml Vial) 25 mcg PRN Q5MIN PRN IV MILD PAIN; Start 10/30/17 at 07:00; Stop 10/31/17 at 06:59; Status DC Fentanyl Citrate (Fentanyl 2ml Vial) 50 mcg PRN Q5MIN PRN IV MODERATE TO SEVERE PAIN; Start 10/30/17 at 07:00; Stop 10/31/17 at 06:59; Status DC Morphine Sulfate (Morphine Sulfate) 1 mg PRN Q10MIN PRN IV SEVERE PAIN; Start 10/30/17 at 07:00; Stop 10/31/17 at 06:59; Status DC Ringer's Solution 1,000 ml @ 30 mls/hr Q24H IV Last administered on 10/30/17at 17:12; Start 10/30/17 at 07:00; Stop 10/30/17 at 18:59; Status DC Lidocaine HCl (Xylocaine-Mpf 1% 2ml Vial) 2 ml PRN 1X PRN ID IV START; Start at 07:00; Stop 10/31/17 at 06:59; Status DC Hydromorphone HCl (Dilaudid) 0.5 mg PRN Q10MIN PRN IV SEV PAIN, Second choice; Start 10/30/17 at 07:00; Stop 10/31/17 at 06:59; Status DC Prochlorperazine Edisylate (Compazine) 5 mg PACU PRN PRN IV NAUSEA, MRX1; Start 10/30/17 at 07:00; Stop 10/31/17 at 06:59; Status DC Cefazolin Sodium 1 gm/Sodium Chloride 500 ml @ 500 mls/hr 1X ONCE IRR Last administered on 10/30/17at 08:58; Start 10/30/17 at 06:00; Stop 10/30/17 at 06:59; Status DC Etomidate (Amidate) 20 mg STK-MED ONCE IV ; Start 10/30/17 at 06:08; Stop at 06:09; Status DC Lidocaine HCl (Lidocaine Pf 2% Vial) 5 ml STK-MED ONCE .ROUTE ; Start 10/30/17 at 06:08; Stop 10/30/17 at 06:09; Status DC Rocuronium Pacifica (Zemuron) 100 mg STK-MED ONCE .ROUTE ; Start 10/30/17 at 06:08 ; Stop 10/30/17 at 06:09; Status DC Phenylephrine HCl (Rui-Synephrine Inj) 10 mg STK-MED ONCE .ROUTE ; Start at 06:09; Stop 10/30/17 at 06:10; Status DC Ephedrine Sulfate (ePHEDrine PF IN SALINE SYRINGE) 50 mg STK-MED ONCE IV ; Start 10/30/17 at 06:09; Stop 10/30/17 at 06:10; Status DC Heparin Sodium (Porcine) 30,000 unit STK-MED ONCE .ROUTE ; Start 10/30/17 at 06: 09; Stop 10/30/17 at 06:10; Status DC Aminocaproic Acid (Amicar) 5,000 mg STK-MED ONCE IV ; Start 10/30/17 at 06:09; Stop 10/30/17 at 06:10; Status DC Nitroglycerin/ Dextrose 250 ml @ As Directed STK-MED ONCE IV ; Start 10/30/17 at 06:09; Stop 10/30/17 at 06:10; Status DC Midazolam HCl (Versed) 2 mg STK-MED ONCE .ROUTE ; Start 10/30/17 at 06:11; Stop 10/30/17 at 06:12; Status DC Sufentanil Citrate (Sufenta) 100 mcg STK-MED ONCE .ROUTE ; Start 10/30/17 at 06: 11; Stop 10/30/17 at 06:12; Status DC Lidocaine HCl (Xylocaine-Mpf 2% Vial) 2 ml STK-MED ONCE .ROUTE ; Start 10/30/17 at 07:05; Stop 10/30/17 at 07:06; Status DC Vancomycin HCl (VANCO for OR ONLY) 10 gm STK-MED ONCE .ROUTE Last administered on 10/30/17at 08:58; Start 10/30/17 at 06:06; Stop 10/30/17 at 07:06; Status DC Cellulose (Surgicel Hemostat 4x8) 1 each STK-MED ONCE .ROUTE Last administered on 10/30/17at 08:58; Start 10/30/17 at 06:06; Stop 10/30/17 at 07:06; Status DC Papaverine HCl 60 mg STK-MED ONCE .ROUTE Last administered on 10/30/17at 08:58; Start 10/30/17 at 06:06; Stop 10/30/17 at 07:07; Status DC Aspirin (Aspirin) 300 mg STK-MED ONCE .ROUTE Last administered on 10/30/17at 15: 59; Start 10/30/17 at 06:06; Stop 10/30/17 at 07:07; Status DC Sodium Chloride (SODIUM CHLORIDE 20ml) 20 ml STK-MED ONCE IJ Last administered on 10/30/17at 08:58; Start 10/30/17 at 06:06; Stop 10/30/17 at 07:07; Status DC Sodium Chloride (SODIUM CHLORIDE 20ml) 20 ml STK-MED ONCE IJ Last administered on 10/30/17at 08:58; Start 10/30/17 at 06:06; Stop 10/30/17 at 07:07; Status DC Sodium Chloride (SODIUM CHLORIDE 20ml) 20 ml STK-MED ONCE IJ Last administered on 10/30/17at 08:58; Start 10/30/17 at 06:07; Stop 10/30/17 at 07:07; Status DC Cefazolin Sodium/ Dextrose 50 ml @ 100 mls/hr 1X PREOP PRN IV PRIOR TO SURGERY Last administered on 10/30/17at 08:13; Start 10/30/17 at 08:15; Stop at 13:38; Status DC Rocuronium Pacifica (Zemuron) 100 mg STK-MED ONCE .ROUTE ; Start 10/30/17 at 08:19 ; Stop 10/30/17 at 08:20; Status DC Sufentanil Citrate (Sufenta) 100 mcg STK-MED ONCE .ROUTE ; Start 10/30/17 at 08: 19; Stop 10/30/17 at 08:20; Status DC Isoflurane (Isoflurane) 90 ml STK-MED ONCE IH ; Start 10/30/17 at 08:22; Stop 10/30/17 at 08:23; Status DC Midazolam HCl (Versed) 2 mg STK-MED ONCE .ROUTE ; Start 10/30/17 at 08:55; Stop 10/30/17 at 08:56; Status DC Cefazolin Sodium/ Dextrose 50 ml @ 100 mls/hr 1X ONCE IV Last administered on 10/30/17at 13:45; Start 10/30/17 at 10:45; Stop 10/30/17 at 11:14; Status DC Epinephrine HCl 4 mg/Sodium Chloride 254 ml @ 3.81 mls/hr 1X ONCE IV Last administered on 10/30/17at 17:14; Start 10/30/17 at 10:45; Stop 11/02/17 at 05:24; Status DC Norepinephrine Bitartrate 250 ml @ 1.875 mls/ hr 1X ONCE IV Last administered on 10/30/17at 17:14; Start 10/30/17 at 10:45; Stop 11/05/17 at 00:04 Midazolam HCl (Versed) 2 mg STK-MED ONCE .ROUTE ; Start 10/30/17 at 11:03; Stop 10/30/17 at 11:04; Status DC Protamine Sulfate (Protamine) 50 mg STK-MED ONCE IV ; Start 10/30/17 at 11:19; Stop 10/30/17 at 11:20; Status DC Protamine Sulfate (Protamine) 250 mg STK-MED ONCE IV ; Start 10/30/17 at 11:19; Stop 10/30/17 at 11:20; Status DC Midazolam HCl (Versed) 5 mg STK-MED ONCE .ROUTE ; Start 10/30/17 at 11:54; Stop 10/30/17 at 11:55; Status DC Propofol 20 ml @ As Directed STK-MED ONCE IV ; Start 10/30/17 at 12:36; Stop 10/30 at 12:37; Status DC Ringer's Solution 1,000 ml @ 30 mls/hr Q24H IV Last administered on 11/02/17at 04:50; Start 10/30/17 at 13:00 Albumin Human 250 ml @ 60 mls/hr PRN Q4HRS PRN IV SEE I/O RECORD Last administered on 10/31/17at 10:49; Start 10/30/17 at 13:00 Insulin Human Regular 150 unit/ Sodium Chloride 151.5 ml @ 0 mls/hr CONT PRN PRN IV SEE I/O RECORD Last administered on 10/31/17at 15:36; Start 10/30/17 at 13: 00 Dextrose (Dextrose 50%-Water Syringe) 25 gm PRN Q15MIN PRN IV LOW BLOOD SUGAR; Start 10/30/17 at 13:00 Info (Icu Electrolyte Protocol) 1 ea CONT PRN PRN MC SEE COMMENTS; Start at 13:00 Magnesium Sulfate/ Dextrose 100 ml @ 100 mls/hr PRN DAILY PRN IV FOR MAG < 2.2 Last administered on 10/30/17at 18:10; Start 10/30/17 at 13:00 Famotidine (Pepcid Vial) 20 mg BID IVP Last administered on 10/31/17at 07:48; Start 10/30/17 at 14:00; Stop 10/31/17 at 14:38; Status DC Ondansetron HCl (Zofran) 4 mg PRN Q4HRS PRN IV NAUSEA/VOMITING 1ST CHOIC; Start 10/30/17 at 13:00 Prochlorperazine Edisylate (Compazine) 10 mg PRN Q6HRS PRN IV NAUSEA/VOMITING 2ND CHOICE; Start 10/30/17 at 13:00 Morphine Sulfate (Morphine Sulfate) 2 mg PRN Q1HR PRN IV MODERATE PAIN Last administered on 10/31/17at 01:19; Start 10/30/17 at 13:00 Acetaminophen (Tylenol) 650 mg PRN Q4HRS PRN PO MILD PAIN / TEMP Last administered on 11/03/17at 09:11; Start 10/30/17 at 13:00 Acetaminophen (Tylenol Supp) 650 mg PRN Q4HRS PRN IA MILD PAIN / TEMP; Start at 13:00 Meperidine HCl (Demerol) 12.5 mg PRN Q15MIN PRN IV SHIVERING; Start 10/30/17 at 13:00; Stop 10/31/17 at 13:00; Status DC Propofol 100 ml @ 0 mls/hr CONT PRN PRN IV POSTOP SEDATION UNTIL EXTUBATE Last administered on 10/30/17at 17:11; Start 10/30/17 at 13:00; Stop 10/31/17 at 15:11; Status DC Senna/Docusate Sodium (Senna Plus) 1 tab BID PO Last administered on 11/03/17at 09:11; Start 10/30/17 at 21:00 Bisacodyl (Dulcolax Supp) 10 mg PRN DAILY PRN IA NO BOWEL MOVEMENT; Start at 13:00 Chlorhexidine Gluconate (Peridex) 15 ml BID MM ; Start 10/30/17 at 21:00; Stop at 21:52; Status DC Aspirin (Ecotrin) 325 mg DAILYWBKFT PO Last administered on 11/03/17at 09:12; Start 10/31/17 at 08:00 Aspirin (Aspirin) 300 mg PRN DAILY PRN IA IF UNABLE TO TAKE PO; Start 10/30/17 at 13:00 Albuterol Sulfate (Ventolin Neb Soln) 2.5 mg PRN Q4HRS PRN NEB SHORTNESS OF BREATH Last administered on 11/01/17at 05:41; Start 10/30/17 at 13:00 Metoprolol Tartrate (Lopressor) 25 mg BID PO ; Start 10/31/17 at 09:00; Stop 10/31 at 11:26; Status DC Nicardipine HCl 50 mg/Sodium Chloride 270 ml @ 0 mls/hr CONT PRN PRN IV PER PROTOCOL; Start 10/30/17 at 13:00 Oxycodone/ Acetaminophen (Percocet 5/325) 1 tab PRN Q4HRS PRN PO MODERATE PAIN Last administered on 11/01/17at 04:48; Start 10/30/17 at 13:00 Oxycodone/ Acetaminophen (Percocet 5/325) 2 tab PRN Q4HRS PRN PO SEVERE PAIN Last administered on 10/31/17at 21:12; Start 10/30/17 at 13:00 Cefazolin Sodium/ Dextrose 50 ml @ 100 mls/hr Q8H IV Last administered on at 04:16; Start 10/30/17 at 20:00; Stop 11/01/17 at 04:29; Status DC Polyethylene Glycol (miraLAX PACKET) 17 gm DAILYWSUP PO Last administered on 11/02/17at 17:00; Start 10/31/17 at 17:00 Alprazolam (Xanax) 0.25 mg PRN Q8HRS PRN PO ANXIETY / AGITATION Last administered on 11/03/17at 09:11; Start 10/30/17 at 13:00 Heparin Sodium (Porcine) (Heparin Sodium) 10,000 unit STK-MED ONCE .ROUTE ; Start 10/30/17 at 13:36; Stop 10/30/17 at 13:37; Status DC Lidocaine HCl (Lidocaine Pf 2% Vial) 5 ml STK-MED ONCE .ROUTE ; Start 10/30/17 at 13:36; Stop 10/30/17 at 13:37; Status DC Magnesium Sulfate 5 gm STK-MED ONCE .ROUTE ; Start 10/30/17 at 13:36; Stop at 13:37; Status DC Heparin Sodium (Porcine) 30,000 unit STK-MED ONCE .ROUTE ; Start 10/30/17 at 13: 36; Stop 10/30/17 at 13:37; Status DC Mannitol (Mannitol) 12.5 g STK-MED ONCE .ROUTE ; Start 10/30/17 at 13:36; Stop at 13:37; Status DC Albumin Human 100 ml @ As Directed STK-MED ONCE IV ; Start 10/30/17 at 13:36; Stop 10/30/17 at 13:37; Status DC Calcium Chloride (Calcium Chloride) 1,000 mg STK-MED ONCE .ROUTE ; Start at 13:36; Stop 10/30/17 at 13:37; Status DC Sodium Bicarbonate (Sodium Bicarb Adult 8.4% Syr) 50 meq STK-MED ONCE .ROUTE ; Start 10/30/17 at 13:36; Stop 10/30/17 at 13:37; Status DC Heparin Sodium (Porcine) 30,000 unit STK-MED ONCE .ROUTE ; Start 10/30/17 at 13: 38; Stop 10/30/17 at 13:39; Status DC Milrinone Lactate (Primacor) 10 mg STK-MED ONCE IV ; Start 10/30/17 at 13:43; Stop 10/30/17 at 13:44; Status DC Milrinone Lactate/ Dextrose 100 ml @ As Directed STK-MED ONCE IV ; Start at 13:43; Stop 10/30/17 at 13:44; Status DC Epinephrine HCl (EPINEPHrine SYRINGE) 1 mg STK-MED ONCE .ROUTE ; Start 10/30/17 at 13:53; Stop 10/30/17 at 13:54; Status DC Heparin Sodium (Porcine) (Heparin Sodium) 10,000 unit STK-MED ONCE .ROUTE ; Start 10/30/17 at 14:02; Stop 10/30/17 at 14:03; Status DC Midazolam HCl (Versed) 2 mg STK-MED ONCE .ROUTE ; Start 10/30/17 at 14:10; Stop 10/30/17 at 14:11; Status DC Esmolol HCl (Brevibloc) 100 mg STK-MED ONCE IV ; Start 10/30/17 at 14:20; Stop at 14:21; Status DC Protamine Sulfate (Protamine) 50 mg STK-MED ONCE IV ; Start 10/30/17 at 14:44; Stop 10/30/17 at 14:45; Status DC Protamine Sulfate (Protamine) 250 mg STK-MED ONCE IV ; Start 10/30/17 at 14:44; Stop 10/30/17 at 14:45; Status DC Mannitol (Mannitol) 12.5 g STK-MED ONCE .ROUTE ; Start 10/30/17 at 14:53; Stop at 14:54; Status DC Calcium Chloride (Calcium Chloride) 1,000 mg STK-MED ONCE .ROUTE ; Start at 14:53; Stop 10/30/17 at 14:54; Status DC Sodium Bicarbonate (Sodium Bicarb Adult 8.4% Syr) 50 meq STK-MED ONCE .ROUTE ; Start 10/30/17 at 14:53; Stop 10/30/17 at 14:54; Status DC Heparin Sodium (Porcine) (Heparin Sodium) 10,000 unit STK-MED ONCE .ROUTE ; Start 10/30/17 at 14:54; Stop 10/30/17 at 14:55; Status DC Albumin Human 500 ml @ As Directed STK-MED ONCE IV ; Start 10/30/17 at 14:57; Stop 10/30/17 at 14:58; Status DC Albumin Human 500 ml @ As Directed STK-MED ONCE IV ; Start 10/30/17 at 15:16; Stop 10/30/17 at 15:17; Status DC Sodium Bicarbonate (Sodium Bicarb Adult 8.4% Syr) 50 meq STK-MED ONCE .ROUTE ; Start 10/30/17 at 15:24; Stop 10/30/17 at 15:25; Status DC Amiodarone HCl 900 mg/Dextrose 518 ml @ 33 mls/hr CONT PRN IV SEE I/O RECORD; Start 10/30/17 at 15:45; Stop 10/31/17 at 15:11; Status DC Sodium Bicarbonate (Sodium Bicarb Adult 8.4% Syr) 50 meq 1X ONCE IV Last administered on 10/30/17at 17:03; Start 10/30/17 at 17:00; Stop 10/30/17 at 17:01; Status DC Sodium Bicarbonate (Sodium Bicarb Adult 8.4% Syr) 50 meq 1X ONCE IV Last administered on 10/30/17at 17:04; Start 10/30/17 at 17:00; Stop 10/30/17 at 17:01; Status DC Sodium Bicarbonate (Sodium Bicarb Adult 8.4% Syr) 50 meq 1X ONCE IV ; Start 10/30/17 at 17:00; Stop 10/30/17 at 17:01; Status DC Sodium Bicarbonate (Sodium Bicarb Adult 8.4% Syr) 50 meq 1X ONCE IV ; Start 10/30/17 at 17:00; Stop 10/30/17 at 17:01; Status DC Potassium Chloride/Water 50 ml @ 50 mls/hr Q1H IV Last administered on at 19:12; Start 10/30/17 at 18:00; Stop 10/30/17 at 19:59; Status DC Potassium Chloride/Water 50 ml @ 50 mls/hr 1X ONCE IV Last administered on 10/30at 21:44; Start 10/30/17 at 21:45; Stop 10/30/17 at 22:44; Status DC Magnesium Sulfate/ Dextrose 100 ml @ 100 mls/hr 1X ONCE IV Last administered on 10/31/17at 06:37; Start 10/31/17 at 06:45; Stop 10/31/17 at 07:44; Status DC Furosemide (Lasix) 40 mg 1X ONCE IVP Last administered on 10/31/17at 09:32; Start 10/31/17 at 09:15; Stop 10/31/17 at 09:23; Status DC Albuterol Sulfate (Ventolin Neb Soln) 2.5 mg RTQID NEB Last administered on 12/11at 08:25; Start 10/31/17 at 10:00 Furosemide (Lasix) 40 mg [id number] IVP Last administered on 10/31/17at 15:40; Start 10/31/17 at 14:00; Stop 10/31/17 at 17:51; Status DC Amiodarone HCl (Cordarone) 200 mg BID PO Last administered on 11/03/17at 09:12; Start 10/31/17 at 15:00 Famotidine (Pepcid) 20 mg BID PO Last administered on 11/01/17at 08:41; Start 10/31/17 at 21:00; Stop 11/01/17 at 15:42; Status DC Hydromorphone HCl (Dilaudid) 0.2 mg PRN Q4HRS PRN IVP SEVERE PAIN; Start at 15:15 Epinephrine HCl 4 mg/Sodium Chloride 254 ml @ 0 mls/hr CONT PRN IV SEE I/O RECORD Last administered on 10/31/17at 15:48; Start 10/31/17 at 15:30 Furosemide (Lasix) 40 mg TID IVP Last administered on 11/03/17at 09:09; Start at 21:00; Stop 11/03/17 at 10:22; Status DC Famotidine (Pepcid) 20 mg DAILYAC PO Last administered on 11/03/17at 09:11; Start 11/02/17 at 07:30 Magnesium Sulfate/ Dextrose 100 ml @ 100 mls/hr 1X ONCE IV Last administered on 11/02/17at 07:24; Start 11/02/17 at 06:15; Stop 11/02/17 at 07:14; Status DC Potassium Chloride/Water 50 ml @ 50 mls/hr Q1H IV Last administered on at 07:23; Start 11/02/17 at 06:30; Stop 11/02/17 at 08:29; Status DC Atorvastatin Calcium (Lipitor) 40 mg QHS PO Last administered on 11/02/17at 21:24 ; Start 11/02/17 at 21:00 Potassium Chloride/Water 50 ml @ 50 mls/hr Q1H IV Last administered on at 09:45; Start 11/03/17 at 08:00; Stop 11/03/17 at 09:59; Status DC Magnesium Sulfate/ Dextrose 100 ml @ 100 mls/hr 1X ONCE IV Last administered on 11/03/17at 09:11; Start 11/03/17 at 07:45; Stop 11/03/17 at 08:44; Status DC Furosemide (Lasix) 40 mg DAILY IVP ; Start 11/04/17 at 09:00; Status UNV Allergies Allergies: Coded Allergies: No Known Drug Allergies (Unverified , 10/28/17) ROS General: YES: Fatigue, Malaise PSYCHOLOGICAL ROS: YES: Anxiety Eyes: Yes Decreased vision HEENT: YES: Heacaches Respiratory: YES: Cough, Shortness of breath Cardiovascular: yes Edema Gastrointestinal: Yes Constipation Genitourinary: YES Other (INCREASING FREQUENCY) Musculoskeletal: Yes Muscular Weakness Neurological: Yes Weakness Physical Exam General: Alert, Oriented X3, Cooperative, No acute distress HEENT: Atraumatic, PERRLA Lungs: Other (DECREASED AT BASES) Heart: Regular rate, Normal S1 Abdomen: Normal bowel sounds, Soft, No tenderness Extremities: No clubbing Skin: No rashes Neuro: Normal speech, Cranial nerves 3-12 NL Psych/Mental Status: Mental status NL, Mood NL MUSCULOSKELETAL: No deformity, Other (2+ LE EDEMA) Vitals VITALS Vital Signs Date Time Temp Pulse Resp B/P (MAP) Pulse Ox O2 Delivery O2 Flow Rate FiO2 11/03/17 10:00 94 16 94/59 (71) 93 Room Air 11/03/17 08:28 2.0 11/03/17 07:00 99.5 99.5 Labs Labs Laboratory Tests Test 11/02/17 05:20 11/03/17 07:50 White Blood Count 8.2 x10^3/uL (4.0-11.0) Red Blood Count 2.64 x10^6/uL (4.30-5.70) Hemoglobin 9.1 g/dL (13.0-17.5) Hematocrit 25.6 % (39.0-53.0) Mean Corpuscular Volume 97 fL (79-100) Mean Corpuscular Hemoglobin 35 pg (25-35) Mean Corpuscular Hemoglobin Concent 36 g/dL (31-37) Red Cell Distribution Width 15.3 % (11.5-14.5) Platelet Count 135 x10^3/uL (140-400) Neutrophils (%) (Auto) 80 % (31-73) Lymphocytes (%) (Auto) 10 % (24-48) Monocytes (%) (Auto) 9 % (0-9) Eosinophils (%) (Auto) 0 % (0-3) Basophils (%) (Auto) 0 % (0-3) Neutrophils # (Auto) 6.6 x10^3uL (1.8-7.7) Lymphocytes # (Auto) 0.9 x10^3/uL (1.0-4.8) Monocytes # (Auto) 0.8 x10^3/uL (0.0-1.1) Eosinophils # (Auto) 0.0 x10^3/uL (0.0-0.7) Basophils # (Auto) 0.0 x10^3/uL (0.0-0.2) Sodium Level 136 mmol/L (136-145) 135 mmol/L (136-145) Potassium Level 3.6 mmol/L (3.5-5.1) 3.6 mmol/L (3.5-5.1) Chloride Level 102 mmol/L (98-107) 101 mmol/L (98-107) Carbon Dioxide Level 22 mmol/L (21-32) 24 mmol/L (21-32) Anion Gap 12 (6-14) 10 (6-14) Blood Urea Nitrogen 33 mg/dL (8-26) 35 mg/dL (8-26) Creatinine 2.0 mg/dL (0.7-1.3) 1.7 mg/dL (0.7-1.3) Estimated GFR (Cockcroft-Gault) 34.0 41.0 Glucose Level 115 mg/dL (70-99) 91 mg/dL (70-99) Calcium Level 8.3 mg/dL (8.5-10.1) 8.1 mg/dL (8.5-10.1) Magnesium Level 1.8 mg/dL (1.8-2.4) 1.7 mg/dL (1.8-2.4) Laboratory Tests Test 11/03/17 07:50 Sodium Level 135 mmol/L (136-145) Potassium Level 3.6 mmol/L (3.5-5.1) Chloride Level 101 mmol/L (98-107) Carbon Dioxide Level 24 mmol/L (21-32) Anion Gap 10 (6-14) Blood Urea Nitrogen 35 mg/dL (8-26) Creatinine 1.7 mg/dL (0.7-1.3) Estimated GFR (Cockcroft-Gault) 41.0 Glucose Level 91 mg/dL (70-99) Calcium Level 8.1 mg/dL (8.5-10.1) Magnesium Level 1.7 mg/dL (1.8-2.4) Assessment/Plan Assessment/Plan IMP IVAN-ATN-NO CKD GENERALIZED LE EDEMA S/P CABG LOW MAG CM WITH EF OF 25% PLAN CONT WITH IV LASIX REPLACE K AND MG EXPECT RENAL RECOVERY WILL FOLLOW DENIZ MCDONALD MD Nov 03, 2017 10:30
--- NOTE | 2017-11-03 11:03 | RAD ---
Portable chest, 11/03/2017: HISTORY: Cough, postop evaluation Comparison is made to yesterday's study. Bilateral chest tubes and a right jugular vascular sheath remain in place. The heart is mildly enlarged. The pulmonary vascularity is within normal limits. There is a mild unchanged left basilar opacity suggesting pleural fluid and atelectasis. A lesser right basilar opacity is also unchanged, compatible with a small amount pleural fluid and atelectasis. There is no evidence of significant pneumothorax. No new abnormality is detected. IMPRESSION: No significant change since yesterday's exam. Electronically signed by: Will Joaquin MD (11/03/2017 10:59 AM) [facility]
--- NOTE | 2017-11-03 11:51 | PDOC ---
Progress Note Subjective Subjective Doing well. Ambulating. On room air. Normotensive and NSR. Creatinine down to 1, 7. 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 Severe ischemic cardiomyopathy with EF 20% Doing well. Ambulating. On room air. Normotensive and NSR. Creatinine down to 1, 7. Third spacing output from pleural tubes, 150 mls this morning of serous fluid Plan Plan of Care D/c pleural tubes D/c pacing wires D/c cordis Reduce Lasix to 40mg iv daily. Amiodarone po 200 mg twice a day for a fib prophylaxis Transfer to stepdown Dispo planning-will likely need to go to rehab PT/OT SHAY HARRIS MD Nov 03, 2017 11:51
--- NOTE | 2017-11-03 12:07 | PDOC ---
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 History of Present Illness History of Present Illness Pt seen and examined in ICU Dw RN Pt states chest tubes removed this AM CO cough Vitals Vitals Vital Signs Date Time Temp Pulse Resp B/P (MAP) Pulse Ox O2 Delivery O2 Flow Rate FiO2 11/03/17 11:00 97.9 98 16 93/60 (71) 93 Room Air 97.9 11/03/17 08:28 2.0 Physical Exam General: Alert, Oriented X3, Cooperative, No acute distress Heart: Regular rate, Normal S1 Lungs: Clear Abdomen: Soft, No tenderness Extremities: No clubbing, No cyanosis Skin: No rashes, No significant lesion Labs LABS Laboratory Tests Test 11/03/17 07:50 Sodium Level 135 mmol/L (136-145) Potassium Level 3.6 mmol/L (3.5-5.1) Chloride Level 101 mmol/L (98-107) Carbon Dioxide Level 24 mmol/L (21-32) Anion Gap 10 (6-14) Blood Urea Nitrogen 35 mg/dL (8-26) Creatinine 1.7 mg/dL (0.7-1.3) Estimated GFR (Cockcroft-Gault) 41.0 Glucose Level 91 mg/dL (70-99) Calcium Level 8.1 mg/dL (8.5-10.1) Magnesium Level 1.7 mg/dL (1.8-2.4) Review of Systems Review of Systems CO cough CO pain Assessment and Plan Assessmemt and Plan s/p 3 vessel CABG PO day 4 Acute systolic CHF NSTEMI Acute KS Tobacco use HTN 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 Labs Laboratory Tests Test 11/02/17 05:20 11/03/17 07:50 White Blood Count 8.2 x10^3/uL (4.0-11.0) Red Blood Count 2.64 x10^6/uL (4.30-5.70) Hemoglobin 9.1 g/dL (13.0-17.5) Hematocrit 25.6 % (39.0-53.0) Mean Corpuscular Volume 97 fL (79-100) Mean Corpuscular Hemoglobin 35 pg (25-35) Mean Corpuscular Hemoglobin Concent 36 g/dL (31-37) Red Cell Distribution Width 15.3 % (11.5-14.5) Platelet Count 135 x10^3/uL (140-400) Neutrophils (%) (Auto) 80 % (31-73) Lymphocytes (%) (Auto) 10 % (24-48) Monocytes (%) (Auto) 9 % (0-9) Eosinophils (%) (Auto) 0 % (0-3) Basophils (%) (Auto) 0 % (0-3) Neutrophils # (Auto) 6.6 x10^3uL (1.8-7.7) Lymphocytes # (Auto) 0.9 x10^3/uL (1.0-4.8) Monocytes # (Auto) 0.8 x10^3/uL (0.0-1.1) Eosinophils # (Auto) 0.0 x10^3/uL (0.0-0.7) Basophils # (Auto) 0.0 x10^3/uL (0.0-0.2) Sodium Level 136 mmol/L (136-145) 135 mmol/L (136-145) Potassium Level 3.6 mmol/L (3.5-5.1) 3.6 mmol/L (3.5-5.1) Chloride Level 102 mmol/L (98-107) 101 mmol/L (98-107) Carbon Dioxide Level 22 mmol/L (21-32) 24 mmol/L (21-32) Anion Gap 12 (6-14) 10 (6-14) Blood Urea Nitrogen 33 mg/dL (8-26) 35 mg/dL (8-26) Creatinine 2.0 mg/dL (0.7-1.3) 1.7 mg/dL (0.7-1.3) Estimated GFR (Cockcroft-Gault) 34.0 41.0 Glucose Level 115 mg/dL (70-99) 91 mg/dL (70-99) Calcium Level 8.3 mg/dL (8.5-10.1) 8.1 mg/dL (8.5-10.1) Magnesium Level 1.8 mg/dL (1.8-2.4) 1.7 mg/dL (1.8-2.4) Laboratory Tests Test 11/03/17 07:50 Sodium Level 135 mmol/L (136-145) Potassium Level 3.6 mmol/L (3.5-5.1) Chloride Level 101 mmol/L (98-107) Carbon Dioxide Level 24 mmol/L (21-32) Anion Gap 10 (6-14) Blood Urea Nitrogen 35 mg/dL (8-26) Creatinine 1.7 mg/dL (0.7-1.3) Estimated GFR (Cockcroft-Gault) 41.0 Glucose Level 91 mg/dL (70-99) Calcium Level 8.1 mg/dL (8.5-10.1) Magnesium Level 1.7 mg/dL (1.8-2.4) Medications Current Medications Aspirin (Children'S Aspirin) 324 mg 1X ONCE PO Last administered on 10/28/17at 01:28; Start 10/28/17 at 01:30; Stop 10/28/17 at 01:31; Status DC Nitroglycerin (Nitro-Bid Oint) 1 inch 1X ONCE TP Last administered on at 01:29; Start 10/28/17 at 01:30; Stop 10/28/17 at 01:31; Status DC Furosemide (Lasix) 40 mg 1X ONCE IVP Last administered on 10/28/17at :28; Start 10/28/17 at 01:30; Stop 10/28/17 at :31; Status DC Enoxaparin Sodium (Lovenox Per Pharmacy Treatment Dosing) 1 each PRN DAILY PRN MC SEE COMMENTS; Start 10/28/17 at 01:30; Status Cancel Ondansetron HCl (Zofran) 4 mg PRN Q8HRS PRN IV NAUSEA/VOMITING 1ST CHOICE; Start 10/28/17 at 01:30; Stop 10/29/17 at 01:29; Status DC Fentanyl Citrate (Fentanyl 2ml Vial) 50 mcg PRN Q1HR PRN IV SEVERE PAIN; Start 10/28/17 at 01:30; Stop 10/29/17 at 01:29; Status DC Acetaminophen (Tylenol) 650 mg PRN Q4HRS PRN PO FEVER; Start 10/28/17 at 01:30; Stop 10/29/17 at 01:29; Status DC Heparin Sodium/ Dextrose 500 ml @ 0 mls/hr CONT PRN IV SEE I/O RECORD Last administered on 10/29/17at 02:02; Start 10/28/17 at 01:30; Stop 10/30/17 at 00:05; Status DC Heparin Sodium (Porcine) (Heparin Sodium) 2,000 unit PRN Q6HRS PRN IV FOR UFH LEVEL LESS THAN 0.2 Last administered on 10/28/17at 02:17; Start 10/28/17 at 01:30 ; Stop 10/30/17 at 07:44; Status DC Furosemide (Lasix) 40 mg [id number] IVP ; Start 10/28/17 at 09:00; Stop 10/28/17 at 13: 04; Status DC Furosemide (Lasix) 40 mg 1X ONCE IVP Last administered on 10/28/17at 02:13; Start 10/28/17 at 02:00; Stop 10/28/17 at 02:01; Status DC Info (Anti-Coagulation Monitoring By Pharmacy) 1 each PRN DAILY PRN MC SEE COMMENTS Last administered on 10/29/17at 10:35; Start 10/28/17 at 02:00; Stop at 07:44; Status DC Aspirin (Ecotrin) 325 mg DAILYWBKFT PO Last administered on 10/29/17at 09:24; Start 10/28/17 at 09:30; Stop 10/29/17 at 14:52; Status DC Sodium Chloride 1,000 ml @ 50 mls/hr 1X ONCE IV Last administered on at 11:37; Start 10/28/17 at 09:30; Stop 10/29/17 at 05:29; Status DC Labetalol HCl (Normodyne Iv Push) 20 mg PRN Q2HR PRN IVP HYPERTENSION, SEE COMMENTS; Start 10/28/17 at 09:15; Stop 10/29/17 at 23:55; Status DC Magnesium Sulfate 50 ml @ 25 mls/hr 1X ONCE IV Last administered on 10/28/17at 11:29; Start 10/28/17 at 11:30; Stop 10/28/17 at 13:29; Status DC Potassium Chloride (Klor-Con) 40 meq 1X ONCE PO Last administered on 10/28/17at 16:42; Start 10/28/17 at 11:30; Stop 10/28/17 at 11:31; Status DC Furosemide (Lasix) 40 mg DAILY IVP Last administered on 10/29/17at 09:35; Start 10/29/17 at 09:00; Stop 10/29/17 at 14:54; Status DC Iodixanol (Visipaque 320) 100 ml STK-MED ONCE .ROUTE ; Start 10/28/17 at 14:04; Stop 10/28/17 at 14:05; Status DC Lidocaine HCl (Xylocaine-Mpf 1% 2ml Vial) 2 ml STK-MED ONCE .ROUTE ; Start at 14:04; Stop 10/28/17 at 14:05; Status DC Heparin Sodium/ Sodium Chloride 1,000 ml @ As Directed STK-MED ONCE .ROUTE ; Start 10/28/17 at 14:05; Stop 10/28/17 at 14:06; Status DC Fentanyl Citrate (Fentanyl 2ml Vial) 100 mcg STK-MED ONCE .ROUTE ; Start at 15:10; Stop 10/28/17 at 15:11; Status DC Midazolam HCl (Versed) 2 mg STK-MED ONCE .ROUTE ; Start 10/28/17 at 15:10; Stop 10/28/17 at 15:11; Status DC Heparin Sodium (Porcine) (Heparin Sodium) 10,000 unit STK-MED ONCE .ROUTE ; Start 10/28/17 at 15:10; Stop 10/28/17 at 15:11; Status DC Verapamil HCl (Verapamil) 5 mg STK-MED ONCE .ROUTE ; Start 10/28/17 at 15:10; Stop 10/28/17 at 15:11; Status DC Nitroglycerin (Nitroglycerin) 200 mcg STK-MED ONCE .ROUTE ; Start 10/28/17 at 15: 10; Stop 10/28/17 at 15:11; Status DC Nitroglycerin (Nitroglycerin) 200 mcg 1X ONCE IART Last administered on at 15:57; Start 10/28/17 at 16:00; Stop 10/28/17 at 16:01; Status DC Verapamil HCl (Verapamil) 2.5 mg 1X ONCE IART Last administered on 10/28/17at 15 :57; Start 10/28/17 at 16:00; Stop 10/28/17 at 16:01; Status DC Heparin Sodium (Porcine) (Heparin Sodium) 2,500 unit 1X ONCE IART Last administered on 10/28/17at 15:30; Start 10/28/17 at 16:00; Stop 10/28/17 at 16:01; Status DC Heparin Sodium/ Sodium Chloride (HEPARIN for ARTERIAL LINE FLUSH) 1,000 unit 1X ONCE IART Last administered on 10/28/17at 15:56; Start 10/28/17 at 16:00; Stop 10/28/17 at 16:01; Status DC Midazolam HCl (Versed) 2 mg 1X ONCE IV Last administered on 10/28/17at 15:58; Start 10/28/17 at 16:00; Stop 10/28/17 at 16:01; Status DC Fentanyl Citrate (Fentanyl 2ml Vial) 50 mcg 1X ONCE IV Last administered on 10/28/17at 15:58; Start 10/28/17 at 16:00; Stop 10/28/17 at 16:01; Status DC Iodixanol (Visipaque 320) 65 ml 1X ONCE IART Last administered on 10/28/17at 15: 56; Start 10/28/17 at 16:00; Stop 10/28/17 at 16:01; Status DC Lidocaine HCl (Xylocaine-Mpf 1% 2ml Vial) 1 ml 1X ONCE INJ Last administered on 10/28/17at 15:57; Start 10/28/17 at 16:00; Stop 10/28/17 at 16:01; Status DC Info (CONTRAST GIVEN -- Rx MONITORING) 1 each PRN DAILY PRN MC SEE COMMENTS; Start 10/28/17 at 16:00; Stop 10/30/17 at 16:00; Status DC Metoprolol Tartrate (Lopressor) 12.5 mg BID PO Last administered on 10/29/17at 21 :01; Start 10/28/17 at 21:00; Stop 10/29/17 at 23:55; Status DC Potassium Chloride (Klor-Con) 40 meq 1X ONCE PO Last administered on 10/29/17at 09:24; Start 10/29/17 at 09:00; Stop 10/29/17 at 09:01; Status DC Alprazolam (Xanax) 0.25 mg PRN Q8HRS PRN PO ANXIETY / AGITATION Last administered on 10/29/17at 21:00; Start 10/29/17 at 09:15; Stop 10/29/17 at 22:00; Status DC Potassium Chloride 70 meq/ Sodium Bicarbonate 12.5 meq/Lidocaine HCl 24 ml/ Parenteral Electrolytes 571.5 ml @ 571.5 mls/ hr 1X ONCE IRR Last administered on 10/30/17at 10:59; Start 10/30/17 at 06:00; Stop 10/30/17 at 06:59; Status DC Potassium Chloride 15 meq/ Sodium Bicarbonate 12.5 meq/Parenteral Electrolytes 520 ml @ 520 mls/hr 1X ONCE IRR Last administered on 10/30/17at 10:59; Start at 06:00; Stop 10/30/17 at 06:59; Status DC Heparin Sodium (Porcine) 40287 unit/Ringer's Solution 1,020 ml @ 1,020 mls/hr 1X ONCE IRR Last administered on 10/30/17at 08:58; Start 10/30/17 at 06:00; Stop 10/30/17 at 06:59; Status DC Heparin Sodium (Porcine) 800 unit/ Nitroglycerin 4 mg/Verapamil HCl 8 mg/Sodium Bicarbonate 0.34 meq/Ringer's Solution 512.34 ml @ 512.34 mls/hr 1X ONCE IRR ; Start 10/30/17 at 06:00; Stop 10/30/17 at 06:59; Status DC Ondansetron HCl (Zofran) 4 mg PRN Q6HRS PRN IV NAUSEA/VOMITING; Start 10/30/17 at 07:00; Stop 10/31/17 at 06:59; Status DC Fentanyl Citrate (Fentanyl 2ml Vial) 25 mcg PRN Q5MIN PRN IV MILD PAIN; Start 10/30/17 at 07:00; Stop 10/31/17 at 06:59; Status DC Fentanyl Citrate (Fentanyl 2ml Vial) 50 mcg PRN Q5MIN PRN IV MODERATE TO SEVERE PAIN; Start 10/30/17 at 07:00; Stop 10/31/17 at 06:59; Status DC Morphine Sulfate (Morphine Sulfate) 1 mg PRN Q10MIN PRN IV SEVERE PAIN; Start 10/30/17 at 07:00; Stop 10/31/17 at 06:59; Status DC Ringer's Solution 1,000 ml @ 30 mls/hr Q24H IV Last administered on 10/30/17at 17:12; Start 10/30/17 at 07:00; Stop 10/30/17 at 18:59; Status DC Lidocaine HCl (Xylocaine-Mpf 1% 2ml Vial) 2 ml PRN 1X PRN ID IV START; Start at 07:00; Stop 10/31/17 at 06:59; Status DC Hydromorphone HCl (Dilaudid) 0.5 mg PRN Q10MIN PRN IV SEV PAIN, Second choice; Start 10/30/17 at 07:00; Stop 10/31/17 at 06:59; Status DC Prochlorperazine Edisylate (Compazine) 5 mg PACU PRN PRN IV NAUSEA, MRX1; Start 10/30/17 at 07:00; Stop 10/31/17 at 06:59; Status DC Cefazolin Sodium 1 gm/Sodium Chloride 500 ml @ 500 mls/hr 1X ONCE IRR Last administered on 10/30/17at 08:58; Start 10/30/17 at 06:00; Stop 10/30/17 at 06:59; Status DC Etomidate (Amidate) 20 mg STK-MED ONCE IV ; Start 10/30/17 at 06:08; Stop at 06:09; Status DC Lidocaine HCl (Lidocaine Pf 2% Vial) 5 ml STK-MED ONCE .ROUTE ; Start 10/30/17 at 06:08; Stop 10/30/17 at 06:09; Status DC Rocuronium [place] (Zemuron) 100 mg STK-MED ONCE .ROUTE ; Start 10/30/17 at 06:08 ; Stop 10/30/17 at 06:09; Status DC Phenylephrine HCl (Rui-Synephrine Inj) 10 mg STK-MED ONCE .ROUTE ; Start at 06:09; Stop 10/30/17 at 06:10; Status DC Ephedrine Sulfate (ePHEDrine PF IN SALINE SYRINGE) 50 mg STK-MED ONCE IV ; Start 10/30/17 at 06:09; Stop 10/30/17 at 06:10; Status DC Heparin Sodium (Porcine) 30,000 unit STK-MED ONCE .ROUTE ; Start 10/30/17 at 06: 09; Stop 10/30/17 at 06:10; Status DC Aminocaproic Acid (Amicar) 5,000 mg STK-MED ONCE IV ; Start 10/30/17 at 06:09; Stop 10/30/17 at 06:10; Status DC Nitroglycerin/ Dextrose 250 ml @ As Directed STK-MED ONCE IV ; Start 10/30/17 at 06:09; Stop 10/30/17 at 06:10; Status DC Midazolam HCl (Versed) 2 mg STK-MED ONCE .ROUTE ; Start 10/30/17 at 06:11; Stop 10/30/17 at 06:12; Status DC Sufentanil Citrate (Sufenta) 100 mcg STK-MED ONCE .ROUTE ; Start 10/30/17 at 06: 11; Stop 10/30/17 at 06:12; Status DC Lidocaine HCl (Xylocaine-Mpf 2% Vial) 2 ml STK-MED ONCE .ROUTE ; Start 10/30/17 at 07:05; Stop 10/30/17 at 07:06; Status DC Vancomycin HCl (VANCO for OR ONLY) 10 gm STK-MED ONCE .ROUTE Last administered on 10/30/17at 08:58; Start 10/30/17 at 06:06; Stop 10/30/17 at 07:06; Status DC Cellulose (Surgicel Hemostat 4x8) 1 each STK-MED ONCE .ROUTE Last administered on 10/30/17at 08:58; Start 10/30/17 at 06:06; Stop 10/30/17 at 07:06; Status DC Papaverine HCl 60 mg STK-MED ONCE .ROUTE Last administered on 10/30/17at 08:58; Start 10/30/17 at 06:06; Stop 10/30/17 at 07:07; Status DC Aspirin (Aspirin) 300 mg STK-MED ONCE .ROUTE Last administered on 10/30/17at 15: 59; Start 10/30/17 at 06:06; Stop 10/30/17 at 07:07; Status DC Sodium Chloride (SODIUM CHLORIDE 20ml) 20 ml STK-MED ONCE IJ Last administered on 10/30/17at 08:58; Start 10/30/17 at 06:06; Stop 10/30/17 at 07:07; Status DC Sodium Chloride (SODIUM CHLORIDE 20ml) 20 ml STK-MED ONCE IJ Last administered on 10/30/17at 08:58; Start 10/30/17 at 06:06; Stop 10/30/17 at 07:07; Status DC Sodium Chloride (SODIUM CHLORIDE 20ml) 20 ml STK-MED ONCE IJ Last administered on 10/30/17at 08:58; Start 10/30/17 at 06:07; Stop 10/30/17 at 07:07; Status DC Cefazolin Sodium/ Dextrose 50 ml @ 100 mls/hr 1X PREOP PRN IV PRIOR TO SURGERY Last administered on 10/30/17at 08:13; Start 10/30/17 at 08:15; Stop at 13:38; Status DC Rocuronium [place] (Zemuron) 100 mg STK-MED ONCE .ROUTE ; Start 10/30/17 at 08:19 ; Stop 10/30/17 at 08:20; Status DC Sufentanil Citrate (Sufenta) 100 mcg STK-MED ONCE .ROUTE ; Start 10/30/17 at 08: 19; Stop 10/30/17 at 08:20; Status DC Isoflurane (Isoflurane) 90 ml STK-MED ONCE IH ; Start 10/30/17 at 08:22; Stop 10/30/17 at 08:23; Status DC Midazolam HCl (Versed) 2 mg STK-MED ONCE .ROUTE ; Start 10/30/17 at 08:55; Stop 10/30/17 at 08:56; Status DC Cefazolin Sodium/ Dextrose 50 ml @ 100 mls/hr 1X ONCE IV Last administered on 10/30/17at 13:45; Start 10/30/17 at 10:45; Stop 10/30/17 at 11:14; Status DC Epinephrine HCl 4 mg/Sodium Chloride 254 ml @ 3.81 mls/hr 1X ONCE IV Last administered on 10/30/17at 17:14; Start 10/30/17 at 10:45; Stop 11/02/17 at 05:24; Status DC Norepinephrine Bitartrate 250 ml @ 1.875 mls/ hr 1X ONCE IV Last administered on 10/30/17at 17:14; Start 10/30/17 at 10:45; Stop 11/05/17 at 00:04 Midazolam HCl (Versed) 2 mg STK-MED ONCE .ROUTE ; Start 10/30/17 at 11:03; Stop 10/30/17 at 11:04; Status DC Protamine Sulfate (Protamine) 50 mg STK-MED ONCE IV ; Start 10/30/17 at 11:19; Stop 10/30/17 at 11:20; Status DC Protamine Sulfate (Protamine) 250 mg STK-MED ONCE IV ; Start 10/30/17 at 11:19; Stop 10/30/17 at 11:20; Status DC Midazolam HCl (Versed) 5 mg STK-MED ONCE .ROUTE ; Start 10/30/17 at 11:54; Stop 10/30/17 at 11:55; Status DC Propofol 20 ml @ As Directed STK-MED ONCE IV ; Start 10/30/17 at 12:36; Stop 10/30 at 12:37; Status DC Ringer's Solution 1,000 ml @ 30 mls/hr Q24H IV Last administered on 11/02/17at 04:50; Start 10/30/17 at 13:00; Stop 11/03/17 at 10:47; Status DC Albumin Human 250 ml @ 60 mls/hr PRN Q4HRS PRN IV SEE I/O RECORD Last administered on 10/31/17at 10:49; Start 10/30/17 at 13:00; Stop 11/03/17 at 10:47; Status DC Insulin Human Regular 150 unit/ Sodium Chloride 151.5 ml @ 0 mls/hr CONT PRN PRN IV SEE I/O RECORD Last administered on 10/31/17at 15:36; Start 10/30/17 at 13: 00; Stop 11/03/17 at 10:47; Status DC Dextrose (Dextrose 50%-Water Syringe) 25 gm PRN Q15MIN PRN IV LOW BLOOD SUGAR; Start 10/30/17 at 13:00 Info ([facility]cu Electrolyte Protocol) 1 ea CONT PRN PRN MC SEE COMMENTS; Start at 13:00; Stop 11/03/17 at 10:48; Status DC Magnesium Sulfate/ Dextrose 100 ml @ 100 mls/hr PRN DAILY PRN IV FOR MAG < 2.2 Last administered on 10/30/17at 18:10; Start 10/30/17 at 13:00 Famotidine (Pepcid Vial) 20 mg BID IVP Last administered on 10/31/17at 07:48; Start 10/30/17 at 14:00; Stop 10/31/17 at 14:38; Status DC Ondansetron HCl (Zofran) 4 mg PRN Q4HRS PRN IV NAUSEA/VOMITING 1ST CHOIC; Start 10/30/17 at 13:00 Prochlorperazine Edisylate (Compazine) 10 mg PRN Q6HRS PRN IV NAUSEA/VOMITING 2ND CHOICE; Start 10/30/17 at 13:00 Morphine Sulfate (Morphine Sulfate) 2 mg PRN Q1HR PRN IV MODERATE PAIN Last administered on 10/31/17at 01:19; Start 10/30/17 at 13:00 Acetaminophen (Tylenol) 650 mg PRN Q4HRS PRN PO MILD PAIN / TEMP Last administered on 11/03/17at 09:11; Start 10/30/17 at 13:00 Acetaminophen (Tylenol Supp) 650 mg PRN Q4HRS PRN [place] MILD PAIN / TEMP; Start at 13:00; Stop 11/03/17 at 10:48; Status DC Meperidine HCl (Demerol) 12.5 mg PRN Q15MIN PRN IV SHIVERING; Start 10/30/17 at 13:00; Stop 10/31/17 at 13:00; Status DC Propofol 100 ml @ 0 mls/hr CONT PRN PRN IV POSTOP SEDATION UNTIL EXTUBATE Last administered on 10/30/17at 17:11; Start 10/30/17 at 13:00; Stop 10/31/17 at 15:11; Status DC Senna/Docusate Sodium (Senna Plus) 1 tab BID PO Last administered on 11/03/17at 09:11; Start 10/30/17 at 21:00 Bisacodyl (Dulcolax Supp) 10 mg PRN DAILY PRN [place] NO BOWEL MOVEMENT; Start at 13:00 Chlorhexidine Gluconate (Peridex) 15 ml BID MM ; Start 10/30/17 at 21:00; Stop at 21:52; Status DC Aspirin (Ecotrin) 325 mg DAILYWBKFT PO Last administered on 11/03/17at 09:12; Start 10/31/17 at 08:00 Aspirin (Aspirin) 300 mg PRN DAILY PRN [place] IF UNABLE TO TAKE PO; Start 10/30/17 at 13:00 Albuterol Sulfate (Ventolin Neb Soln) 2.5 mg PRN Q4HRS PRN NEB SHORTNESS OF BREATH Last administered on 11/01/17at 05:41; Start 10/30/17 at 13:00 Metoprolol Tartrate (Lopressor) 25 mg BID PO ; Start 10/31/17 at 09:00; Stop 10/31 at 11:26; Status DC Nicardipine HCl 50 mg/Sodium Chloride 270 ml @ 0 mls/hr CONT PRN PRN IV PER PROTOCOL; Start 10/30/17 at 13:00; Stop 11/03/17 at 10:48; Status DC Oxycodone/ Acetaminophen (Percocet 5/325) 1 tab PRN Q4HRS PRN PO MODERATE PAIN Last administered on 11/01/17at 04:48; Start 10/30/17 at 13:00 Oxycodone/ Acetaminophen (Percocet 5/325) 2 tab PRN Q4HRS PRN PO SEVERE PAIN Last administered on 10/31/17at 21:12; Start 10/30/17 at 13:00 Cefazolin Sodium/ Dextrose 50 ml @ 100 mls/hr Q8H IV Last administered on at 04:16; Start 10/30/17 at 20:00; Stop 11/01/17 at 04:29; Status DC Polyethylene Glycol (miraLAX PACKET) 17 gm DAILYWSUP PO Last administered on 11/02/17at 17:00; Start 10/31/17 at 17:00 Alprazolam (Xanax) 0.25 mg PRN Q8HRS PRN PO ANXIETY / AGITATION Last administered on 11/03/17at 09:11; Start 10/30/17 at 13:00 Heparin Sodium (Porcine) (Heparin Sodium) 10,000 unit STK-MED ONCE .ROUTE ; Start 10/30/17 at 13:36; Stop 10/30/17 at 13:37; Status DC Lidocaine HCl (Lidocaine Pf 2% Vial) 5 ml STK-MED ONCE .ROUTE ; Start 10/30/17 at 13:36; Stop 10/30/17 at 13:37; Status DC Magnesium Sulfate 5 gm STK-MED ONCE .ROUTE ; Start 10/30/17 at 13:36; Stop at 13:37; Status DC Heparin Sodium (Porcine) 30,000 unit STK-MED ONCE .ROUTE ; Start 10/30/17 at 13: 36; Stop 10/30/17 at 13:37; Status DC Mannitol (Mannitol) 12.5 g STK-MED ONCE .ROUTE ; Start 10/30/17 at 13:36; Stop at 13:37; Status DC Albumin Human 100 ml @ As Directed STK-MED ONCE IV ; Start 10/30/17 at 13:36; Stop 10/30/17 at 13:37; Status DC Calcium Chloride (Calcium Chloride) 1,000 mg STK-MED ONCE .ROUTE ; Start at 13:36; Stop 10/30/17 at 13:37; Status DC Sodium Bicarbonate (Sodium Bicarb Adult 8.4% Syr) 50 meq STK-MED ONCE .ROUTE ; Start 10/30/17 at 13:36; Stop 10/30/17 at 13:37; Status DC Heparin Sodium (Porcine) 30,000 unit STK-MED ONCE .ROUTE ; Start 10/30/17 at 13: 38; Stop 10/30/17 at 13:39; Status DC Milrinone Lactate (Primacor) 10 mg STK-MED ONCE IV ; Start 10/30/17 at 13:43; Stop 10/30/17 at 13:44; Status DC Milrinone Lactate/ Dextrose 100 ml @ As Directed STK-MED ONCE IV ; Start at 13:43; Stop 10/30/17 at 13:44; Status DC Epinephrine HCl (EPINEPHrine SYRINGE) 1 mg STK-MED ONCE .ROUTE ; Start 10/30/17 at 13:53; Stop 10/30/17 at 13:54; Status DC Heparin Sodium (Porcine) (Heparin Sodium) 10,000 unit STK-MED ONCE .ROUTE ; Start 10/30/17 at 14:02; Stop 10/30/17 at 14:03; Status DC Midazolam HCl (Versed) 2 mg STK-MED ONCE .ROUTE ; Start 10/30/17 at 14:10; Stop 10/30/17 at 14:11; Status DC Esmolol HCl (Brevibloc) 100 mg STK-MED ONCE IV ; Start 10/30/17 at 14:20; Stop at 14:21; Status DC Protamine Sulfate (Protamine) 50 mg STK-MED ONCE IV ; Start 10/30/17 at 14:44; Stop 10/30/17 at 14:45; Status DC Protamine Sulfate (Protamine) 250 mg STK-MED ONCE IV ; Start 10/30/17 at 14:44; Stop 10/30/17 at 14:45; Status DC Mannitol (Mannitol) 12.5 g STK-MED ONCE .ROUTE ; Start 10/30/17 at 14:53; Stop at 14:54; Status DC Calcium Chloride (Calcium Chloride) 1,000 mg STK-MED ONCE .ROUTE ; Start at 14:53; Stop 10/30/17 at 14:54; Status DC Sodium Bicarbonate (Sodium Bicarb Adult 8.4% Syr) 50 meq STK-MED ONCE .ROUTE ; Start 10/30/17 at 14:53; Stop 10/30/17 at 14:54; Status DC Heparin Sodium (Porcine) (Heparin Sodium) 10,000 unit STK-MED ONCE .ROUTE ; Start 10/30/17 at 14:54; Stop 10/30/17 at 14:55; Status DC Albumin Human 500 ml @ As Directed STK-MED ONCE IV ; Start 10/30/17 at 14:57; Stop 10/30/17 at 14:58; Status DC Albumin Human 500 ml @ As Directed STK-MED ONCE IV ; Start 10/30/17 at 15:16; Stop 10/30/17 at 15:17; Status DC Sodium Bicarbonate (Sodium Bicarb Adult 8.4% Syr) 50 meq STK-MED ONCE .ROUTE ; Start 10/30/17 at 15:24; Stop 10/30/17 at 15:25; Status DC Amiodarone HCl 900 mg/Dextrose 518 ml @ 33 mls/hr CONT PRN IV SEE I/O RECORD; Start 10/30/17 at 15:45; Stop 10/31/17 at 15:11; Status DC Sodium Bicarbonate (Sodium Bicarb Adult 8.4% Syr) 50 meq 1X ONCE IV Last administered on 10/30/17at 17:03; Start 10/30/17 at 17:00; Stop 10/30/17 at 17:01; Status DC Sodium Bicarbonate (Sodium Bicarb Adult 8.4% Syr) 50 meq 1X ONCE IV Last administered on 10/30/17at 17:04; Start 10/30/17 at 17:00; Stop 10/30/17 at 17:01; Status DC Sodium Bicarbonate (Sodium Bicarb Adult 8.4% Syr) 50 meq 1X ONCE IV ; Start 10/30/17 at 17:00; Stop 10/30/17 at 17:01; Status DC Sodium Bicarbonate (Sodium Bicarb Adult 8.4% Syr) 50 meq 1X ONCE IV ; Start 10/30/17 at 17:00; Stop 10/30/17 at 17:01; Status DC Potassium Chloride/Water 50 ml @ 50 mls/hr Q1H IV Last administered on at 19:12; Start 10/30/17 at 18:00; Stop 10/30/17 at 19:59; Status DC Potassium Chloride/Water 50 ml @ 50 mls/hr 1X ONCE IV Last administered on 10/30at 21:44; Start 10/30/17 at 21:45; Stop 10/30/17 at 22:44; Status DC Magnesium Sulfate/ Dextrose 100 ml @ 100 mls/hr 1X ONCE IV Last administered on 10/31/17at 06:37; Start 10/31/17 at 06:45; Stop 10/31/17 at 07:44; Status DC Furosemide (Lasix) 40 mg 1X ONCE IVP Last administered on 10/31/17at 09:32; Start 10/31/17 at 09:15; Stop 10/31/17 at 09:23; Status DC Albuterol Sulfate (Ventolin Neb Soln) 2.5 mg RTQID NEB Last administered on 12/11at 08:25; Start 10/31/17 at 10:00 Furosemide (Lasix) 40 mg [id number] IVP Last administered on 10/31/17at 15:40; Start 10/31/17 at 14:00; Stop 10/31/17 at 17:51; Status DC Amiodarone HCl (Cordarone) 200 mg BID PO Last administered on 11/03/17at 09:12; Start 10/31/17 at 15:00 Famotidine (Pepcid) 20 mg BID PO Last administered on 11/01/17at 08:41; Start 10/31/17 at 21:00; Stop 11/01/17 at 15:42; Status DC Hydromorphone HCl (Dilaudid) 0.2 mg PRN Q4HRS PRN IVP SEVERE PAIN; Start at 15:15 Epinephrine HCl 4 mg/Sodium Chloride 254 ml @ 0 mls/hr CONT PRN IV SEE I/O RECORD Last administered on 10/31/17at 15:48; Start 10/31/17 at 15:30; Stop at 10:48; Status DC Furosemide (Lasix) 40 mg TID IVP Last administered on 11/03/17at 09:09; Start at 21:00; Stop 11/03/17 at 10:22; Status DC Famotidine (Pepcid) 20 mg DAILYAC PO Last administered on 11/03/17at 09:11; Start 11/02/17 at 07:30 Magnesium Sulfate/ Dextrose 100 ml @ 100 mls/hr 1X ONCE IV Last administered on 11/02/17at 07:24; Start 11/02/17 at 06:15; Stop 11/02/17 at 07:14; Status DC Potassium Chloride/Water 50 ml @ 50 mls/hr Q1H IV Last administered on at 07:23; Start 11/02/17 at 06:30; Stop 11/02/17 at 08:29; Status DC Atorvastatin Calcium (Lipitor) 40 mg QHS PO Last administered on 11/02/17at 21:24 ; Start 11/02/17 at 21:00 Potassium Chloride/Water 50 ml @ 50 mls/hr Q1H IV Last administered on at 09:45; Start 11/03/17 at 08:00; Stop 11/03/17 at 09:59; Status DC Magnesium Sulfate/ Dextrose 100 ml @ 100 mls/hr 1X ONCE IV Last administered on 11/03/17at 09:11; Start 11/03/17 at 07:45; Stop 11/03/17 at 08:44; Status DC Furosemide (Lasix) 40 mg DAILY IVP ; Start 11/04/17 at 09:00 Vitals/I & O Vital Sign - Last 24 Hours 11/02/17 11/02/17 11/02/179/18 12:26 13:00 14:00 15:00 Pulse 102 98 100 Resp 20 20 20 B/P (MAP) 118/72 (87) 101/68 (79) 111/72 (85) Pulse Ox 97 94 94 94 O2 Delivery Nasal Cannula Room Air Room Air Room Air O2 Flow Rate 2.0 11/02/17 11/02/17 11/02/17 11/02/17 15:24 16:00 16:04 17:00 Pulse 100 99 Resp 20 20 B/P (MAP) 112/74 (87) 113/72 (86) Pulse Ox 94 94 94 O2 Delivery Room Air Room Air Room Air Room Air 11/02/17 11/02/17 11/02/17 11/02/17 18:00 19:00 19:50 20:00 Temp 98.8 98.8 Pulse 100 103 96 Resp 20 22 20 B/P (MAP) 117/72 (87) 94/53 (67) 92/50 (64) Pulse Ox 94 94 96 O2 Delivery Room Air Room Air Nasal Cannula Nasal Cannula O2 Flow Rate 2.0 2.0 11/02/17 11/02/17 11/02/17 11/02/17 20:00 21:00 21:25 22:00 Pulse 99 100 96 Resp 18 15 B/P (MAP) 100/66 (77) 100/66 115/63 (80) O2 Delivery Nasal Cannula Room Air Room Air O2 Flow Rate 2.0 11/02/17 11/03/17 11/03/17 11/03/17 23:00 00:00 00:00 01:00 Temp 98.6 98.6 Pulse 95 93 98 Resp 16 18 17 B/P (MAP) 111/70 (84) 113/69 (84) 114/67 (83) Pulse Ox 94 O2 Delivery Room Air Room Air Room Air Room Air 11/03/17 11/03/17 11/03/17 11/03/17 02:00 03:00 04:00 04:00 Temp 98.4 98.4 Pulse 97 96 94 Resp 15 16 20 B/P (MAP) 112/69 (83) 104/68 (80) 118/67 (84) Pulse Ox 94 O2 Delivery Room Air Room Air Room Air Room Air 11/03/17 11/03/17 11/03/17 11/03/17 05:00 06:00 07:00 08:00 Temp 99.5 99.5 Pulse 94 93 94 94 Resp 22 17 18 18 B/P (MAP) 109/61 (77) 102/59 (73) 104/64 (77) 103/65 (78) Pulse Ox 94 93 O2 Delivery Room Air Room Air Room Air Room Air 11/03/17 11/03/17 11/03/17 11/03/17 08:00 08:28 09:00 09:12 Pulse 95 94 Resp 18 B/P (MAP) 99/57 (71) 103/65 Pulse Ox 95 93 O2 Delivery Room Air Nasal Cannula Room Air O2 Flow Rate 2.0 11/03/17 11/03/17 10:00 11:00 Temp 97.9 97.9 Pulse 94 98 Resp 16 16 B/P (MAP) 94/59 (71) 93/60 (71) Pulse Ox 93 93 O2 Delivery Room Air Room Air Intake and Output 11/02/17 11/02/17 11/03/17 15:00 23:00 07:00 Intake Total 560 ml 240 ml 1847.7 ml Output Total 1670 ml 200 ml 1125 ml Balance -1110 ml 40 ml 722.7 ml CESARIO BRISENO III DO Nov 03, 2017 12:07
--- NOTE | 2017-11-03 14:04 | PDOC ---
CARDIO Progress Notes Date and Time Date of Service 11/03/2017 Time of Evaluation 1400 Subjective Subjective: No Chest Pain, No shortness of breath, No Palpitations, No Dizziness Comments: feels better Vitals Vitals Vital Signs Date Time Temp Pulse Resp B/P (MAP) Pulse Ox O2 Delivery O2 Flow Rate FiO2 11/03/17 12:20 95 Room Air 11/03/17 11:00 97.9 98 16 93/60 (71) 97.9 11/03/17 08:28 Weight Weight [ ] Input and Output Intake and Output Intake and Output 11/03/17 07:00 Intake Total 2647.7 ml Output Total 2995 ml Balance -347.3 ml Intake Oral 1800 ml IV Total 847.7 ml Output Urine Total 2795 ml Chest Tube Drainage Total 200 ml Laboratory Labs Laboratory Tests Test 11/03/17 07:50 Sodium Level 135 mmol/L (136-145) Potassium Level 3.6 mmol/L (3.5-5.1) Chloride Level 101 mmol/L (98-107) Carbon Dioxide Level 24 mmol/L (21-32) Anion Gap 10 (6-14) Blood Urea Nitrogen 35 mg/dL (8-26) Creatinine 1.7 mg/dL (0.7-1.3) Estimated GFR (Cockcroft-Gault) 41.0 Glucose Level 91 mg/dL (70-99) Calcium Level 8.1 mg/dL (8.5-10.1) Magnesium Level 1.7 mg/dL (1.8-2.4) Physical Exam HEENT: Neck Supple W Full Motion Chest: Symmetric LUNGS: Other (coarse) Heart: S1S2, RRR, no murmurs, other (tele: SR) Abdomen: Soft N/T Extremities: Other (trace edema) Neurology: alert, oriented, follow commands Assessment Assessment 1. NSTEMI --troponin peaked @ 2.4 --s/p CABG X x 4: free TUCKER to LAD, SVG to LPL, SVG to diagonal, SVG to RPDA --management per CTS; ASA and statins; hold BB due to hypotension 2. ischemic cardiomyopathy --LVEF 20-25% 3. HTN --controlled with meds 4. HLD --statin therapy 5. Emphysema with persistent tobacco abuse --CT demonstrates emphysema --cessation advised 6. moderate REIA and JEROME disease 7. acute blood loss anemia, post-operative, expectant --has been transfused 8. IVAN, post-operative --improving [employer] Nov 03, 2017 14:04
[2017-11-03] MEDS: POLYETHYLENE GLYCOL 3350 17 GM PACKET. PO SCH (17:00)
[2017-11-03] MEDS ORDERED: ALBUMIN HUMAN 5% 12.5 G/250 ML VIAL. IV ONE (18:00)
[2017-11-03] MEDS: ATORVASTATIN CALCIUM 40 MG TABLET. PO SCH (19:29)
[2017-11-04 03:00] VITALS: BP 96/61
[2017-11-04 04:21] LABS: BASO # 0.1 x10^3/uL (0.0-0.2); BASO % 1 % (0-3); EOS # 0.1 x10^3/uL (0.0-0.7); EOS % 1 % (0-3); HEMATOCRIT 25.1 % (39.0-53.0); HEMOGLOBIN 8.8 g/dL (13.0-17.5); LYMPH # 1.6 x10^3/uL (1.0-4.8); LYMPH % 18 % (24-48); MEAN CORPUSCULAR HEMOGLOBIN 34 pg (25-35); MEAN CORPUSCULAR HGB CONC 35 g/dL (31-37); MEAN CORPUSCULAR VOLUME 98 fL (79-100); MONO # 1.1 x10^3/uL (0.0-1.1); MONO % 12 % (0-9); NEUT # 6.3 x10^3uL (1.8-7.7); NEUT % 69 % (31-73); PLATELET COUNT 177 x10^3/uL (140-400); RED BLOOD COUNT 2.56 x10^6/uL (4.30-5.70); RED CELL DISTRIBUTION WIDTH 15.1 % (11.5-14.5); WHITE BLOOD COUNT 9.1 x10^3/uL (4.0-11.0)
[2017-11-04 04:35] LABS: CALCIUM 7.9 mg/dL (8.5-10.1); CREATININE 1.9 mg/dL (0.7-1.3); GFR 36.1; MAGNESIUM 1.9 mg/dL (1.8-2.4); POTASSIUM 3.8 mmol/L (3.5-5.1)
[2017-11-04] MEDS: ALBUTEROL SULFATE 2.5 MG/3 ML NEBU. NEB SCH ×4 (05:52→19:59)
[2017-11-04 07:00] VITALS: BP 116/68
--- NOTE | 2017-11-04 08:18 | PDOC ---
Progress Note Subjective Subjective Doing well. Ambulating. On room air. Normotensive and NSR. Creatinine back up to 1,9 from 1,7. CXR shows possible small left effusion ROS ROS No nausea No vomiting No pain No rash Vital Sign Vital Signs Vital Signs Date Time Temp Pulse Resp B/P (MAP) Pulse Ox O2 Delivery O2 Flow Rate FiO2 11/04/17 07:00 98.6 85 20 116/68 (84) 92 Room Air 98.6 11/04/17 00:00 2.0 Labs Lab Laboratory Tests Test 11/04/17 03:45 White Blood Count 9.1 x10^3/uL (4.0-11.0) Red Blood Count 2.56 x10^6/uL (4.30-5.70) Hemoglobin 8.8 g/dL (13.0-17.5) Hematocrit 25.1 % (39.0-53.0) Mean Corpuscular Volume 98 fL (79-100) Mean Corpuscular Hemoglobin 34 pg (25-35) Mean Corpuscular Hemoglobin Concent 35 g/dL (31-37) Red Cell Distribution Width 15.1 % (11.5-14.5) Platelet Count 177 x10^3/uL (140-400) Neutrophils (%) (Auto) 69 % (31-73) Lymphocytes (%) (Auto) 18 % (24-48) Monocytes (%) (Auto) 12 % (0-9) Eosinophils (%) (Auto) 1 % (0-3) Basophils (%) (Auto) 1 % (0-3) Neutrophils # (Auto) 6.3 x10^3uL (1.8-7.7) Lymphocytes # (Auto) 1.6 x10^3/uL (1.0-4.8) Monocytes # (Auto) 1.1 x10^3/uL (0.0-1.1) Eosinophils # (Auto) 0.1 x10^3/uL (0.0-0.7) Basophils # (Auto) 0.1 x10^3/uL (0.0-0.2) Sodium Level 132 mmol/L (136-145) Potassium Level 3.8 mmol/L (3.5-5.1) Chloride Level 101 mmol/L (98-107) Carbon Dioxide Level 22 mmol/L (21-32) Anion Gap 9 (6-14) Blood Urea Nitrogen 39 mg/dL (8-26) Creatinine 1.9 mg/dL (0.7-1.3) Estimated GFR (Cockcroft-Gault) 36.1 Glucose Level 93 mg/dL (70-99) Calcium Level 7.9 mg/dL (8.5-10.1) Magnesium Level 1.9 mg/dL (1.8-2.4) Objective Assessment POD#5, s/p CABG x 4 (TUCKER to LAD, SVG to LPL, SVG to diag, SVG to RPDA). Severe ischemic cardiomyopathy with EF 20% Doing well. Ambulating. On room air. Normotensive and NSR. Creatinine back up to 1,9 from 1,7. CXR shows possible small left effusion Plan Plan of Care Hold Lasix for now. Repeat creatinine tomorrow Amiodarone po 200 mg twice a day for a fib prophylaxis Will get limited ECHO to assess for new baseline LV function and rule out pericardial effusion D/c rehab once renal function stabilizes SHAY HARRIS MD Nov 04, 2017 08:18
[2017-11-04] MEDS: SENNOSIDES/DOCUSATE 8.6/50MG TABLET. PO SCH ×2 (08:25→20:03)
[2017-11-04] MEDS: ASPIRIN ENTERIC COATED 325 MG TABLET.DR. PO SCH (08:25)
[2017-11-04] MEDS: AMIODARONE HCL 200 MG TABLET. PO SCH ×2 (08:25→20:03)
[2017-11-04] MEDS: FAMOTIDINE 20 MG TABLET. PO SCH (08:26)
--- NOTE | 2017-11-04 08:26 | RAD ---
Chest, 2 views, 11/04/2017: HISTORY: Follow-up chest tube removal Comparison is made to a study from 11/03/2017. The bilateral chest tubes in the right jugular vascular sheath have been removed. The heart size is unchanged. The pulmonary vascularity is normal. There are small bilateral pleural effusions with moderate underlying basilar atelectasis, worse on the left. A tiny right apical pneumothorax is present. IMPRESSION: 1. Small bilateral pleural effusions with moderate underlying basilar atelectasis, worse on the left. 2. Tiny right apical pneumothorax Electronically signed by: Will Joaquin MD (11/04/2017 8:23 AM) [facility]
[2017-11-04] MEDS ORDERED: FUROSEMIDE 40 MG/4 ML VIAL. IVP SCH (09:00)
--- NOTE | 2017-11-04 10:09 | PDOC ---
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 seen and examined; Pt. transferred to cardiac floor from ICU DW nursing Sig. b/l LE edema Pt. alert and oriented Pt. notes cough has decreased since yesterday (11/03) VSS Pt. switched to PO Lasix (40 mg) DW nursing; social work to speak w/ pt. about correction Vitals Vitals Vital Signs Date Time Temp Pulse Resp B/P (MAP) Pulse Ox O2 Delivery O2 Flow Rate FiO2 11/04/17 08:25 85 116/68 11/04/17 07:00 98.6 20 92 Room Air 98.6 11/04/17 00:00 2.0 Physical Exam General: Alert, Oriented X3, Cooperative, No acute distress Heart: Regular rate, Normal S1, Normal S2 Lungs: Clear Abdomen: Soft, No tenderness Extremities: No clubbing, No cyanosis Skin: No rashes, No significant lesion Labs LABS Laboratory Tests Test 11/04/17 03:45 White Blood Count 9.1 x10^3/uL (4.0-11.0) Red Blood Count 2.56 x10^6/uL (4.30-5.70) Hemoglobin 8.8 g/dL (13.0-17.5) Hematocrit 25.1 % (39.0-53.0) Mean Corpuscular Volume 98 fL (79-100) Mean Corpuscular Hemoglobin 34 pg (25-35) Mean Corpuscular Hemoglobin Concent 35 g/dL (31-37) Red Cell Distribution Width 15.1 % (11.5-14.5) Platelet Count 177 x10^3/uL (140-400) Neutrophils (%) (Auto) 69 % (31-73) Lymphocytes (%) (Auto) 18 % (24-48) Monocytes (%) (Auto) 12 % (0-9) Eosinophils (%) (Auto) 1 % (0-3) Basophils (%) (Auto) 1 % (0-3) Neutrophils # (Auto) 6.3 x10^3uL (1.8-7.7) Lymphocytes # (Auto) 1.6 x10^3/uL (1.0-4.8) Monocytes # (Auto) 1.1 x10^3/uL (0.0-1.1) Eosinophils # (Auto) 0.1 x10^3/uL (0.0-0.7) Basophils # (Auto) 0.1 x10^3/uL (0.0-0.2) Sodium Level 132 mmol/L (136-145) Potassium Level 3.8 mmol/L (3.5-5.1) Chloride Level 101 mmol/L (98-107) Carbon Dioxide Level 22 mmol/L (21-32) Anion Gap 9 (6-14) Blood Urea Nitrogen 39 mg/dL (8-26) Creatinine 1.9 mg/dL (0.7-1.3) Estimated GFR (Cockcroft-Gault) 36.1 Glucose Level 93 mg/dL (70-99) Calcium Level 7.9 mg/dL (8.5-10.1) Magnesium Level 1.9 mg/dL (1.8-2.4) Review of Systems Review of Systems Pt. denies chest pain Pt. 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 Labs Laboratory Tests Test 11/03/17 07:50 11/04/17 03:45 Sodium Level 135 mmol/L (136-145) 132 mmol/L (136-145) Potassium Level 3.6 mmol/L (3.5-5.1) 3.8 mmol/L (3.5-5.1) Chloride Level 101 mmol/L (98-107) 101 mmol/L (98-107) Carbon Dioxide Level 24 mmol/L (21-32) 22 mmol/L (21-32) Anion Gap 10 (6-14) 9 (6-14) Blood Urea Nitrogen 35 mg/dL (8-26) 39 mg/dL (8-26) Creatinine 1.7 mg/dL (0.7-1.3) 1.9 mg/dL (0.7-1.3) Estimated GFR (Cockcroft-Gault) 41.0 36.1 Glucose Level 91 mg/dL (70-99) 93 mg/dL (70-99) Calcium Level 8.1 mg/dL (8.5-10.1) 7.9 mg/dL (8.5-10.1) Magnesium Level 1.7 mg/dL (1.8-2.4) 1.9 mg/dL (1.8-2.4) White Blood Count 9.1 x10^3/uL (4.0-11.0) Red Blood Count 2.56 x10^6/uL (4.30-5.70) Hemoglobin 8.8 g/dL (13.0-17.5) Hematocrit 25.1 % (39.0-53.0) Mean Corpuscular Volume 98 fL (79-100) Mean Corpuscular Hemoglobin 34 pg (25-35) Mean Corpuscular Hemoglobin Concent 35 g/dL (31-37) Red Cell Distribution Width 15.1 % (11.5-14.5) Platelet Count 177 x10^3/uL (140-400) Neutrophils (%) (Auto) 69 % (31-73) Lymphocytes (%) (Auto) 18 % (24-48) Monocytes (%) (Auto) 12 % (0-9) Eosinophils (%) (Auto) 1 % (0-3) Basophils (%) (Auto) 1 % (0-3) Neutrophils # (Auto) 6.3 x10^3uL (1.8-7.7) Lymphocytes # (Auto) 1.6 x10^3/uL (1.0-4.8) Monocytes # (Auto) 1.1 x10^3/uL (0.0-1.1) Eosinophils # (Auto) 0.1 x10^3/uL (0.0-0.7) Basophils # (Auto) 0.1 x10^3/uL (0.0-0.2) Laboratory Tests Test 11/04/17 03:45 White Blood Count 9.1 x10^3/uL (4.0-11.0) Red Blood Count 2.56 x10^6/uL (4.30-5.70) Hemoglobin 8.8 g/dL (13.0-17.5) Hematocrit 25.1 % (39.0-53.0) Mean Corpuscular Volume 98 fL (79-100) Mean Corpuscular Hemoglobin 34 pg (25-35) Mean Corpuscular Hemoglobin Concent 35 g/dL (31-37) Red Cell Distribution Width 15.1 % (11.5-14.5) Platelet Count 177 x10^3/uL (140-400) Neutrophils (%) (Auto) 69 % (31-73) Lymphocytes (%) (Auto) 18 % (24-48) Monocytes (%) (Auto) 12 % (0-9) Eosinophils (%) (Auto) 1 % (0-3) Basophils (%) (Auto) 1 % (0-3) Neutrophils # (Auto) 6.3 x10^3uL (1.8-7.7) Lymphocytes # (Auto) 1.6 x10^3/uL (1.0-4.8) Monocytes # (Auto) 1.1 x10^3/uL (0.0-1.1) Eosinophils # (Auto) 0.1 x10^3/uL (0.0-0.7) Basophils # (Auto) 0.1 x10^3/uL (0.0-0.2) Sodium Level 132 mmol/L (136-145) Potassium Level 3.8 mmol/L (3.5-5.1) Chloride Level 101 mmol/L (98-107) Carbon Dioxide Level 22 mmol/L (21-32) Anion Gap 9 (6-14) Blood Urea Nitrogen 39 mg/dL (8-26) Creatinine 1.9 mg/dL (0.7-1.3) Estimated GFR (Cockcroft-Gault) 36.1 Glucose Level 93 mg/dL (70-99) Calcium Level 7.9 mg/dL (8.5-10.1) Magnesium Level 1.9 mg/dL (1.8-2.4) Medications Current Medications Aspirin (Children'S Aspirin) 324 mg 1X ONCE PO Last administered on 10/28/17at 01:28; Start 10/28/17 at 01:30; Stop 10/28/17 at 01:31; Status DC Nitroglycerin (Nitro-Bid Oint) 1 inch 1X ONCE TP Last administered on at 01:29; Start 10/28/17 at 01:30; Stop 10/28/17 at 01:31; Status DC Furosemide (Lasix) 40 mg 1X ONCE IVP Last administered on 10/28/17at 01:28; Start 10/28/17 at 01:30; Stop 10/28/17 at 01:31; Status DC Enoxaparin Sodium (Lovenox Per Pharmacy Treatment Dosing) 1 each PRN DAILY PRN MC SEE COMMENTS; Start 10/28/17 at 01:30; Status Cancel Ondansetron HCl (Zofran) 4 mg PRN Q8HRS PRN IV NAUSEA/VOMITING 1ST CHOICE; Start 10/28/17 at 01:30; Stop 10/29/17 at 01:29; Status DC Fentanyl Citrate (Fentanyl 2ml Vial) 50 mcg PRN Q1HR PRN IV SEVERE PAIN; Start 10/28/17 at 01:30; Stop 10/29/17 at 01:29; Status DC Acetaminophen (Tylenol) 650 mg PRN Q4HRS PRN PO FEVER; Start 10/28/17 at 01:30; Stop 10/29/17 at 01:29; Status DC Heparin Sodium/ Dextrose 500 ml @ 0 mls/hr CONT PRN IV SEE I/O RECORD Last administered on 10/29/17at 02:02; Start 10/28/17 at 01:30; Stop 10/30/17 at 00:05; Status DC Heparin Sodium (Porcine) (Heparin Sodium) 2,000 unit PRN Q6HRS PRN IV FOR UFH LEVEL LESS THAN 0.2 Last administered on 10/28/17at 02:17; Start 10/28/17 at 01:30 ; Stop 10/30/17 at 07:44; Status DC Furosemide (Lasix) 40 mg [id number] IVP ; Start 10/28/17 at 09:00; Stop 10/28/17 at 13: 04; Status DC Furosemide (Lasix) 40 mg 1X ONCE IVP Last administered on 10/28/17at 02:13; Start 10/28/17 at 02:00; Stop 10/28/17 at 02:01; Status DC Info (Anti-Coagulation Monitoring By Pharmacy) 1 each PRN DAILY PRN MC SEE COMMENTS Last administered on 10/29/17at 10:35; Start 10/28/17 at 02:00; Stop at 07:44; Status DC Aspirin (Ecotrin) 325 mg DAILYWBKFT PO Last administered on 10/29/17at 09:24; Start 10/28/17 at 09:30; Stop 10/29/17 at 14:52; Status DC Sodium Chloride 1,000 ml @ 50 mls/hr 1X ONCE IV Last administered on at 11:37; Start 10/28/17 at 09:30; Stop 10/29/17 at 05:29; Status DC Labetalol HCl (Normodyne Iv Push) 20 mg PRN Q2HR PRN IVP HYPERTENSION, SEE COMMENTS; Start 10/28/17 at 09:15; Stop 10/29/17 at 23:55; Status DC Magnesium Sulfate 50 ml @ 25 mls/hr 1X ONCE IV Last administered on 10/28/17at 11:29; Start 10/28/17 at 11:30; Stop 10/28/17 at 13:29; Status DC Potassium Chloride (Klor-Con) 40 meq 1X ONCE PO Last administered on 10/28/17at 16:42; Start 10/28/17 at 11:30; Stop 10/28/17 at 11:31; Status DC Furosemide (Lasix) 40 mg DAILY IVP Last administered on 10/29/17at 09:35; Start 10/29/17 at 09:00; Stop 10/29/17 at 14:54; Status DC Iodixanol (Visipaque 320) 100 ml STK-MED ONCE .ROUTE ; Start 10/28/17 at 14:04; Stop 10/28/17 at 14:05; Status DC Lidocaine HCl (Xylocaine-Mpf 1% 2ml Vial) 2 ml STK-MED ONCE .ROUTE ; Start at 14:04; Stop 10/28/17 at 14:05; Status DC Heparin Sodium/ Sodium Chloride 1,000 ml @ As Directed STK-MED ONCE .ROUTE ; Start 10/28/17 at 14:05; Stop 10/28/17 at 14:06; Status DC Fentanyl Citrate (Fentanyl 2ml Vial) 100 mcg STK-MED ONCE .ROUTE ; Start at 15:10; Stop 10/28/17 at 15:11; Status DC Midazolam HCl (Versed) 2 mg STK-MED ONCE .ROUTE ; Start 10/28/17 at 15:10; Stop 10/28/17 at 15:11; Status DC Heparin Sodium (Porcine) (Heparin Sodium) 10,000 unit STK-MED ONCE .ROUTE ; Start 10/28/17 at 15:10; Stop 10/28/17 at 15:11; Status DC Verapamil HCl (Verapamil) 5 mg STK-MED ONCE .ROUTE ; Start 10/28/17 at 15:10; Stop 10/28/17 at 15:11; Status DC Nitroglycerin (Nitroglycerin) 200 mcg STK-MED ONCE .ROUTE ; Start 10/28/17 at 15: 10; Stop 10/28/17 at 15:11; Status DC Nitroglycerin (Nitroglycerin) 200 mcg 1X ONCE IART Last administered on at 15:57; Start 10/28/17 at 16:00; Stop 10/28/17 at 16:01; Status DC Verapamil HCl (Verapamil) 2.5 mg 1X ONCE IART Last administered on 10/28/17at 15 :57; Start 10/28/17 at 16:00; Stop 10/28/17 at 16:01; Status DC Heparin Sodium (Porcine) (Heparin Sodium) 2,500 unit 1X ONCE IART Last administered on 10/28/17at 15:30; Start 10/28/17 at 16:00; Stop 10/28/17 at 16:01; Status DC Heparin Sodium/ Sodium Chloride (HEPARIN for ARTERIAL LINE FLUSH) 1,000 unit 1X ONCE IART Last administered on 10/28/17at 15:56; Start 10/28/17 at 16:00; Stop 10/28/17 at 16:01; Status DC Midazolam HCl (Versed) 2 mg 1X ONCE IV Last administered on 10/28/17at 15:58; Start 10/28/17 at 16:00; Stop 10/28/17 at 16:01; Status DC Fentanyl Citrate (Fentanyl 2ml Vial) 50 mcg 1X ONCE IV Last administered on 10/28/17at 15:58; Start 10/28/17 at 16:00; Stop 10/28/17 at 16:01; Status DC Iodixanol (Visipaque 320) 65 ml 1X ONCE IART Last administered on 10/28/17at 15: 56; Start 10/28/17 at 16:00; Stop 10/28/17 at 16:01; Status DC Lidocaine HCl (Xylocaine-Mpf 1% 2ml Vial) 1 ml 1X ONCE INJ Last administered on 10/28/17at 15:57; Start 10/28/17 at 16:00; Stop 10/28/17 at 16:01; Status DC Info (CONTRAST GIVEN -- Rx MONITORING) 1 each PRN DAILY PRN MC SEE COMMENTS; Start 10/28/17 at 16:00; Stop 10/30/17 at 16:00; Status DC Metoprolol Tartrate (Lopressor) 12.5 mg BID PO Last administered on 10/29/17at 21 :01; Start 10/28/17 at 21:00; Stop 10/29/17 at 23:55; Status DC Potassium Chloride (Klor-Con) 40 meq 1X ONCE PO Last administered on 10/29/17at 09:24; Start 10/29/17 at 09:00; Stop 10/29/17 at 09:01; Status DC Alprazolam (Xanax) 0.25 mg PRN Q8HRS PRN PO ANXIETY / AGITATION Last administered on 10/29/17at 21:00; Start 10/29/17 at 09:15; Stop 10/29/17 at 22:00; Status DC Potassium Chloride 70 meq/ Sodium Bicarbonate 12.5 meq/Lidocaine HCl 24 ml/ Parenteral Electrolytes 571.5 ml @ 571.5 mls/ hr 1X ONCE IRR Last administered on 10/30/17at 10:59; Start 10/30/17 at 06:00; Stop 10/30/17 at 06:59; Status DC Potassium Chloride 15 meq/ Sodium Bicarbonate 12.5 meq/Parenteral Electrolytes 520 ml @ 520 mls/hr 1X ONCE IRR Last administered on 10/30/17at 10:59; Start at 06:00; Stop 10/30/17 at 06:59; Status DC Heparin Sodium (Porcine) 58119 unit/Ringer's Solution 1,020 ml @ 1,020 mls/hr 1X ONCE IRR Last administered on 10/30/17at 08:58; Start 10/30/17 at 06:00; Stop 10/30/17 at 06:59; Status DC Heparin Sodium (Porcine) 800 unit/ Nitroglycerin 4 mg/Verapamil HCl 8 mg/Sodium Bicarbonate 0.34 meq/Ringer's Solution 512.34 ml @ 512.34 mls/hr 1X ONCE IRR ; Start 10/30/17 at 06:00; Stop 10/30/17 at 06:59; Status DC Ondansetron HCl (Zofran) 4 mg PRN Q6HRS PRN IV NAUSEA/VOMITING; Start 10/30/17 at 07:00; Stop 10/31/17 at 06:59; Status DC Fentanyl Citrate (Fentanyl 2ml Vial) 25 mcg PRN Q5MIN PRN IV MILD PAIN; Start 10/30/17 at 07:00; Stop 10/31/17 at 06:59; Status DC Fentanyl Citrate (Fentanyl 2ml Vial) 50 mcg PRN Q5MIN PRN IV MODERATE TO SEVERE PAIN; Start 10/30/17 at 07:00; Stop 10/31/17 at 06:59; Status DC Morphine Sulfate (Morphine Sulfate) 1 mg PRN Q10MIN PRN IV SEVERE PAIN; Start 10/30/17 at 07:00; Stop 10/31/17 at 06:59; Status DC Ringer's Solution 1,000 ml @ 30 mls/hr Q24H IV Last administered on 10/30/17at 17:12; Start 10/30/17 at 07:00; Stop 10/30/17 at 18:59; Status DC Lidocaine HCl (Xylocaine-Mpf 1% 2ml Vial) 2 ml PRN 1X PRN ID IV START; Start at 07:00; Stop 10/31/17 at 06:59; Status DC Hydromorphone HCl (Dilaudid) 0.5 mg PRN Q10MIN PRN IV SEV PAIN, Second choice; Start 10/30/17 at 07:00; Stop 10/31/17 at 06:59; Status DC Prochlorperazine Edisylate (Compazine) 5 mg PACU PRN PRN IV NAUSEA, MRX1; Start 10/30/17 at 07:00; Stop 10/31/17 at 06:59; Status DC Cefazolin Sodium 1 gm/Sodium Chloride 500 ml @ 500 mls/hr 1X ONCE IRR Last administered on 10/30/17at 08:58; Start 10/30/17 at 06:00; Stop 10/30/17 at 06:59; Status DC Etomidate (Amidate) 20 mg STK-MED ONCE IV ; Start 10/30/17 at 06:08; Stop at 06:09; Status DC Lidocaine HCl (Lidocaine Pf 2% Vial) 5 ml STK-MED ONCE .ROUTE ; Start 10/30/17 at 06:08; Stop 10/30/17 at 06:09; Status DC Rocuronium [place] (Zemuron) 100 mg STK-MED ONCE .ROUTE ; Start 10/30/17 at 06:08 ; Stop 10/30/17 at 06:09; Status DC Phenylephrine HCl (Rui-Synephrine Inj) 10 mg STK-MED ONCE .ROUTE ; Start at 06:09; Stop 10/30/17 at 06:10; Status DC Ephedrine Sulfate (ePHEDrine PF IN SALINE SYRINGE) 50 mg STK-MED ONCE IV ; Start 10/30/17 at 06:09; Stop 10/30/17 at 06:10; Status DC Heparin Sodium (Porcine) 30,000 unit STK-MED ONCE .ROUTE ; Start 10/30/17 at 06: 09; Stop 10/30/17 at 06:10; Status DC Aminocaproic Acid (Amicar) 5,000 mg STK-MED ONCE IV ; Start 10/30/17 at 06:09; Stop 10/30/17 at 06:10; Status DC Nitroglycerin/ Dextrose 250 ml @ As Directed STK-MED ONCE IV ; Start 10/30/17 at 06:09; Stop 10/30/17 at 06:10; Status DC Midazolam HCl (Versed) 2 mg STK-MED ONCE .ROUTE ; Start 10/30/17 at 06:11; Stop 10/30/17 at 06:12; Status DC Sufentanil Citrate (Sufenta) 100 mcg STK-MED ONCE .ROUTE ; Start 10/30/17 at 06: 11; Stop 10/30/17 at 06:12; Status DC Lidocaine HCl (Xylocaine-Mpf 2% Vial) 2 ml STK-MED ONCE .ROUTE ; Start 10/30/17 at 07:05; Stop 10/30/17 at 07:06; Status DC Vancomycin HCl (VANCO for OR ONLY) 10 gm STK-MED ONCE .ROUTE Last administered on 10/30/17at 08:58; Start 10/30/17 at 06:06; Stop 10/30/17 at 07:06; Status DC Cellulose (Surgicel Hemostat 4x8) 1 each STK-MED ONCE .ROUTE Last administered on 10/30/17at 08:58; Start 10/30/17 at 06:06; Stop 10/30/17 at 07:06; Status DC Papaverine HCl 60 mg STK-MED ONCE .ROUTE Last administered on 10/30/17at 08:58; Start 10/30/17 at 06:06; Stop 10/30/17 at 07:07; Status DC Aspirin (Aspirin) 300 mg STK-MED ONCE .ROUTE Last administered on 10/30/17at 15: 59; Start 10/30/17 at 06:06; Stop 10/30/17 at 07:07; Status DC Sodium Chloride (SODIUM CHLORIDE 20ml) 20 ml STK-MED ONCE IJ Last administered on 10/30/17at 08:58; Start 10/30/17 at 06:06; Stop 10/30/17 at 07:07; Status DC Sodium Chloride (SODIUM CHLORIDE 20ml) 20 ml STK-MED ONCE IJ Last administered on 10/30/17at 08:58; Start 10/30/17 at 06:06; Stop 10/30/17 at 07:07; Status DC Sodium Chloride (SODIUM CHLORIDE 20ml) 20 ml STK-MED ONCE IJ Last administered on 10/30/17at 08:58; Start 10/30/17 at 06:07; Stop 10/30/17 at 07:07; Status DC Cefazolin Sodium/ Dextrose 50 ml @ 100 mls/hr 1X PREOP PRN IV PRIOR TO SURGERY Last administered on 10/30/17at 08:13; Start 10/30/17 at 08:15; Stop at 13:38; Status DC Rocuronium [place] (Zemuron) 100 mg STK-MED ONCE .ROUTE ; Start 10/30/17 at 08:19 ; Stop 10/30/17 at 08:20; Status DC Sufentanil Citrate (Sufenta) 100 mcg STK-MED ONCE .ROUTE ; Start 10/30/17 at 08: 19; Stop 10/30/17 at 08:20; Status DC Isoflurane (Isoflurane) 90 ml STK-MED ONCE IH ; Start 10/30/17 at 08:22; Stop 10/30/17 at 08:23; Status DC Midazolam HCl (Versed) 2 mg STK-MED ONCE .ROUTE ; Start 10/30/17 at 08:55; Stop 10/30/17 at 08:56; Status DC Cefazolin Sodium/ Dextrose 50 ml @ 100 mls/hr 1X ONCE IV Last administered on 10/30/17at 13:45; Start 10/30/17 at 10:45; Stop 10/30/17 at 11:14; Status DC Epinephrine HCl 4 mg/Sodium Chloride 254 ml @ 3.81 mls/hr 1X ONCE IV Last administered on 10/30/17at 17:14; Start 10/30/17 at 10:45; Stop 11/02/17 at 05:24; Status DC Norepinephrine Bitartrate 250 ml @ 1.875 mls/ hr 1X ONCE IV Last administered on 10/30/17at 17:14; Start 10/30/17 at 10:45; Stop 11/05/17 at 00:04 Midazolam HCl (Versed) 2 mg STK-MED ONCE .ROUTE ; Start 10/30/17 at 11:03; Stop 10/30/17 at 11:04; Status DC Protamine Sulfate (Protamine) 50 mg STK-MED ONCE IV ; Start 10/30/17 at 11:19; Stop 10/30/17 at 11:20; Status DC Protamine Sulfate (Protamine) 250 mg STK-MED ONCE IV ; Start 10/30/17 at 11:19; Stop 10/30/17 at 11:20; Status DC Midazolam HCl (Versed) 5 mg STK-MED ONCE .ROUTE ; Start 10/30/17 at 11:54; Stop 10/30/17 at 11:55; Status DC Propofol 20 ml @ As Directed STK-MED ONCE IV ; Start 10/30/17 at 12:36; Stop 10/30 at 12:37; Status DC Ringer's Solution 1,000 ml @ 30 mls/hr Q24H IV Last administered on 11/02/17at 04:50; Start 10/30/17 at 13:00; Stop 11/03/17 at 10:47; Status DC Albumin Human 250 ml @ 60 mls/hr PRN Q4HRS PRN IV SEE I/O RECORD Last administered on 10/31/17at 10:49; Start 10/30/17 at 13:00; Stop 11/03/17 at 10:47; Status DC Insulin Human Regular 150 unit/ Sodium Chloride 151.5 ml @ 0 mls/hr CONT PRN PRN IV SEE I/O RECORD Last administered on 10/31/17at 15:36; Start 10/30/17 at 13: 00; Stop 11/03/17 at 10:47; Status DC Dextrose (Dextrose 50%-Water Syringe) 25 gm PRN Q15MIN PRN IV LOW BLOOD SUGAR; Start 10/30/17 at 13:00 Info ([facility] Electrolyte Protocol) 1 ea CONT PRN PRN MC SEE COMMENTS; Start at 13:00; Stop 11/03/17 at 10:48; Status DC Magnesium Sulfate/ Dextrose 100 ml @ 100 mls/hr PRN DAILY PRN IV FOR MAG < 2.2 Last administered on 10/30/17at 18:10; Start 10/30/17 at 13:00 Famotidine (Pepcid Vial) 20 mg BID IVP Last administered on 10/31/17at 07:48; Start 10/30/17 at 14:00; Stop 10/31/17 at 14:38; Status DC Ondansetron HCl (Zofran) 4 mg PRN Q4HRS PRN IV NAUSEA/VOMITING 1ST CHOIC; Start 10/30/17 at 13:00 Prochlorperazine Edisylate (Compazine) 10 mg PRN Q6HRS PRN IV NAUSEA/VOMITING 2ND CHOICE; Start 10/30/17 at 13:00 Morphine Sulfate (Morphine Sulfate) 2 mg PRN Q1HR PRN IV MODERATE PAIN Last administered on 10/31/17at 01:19; Start 10/30/17 at 13:00 Acetaminophen (Tylenol) 650 mg PRN Q4HRS PRN PO MILD PAIN / TEMP Last administered on 11/03/17at 09:11; Start 10/30/17 at 13:00 Acetaminophen (Tylenol Supp) 650 mg PRN Q4HRS PRN LA MILD PAIN / TEMP; Start at 13:00; Stop 11/03/17 at 10:48; Status DC Meperidine HCl (Demerol) 12.5 mg PRN Q15MIN PRN IV SHIVERING; Start 10/30/17 at 13:00; Stop 10/31/17 at 13:00; Status DC Propofol 100 ml @ 0 mls/hr CONT PRN PRN IV POSTOP SEDATION UNTIL EXTUBATE Last administered on 10/30/17at 17:11; Start 10/30/17 at 13:00; Stop 10/31/17 at 15:11; Status DC Senna/Docusate Sodium (Senna Plus) 1 tab BID PO Last administered on 11/04/17at 08:25; Start 10/30/17 at 21:00 Bisacodyl (Dulcolax Supp) 10 mg PRN DAILY PRN LA NO BOWEL MOVEMENT; Start at 13:00 Chlorhexidine Gluconate (Peridex) 15 ml BID MM ; Start 10/30/17 at 21:00; Stop at 21:52; Status DC Aspirin (Ecotrin) 325 mg DAILYWBKFT PO Last administered on 11/04/17at 08:25; Start 10/31/17 at 08:00 Aspirin (Aspirin) 300 mg PRN DAILY PRN LA IF UNABLE TO TAKE PO; Start 10/30/17 at 13:00 Albuterol Sulfate (Ventolin Neb Soln) 2.5 mg PRN Q4HRS PRN NEB SHORTNESS OF BREATH Last administered on 11/01/17at 05:41; Start 10/30/17 at 13:00 Metoprolol Tartrate (Lopressor) 25 mg BID PO ; Start 10/31/17 at 09:00; Stop 10/31 at 11:26; Status DC Nicardipine HCl 50 mg/Sodium Chloride 270 ml @ 0 mls/hr CONT PRN PRN IV PER PROTOCOL; Start 10/30/17 at 13:00; Stop 11/03/17 at 10:48; Status DC Oxycodone/ Acetaminophen (Percocet 5/325) 1 tab PRN Q4HRS PRN PO MODERATE PAIN Last administered on 11/01/17at 04:48; Start 10/30/17 at 13:00 Oxycodone/ Acetaminophen (Percocet 5/325) 2 tab PRN Q4HRS PRN PO SEVERE PAIN Last administered on 10/31/17at 21:12; Start 10/30/17 at 13:00 Cefazolin Sodium/ Dextrose 50 ml @ 100 mls/hr Q8H IV Last administered on at 04:16; Start 10/30/17 at 20:00; Stop 11/01/17 at 04:29; Status DC Polyethylene Glycol (miraLAX PACKET) 17 gm DAILYWSUP PO Last administered on 11/02/17at 17:00; Start 10/31/17 at 17:00 Alprazolam (Xanax) 0.25 mg PRN Q8HRS PRN PO ANXIETY / AGITATION Last administered on 11/03/17at 09:11; Start 10/30/17 at 13:00 Heparin Sodium (Porcine) (Heparin Sodium) 10,000 unit STK-MED ONCE .ROUTE ; Start 10/30/17 at 13:36; Stop 10/30/17 at 13:37; Status DC Lidocaine HCl (Lidocaine Pf 2% Vial) 5 ml STK-MED ONCE .ROUTE ; Start 10/30/17 at 13:36; Stop 10/30/17 at 13:37; Status DC Magnesium Sulfate 5 gm STK-MED ONCE .ROUTE ; Start 10/30/17 at 13:36; Stop at 13:37; Status DC Heparin Sodium (Porcine) 30,000 unit STK-MED ONCE .ROUTE ; Start 10/30/17 at 13: 36; Stop 10/30/17 at 13:37; Status DC Mannitol (Mannitol) 12.5 g STK-MED ONCE .ROUTE ; Start 10/30/17 at 13:36; Stop at 13:37; Status DC Albumin Human 100 ml @ As Directed STK-MED ONCE IV ; Start 10/30/17 at 13:36; Stop 10/30/17 at 13:37; Status DC Calcium Chloride (Calcium Chloride) 1,000 mg STK-MED ONCE .ROUTE ; Start at 13:36; Stop 10/30/17 at 13:37; Status DC Sodium Bicarbonate (Sodium Bicarb Adult 8.4% Syr) 50 meq STK-MED ONCE .ROUTE ; Start 10/30/17 at 13:36; Stop 10/30/17 at 13:37; Status DC Heparin Sodium (Porcine) 30,000 unit STK-MED ONCE .ROUTE ; Start 10/30/17 at 13: 38; Stop 10/30/17 at 13:39; Status DC Milrinone Lactate (Primacor) 10 mg STK-MED ONCE IV ; Start 10/30/17 at 13:43; Stop 10/30/17 at 13:44; Status DC Milrinone Lactate/ Dextrose 100 ml @ As Directed STK-MED ONCE IV ; Start at 13:43; Stop 10/30/17 at 13:44; Status DC Epinephrine HCl (EPINEPHrine SYRINGE) 1 mg STK-MED ONCE .ROUTE ; Start 10/30/17 at 13:53; Stop 10/30/17 at 13:54; Status DC Heparin Sodium (Porcine) (Heparin Sodium) 10,000 unit STK-MED ONCE .ROUTE ; Start 10/30/17 at 14:02; Stop 10/30/17 at 14:03; Status DC Midazolam HCl (Versed) 2 mg STK-MED ONCE .ROUTE ; Start 10/30/17 at 14:10; Stop 10/30/17 at 14:11; Status DC Esmolol HCl (Brevibloc) 100 mg STK-MED ONCE IV ; Start 10/30/17 at 14:20; Stop at 14:21; Status DC Protamine Sulfate (Protamine) 50 mg STK-MED ONCE IV ; Start 10/30/17 at 14:44; Stop 10/30/17 at 14:45; Status DC Protamine Sulfate (Protamine) 250 mg STK-MED ONCE IV ; Start 10/30/17 at 14:44; Stop 10/30/17 at 14:45; Status DC Mannitol (Mannitol) 12.5 g STK-MED ONCE .ROUTE ; Start 10/30/17 at 14:53; Stop at 14:54; Status DC Calcium Chloride (Calcium Chloride) 1,000 mg STK-MED ONCE .ROUTE ; Start at 14:53; Stop 10/30/17 at 14:54; Status DC Sodium Bicarbonate (Sodium Bicarb Adult 8.4% Syr) 50 meq STK-MED ONCE .ROUTE ; Start 10/30/17 at 14:53; Stop 10/30/17 at 14:54; Status DC Heparin Sodium (Porcine) (Heparin Sodium) 10,000 unit STK-MED ONCE .ROUTE ; Start 10/30/17 at 14:54; Stop 10/30/17 at 14:55; Status DC Albumin Human 500 ml @ As Directed STK-MED ONCE IV ; Start 10/30/17 at 14:57; Stop 10/30/17 at 14:58; Status DC Albumin Human 500 ml @ As Directed STK-MED ONCE IV ; Start 10/30/17 at 15:16; Stop 10/30/17 at 15:17; Status DC Sodium Bicarbonate (Sodium Bicarb Adult 8.4% Syr) 50 meq STK-MED ONCE .ROUTE ; Start 10/30/17 at 15:24; Stop 10/30/17 at 15:25; Status DC Amiodarone HCl 900 mg/Dextrose 518 ml @ 33 mls/hr CONT PRN IV SEE I/O RECORD; Start 10/30/17 at 15:45; Stop 10/31/17 at 15:11; Status DC Sodium Bicarbonate (Sodium Bicarb Adult 8.4% Syr) 50 meq 1X ONCE IV Last administered on 10/30/17at 17:03; Start 10/30/17 at 17:00; Stop 10/30/17 at 17:01; Status DC Sodium Bicarbonate (Sodium Bicarb Adult 8.4% Syr) 50 meq 1X ONCE IV Last administered on 10/30/17at 17:04; Start 10/30/17 at 17:00; Stop 10/30/17 at 17:01; Status DC Sodium Bicarbonate (Sodium Bicarb Adult 8.4% Syr) 50 meq 1X ONCE IV ; Start 10/30/17 at 17:00; Stop 10/30/17 at 17:01; Status DC Sodium Bicarbonate (Sodium Bicarb Adult 8.4% Syr) 50 meq 1X ONCE IV ; Start 10/30/17 at 17:00; Stop 10/30/17 at 17:01; Status DC Potassium Chloride/Water 50 ml @ 50 mls/hr Q1H IV Last administered on at 19:12; Start 10/30/17 at 18:00; Stop 10/30/17 at 19:59; Status DC Potassium Chloride/Water 50 ml @ 50 mls/hr 1X ONCE IV Last administered on 10/30at 21:44; Start 10/30/17 at 21:45; Stop 10/30/17 at 22:44; Status DC Magnesium Sulfate/ Dextrose 100 ml @ 100 mls/hr 1X ONCE IV Last administered on 10/31/17at 06:37; Start 10/31/17 at 06:45; Stop 10/31/17 at 07:44; Status DC Furosemide (Lasix) 40 mg 1X ONCE IVP Last administered on 10/31/17at 09:32; Start 10/31/17 at 09:15; Stop 10/31/17 at 09:23; Status DC Albuterol Sulfate (Ventolin Neb Soln) 2.5 mg RTQID NEB Last administered on 01/11at 05:52; Start 10/31/17 at 10:00 Furosemide (Lasix) 40 mg BID92 IVP Last administered on 10/31/17at 15:40; Start 10/31/17 at 14:00; Stop 10/31/17 at 17:51; Status DC Amiodarone HCl (Cordarone) 200 mg BID PO Last administered on 11/04/17at 08:25; Start 10/31/17 at 15:00 Famotidine (Pepcid) 20 mg BID PO Last administered on 11/01/17at 08:41; Start 10/31/17 at 21:00; Stop 11/01/17 at 15:42; Status DC Hydromorphone HCl (Dilaudid) 0.2 mg PRN Q4HRS PRN IVP SEVERE PAIN; Start at 15:15 Epinephrine HCl 4 mg/Sodium Chloride 254 ml @ 0 mls/hr CONT PRN IV SEE I/O RECORD Last administered on 10/31/17at 15:48; Start 10/31/17 at 15:30; Stop at 10:48; Status DC Furosemide (Lasix) 40 mg TID IVP Last administered on 11/03/17at 09:09; Start at 21:00; Stop 11/03/17 at 10:22; Status DC Famotidine (Pepcid) 20 mg DAILYAC PO Last administered on 11/04/17at 08:26; Start 11/02/17 at 07:30 Magnesium Sulfate/ Dextrose 100 ml @ 100 mls/hr 1X ONCE IV Last administered on 11/02/17at 07:24; Start 11/02/17 at 06:15; Stop 11/02/17 at 07:14; Status DC Potassium Chloride/Water 50 ml @ 50 mls/hr Q1H IV Last administered on at 07:23; Start 11/02/17 at 06:30; Stop 11/02/17 at 08:29; Status DC Atorvastatin Calcium (Lipitor) 40 mg QHS PO Last administered on 11/03/17at 19: 29; Start 11/02/17 at 21:00 Potassium Chloride/Water 50 ml @ 50 mls/hr Q1H IV Last administered on at 09:45; Start 11/03/17 at 08:00; Stop 11/03/17 at 09:59; Status DC Magnesium Sulfate/ Dextrose 100 ml @ 100 mls/hr 1X ONCE IV Last administered on 11/03/17at 09:11; Start 11/03/17 at 07:45; Stop 11/03/17 at 08:44; Status DC Furosemide (Lasix) 40 mg DAILY IVP ; Start 11/04/17 at 09:00; Stop 11/04/17 at 09:00; Status DC Vitals/I & O Vital Sign - Last 24 Hours 11/03/17 11/03/17 11/03/17 11/03/17 10:00 11:00 12:20 15:31 Temp 97.9 98.2 97.9 98.2 Pulse 94 98 88 Resp 16 16 16 B/P (MAP) 94/59 (71) 93/60 (71) 102/67 (79) Pulse Ox 93 93 95 95 O2 Delivery Room Air Room Air Room Air Room Air 11/03/17 11/03/17 11/03/17 11/03/17 16:59 18:46 19:30 19:30 Temp 97.9 97.9 Pulse 98 98 Resp 18 B/P (MAP) 97/53 (68) 97/53 Pulse Ox 95 98 97 O2 Delivery Room Air Room Air Room Air 11/03/17 11/03/17 11/04/17 11/04/17 20:00 22:16 00:00 03:00 Temp 98.4 98.4 98.4 98.4 Pulse 96 96 Resp 20 18 B/P (MAP) 102/63 (76) 96/61 (73) Pulse Ox 95 94 O2 Delivery Room Air Room Air Room Air Room Air O2 Flow Rate 2.0 11/04/17 11/04/17 11/04/17 11/04/17 04:00 05:53 07:00 08:25 Temp 98.6 98.6 Pulse 85 85 Resp 20 B/P (MAP) 116/68 (84) 116/68 Pulse Ox 92 O2 Delivery Room Air Room Air Room Air Intake and Output 11/03/17 11/03/17 11/04/17 15:00 23:00 07:00 Intake Total 630 ml 120 ml 400 ml Output Total 450 ml 750 ml 600 ml Balance 180 ml -630 ml -200 ml CESARIO BRISENO III DO Nov 04, 2017 10:09
--- NOTE | 2017-11-04 11:23 | PDOC ---
Renal-Progress Notes Subjective Notes Notes FEELING BETTER History of Present Illness Hx of present illness STABLE Vitals Vitals Vital Signs Date Time Temp Pulse Resp B/P (MAP) Pulse Ox O2 Delivery O2 Flow Rate FiO2 11/04/17 10:33 Room Air 11/04/17 08:25 85 116/68 11/04/17 07:00 98.6 20 92 98.6 11/04/17 00:00 2.0 Weight Weight [ ] I.O. Intake and Output Intake and Output 11/04/17 07:00 Intake Total 1150 ml Output Total 1800 ml Balance -650 ml Intake Oral 800 ml IV Total 350 ml Output Urine Total 1750 ml Chest Tube Drainage Total 50 ml # Voids 1 Labs Labs Laboratory Tests Test 11/04/17 03:45 White Blood Count 9.1 x10^3/uL (4.0-11.0) Red Blood Count 2.56 x10^6/uL (4.30-5.70) Hemoglobin 8.8 g/dL (13.0-17.5) Hematocrit 25.1 % (39.0-53.0) Mean Corpuscular Volume 98 fL (79-100) Mean Corpuscular Hemoglobin 34 pg (25-35) Mean Corpuscular Hemoglobin Concent 35 g/dL (31-37) Red Cell Distribution Width 15.1 % (11.5-14.5) Platelet Count 177 x10^3/uL (140-400) Neutrophils (%) (Auto) 69 % (31-73) Lymphocytes (%) (Auto) 18 % (24-48) Monocytes (%) (Auto) 12 % (0-9) Eosinophils (%) (Auto) 1 % (0-3) Basophils (%) (Auto) 1 % (0-3) Neutrophils # (Auto) 6.3 x10^3uL (1.8-7.7) Lymphocytes # (Auto) 1.6 x10^3/uL (1.0-4.8) Monocytes # (Auto) 1.1 x10^3/uL (0.0-1.1) Eosinophils # (Auto) 0.1 x10^3/uL (0.0-0.7) Basophils # (Auto) 0.1 x10^3/uL (0.0-0.2) Sodium Level 132 mmol/L (136-145) Potassium Level 3.8 mmol/L (3.5-5.1) Chloride Level 101 mmol/L (98-107) Carbon Dioxide Level 22 mmol/L (21-32) Anion Gap 9 (6-14) Blood Urea Nitrogen 39 mg/dL (8-26) Creatinine 1.9 mg/dL (0.7-1.3) Estimated GFR (Cockcroft-Gault) 36.1 Glucose Level 93 mg/dL (70-99) Calcium Level 7.9 mg/dL (8.5-10.1) Magnesium Level 1.9 mg/dL (1.8-2.4) Review of Systems Constitutional: yes: weakness, alert, oriented Ears/Nose/Throat: Yes: no symptom reported Eyes: Yes: no symptom reported Pulmonary: Yes no symptom reported Cardiovascular: Yes edema Gastrointestional: Yes: no symptom reported Genitourinary: Yes: no symptom reported Musculoskeletal: Yes: muscle stiffness Skin: Yes no symptom reported Psychiatric/Neurological: Yes: no symptom reported Endocrine: Yes: no symptom reported Physical Exam General Appearance: no apparent distress Skin: warm Heart: S1S2 Abdomen: soft Genitourinary: bladder flat Extremities: edema Neurology: alert, oriented, follow commands Assessment Assessment IMP IVAN-ATN-CR STABLE AT 1.9 S/P CABG EDEMA DECONDITIONING PLAN PO LASIX LABS IN AM D/W ATTENDING DENIZ MCDONALD MD Nov 04, 2017 11:23
[2017-11-04] MEDS: FUROSEMIDE 40 MG TABLET. PO SCH (12:00)
--- NOTE | 2017-11-04 13:47 | PDOC ---
LORIRAMSES Linnea CHOKER HOOKER 11/04/17 1347: CARDIO Progress Notes Date and Time Date of Service 11/04/2017 Time of Evaluation ~1130 Subjective Subjective: No Chest Pain, No shortness of breath, No Palpitations, No Dizziness, Other (WALKING IN HALLWAY) Comments: feels better Vitals Vitals Vital Signs Date Time Temp Pulse Resp B/P (MAP) Pulse Ox O2 Delivery O2 Flow Rate FiO2 11/04/17 12:32 94 Room Air 11/04/17 08:25 85 116/68 11/04/17 07:00 98.6 20 98.6 11/04/17 00:00 2.0 Weight Weight [ ] Input and Output Intake and Output Intake and Output 11/04/17 07:00 Intake Total 1150 ml Output Total 1800 ml Balance -650 ml Intake Oral 800 ml IV Total 350 ml Output Urine Total 1750 ml Chest Tube Drainage Total 50 ml # Voids 1 Laboratory Labs Laboratory Tests Test 11/04/17 03:45 White Blood Count 9.1 x10^3/uL (4.0-11.0) Red Blood Count 2.56 x10^6/uL (4.30-5.70) Hemoglobin 8.8 g/dL (13.0-17.5) Hematocrit 25.1 % (39.0-53.0) Mean Corpuscular Volume 98 fL (79-100) Mean Corpuscular Hemoglobin 34 pg (25-35) Mean Corpuscular Hemoglobin Concent 35 g/dL (31-37) Red Cell Distribution Width 15.1 % (11.5-14.5) Platelet Count 177 x10^3/uL (140-400) Neutrophils (%) (Auto) 69 % (31-73) Lymphocytes (%) (Auto) 18 % (24-48) Monocytes (%) (Auto) 12 % (0-9) Eosinophils (%) (Auto) 1 % (0-3) Basophils (%) (Auto) 1 % (0-3) Neutrophils # (Auto) 6.3 x10^3uL (1.8-7.7) Lymphocytes # (Auto) 1.6 x10^3/uL (1.0-4.8) Monocytes # (Auto) 1.1 x10^3/uL (0.0-1.1) Eosinophils # (Auto) 0.1 x10^3/uL (0.0-0.7) Basophils # (Auto) 0.1 x10^3/uL (0.0-0.2) Sodium Level 132 mmol/L (136-145) Potassium Level 3.8 mmol/L (3.5-5.1) Chloride Level 101 mmol/L (98-107) Carbon Dioxide Level 22 mmol/L (21-32) Anion Gap 9 (6-14) Blood Urea Nitrogen 39 mg/dL (8-26) Creatinine 1.9 mg/dL (0.7-1.3) Estimated GFR (Cockcroft-Gault) 36.1 Glucose Level 93 mg/dL (70-99) Calcium Level 7.9 mg/dL (8.5-10.1) Magnesium Level 1.9 mg/dL (1.8-2.4) Review of Systems Constitutional: yes: weakness, alert, oriented Ears/Nose/Throat: Yes: no symptom reported Eyes: Yes: no symptom reported Pulmonary: Yes no symptom reported Cardiovascular: Yes edema Gastrointestional: Yes: no symptom reported Genitourinary: Yes: no symptom reported Musculoskeletal: Yes: muscle stiffness Skin: Yes no symptom reported Psychiatric/Neurological: Yes: no symptom reported Endocrine: Yes: no symptom reported Physical Exam HEENT: Neck Supple W Full Motion Chest: Symmetric LUNGS: Clear to Auscultation Heart: S1S2, RRR, no murmurs, other (tele: SR) Abdomen: Soft N/T Extremities: No Edema Neurology: alert, oriented, follow commands Assessment Assessment 1. NSTEMI --troponin peaked @ 2.4 --s/p CABG X x 4: free TUCKER to LAD, SVG to LPL, SVG to diagonal, SVG to RPDA --management per CTS; ASA and statins; hold BB due to hypotension; amiodarone for afib prophylaxis --mobilize; may need SNU/rehab stay 2. ischemic cardiomyopathy --LVEF 20-25% --limited echo to re-eval LVEF pending 3. HTN --controlled with meds 4. HLD --statin therapy 5. Emphysema with persistent tobacco abuse --CT demonstrates emphysema --cessation advised 6. moderate REIA and JEROME disease 7. acute blood loss anemia, post-operative, expectant --Hgb stable 8. IVAN, post-operative --per nephrology KT KIRKPATRICK MD 11/04/17 1354: CARDIO Progress Notes Plan Plan Pt. seen and examined. Agree with above PLANER CHAIN OFFBEARER note. Supportive care. Will await echo results. RAMSES SANDOVAL APRN Nov 04, 2017 13:47 KT KIRKPATRICK MD Nov 04, 2017 13:54
[2017-11-04 15:43] VITALS: BP 101/57
[2017-11-04] MEDS: POLYETHYLENE GLYCOL 3350 17 GM PACKET. PO SCH (17:00)
--- NOTE | 2017-11-04 17:45 | CARD ---
MR#: [id number] Date of Study: 11/04/2017 Ordering Physician: SHAY HARRIS, Referring Physician: ANKIT LI Tech: Jesenia Faye RDCS APPROVED REPORT EXAM: LIMITED Two-dimensional echocardiogram Other Information Quality : Good INDICATION Murmur LEFT VENTRICLE Left ventricle ejection fraction is severely impaired. The Ejection Fraction is 25% Septal motion con sistent with post-operative state. The anterior wall and apex are severely hypokinetic. Remainder of the LV is moderately hypokinetic. GREAT VESSELS Not evaluated PERICARDIAL EFFUSION There is a large left sided pleural effusion. There is no evidence of significant pericardial effusio n. Critical Notification Critical Value: No <Conclusion> Septal motion consistent with post-operative state. The anterior wall and apex are severely hypokinet ic. Remainder of the LV is moderately hypokinetic. There is a large left sided pleural effusion. Left ventricle ejection fraction is severely impaired. The Ejection Fraction is 25% Limited echo only Signed by : Stuart Alvarez, Electronically Approved : 11/04/2017 17:44:38
[2017-11-04 19:21] VITALS: BP 109/61
[2017-11-04] MEDS: ATORVASTATIN CALCIUM 40 MG TABLET. PO SCH (20:03)
[2017-11-04 22:39] VITALS: BP 109/65
[2017-11-05] VITALS (7 sets, daily range): BP systolic 99–124; BP diastolic 48–72
[2017-11-05 05:09] LABS: BASO % 0 % (0-3); EOS # 0.3 x10^3/uL (0.0-0.7); EOS % 3 % (0-3); HEMATOCRIT 26.7 % (39.0-53.0); HEMOGLOBIN 9.2 g/dL (13.0-17.5); LYMPH # 1.6 x10^3/uL (1.0-4.8); LYMPH % 19 % (24-48); MEAN CORPUSCULAR HEMOGLOBIN 34 pg (25-35); MEAN CORPUSCULAR HGB CONC 35 g/dL (31-37); MEAN CORPUSCULAR VOLUME 99 fL (79-100); MONO # 1.2 x10^3/uL (0.0-1.1); MONO % 14 % (0-9); NEUT # 5.7 x10^3uL (1.8-7.7); NEUT % 64 % (31-73); PLATELET COUNT 232 x10^3/uL (140-400); RED BLOOD COUNT 2.69 x10^6/uL (4.30-5.70); RED CELL DISTRIBUTION WIDTH 15.2 % (11.5-14.5); WHITE BLOOD COUNT 8.9 x10^3/uL (4.0-11.0)
[2017-11-05 05:17] LABS: CREATININE 1.9 mg/dL (0.7-1.3); GFR 36.1; POTASSIUM 3.7 mmol/L (3.5-5.1)
--- NOTE | 2017-11-05 07:12 | PDOC ---
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 seen and examined b/l LE edema remains DW nursing; dressing is leaking clear fluid, will discuss with surgery Pt. alert and oriented Pt.'s cough continues to decrease VSS Vitals Vitals Vital Signs Date Time Temp Pulse Resp B/P (MAP) Pulse Ox O2 Delivery O2 Flow Rate FiO2 11/05/17 03:22 98.4 92 16 100/58 (72) 92 Room Air 98.4 Physical Exam General: Alert, Oriented X3, Cooperative, No acute distress Heart: Regular rate, Normal S1, Normal S2 Lungs: Clear Abdomen: Soft, No tenderness Extremities: No clubbing, No cyanosis Skin: No rashes, No significant lesion Labs LABS Laboratory Tests Test 11/05/17 03:50 White Blood Count 8.9 x10^3/uL (4.0-11.0) Red Blood Count 2.69 x10^6/uL (4.30-5.70) Hemoglobin 9.2 g/dL (13.0-17.5) Hematocrit 26.7 % (39.0-53.0) Mean Corpuscular Volume 99 fL (79-100) Mean Corpuscular Hemoglobin 34 pg (25-35) Mean Corpuscular Hemoglobin Concent 35 g/dL (31-37) Red Cell Distribution Width 15.2 % (11.5-14.5) Platelet Count 232 x10^3/uL (140-400) Neutrophils (%) (Auto) 64 % (31-73) Lymphocytes (%) (Auto) 19 % (24-48) Monocytes (%) (Auto) 14 % (0-9) Eosinophils (%) (Auto) 3 % (0-3) Basophils (%) (Auto) 0 % (0-3) Neutrophils # (Auto) 5.7 x10^3uL (1.8-7.7) Lymphocytes # (Auto) 1.6 x10^3/uL (1.0-4.8) Monocytes # (Auto) 1.2 x10^3/uL (0.0-1.1) Eosinophils # (Auto) 0.3 x10^3/uL (0.0-0.7) Basophils # (Auto) 0.0 x10^3/uL (0.0-0.2) Sodium Level 132 mmol/L (136-145) Potassium Level 3.7 mmol/L (3.5-5.1) Chloride Level 100 mmol/L (98-107) Carbon Dioxide Level 23 mmol/L (21-32) Anion Gap 9 (6-14) Blood Urea Nitrogen 35 mg/dL (8-26) Creatinine 1.9 mg/dL (0.7-1.3) Estimated GFR (Cockcroft-Gault) 36.1 Glucose Level 93 mg/dL (70-99) Calcium Level 8.0 mg/dL (8.5-10.1) Review of Systems Review of Systems Pt. denies weakness Pt. 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 Labs Laboratory Tests Test 11/03/17 07:50 11/04/17 03:45 11/05/17 03:50 Sodium Level 135 mmol/L (136-145) 132 mmol/L (136-145) 132 mmol/L (136-145) Potassium Level 3.6 mmol/L (3.5-5.1) 3.8 mmol/L (3.5-5.1) 3.7 mmol/L (3.5-5.1) Chloride Level 101 mmol/L (98-107) 101 mmol/L (98-107) 100 mmol/L (98-107) Carbon Dioxide Level 24 mmol/L (21-32) 22 mmol/L (21-32) 23 mmol/L (21-32) Anion Gap 10 (6-14) 9 (6-14) 9 (6-14) Blood Urea Nitrogen 35 mg/dL (8-26) 39 mg/dL (8-26) 35 mg/dL (8-26) Creatinine 1.7 mg/dL (0.7-1.3) 1.9 mg/dL (0.7-1.3) 1.9 mg/dL (0.7-1.3) Estimated GFR (Cockcroft-Gault) 41.0 36.1 36.1 Glucose Level 91 mg/dL (70-99) 93 mg/dL (70-99) 93 mg/dL (70-99) Calcium Level 8.1 mg/dL (8.5-10.1) 7.9 mg/dL (8.5-10.1) 8.0 mg/dL (8.5-10.1) Magnesium Level 1.7 mg/dL (1.8-2.4) 1.9 mg/dL (1.8-2.4) White Blood Count 9.1 x10^3/uL (4.0-11.0) 8.9 x10^3/uL (4.0-11.0) Red Blood Count 2.56 x10^6/uL (4.30-5.70) 2.69 x10^6/uL (4.30-5.70) Hemoglobin 8.8 g/dL (13.0-17.5) 9.2 g/dL (13.0-17.5) Hematocrit 25.1 % (39.0-53.0) 26.7 % (39.0-53.0) Mean Corpuscular Volume 98 fL (79-100) 99 fL (79-100) Mean Corpuscular Hemoglobin 34 pg (25-35) 34 pg (25-35) Mean Corpuscular Hemoglobin Concent 35 g/dL (31-37) 35 g/dL (31-37) Red Cell Distribution Width 15.1 % (11.5-14.5) 15.2 % (11.5-14.5) Platelet Count 177 x10^3/uL (140-400) 232 x10^3/uL (140-400) Neutrophils (%) (Auto) 69 % (31-73) 64 % (31-73) Lymphocytes (%) (Auto) 18 % (24-48) 19 % (24-48) Monocytes (%) (Auto) 12 % (0-9) 14 % (0-9) Eosinophils (%) (Auto) 1 % (0-3) 3 % (0-3) Basophils (%) (Auto) 1 % (0-3) 0 % (0-3) Neutrophils # (Auto) 6.3 x10^3uL (1.8-7.7) 5.7 x10^3uL (1.8-7.7) Lymphocytes # (Auto) 1.6 x10^3/uL (1.0-4.8) 1.6 x10^3/uL (1.0-4.8) Monocytes # (Auto) 1.1 x10^3/uL (0.0-1.1) 1.2 x10^3/uL (0.0-1.1) Eosinophils # (Auto) 0.1 x10^3/uL (0.0-0.7) 0.3 x10^3/uL (0.0-0.7) Basophils # (Auto) 0.1 x10^3/uL (0.0-0.2) 0.0 x10^3/uL (0.0-0.2) Troponin I Quantitative 7.346 ng/mL (0.000-0.055) DL-[id number]-[id number]-Type Natriuretic Peptide 55352 pg/mL (0-124) Laboratory Tests Test 11/05/17 03:50 White Blood Count 8.9 x10^3/uL (4.0-11.0) Red Blood Count 2.69 x10^6/uL (4.30-5.70) Hemoglobin 9.2 g/dL (13.0-17.5) Hematocrit 26.7 % (39.0-53.0) Mean Corpuscular Volume 99 fL (79-100) Mean Corpuscular Hemoglobin 34 pg (25-35) Mean Corpuscular Hemoglobin Concent 35 g/dL (31-37) Red Cell Distribution Width 15.2 % (11.5-14.5) Platelet Count 232 x10^3/uL (140-400) Neutrophils (%) (Auto) 64 % (31-73) Lymphocytes (%) (Auto) 19 % (24-48) Monocytes (%) (Auto) 14 % (0-9) Eosinophils (%) (Auto) 3 % (0-3) Basophils (%) (Auto) 0 % (0-3) Neutrophils # (Auto) 5.7 x10^3uL (1.8-7.7) Lymphocytes # (Auto) 1.6 x10^3/uL (1.0-4.8) Monocytes # (Auto) 1.2 x10^3/uL (0.0-1.1) Eosinophils # (Auto) 0.3 x10^3/uL (0.0-0.7) Basophils # (Auto) 0.0 x10^3/uL (0.0-0.2) Sodium Level 132 mmol/L (136-145) Potassium Level 3.7 mmol/L (3.5-5.1) Chloride Level 100 mmol/L (98-107) Carbon Dioxide Level 23 mmol/L (21-32) Anion Gap 9 (6-14) Blood Urea Nitrogen 35 mg/dL (8-26) Creatinine 1.9 mg/dL (0.7-1.3) Estimated GFR (Cockcroft-Gault) 36.1 Glucose Level 93 mg/dL (70-99) Calcium Level 8.0 mg/dL (8.5-10.1) Medications Current Medications Aspirin (Children'S Aspirin) 324 mg 1X ONCE PO Last administered on 10/28/17at 01:28; Start 10/28/17 at 01:30; Stop 10/28/17 at 01:31; Status DC Nitroglycerin (Nitro-Bid Oint) 1 inch 1X ONCE TP Last administered on at 01:29; Start 10/28/17 at 01:30; Stop 10/28/17 at 01:31; Status DC Furosemide (Lasix) 40 mg 1X ONCE IVP Last administered on 10/28/17at 01:28; Start 10/28/17 at 01:30; Stop 10/28/17 at 01:31; Status DC Enoxaparin Sodium (Lovenox Per Pharmacy Treatment Dosing) 1 each PRN DAILY PRN MC SEE COMMENTS; Start 10/28/17 at 01:30; Status Cancel Ondansetron HCl (Zofran) 4 mg PRN Q8HRS PRN IV NAUSEA/VOMITING 1ST CHOICE; Start 10/28/17 at 01:30; Stop 10/29/17 at 01:29; Status DC Fentanyl Citrate (Fentanyl 2ml Vial) 50 mcg PRN Q1HR PRN IV SEVERE PAIN; Start 10/28/17 at 01:30; Stop 10/29/17 at 01:29; Status DC Acetaminophen (Tylenol) 650 mg PRN Q4HRS PRN PO FEVER; Start 10/28/17 at 01:30; Stop 10/29/17 at 01:29; Status DC Heparin Sodium/ Dextrose 500 ml @ 0 mls/hr CONT PRN IV SEE I/O RECORD Last administered on 10/29/17at 02:02; Start 10/28/17 at 01:30; Stop 10/30/17 at 00:05; Status DC Heparin Sodium (Porcine) (Heparin Sodium) 2,000 unit PRN Q6HRS PRN IV FOR UFH LEVEL LESS THAN 0.2 Last administered on 10/28/17at 02:17; Start 10/28/17 at 01:30 ; Stop 10/30/17 at 07:44; Status DC Furosemide (Lasix) 40 mg [id number] IVP ; Start 10/28/17 at 09:00; Stop 10/28/17 at 13: 04; Status DC Furosemide (Lasix) 40 mg 1X ONCE IVP Last administered on 10/28/17at 02:13; Start 10/28/17 at 02:00; Stop 10/28/17 at 02:01; Status DC Info (Anti-Coagulation Monitoring By Pharmacy) 1 each PRN DAILY PRN MC SEE COMMENTS Last administered on 10/29/17at 10:35; Start 10/28/17 at 02:00; Stop at 07:44; Status DC Aspirin (Ecotrin) 325 mg DAILYWBKFT PO Last administered on 10/29/17at 09:24; Start 10/28/17 at 09:30; Stop 10/29/17 at 14:52; Status DC Sodium Chloride 1,000 ml @ 50 mls/hr 1X ONCE IV Last administered on at 11:37; Start 10/28/17 at 09:30; Stop 10/29/17 at 05:29; Status DC Labetalol HCl (Normodyne Iv Push) 20 mg PRN Q2HR PRN IVP HYPERTENSION, SEE COMMENTS; Start 10/28/17 at 09:15; Stop 10/29/17 at 23:55; Status DC Magnesium Sulfate 50 ml @ 25 mls/hr 1X ONCE IV Last administered on 10/28/17at 11:29; Start 10/28/17 at 11:30; Stop 10/28/17 at 13:29; Status DC Potassium Chloride (Klor-Con) 40 meq 1X ONCE PO Last administered on 10/28/17at 16:42; Start 10/28/17 at 11:30; Stop 10/28/17 at 11:31; Status DC Furosemide (Lasix) 40 mg DAILY IVP Last administered on 10/29/17at 09:35; Start 10/29/17 at 09:00; Stop 10/29/17 at 14:54; Status DC Iodixanol (Visipaque 320) 100 ml STK-MED ONCE .ROUTE ; Start 10/28/17 at 14:04; Stop 10/28/17 at 14:05; Status DC Lidocaine HCl (Xylocaine-Mpf 1% 2ml Vial) 2 ml STK-MED ONCE .ROUTE ; Start at 14:04; Stop 10/28/17 at 14:05; Status DC Heparin Sodium/ Sodium Chloride 1,000 ml @ As Directed STK-MED ONCE .ROUTE ; Start 10/28/17 at 14:05; Stop 10/28/17 at 14:06; Status DC Fentanyl Citrate (Fentanyl 2ml Vial) 100 mcg STK-MED ONCE .ROUTE ; Start at 15:10; Stop 10/28/17 at 15:11; Status DC Midazolam HCl (Versed) 2 mg STK-MED ONCE .ROUTE ; Start 10/28/17 at 15:10; Stop 10/28/17 at 15:11; Status DC Heparin Sodium (Porcine) (Heparin Sodium) 10,000 unit STK-MED ONCE .ROUTE ; Start 10/28/17 at 15:10; Stop 10/28/17 at 15:11; Status DC Verapamil HCl (Verapamil) 5 mg STK-MED ONCE .ROUTE ; Start 10/28/17 at 15:10; Stop 10/28/17 at 15:11; Status DC Nitroglycerin (Nitroglycerin) 200 mcg STK-MED ONCE .ROUTE ; Start 10/28/17 at 15: 10; Stop 10/28/17 at 15:11; Status DC Nitroglycerin (Nitroglycerin) 200 mcg 1X ONCE IART Last administered on at 15:57; Start 10/28/17 at 16:00; Stop 10/28/17 at 16:01; Status DC Verapamil HCl (Verapamil) 2.5 mg 1X ONCE IART Last administered on 10/28/17at 15 :57; Start 10/28/17 at 16:00; Stop 10/28/17 at 16:01; Status DC Heparin Sodium (Porcine) (Heparin Sodium) 2,500 unit 1X ONCE IART Last administered on 10/28/17at 15:30; Start 10/28/17 at 16:00; Stop 10/28/17 at 16:01; Status DC Heparin Sodium/ Sodium Chloride (HEPARIN for ARTERIAL LINE FLUSH) 1,000 unit 1X ONCE IART Last administered on 10/28/17at 15:56; Start 10/28/17 at 16:00; Stop 10/28/17 at 16:01; Status DC Midazolam HCl (Versed) 2 mg 1X ONCE IV Last administered on 10/28/17 15:58; Start 10/28/17 at 16:00; Stop 10/28/17 at 16:01; Status DC Fentanyl Citrate (Fentanyl 2ml Vial) 50 mcg 1X ONCE IV Last administered on 10/28/17at 15:58; Start 10/28/17 at 16:00; Stop 10/28/17 at 16:01; Status DC Iodixanol (Visipaque 320) 65 ml 1X ONCE IART Last administered on 10/28/17at 15: 56; Start 10/28/17 at 16:00; Stop 10/28/17 at 16:01; Status DC Lidocaine HCl (Xylocaine-Mpf 1% 2ml Vial) 1 ml 1X ONCE INJ Last administered on 10/28/17at 15:57; Start 10/28/17 at 16:00; Stop 10/28/17 at 16:01; Status DC Info (CONTRAST GIVEN -- Rx MONITORING) 1 each PRN DAILY PRN MC SEE COMMENTS; Start 10/28/17 at 16:00; Stop 10/30/17 at 16:00; Status DC Metoprolol Tartrate (Lopressor) 12.5 mg BID PO Last administered on 10/29/17at 21 :01; Start 10/28/17 at 21:00; Stop 10/29/17 at 23:55; Status DC Potassium Chloride (Klor-Con) 40 meq 1X ONCE PO Last administered on 10/29/17at 09:24; Start 10/29/17 at 09:00; Stop 10/29/17 at 09:01; Status DC Alprazolam (Xanax) 0.25 mg PRN Q8HRS PRN PO ANXIETY / AGITATION Last administered on 10/29/17at 21:00; Start 10/29/17 at 09:15; Stop 10/29/17 at 22:00; Status DC Potassium Chloride 70 meq/ Sodium Bicarbonate 12.5 meq/Lidocaine HCl 24 ml/ Parenteral Electrolytes 571.5 ml @ 571.5 mls/ hr 1X ONCE IRR Last administered on 10/30/17at 10:59; Start 10/30/17 at 06:00; Stop 10/30/17 at 06:59; Status DC Potassium Chloride 15 meq/ Sodium Bicarbonate 12.5 meq/Parenteral Electrolytes 520 ml @ 520 mls/hr 1X ONCE IRR Last administered on 10/30/17at 10:59; Start at 06:00; Stop 10/30/17 at 06:59; Status DC Heparin Sodium (Porcine) 27827 unit/Ringer's Solution 1,020 ml @ 1,020 mls/hr 1X ONCE IRR Last administered on 10/30/17at 08:58; Start 10/30/17 at 06:00; Stop 10/30/17 at 06:59; Status DC Heparin Sodium (Porcine) 800 unit/ Nitroglycerin 4 mg/Verapamil HCl 8 mg/Sodium Bicarbonate 0.34 meq/Ringer's Solution 512.34 ml @ 512.34 mls/hr 1X ONCE IRR ; Start 10/30/17 at 06:00; Stop 10/30/17 at 06:59; Status DC Ondansetron HCl (Zofran) 4 mg PRN Q6HRS PRN IV NAUSEA/VOMITING; Start 10/30/17 at 07:00; Stop 10/31/17 at 06:59; Status DC Fentanyl Citrate (Fentanyl 2ml Vial) 25 mcg PRN Q5MIN PRN IV MILD PAIN; Start 10/30/17 at 07:00; Stop 10/31/17 at 06:59; Status DC Fentanyl Citrate (Fentanyl 2ml Vial) 50 mcg PRN Q5MIN PRN IV MODERATE TO SEVERE PAIN; Start 10/30/17 at 07:00; Stop 10/31/17 at 06:59; Status DC Morphine Sulfate (Morphine Sulfate) 1 mg PRN Q10MIN PRN IV SEVERE PAIN; Start 10/30/17 at 07:00; Stop 10/31/17 at 06:59; Status DC Ringer's Solution 1,000 ml @ 30 mls/hr Q24H IV Last administered on 10/30/17at 17:12; Start 10/30/17 at 07:00; Stop 10/30/17 at 18:59; Status DC Lidocaine HCl (Xylocaine-Mpf 1% 2ml Vial) 2 ml PRN 1X PRN ID IV START; Start at 07:00; Stop 10/31/17 at 06:59; Status DC Hydromorphone HCl (Dilaudid) 0.5 mg PRN Q10MIN PRN IV SEV PAIN, Second choice; Start 10/30/17 at 07:00; Stop 10/31/17 at 06:59; Status DC Prochlorperazine Edisylate (Compazine) 5 mg PACU PRN PRN IV NAUSEA, MRX1; Start 10/30/17 at 07:00; Stop 10/31/17 at 06:59; Status DC Cefazolin Sodium 1 gm/Sodium Chloride 500 ml @ 500 mls/hr 1X ONCE IRR Last administered on 10/30/17at 08:58; Start 10/30/17 at 06:00; Stop 10/30/17 at 06:59; Status DC Etomidate (Amidate) 20 mg STK-MED ONCE IV ; Start 10/30/17 at 06:08; Stop at 06:09; Status DC Lidocaine HCl (Lidocaine Pf 2% Vial) 5 ml STK-MED ONCE .ROUTE ; Start 10/30/17 at 06:08; Stop 10/30/17 at 06:09; Status DC Rocuronium [place] (Zemuron) 100 mg STK-MED ONCE .ROUTE ; Start 10/30/17 at 06:08 ; Stop 10/30/17 at 06:09; Status DC Phenylephrine HCl (Rui-Synephrine Inj) 10 mg STK-MED ONCE .ROUTE ; Start at 06:09; Stop 10/30/17 at 06:10; Status DC Ephedrine Sulfate (ePHEDrine PF IN SALINE SYRINGE) 50 mg STK-MED ONCE IV ; Start 10/30/17 at 06:09; Stop 10/30/17 at 06:10; Status DC Heparin Sodium (Porcine) 30,000 unit STK-MED ONCE .ROUTE ; Start 10/30/17 at 06: 09; Stop 10/30/17 at 06:10; Status DC Aminocaproic Acid (Amicar) 5,000 mg STK-MED ONCE IV ; Start 10/30/17 at 06:09; Stop 10/30/17 at 06:10; Status DC Nitroglycerin/ Dextrose 250 ml @ As Directed STK-MED ONCE IV ; Start 10/30/17 at 06:09; Stop 10/30/17 at 06:10; Status DC Midazolam HCl (Versed) 2 mg STK-MED ONCE .ROUTE ; Start 10/30/17 at 06:11; Stop 10/30/17 at 06:12; Status DC Sufentanil Citrate (Sufenta) 100 mcg STK-MED ONCE .ROUTE ; Start 10/30/17 at 06: 11; Stop 10/30/17 at 06:12; Status DC Lidocaine HCl (Xylocaine-Mpf 2% Vial) 2 ml STK-MED ONCE .ROUTE ; Start 10/30/17 at 07:05; Stop 10/30/17 at 07:06; Status DC Vancomycin HCl (VANCO for OR ONLY) 10 gm STK-MED ONCE .ROUTE Last administered on 10/30/17at 08:58; Start 10/30/17 at 06:06; Stop 10/30/17 at 07:06; Status DC Cellulose (Surgicel Hemostat 4x8) 1 each STK-MED ONCE .ROUTE Last administered on 10/30/17at 08:58; Start 10/30/17 at 06:06; Stop 10/30/17 at 07:06; Status DC Papaverine HCl 60 mg STK-MED ONCE .ROUTE Last administered on 10/30/17at 08:58; Start 10/30/17 at 06:06; Stop 10/30/17 at 07:07; Status DC Aspirin (Aspirin) 300 mg STK-MED ONCE .ROUTE Last administered on 10/30/17at 15: 59; Start 10/30/17 at 06:06; Stop 10/30/17 at 07:07; Status DC Sodium Chloride (SODIUM CHLORIDE 20ml) 20 ml STK-MED ONCE IJ Last administered on 10/30/17at 08:58; Start 10/30/17 at 06:06; Stop 10/30/17 at 07:07; Status DC Sodium Chloride (SODIUM CHLORIDE 20ml) 20 ml STK-MED ONCE IJ Last administered on 10/30/17at 08:58; Start 10/30/17 at 06:06; Stop 10/30/17 at 07:07; Status DC Sodium Chloride (SODIUM CHLORIDE 20ml) 20 ml STK-MED ONCE IJ Last administered on 10/30/17at 08:58; Start 10/30/17 at 06:07; Stop 10/30/17 at 07:07; Status DC Cefazolin Sodium/ Dextrose 50 ml @ 100 mls/hr 1X PREOP PRN IV PRIOR TO SURGERY Last administered on 10/30/17at 08:13; Start 10/30/17 at 08:15; Stop at 13:38; Status DC Rocuronium [place] (Zemuron) 100 mg STK-MED ONCE .ROUTE ; Start 10/30/17 at 08:19 ; Stop 10/30/17 at 08:20; Status DC Sufentanil Citrate (Sufenta) 100 mcg STK-MED ONCE .ROUTE ; Start 10/30/17 at 08: 19; Stop 10/30/17 at 08:20; Status DC Isoflurane (Isoflurane) 90 ml STK-MED ONCE IH ; Start 10/30/17 at 08:22; Stop 10/30/17 at 08:23; Status DC Midazolam HCl (Versed) 2 mg STK-MED ONCE .ROUTE ; Start 10/30/17 at 08:55; Stop 10/30/17 at 08:56; Status DC Cefazolin Sodium/ Dextrose 50 ml @ 100 mls/hr 1X ONCE IV Last administered on 10/30/17at 13:45; Start 10/30/17 at 10:45; Stop 10/30/17 at 11:14; Status DC Epinephrine HCl 4 mg/Sodium Chloride 254 ml @ 3.81 mls/hr 1X ONCE IV Last administered on 10/30/17at 17:14; Start 10/30/17 at 10:45; Stop 11/02/17 at 05:24; Status DC Norepinephrine Bitartrate 250 ml @ 1.875 mls/ hr 1X ONCE IV Last administered on 10/30/17at 17:14; Start 10/30/17 at 10:45; Stop 11/05/17 at 00:04; Status DC Midazolam HCl (Versed) 2 mg STK-MED ONCE .ROUTE ; Start 10/30/17 at 11:03; Stop 10/30/17 at 11:04; Status DC Protamine Sulfate (Protamine) 50 mg STK-MED ONCE IV ; Start 10/30/17 at 11:19; Stop 10/30/17 at 11:20; Status DC Protamine Sulfate (Protamine) 250 mg STK-MED ONCE IV ; Start 10/30/17 at 11:19; Stop 10/30/17 at 11:20; Status DC Midazolam HCl (Versed) 5 mg STK-MED ONCE .ROUTE ; Start 10/30/17 at 11:54; Stop 10/30/17 at 11:55; Status DC Propofol 20 ml @ As Directed STK-MED ONCE IV ; Start 10/30/17 at 12:36; Stop 10/30 at 12:37; Status DC Ringer's Solution 1,000 ml @ 30 mls/hr Q24H IV Last administered on 11/02/17at 04:50; Start 10/30/17 at 13:00; Stop 11/03/17 at 10:47; Status DC Albumin Human 250 ml @ 60 mls/hr PRN Q4HRS PRN IV SEE I/O RECORD Last administered on 10/31/17at 10:49; Start 10/30/17 at 13:00; Stop 11/03/17 at 10:47; Status DC Insulin Human Regular 150 unit/ Sodium Chloride 151.5 ml @ 0 mls/hr CONT PRN PRN IV SEE I/O RECORD Last administered on 10/31/17at 15:36; Start 10/30/17 at 13: 00; Stop 11/03/17 at 10:47; Status DC Dextrose (Dextrose 50%-Water Syringe) 25 gm PRN Q15MIN PRN IV LOW BLOOD SUGAR; Start 10/30/17 at 13:00 Info (Icu Electrolyte Protocol) 1 ea CONT PRN PRN MC SEE COMMENTS; Start at 13:00; Stop 11/03/17 at 10:48; Status DC Magnesium Sulfate/ Dextrose 100 ml @ 100 mls/hr PRN DAILY PRN IV FOR MAG < 2.2 Last administered on 10/30/17at 18:10; Start 10/30/17 at 13:00 Famotidine (Pepcid Vial) 20 mg BID IVP Last administered on 10/31/17at 07:48; Start 10/30/17 at 14:00; Stop 10/31/17 at 14:38; Status DC Ondansetron HCl (Zofran) 4 mg PRN Q4HRS PRN IV NAUSEA/VOMITING 1ST CHOIC; Start 10/30/17 at 13:00 Prochlorperazine Edisylate (Compazine) 10 mg PRN Q6HRS PRN IV NAUSEA/VOMITING 2ND CHOICE; Start 10/30/17 at 13:00 Morphine Sulfate (Morphine Sulfate) 2 mg PRN Q1HR PRN IV MODERATE PAIN Last administered on 10/31/17at 01:19; Start 10/30/17 at 13:00 Acetaminophen (Tylenol) 650 mg PRN Q4HRS PRN PO MILD PAIN / TEMP Last administered on 11/03/17at 09:11; Start 10/30/17 at 13:00 Acetaminophen (Tylenol Supp) 650 mg PRN Q4HRS PRN TX MILD PAIN / TEMP; Start at 13:00; Stop 11/03/17 at 10:48; Status DC Meperidine HCl (Demerol) 12.5 mg PRN Q15MIN PRN IV SHIVERING; Start 10/30/17 at 13:00; Stop 10/31/17 at 13:00; Status DC Propofol 100 ml @ 0 mls/hr CONT PRN PRN IV POSTOP SEDATION UNTIL EXTUBATE Last administered on 10/30/17at 17:11; Start 10/30/17 at 13:00; Stop 10/31/17 at 15:11; Status DC Senna/Docusate Sodium (Senna Plus) 1 tab BID PO Last administered on 11/04/17at 20:03; Start 10/30/17 at 21:00 Bisacodyl (Dulcolax Supp) 10 mg PRN DAILY PRN TX NO BOWEL MOVEMENT; Start at 13:00 Chlorhexidine Gluconate (Peridex) 15 ml BID MM ; Start 10/30/17 at 21:00; Stop at 21:52; Status DC Aspirin (Ecotrin) 325 mg DAILYWBKFT PO Last administered on 11/04/17at 08:25; Start 10/31/17 at 08:00 Aspirin (Aspirin) 300 mg PRN DAILY PRN TX IF UNABLE TO TAKE PO; Start 10/30/17 at 13:00 Albuterol Sulfate (Ventolin Neb Soln) 2.5 mg PRN Q4HRS PRN NEB SHORTNESS OF BREATH Last administered on 11/01/17at 05:41; Start 10/30/17 at 13:00 Metoprolol Tartrate (Lopressor) 25 mg BID PO ; Start 10/31/17 at 09:00; Stop 10/31 at 11:26; Status DC Nicardipine HCl 50 mg/Sodium Chloride 270 ml @ 0 mls/hr CONT PRN PRN IV PER PROTOCOL; Start 10/30/17 at 13:00; Stop 11/03/17 at 10:48; Status DC Oxycodone/ Acetaminophen (Percocet 5/325) 1 tab PRN Q4HRS PRN PO MODERATE PAIN Last administered on 11/01/17at 04:48; Start 10/30/17 at 13:00 Oxycodone/ Acetaminophen (Percocet 5/325) 2 tab PRN Q4HRS PRN PO SEVERE PAIN Last administered on 10/31/17at 21:12; Start 10/30/17 at 13:00 Cefazolin Sodium/ Dextrose 50 ml @ 100 mls/hr Q8H IV Last administered on at 04:16; Start 10/30/17 at 20:00; Stop 11/01/17 at 04:29; Status DC Polyethylene Glycol (miraLAX PACKET) 17 gm DAILYWSUP PO Last administered on 11/02/17at 17:00; Start 10/31/17 at 17:00 Alprazolam (Xanax) 0.25 mg PRN Q8HRS PRN PO ANXIETY / AGITATION Last administered on 11/03/17at 09:11; Start 10/30/17 at 13:00 Heparin Sodium (Porcine) (Heparin Sodium) 10,000 unit Photorank-MED ONCE .ROUTE ; Start 10/30/17 at 13:36; Stop 10/30/17 at 13:37; Status DC Lidocaine HCl (Lidocaine Pf 2% Vial) 5 ml STK-MED ONCE .ROUTE ; Start 10/30/17 at 13:36; Stop 10/30/17 at 13:37; Status DC Magnesium Sulfate 5 gm STK-MED ONCE .ROUTE ; Start 10/30/17 at 13:36; Stop at 13:37; Status DC Heparin Sodium (Porcine) 30,000 unit STK-MED ONCE .ROUTE ; Start 10/30/17 at 13: 36; Stop 10/30/17 at 13:37; Status DC Mannitol (Mannitol) 12.5 g STK-MED ONCE .ROUTE ; Start 10/30/17 at 13:36; Stop at 13:37; Status DC Albumin Human 100 ml @ As Directed STK-MED ONCE IV ; Start 10/30/17 at 13:36; Stop 10/30/17 at 13:37; Status DC Calcium Chloride (Calcium Chloride) 1,000 mg STK-MED ONCE .ROUTE ; Start at 13:36; Stop 10/30/17 at 13:37; Status DC Sodium Bicarbonate (Sodium Bicarb Adult 8.4% Syr) 50 meq STK-MED ONCE .ROUTE ; Start 10/30/17 at 13:36; Stop 10/30/17 at 13:37; Status DC Heparin Sodium (Porcine) 30,000 unit STK-MED ONCE .ROUTE ; Start 10/30/17 at 13: 38; Stop 10/30/17 at 13:39; Status DC Milrinone Lactate (Primacor) 10 mg STK-MED ONCE IV ; Start 10/30/17 at 13:43; Stop 10/30/17 at 13:44; Status DC Milrinone Lactate/ Dextrose 100 ml @ As Directed STK-MED ONCE IV ; Start at 13:43; Stop 10/30/17 at 13:44; Status DC Epinephrine HCl (EPINEPHrine SYRINGE) 1 mg STK-MED ONCE .ROUTE ; Start 10/30/17 at 13:53; Stop 10/30/17 at 13:54; Status DC Heparin Sodium (Porcine) (Heparin Sodium) 10,000 unit STK-MED ONCE .ROUTE ; Start 10/30/17 at 14:02; Stop 10/30/17 at 14:03; Status DC Midazolam HCl (Versed) 2 mg STK-MED ONCE .ROUTE ; Start 10/30/17 at 14:10; Stop 10/30/17 at 14:11; Status DC Esmolol HCl (Brevibloc) 100 mg STK-MED ONCE IV ; Start 10/30/17 at 14:20; Stop at 14:21; Status DC Protamine Sulfate (Protamine) 50 mg STK-MED ONCE IV ; Start 10/30/17 at 14:44; Stop 10/30/17 at 14:45; Status DC Protamine Sulfate (Protamine) 250 mg STK-MED ONCE IV ; Start 10/30/17 at 14:44; Stop 10/30/17 at 14:45; Status DC Mannitol (Mannitol) 12.5 g STK-MED ONCE .ROUTE ; Start 10/30/17 at 14:53; Stop at 14:54; Status DC Calcium Chloride (Calcium Chloride) 1,000 mg STK-MED ONCE .ROUTE ; Start at 14:53; Stop 10/30/17 at 14:54; Status DC Sodium Bicarbonate (Sodium Bicarb Adult 8.4% Syr) 50 meq STK-MED ONCE .ROUTE ; Start 10/30/17 at 14:53; Stop 10/30/17 at 14:54; Status DC Heparin Sodium (Porcine) (Heparin Sodium) 10,000 unit STK-MED ONCE .ROUTE ; Start 10/30/17 at 14:54; Stop 10/30/17 at 14:55; Status DC Albumin Human 500 ml @ As Directed STK-MED ONCE IV ; Start 10/30/17 at 14:57; Stop 10/30/17 at 14:58; Status DC Albumin Human 500 ml @ As Directed STK-MED ONCE IV ; Start 10/30/17 at 15:16; Stop 10/30/17 at 15:17; Status DC Sodium Bicarbonate (Sodium Bicarb Adult 8.4% Syr) 50 meq STK-MED ONCE .ROUTE ; Start 10/30/17 at 15:24; Stop 10/30/17 at 15:25; Status DC Amiodarone HCl 900 mg/Dextrose 518 ml @ 33 mls/hr CONT PRN IV SEE I/O RECORD; Start 10/30/17 at 15:45; Stop 10/31/17 at 15:11; Status DC Sodium Bicarbonate (Sodium Bicarb Adult 8.4% Syr) 50 meq 1X ONCE IV Last administered on 10/30/17at 17:03; Start 10/30/17 at 17:00; Stop 10/30/17 at 17:01; Status DC Sodium Bicarbonate (Sodium Bicarb Adult 8.4% Syr) 50 meq 1X ONCE IV Last administered on 10/30/17at 17:04; Start 10/30/17 at 17:00; Stop 10/30/17 at 17:01; Status DC Sodium Bicarbonate (Sodium Bicarb Adult 8.4% Syr) 50 meq 1X ONCE IV ; Start 10/30/17 at 17:00; Stop 10/30/17 at 17:01; Status DC Sodium Bicarbonate (Sodium Bicarb Adult 8.4% Syr) 50 meq 1X ONCE IV ; Start 10/30/17 at 17:00; Stop 10/30/17 at 17:01; Status DC Potassium Chloride/Water 50 ml @ 50 mls/hr Q1H IV Last administered on at 19:12; Start 10/30/17 at 18:00; Stop 10/30/17 at 19:59; Status DC Potassium Chloride/Water 50 ml @ 50 mls/hr 1X ONCE IV Last administered on 10/30at 21:44; Start 10/30/17 at 21:45; Stop 10/30/17 at 22:44; Status DC Magnesium Sulfate/ Dextrose 100 ml @ 100 mls/hr 1X ONCE IV Last administered on 10/31/17at 06:37; Start 10/31/17 at 06:45; Stop 10/31/17 at 07:44; Status DC Furosemide (Lasix) 40 mg 1X ONCE IVP Last administered on 10/31/17at 09:32; Start 10/31/17 at 09:15; Stop 10/31/17 at 09:23; Status DC Albuterol Sulfate (Ventolin Neb Soln) 2.5 mg RTQID NEB Last administered on 01/11at 19:59; Start 10/31/17 at 10:00 Furosemide (Lasix) 40 mg BID92 IVP Last administered on 10/31/17at 15:40; Start 10/31/17 at 14:00; Stop 10/31/17 at 17:51; Status DC Amiodarone HCl (Cordarone) 200 mg BID PO Last administered on 11/04/17at 20:03; Start 10/31/17 at 15:00 Famotidine (Pepcid) 20 mg BID PO Last administered on 11/01/17at 08:41; Start 10/31/17 at 21:00; Stop 11/01/17 at 15:42; Status DC Hydromorphone HCl (Dilaudid) 0.2 mg PRN Q4HRS PRN IVP SEVERE PAIN; Start at 15:15 Epinephrine HCl 4 mg/Sodium Chloride 254 ml @ 0 mls/hr CONT PRN IV SEE I/O RECORD Last administered on 10/31/17at 15:48; Start 10/31/17 at 15:30; Stop at 10:48; Status DC Furosemide (Lasix) 40 mg TID IVP Last administered on 11/03/17at 09:09; Start at 21:00; Stop 11/03/17 at 10:22; Status DC Famotidine (Pepcid) 20 mg DAILYAC PO Last administered on 11/04/17at 08:26; Start 11/02/17 at 07:30 Magnesium Sulfate/ Dextrose 100 ml @ 100 mls/hr 1X ONCE IV Last administered on 11/02/17at 07:24; Start 11/02/17 at 06:15; Stop 11/02/17 at 07:14; Status DC Potassium Chloride/Water 50 ml @ 50 mls/hr Q1H IV Last administered on at 07:23; Start 11/02/17 at 06:30; Stop 11/02/17 at 08:29; Status DC Atorvastatin Calcium (Lipitor) 40 mg QHS PO Last administered on 11/04/17at 20: 03; Start 11/02/17 at 21:00 Potassium Chloride/Water 50 ml @ 50 mls/hr Q1H IV Last administered on at 09:45; Start 11/03/17 at 08:00; Stop 11/03/17 at 09:59; Status DC Magnesium Sulfate/ Dextrose 100 ml @ 100 mls/hr 1X ONCE IV Last administered on 11/03/17at 09:11; Start 11/03/17 at 07:45; Stop 11/03/17 at 08:44; Status DC Furosemide (Lasix) 40 mg DAILY IVP ; Start 11/04/17 at 09:00; Stop 11/04/17 at 09:00; Status DC Furosemide (Lasix) 40 mg DAILY PO ; Start 11/04/17 at 12:00 Vitals/I & O Vital Sign - Last 24 Hours 11/04/17 11/04/17 11/04/17 11/04/17 08:25 10:33 12:32 15:43 Temp 98.2 98.2 Pulse 85 92 Resp 20 B/P (MAP) 116/68 101/57 (72) Pulse Ox 94 100 O2 Delivery Room Air Room Air Room Air 11/04/17 11/04/17 11/04/17 11/04/17 16:25 19:21 20:01 20:03 Temp 98.4 98.4 Pulse 98 98 Resp 16 B/P (MAP) 109/61 (77) 109/61 Pulse Ox 93 95 O2 Delivery Room Air Room Air Room Air 11/04/17 11/04/17 11/05/17 21:00 22:39 03:22 Temp 99.0 98.4 99.0 98.4 Pulse 92 92 Resp 16 16 B/P (MAP) 109/65 (80) 100/58 (72) Pulse Ox 98 92 O2 Delivery Room Air Room Air Room Air Intake and Output 11/04/17 11/04/17 11/05/17 15:00 23:00 07:00 Intake Total 240 ml 500 ml 800 ml Output Total 450 ml 600 ml Balance 240 ml 50 ml 200 ml CASTLE,NIAL K III DO Nov 05, 2017 07:12
[2017-11-05] MEDS: ALBUTEROL SULFATE 2.5 MG/3 ML NEBU. NEB SCH ×5 (07:38→19:35)
[2017-11-05] MEDS: FAMOTIDINE 20 MG TABLET. PO SCH (08:20)
[2017-11-05] MEDS: SENNOSIDES/DOCUSATE 8.6/50MG TABLET. PO SCH ×2 (08:20→19:25)
[2017-11-05] MEDS: ASPIRIN ENTERIC COATED 325 MG TABLET.DR. PO SCH (08:20)
[2017-11-05] MEDS: AMIODARONE HCL 200 MG TABLET. PO SCH ×2 (08:21→19:24)
--- NOTE | 2017-11-05 08:48 | RAD ---
Portable chest, 11/05/2017: HISTORY: Postop CABG with effusions Comparison is made to a study from 11/04/2017. The heart is mildly enlarged. The pulmonary vascularity is normal. There are bilateral pleural effusions which appear to have worsened slightly. There is mild underlying bibasilar atelectasis. The tiny right pneumothorax has nearly completely resolved. IMPRESSION: Increasing small to moderate bilateral pleural effusions with underlying bibasilar atelectasis. Electronically signed by: Will Joaquin MD (11/05/2017 8:45 AM) [facility]
[2017-11-05] MEDS: FUROSEMIDE 40 MG TABLET. PO SCH (09:00)
--- NOTE | 2017-11-05 10:01 | PDOC ---
LORIRAMSES M LINSEED OIL TEMPERER 11/05/17 1001: CARDIO Progress Notes Date and Time Date of Service 11/05/2017 Time of Evaluation 1000 Subjective Subjective: No Chest Pain, No shortness of breath, No Palpitations, No Dizziness, Other (Rt groin drainage) Vitals Vitals Vital Signs Date Time Temp Pulse Resp B/P (MAP) Pulse Ox O2 Delivery O2 Flow Rate FiO2 11/05/17 08:21 91 115/66 11/05/17 07:44 Room Air 11/05/17 07:38 93 11/05/17 07:25 98.4 18 98.4 Weight Weight [ ] Input and Output Intake and Output Intake and Output 11/05/17 07:00 Intake Total 1540 ml Output Total 1050 ml Balance 490 ml Intake Oral 1540 ml Output Urine Total 1050 ml Laboratory Labs Laboratory Tests Test 11/05/17 03:50 White Blood Count 8.9 x10^3/uL (4.0-11.0) Red Blood Count 2.69 x10^6/uL (4.30-5.70) Hemoglobin 9.2 g/dL (13.0-17.5) Hematocrit 26.7 % (39.0-53.0) Mean Corpuscular Volume 99 fL (79-100) Mean Corpuscular Hemoglobin 34 pg (25-35) Mean Corpuscular Hemoglobin Concent 35 g/dL (31-37) Red Cell Distribution Width 15.2 % (11.5-14.5) Platelet Count 232 x10^3/uL (140-400) Neutrophils (%) (Auto) 64 % (31-73) Lymphocytes (%) (Auto) 19 % (24-48) Monocytes (%) (Auto) 14 % (0-9) Eosinophils (%) (Auto) 3 % (0-3) Basophils (%) (Auto) 0 % (0-3) Neutrophils # (Auto) 5.7 x10^3uL (1.8-7.7) Lymphocytes # (Auto) 1.6 x10^3/uL (1.0-4.8) Monocytes # (Auto) 1.2 x10^3/uL (0.0-1.1) Eosinophils # (Auto) 0.3 x10^3/uL (0.0-0.7) Basophils # (Auto) 0.0 x10^3/uL (0.0-0.2) Sodium Level 132 mmol/L (136-145) Potassium Level 3.7 mmol/L (3.5-5.1) Chloride Level 100 mmol/L (98-107) Carbon Dioxide Level 23 mmol/L (21-32) Anion Gap 9 (6-14) Blood Urea Nitrogen 35 mg/dL (8-26) Creatinine 1.9 mg/dL (0.7-1.3) Estimated GFR (Cockcroft-Gault) 36.1 Glucose Level 93 mg/dL (70-99) Calcium Level 8.0 mg/dL (8.5-10.1) Review of Systems Constitutional: yes: weakness, alert, oriented Ears/Nose/Throat: Yes: no symptom reported Eyes: Yes: no symptom reported Pulmonary: Yes no symptom reported Cardiovascular: Yes edema Gastrointestional: Yes: no symptom reported Genitourinary: Yes: no symptom reported Musculoskeletal: Yes: muscle stiffness Skin: Yes no symptom reported Psychiatric/Neurological: Yes: no symptom reported Endocrine: Yes: no symptom reported Physical Exam HEENT: Neck Supple W Full Motion Chest: Symmetric LUNGS: Other (diminished in bases) Heart: S1S2, RRR, no murmurs, other (tele: SR) Abdomen: Soft N/T Extremities: Other (2-3+ bilateral LE edema) Neurology: alert, oriented, follow commands Assessment Assessment 1. NSTEMI --troponin peaked @ 2.4 --s/p CABG X x 4: free TUCKER to LAD, SVG to LPL, SVG to diagonal, SVG to RPDA --management per CTS; ASA and statins; hold BB due to hypotension; amiodarone for afib prophylaxis --mobilize; daily shower 2. ischemic cardiomyopathy --LVEF 20-25% pre-op --LVEF remains ~ 25% on TTE repeated 11/04/2017; have discussed potential LifeVest with patient and provided with written information; he will think about it --no BB due to low normotensive BP and hold ACEI due to renal function 3. HTN --controlled with meds 4. HLD --statin therapy 5. Emphysema with persistent tobacco abuse --CT demonstrates emphysema --cessation advised 6. moderate REIA and JEROME disease 7. acute blood loss anemia, post-operative, expectant --Hgb stable 8. IVAN, post-operative --per nephrology KT KIRKPATRICK MD 11/05/17 2238: CARDIO Progress Notes Plan Plan Pt. seen and examined. Agree with above INDUSTRIAL GAS FITTER note. RAMSES SANDOVAL APRN Nov 05, 2017 10:01 KT KIRKPATRICK MD Nov 05, 2017 22:38
--- NOTE | 2017-11-05 13:08 | PDOC ---
Renal-Progress Notes Subjective Notes Notes NONE History of Present Illness Hx of present illness STABLE Vitals Vitals Vital Signs Date Time Temp Pulse Resp B/P (MAP) Pulse Ox O2 Delivery O2 Flow Rate FiO2 11/05/17 11:31 95 Room Air 11/05/17 10:34 98.9 97 18 104/59 (74) 98.9 Weight Weight [ ] I.O. Intake and Output Intake and Output 11/05/17 07:00 Intake Total 1540 ml Output Total 1050 ml Balance 490 ml Intake Oral 1540 ml Output Urine Total 1050 ml Labs Labs Laboratory Tests Test 11/05/17 03:50 White Blood Count 8.9 x10^3/uL (4.0-11.0) Red Blood Count 2.69 x10^6/uL (4.30-5.70) Hemoglobin 9.2 g/dL (13.0-17.5) Hematocrit 26.7 % (39.0-53.0) Mean Corpuscular Volume 99 fL (79-100) Mean Corpuscular Hemoglobin 34 pg (25-35) Mean Corpuscular Hemoglobin Concent 35 g/dL (31-37) Red Cell Distribution Width 15.2 % (11.5-14.5) Platelet Count 232 x10^3/uL (140-400) Neutrophils (%) (Auto) 64 % (31-73) Lymphocytes (%) (Auto) 19 % (24-48) Monocytes (%) (Auto) 14 % (0-9) Eosinophils (%) (Auto) 3 % (0-3) Basophils (%) (Auto) 0 % (0-3) Neutrophils # (Auto) 5.7 x10^3uL (1.8-7.7) Lymphocytes # (Auto) 1.6 x10^3/uL (1.0-4.8) Monocytes # (Auto) 1.2 x10^3/uL (0.0-1.1) Eosinophils # (Auto) 0.3 x10^3/uL (0.0-0.7) Basophils # (Auto) 0.0 x10^3/uL (0.0-0.2) Sodium Level 132 mmol/L (136-145) Potassium Level 3.7 mmol/L (3.5-5.1) Chloride Level 100 mmol/L (98-107) Carbon Dioxide Level 23 mmol/L (21-32) Anion Gap 9 (6-14) Blood Urea Nitrogen 35 mg/dL (8-26) Creatinine 1.9 mg/dL (0.7-1.3) Estimated GFR (Cockcroft-Gault) 36.1 Glucose Level 93 mg/dL (70-99) Calcium Level 8.0 mg/dL (8.5-10.1) Review of Systems Constitutional: yes: weakness, alert, oriented Ears/Nose/Throat: Yes: no symptom reported Eyes: Yes: no symptom reported Pulmonary: Yes no symptom reported Cardiovascular: Yes edema Gastrointestional: Yes: no symptom reported Genitourinary: Yes: no symptom reported Musculoskeletal: Yes: muscle stiffness Skin: Yes no symptom reported Psychiatric/Neurological: Yes: no symptom reported Endocrine: Yes: no symptom reported Physical Exam General Appearance: no apparent distress Skin: warm Heart: S1S2 Abdomen: soft Genitourinary: bladder flat Extremities: edema Neurology: alert, oriented, follow commands Assessment Assessment IMP IVAN-ATN-CR STABLE AT 1.9 S/P CABG EDEMA DECONDITIONING PLAN PO LASIX LABS IN AM INCREASE ACTIVITY MAY TAKE SOME TIME FOR CR TO RETURN TO NL BUT EXPECT COMPLETE RECOVERY DENIZ MCDONALD MD Nov 05, 2017 13:08
[2017-11-05] MEDS ORDERED: LIDOCAINE 1% Multi-Dose 20 ML VIAL. INJ ONE (13:45)
--- NOTE | 2017-11-05 14:35 | EKG ---
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
--- NOTE | 2017-11-05 14:48 | PDOC ---
Progress Note Subjective Subjective Progressing well. On room air. Normotensive and NSR. Creatinine stable at 1,9. CXR shows bilateral pleural effusions. Drainage from right thigh harvest site, through small epidermal gaping, moderate edema, on 40mg po lasix with good response. ECHO noted. Patient ambulating independently, therefore he is not a candidate for rehab ROS ROS No nausea No vomiting No pain No rash Vital Sign Vital Signs Vital Signs Date Time Temp Pulse Resp B/P (MAP) Pulse Ox O2 Delivery O2 Flow Rate FiO2 11/05/17 11:31 95 Room Air 11/05/17 10:34 98.9 97 18 104/59 (74) 98.9 Labs Lab Laboratory Tests Test 11/05/17 03:50 White Blood Count 8.9 x10^3/uL (4.0-11.0) Red Blood Count 2.69 x10^6/uL (4.30-5.70) Hemoglobin 9.2 g/dL (13.0-17.5) Hematocrit 26.7 % (39.0-53.0) Mean Corpuscular Volume 99 fL (79-100) Mean Corpuscular Hemoglobin 34 pg (25-35) Mean Corpuscular Hemoglobin Concent 35 g/dL (31-37) Red Cell Distribution Width 15.2 % (11.5-14.5) Platelet Count 232 x10^3/uL (140-400) Neutrophils (%) (Auto) 64 % (31-73) Lymphocytes (%) (Auto) 19 % (24-48) Monocytes (%) (Auto) 14 % (0-9) Eosinophils (%) (Auto) 3 % (0-3) Basophils (%) (Auto) 0 % (0-3) Neutrophils # (Auto) 5.7 x10^3uL (1.8-7.7) Lymphocytes # (Auto) 1.6 x10^3/uL (1.0-4.8) Monocytes # (Auto) 1.2 x10^3/uL (0.0-1.1) Eosinophils # (Auto) 0.3 x10^3/uL (0.0-0.7) Basophils # (Auto) 0.0 x10^3/uL (0.0-0.2) Sodium Level 132 mmol/L (136-145) Potassium Level 3.7 mmol/L (3.5-5.1) Chloride Level 100 mmol/L (98-107) Carbon Dioxide Level 23 mmol/L (21-32) Anion Gap 9 (6-14) Blood Urea Nitrogen 35 mg/dL (8-26) Creatinine 1.9 mg/dL (0.7-1.3) Estimated GFR (Cockcroft-Gault) 36.1 Glucose Level 93 mg/dL (70-99) Calcium Level 8.0 mg/dL (8.5-10.1) Objective Assessment POD#6, s/p CABG x 4 (TUCKER to LAD, SVG to LPL, SVG to diag, SVG to RPDA). Severe ischemic cardiomyopathy with EF 20% Progressing well. On room air. Normotensive and NSR. Creatinine stable at 1,9. CXR shows bilateral pleural effusions. Drainage from right thigh harvest site through small epidermal gaping, moderate edema, on 40mg po lasix with good response. ECHO noted. Patient ambulating independently, therefore he is not a candidate for rehab Plan Plan of Care Bilateral U/s guided thoracentesis Leg wound stiched and dermamond applied to close epidermal gaping and prevent any further interstitial fluid and hematoma drainage. Will start Keflex 200mg BID for leg wound Amiodarone po 200 mg twice a day for a fib prophylaxis D/c home once renal function stabilizes, pleural effusions are drained and is more euvolemic SHAY HARRIS MD Nov 05, 2017 14:48
[2017-11-05] MEDS: CEPHALEXIN 250 MG CAPSULE. PO SCH ×2 (15:32→19:24)
--- NOTE | 2017-11-05 15:52 | RAD ---
Right chest ultrasound, 11/05/2017: HISTORY: Pleural effusion The right lower chest was carefully scanned. There is a moderate volume of right-sided pleural fluid. Electronically signed by: Will Joaquin MD (11/05/2017 3:48 PM) [facility]
[2017-11-05] MEDS: POLYETHYLENE GLYCOL 3350 17 GM PACKET. PO SCH (17:00)
[2017-11-05] MEDS: ATORVASTATIN CALCIUM 40 MG TABLET. PO SCH (19:23)
[2017-11-06] VITALS (9 sets, daily range): BP systolic 97–125; BP diastolic 55–71
[2017-11-06 05:13] LABS: BASO # 0.1 x10^3/uL (0.0-0.2); BASO % 1 % (0-3); EOS # 0.2 x10^3/uL (0.0-0.7); EOS % 2 % (0-3); HEMATOCRIT 25.6 % (39.0-53.0); HEMOGLOBIN 8.8 g/dL (13.0-17.5); LYMPH # 1.3 x10^3/uL (1.0-4.8); LYMPH % 15 % (24-48); MEAN CORPUSCULAR HEMOGLOBIN 34 pg (25-35); MEAN CORPUSCULAR HGB CONC 35 g/dL (31-37); MEAN CORPUSCULAR VOLUME 98 fL (79-100); MONO # 1.1 x10^3/uL (0.0-1.1); MONO % 13 % (0-9); NEUT % 69 % (31-73); PLATELET COUNT 294 x10^3/uL (140-400); RED CELL DISTRIBUTION WIDTH 15.5 % (11.5-14.5); WHITE BLOOD COUNT 8.7 x10^3/uL (4.0-11.0)
[2017-11-06 05:47] LABS: CALCIUM 8.1 mg/dL (8.5-10.1); CREATININE 1.5 mg/dL (0.7-1.3); GFR 47.4; POTASSIUM 4.3 mmol/L (3.5-5.1)
[2017-11-06] MEDS: ALBUTEROL SULFATE 2.5 MG/3 ML NEBU. NEB SCH ×4 (07:14→19:17)
--- NOTE | 2017-11-06 08:05 | RAD ---
Portable chest, 11/06/2017: HISTORY: Postop CABG, pleural effusions Comparison is made to yesterday's study. The heart is enlarged. The pulmonary vascularity is normal. There has been an interval left thoracentesis with decrease in volume of the left pleural fluid. There is a small amount residual left-sided pleural fluid. Aeration of the left base has improved. There is an unchanged right basilar opacity compatible with pleural fluid and underlying atelectasis. The upper chest remains clear. There is no evidence of pneumothorax. No new abnormality is detected. IMPRESSION: 1. Decrease in volume of the left pleural effusion and improved aeration of the left lung base status post left thoracentesis. 2. Unchanged small to moderate sized right pleural effusion. Electronically signed by: Will Joaquin MD (11/06/2017 8:02 AM) [facility]
--- NOTE | 2017-11-06 08:31 | RAD ---
Ultrasound-guided left-sided thoracentesis 11/06/2017 8:27 AM Indication: BILATERAL PLEURAL EFFUSION POST OP GABG, LEFT SIDE Procedure: Informed consent was obtained. A timeout procedure was performed. Sonographic evaluation of the left chest was performed demonstrating moderate pleural effusion. The left posterior chest was prepped and draped in sterile fashion. 1% lidocaine without epinephrine was administered for local anesthesia. Real-time ultrasonographic guidance was used in passing a 5 [place] [employer] catheter into the left pleural space. 0.9 L of serosanguineous pleural fluid was removed. The catheter was removed and pressure held to achieve hemostasis. A sterile dressing was applied. No immediate complications were identified. The patient tolerated the procedure well. Impression: Left sided ultrasound-guided thoracentesis
[2017-11-06] MEDS: SENNOSIDES/DOCUSATE 8.6/50MG TABLET. PO SCH ×2 (09:11→22:47)
[2017-11-06] MEDS: CEPHALEXIN 250 MG CAPSULE. PO SCH ×2 (09:11→22:47)
[2017-11-06] MEDS: ASPIRIN ENTERIC COATED 325 MG TABLET.DR. PO SCH (09:12)
[2017-11-06] MEDS: FUROSEMIDE 40 MG TABLET. PO SCH (09:12)
[2017-11-06] MEDS: FAMOTIDINE 20 MG TABLET. PO SCH (09:12)
[2017-11-06] MEDS: AMIODARONE HCL 200 MG TABLET. PO SCH ×2 (09:13→22:48)
--- NOTE | 2017-11-06 09:33 | PDOC ---
LORIRAMSES Linnea PET STORE MERCHANDISER 11/06/17 0933: CARDIO Progress Notes Date and Time Date of Service 11/06/2017 Time of Evaluation 09 Subjective Subjective: No Chest Pain, No shortness of breath, No Palpitations, No Dizziness Vitals Vitals Vital Signs Date Time Temp Pulse Resp B/P (MAP) Pulse Ox O2 Delivery O2 Flow Rate FiO2 11/06/17 09:13 94 114/71 11/06/17 07:16 99 Room Air 11/06/17 07:00 97.8 18 97.8 Weight Weight [ ] Input and Output Intake and Output Intake and Output 11/06/17 07:00 Intake Total 800 ml Output Total 1400 ml Balance -600 ml Intake Oral 800 ml Output Urine Total 500 ml Chest Tube Drainage Total 900 ml # Voids 2 Laboratory Labs Laboratory Tests Test 11/06/17 04:25 White Blood Count 8.7 x10^3/uL (4.0-11.0) Red Blood Count 2.60 x10^6/uL (4.30-5.70) Hemoglobin 8.8 g/dL (13.0-17.5) Hematocrit 25.6 % (39.0-53.0) Mean Corpuscular Volume 98 fL (79-100) Mean Corpuscular Hemoglobin 34 pg (25-35) Mean Corpuscular Hemoglobin Concent 35 g/dL (31-37) Red Cell Distribution Width 15.5 % (11.5-14.5) Platelet Count 294 x10^3/uL (140-400) Neutrophils (%) (Auto) 69 % (31-73) Lymphocytes (%) (Auto) 15 % (24-48) Monocytes (%) (Auto) 13 % (0-9) Eosinophils (%) (Auto) 2 % (0-3) Basophils (%) (Auto) 1 % (0-3) Neutrophils # (Auto) 6.0 x10^3uL (1.8-7.7) Lymphocytes # (Auto) 1.3 x10^3/uL (1.0-4.8) Monocytes # (Auto) 1.1 x10^3/uL (0.0-1.1) Eosinophils # (Auto) 0.2 x10^3/uL (0.0-0.7) Basophils # (Auto) 0.1 x10^3/uL (0.0-0.2) Sodium Level 137 mmol/L (136-145) Potassium Level 4.3 mmol/L (3.5-5.1) Chloride Level 103 mmol/L (98-107) Carbon Dioxide Level 21 mmol/L (21-32) Anion Gap 13 (6-14) Blood Urea Nitrogen 26 mg/dL (8-26) Creatinine 1.5 mg/dL (0.7-1.3) Estimated GFR (Cockcroft-Gault) 47.4 Glucose Level 86 mg/dL (70-99) Calcium Level 8.1 mg/dL (8.5-10.1) Review of Systems Constitutional: yes: weakness, alert, oriented Ears/Nose/Throat: Yes: no symptom reported Eyes: Yes: no symptom reported Pulmonary: Yes no symptom reported Cardiovascular: Yes edema Gastrointestional: Yes: no symptom reported Genitourinary: Yes: no symptom reported Musculoskeletal: Yes: muscle stiffness Skin: Yes no symptom reported Psychiatric/Neurological: Yes: no symptom reported Endocrine: Yes: no symptom reported Physical Exam HEENT: Neck Supple W Full Motion Chest: Symmetric LUNGS: Other (diminished in bases) Heart: S1S2, RRR, no murmurs, other (tele: SR) Abdomen: Soft N/T Extremities: Other (2-3+ bilateral LE edema) Neurology: alert, oriented, follow commands Assessment Assessment 1. NSTEMI --troponin peaked @ 2.4 --s/p CABG X x 4: free TUCKER to LAD, SVG to LPL, SVG to diagonal, SVG to RPDA --management per CTS; ASA and statins; hold BB due to hypotension; amiodarone for afib prophylaxis --thoracentesis on the left yesterday - 900cc; continues to have moderate sized right effusion --mobilize; daily shower 2. ischemic cardiomyopathy --LVEF 20-25% pre-op --LVEF remains ~ 25% on TTE repeated 11/04/2017; have discussed potential LifeVest with patient and provided with written information; he will think about it --no BB due to low normotensive BP and hold ACEI due to renal function 3. HTN --controlled with meds 4. HLD --statin therapy 5. Emphysema with persistent tobacco abuse --CT demonstrates emphysema --cessation advised 6. moderate REIA and JEROME disease 7. acute blood loss anemia, post-operative, expectant --Hgb stable 8. IVAN, post-operative --per nephrology KT KIRKPATRICK MD 11/06/17 1330: CARDIO Progress Notes Plan Plan Pt. seen and examined. Agree with above TERMINAL BLOCK ASSEMBLER note. RAMSES SANDOVAL APRN Nov 06, 2017 09:33 KT KIRKPATRICK MD Nov 06, 2017 13:30
[2017-11-06] MEDS ORDERED: LIDOCAINE WITH 8.4% SOD BICARB 3 ML DISP.SYRIN. IJ ONE (10:30)
--- NOTE | 2017-11-06 11:25 | PDOC ---
Renal-Progress Notes Subjective Notes Notes NONE, FEELING BETTER History of Present Illness Hx of present illness STABLE Vitals Vitals Vital Signs Date Time Temp Pulse Resp B/P (MAP) Pulse Ox O2 Delivery O2 Flow Rate FiO2 11/06/17 10:58 97 Room Air 11/06/17 10:45 18 102/58 (73) 11/06/17 10:44 96 11/06/17 07:00 97.8 97.8 Weight Weight [ ] I.O. Intake and Output Intake and Output 11/06/17 07:00 Intake Total 800 ml Output Total 1400 ml Balance -600 ml Intake Oral 800 ml Output Urine Total 500 ml Chest Tube Drainage Total 900 ml # Voids 2 Labs Labs Laboratory Tests Test 11/06/17 04:25 White Blood Count 8.7 x10^3/uL (4.0-11.0) Red Blood Count 2.60 x10^6/uL (4.30-5.70) Hemoglobin 8.8 g/dL (13.0-17.5) Hematocrit 25.6 % (39.0-53.0) Mean Corpuscular Volume 98 fL (79-100) Mean Corpuscular Hemoglobin 34 pg (25-35) Mean Corpuscular Hemoglobin Concent 35 g/dL (31-37) Red Cell Distribution Width 15.5 % (11.5-14.5) Platelet Count 294 x10^3/uL (140-400) Neutrophils (%) (Auto) 69 % (31-73) Lymphocytes (%) (Auto) 15 % (24-48) Monocytes (%) (Auto) 13 % (0-9) Eosinophils (%) (Auto) 2 % (0-3) Basophils (%) (Auto) 1 % (0-3) Neutrophils # (Auto) 6.0 x10^3uL (1.8-7.7) Lymphocytes # (Auto) 1.3 x10^3/uL (1.0-4.8) Monocytes # (Auto) 1.1 x10^3/uL (0.0-1.1) Eosinophils # (Auto) 0.2 x10^3/uL (0.0-0.7) Basophils # (Auto) 0.1 x10^3/uL (0.0-0.2) Sodium Level 137 mmol/L (136-145) Potassium Level 4.3 mmol/L (3.5-5.1) Chloride Level 103 mmol/L (98-107) Carbon Dioxide Level 21 mmol/L (21-32) Anion Gap 13 (6-14) Blood Urea Nitrogen 26 mg/dL (8-26) Creatinine 1.5 mg/dL (0.7-1.3) Estimated GFR (Cockcroft-Gault) 47.4 Glucose Level 86 mg/dL (70-99) Calcium Level 8.1 mg/dL (8.5-10.1) Review of Systems Constitutional: yes: weakness, alert, oriented Ears/Nose/Throat: Yes: no symptom reported Eyes: Yes: no symptom reported Pulmonary: Yes no symptom reported Cardiovascular: Yes edema Gastrointestional: Yes: no symptom reported Genitourinary: Yes: no symptom reported Musculoskeletal: Yes: muscle stiffness Skin: Yes no symptom reported Psychiatric/Neurological: Yes: no symptom reported Endocrine: Yes: no symptom reported Physical Exam General Appearance: no apparent distress Skin: warm Heart: S1S2 Abdomen: soft Genitourinary: bladder flat Extremities: edema Neurology: alert, oriented, follow commands Assessment Assessment IMP IVAN-RESOLVING WITH CR DOWN TO 1.5 S/P CABG EDEMA DECONDITIONING PLAN PO LASIX LABS IN AM INCREASE ACTIVITY OK TO D/C FROM RENAL STANDPOINT DENIZ MCDONALD MD Nov 06, 2017 11:25
--- NOTE | 2017-11-06 12:07 | RAD ---
Ultrasound-guided right-sided thoracentesis 11/06/2017 12:03 PM Indication: ultrasound guided right thoracentesis Procedure: Informed consent was obtained. A timeout procedure was performed. Sonographic evaluation of the right chest was performed demonstrating moderate pleural effusion. The right posterior chest was prepped and draped in sterile fashion. 1% lidocaine without epinephrine was administered for local anesthesia. Real-time ultrasonographic guidance was used in passing a 5 [place] [employer] catheter into the right pleural space. 0.9 L of serosanguineous pleural fluid was removed. Samples of fluid were sent to the lab for further evaluation per ordering physician request. The catheter was removed and pressure held to achieve hemostasis. A sterile dressing was applied. No immediate complications were identified. The patient tolerated the procedure well. Impression: Right sided ultrasound-guided thoracentesis
--- NOTE | 2017-11-06 12:12 | PDOC ---
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 seen and examined Pt. alert and oriented Pt.'s affect is poor; resistant to staying in hospital DW nursing; pt. has liquifying hematoma and underwent thoracentesis (900cc from L lung) for pleural effusion VSS Vitals Vitals Vital Signs Date Time Temp Pulse Resp B/P (MAP) Pulse Ox O2 Delivery O2 Flow Rate FiO2 11/06/17 10:58 97 Room Air 11/06/17 10:45 18 102/58 (73) 11/06/17 10:44 96 11/06/17 07:00 97.8 97.8 Physical Exam General: Alert, Oriented X3, Cooperative, No acute distress Heart: Regular rate, Normal S1, Normal S2 Lungs: Clear Abdomen: Soft, No tenderness Extremities: No clubbing, No cyanosis Skin: No rashes, No significant lesion Labs LABS Laboratory Tests Test 11/06/17 04:25 White Blood Count 8.7 x10^3/uL (4.0-11.0) Red Blood Count 2.60 x10^6/uL (4.30-5.70) Hemoglobin 8.8 g/dL (13.0-17.5) Hematocrit 25.6 % (39.0-53.0) Mean Corpuscular Volume 98 fL (79-100) Mean Corpuscular Hemoglobin 34 pg (25-35) Mean Corpuscular Hemoglobin Concent 35 g/dL (31-37) Red Cell Distribution Width 15.5 % (11.5-14.5) Platelet Count 294 x10^3/uL (140-400) Neutrophils (%) (Auto) 69 % (31-73) Lymphocytes (%) (Auto) 15 % (24-48) Monocytes (%) (Auto) 13 % (0-9) Eosinophils (%) (Auto) 2 % (0-3) Basophils (%) (Auto) 1 % (0-3) Neutrophils # (Auto) 6.0 x10^3uL (1.8-7.7) Lymphocytes # (Auto) 1.3 x10^3/uL (1.0-4.8) Monocytes # (Auto) 1.1 x10^3/uL (0.0-1.1) Eosinophils # (Auto) 0.2 x10^3/uL (0.0-0.7) Basophils # (Auto) 0.1 x10^3/uL (0.0-0.2) Sodium Level 137 mmol/L (136-145) Potassium Level 4.3 mmol/L (3.5-5.1) Chloride Level 103 mmol/L (98-107) Carbon Dioxide Level 21 mmol/L (21-32) Anion Gap 13 (6-14) Blood Urea Nitrogen 26 mg/dL (8-26) Creatinine 1.5 mg/dL (0.7-1.3) Estimated GFR (Cockcroft-Gault) 47.4 Glucose Level 86 mg/dL (70-99) Calcium Level 8.1 mg/dL (8.5-10.1) Review of Systems Review of Systems Pt. denies chest pain Pt. 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 Labs Laboratory Tests Test 11/05/17 03:50 11/06/17 04:25 White Blood Count 8.9 x10^3/uL (4.0-11.0) 8.7 x10^3/uL (4.0-11.0) Red Blood Count 2.69 x10^6/uL (4.30-5.70) 2.60 x10^6/uL (4.30-5.70) Hemoglobin 9.2 g/dL (13.0-17.5) 8.8 g/dL (13.0-17.5) Hematocrit 26.7 % (39.0-53.0) 25.6 % (39.0-53.0) Mean Corpuscular Volume 99 fL (79-100) 98 fL (79-100) Mean Corpuscular Hemoglobin 34 pg (25-35) 34 pg (25-35) Mean Corpuscular Hemoglobin Concent 35 g/dL (31-37) 35 g/dL (31-37) Red Cell Distribution Width 15.2 % (11.5-14.5) 15.5 % (11.5-14.5) Platelet Count 232 x10^3/uL (140-400) 294 x10^3/uL (140-400) Neutrophils (%) (Auto) 64 % (31-73) 69 % (31-73) Lymphocytes (%) (Auto) 19 % (24-48) 15 % (24-48) Monocytes (%) (Auto) 14 % (0-9) 13 % (0-9) Eosinophils (%) (Auto) 3 % (0-3) 2 % (0-3) Basophils (%) (Auto) 0 % (0-3) 1 % (0-3) Neutrophils # (Auto) 5.7 x10^3uL (1.8-7.7) 6.0 x10^3uL (1.8-7.7) Lymphocytes # (Auto) 1.6 x10^3/uL (1.0-4.8) 1.3 x10^3/uL (1.0-4.8) Monocytes # (Auto) 1.2 x10^3/uL (0.0-1.1) 1.1 x10^3/uL (0.0-1.1) Eosinophils # (Auto) 0.3 x10^3/uL (0.0-0.7) 0.2 x10^3/uL (0.0-0.7) Basophils # (Auto) 0.0 x10^3/uL (0.0-0.2) 0.1 x10^3/uL (0.0-0.2) Sodium Level 132 mmol/L (136-145) 137 mmol/L (136-145) Potassium Level 3.7 mmol/L (3.5-5.1) 4.3 mmol/L (3.5-5.1) Chloride Level 100 mmol/L (98-107) 103 mmol/L (98-107) Carbon Dioxide Level 23 mmol/L (21-32) 21 mmol/L (21-32) Anion Gap 9 (6-14) 13 (6-14) Blood Urea Nitrogen 35 mg/dL (8-26) 26 mg/dL (8-26) Creatinine 1.9 mg/dL (0.7-1.3) 1.5 mg/dL (0.7-1.3) Estimated GFR (Cockcroft-Gault) 36.1 47.4 Glucose Level 93 mg/dL (70-99) 86 mg/dL (70-99) Calcium Level 8.0 mg/dL (8.5-10.1) 8.1 mg/dL (8.5-10.1) Laboratory Tests Test 11/06/17 04:25 White Blood Count 8.7 x10^3/uL (4.0-11.0) Red Blood Count 2.60 x10^6/uL (4.30-5.70) Hemoglobin 8.8 g/dL (13.0-17.5) Hematocrit 25.6 % (39.0-53.0) Mean Corpuscular Volume 98 fL (79-100) Mean Corpuscular Hemoglobin 34 pg (25-35) Mean Corpuscular Hemoglobin Concent 35 g/dL (31-37) Red Cell Distribution Width 15.5 % (11.5-14.5) Platelet Count 294 x10^3/uL (140-400) Neutrophils (%) (Auto) 69 % (31-73) Lymphocytes (%) (Auto) 15 % (24-48) Monocytes (%) (Auto) 13 % (0-9) Eosinophils (%) (Auto) 2 % (0-3) Basophils (%) (Auto) 1 % (0-3) Neutrophils # (Auto) 6.0 x10^3uL (1.8-7.7) Lymphocytes # (Auto) 1.3 x10^3/uL (1.0-4.8) Monocytes # (Auto) 1.1 x10^3/uL (0.0-1.1) Eosinophils # (Auto) 0.2 x10^3/uL (0.0-0.7) Basophils # (Auto) 0.1 x10^3/uL (0.0-0.2) Sodium Level 137 mmol/L (136-145) Potassium Level 4.3 mmol/L (3.5-5.1) Chloride Level 103 mmol/L (98-107) Carbon Dioxide Level 21 mmol/L (21-32) Anion Gap 13 (6-14) Blood Urea Nitrogen 26 mg/dL (8-26) Creatinine 1.5 mg/dL (0.7-1.3) Estimated GFR (Cockcroft-Gault) 47.4 Glucose Level 86 mg/dL (70-99) Calcium Level 8.1 mg/dL (8.5-10.1) Medications Current Medications Aspirin (Children'S Aspirin) 324 mg 1X ONCE PO Last administered on 10/28/17at :28; Start 10/28/17 at :30; Stop 10/28/17 at :31; Status DC Nitroglycerin (Nitro-Bid Oint) 1 inch 1X ONCE TP Last administered on at :29; Start 10/28/17 at :30; Stop 10/28/17 at :31; Status DC Furosemide (Lasix) 40 mg 1X ONCE IVP Last administered on 10/28/17at :28; Start 10/28/17 at :30; Stop 10/28/17 at :31; Status DC Enoxaparin Sodium (Lovenox Per Pharmacy Treatment Dosing) 1 each PRN DAILY PRN MC SEE COMMENTS; Start 10/28/17 at 01:30; Status Cancel Ondansetron HCl (Zofran) 4 mg PRN Q8HRS PRN IV NAUSEA/VOMITING 1ST CHOICE; Start 10/28/17 at 01:30; Stop 10/29/17 at 01:29; Status DC Fentanyl Citrate (Fentanyl 2ml Vial) 50 mcg PRN Q1HR PRN IV SEVERE PAIN; Start 10/28/17 at 01:30; Stop 10/29/17 at 01:29; Status DC Acetaminophen (Tylenol) 650 mg PRN Q4HRS PRN PO FEVER; Start 10/28/17 at 01:30; Stop 10/29/17 at 01:29; Status DC Heparin Sodium/ Dextrose 500 ml @ 0 mls/hr CONT PRN IV SEE I/O RECORD Last administered on 10/29/17at 02:02; Start 10/28/17 at 01:30; Stop 10/30/17 at 00:05; Status DC Heparin Sodium (Porcine) (Heparin Sodium) 2,000 unit PRN Q6HRS PRN IV FOR UFH LEVEL LESS THAN 0.2 Last administered on 10/28/17at 02:17; Start 10/28/17 at 01:30 ; Stop 10/30/17 at 07:44; Status DC Furosemide (Lasix) 40 mg [id number] IVP ; Start 10/28/17 at 09:00; Stop 10/28/17 at 13: 04; Status DC Furosemide (Lasix) 40 mg 1X ONCE IVP Last administered on 10/28/17at 02:13; Start 10/28/17 at 02:00; Stop 10/28/17 at 02:01; Status DC Info (Anti-Coagulation Monitoring By Pharmacy) 1 each PRN DAILY PRN MC SEE COMMENTS Last administered on 10/29/17at 10:35; Start 10/28/17 at 02:00; Stop at 07:44; Status DC Aspirin (Ecotrin) 325 mg DAILYWBKFT PO Last administered on 10/29/17at 09:24; Start 10/28/17 at 09:30; Stop 10/29/17 at 14:52; Status DC Sodium Chloride 1,000 ml @ 50 mls/hr 1X ONCE IV Last administered on at 11:37; Start 10/28/17 at 09:30; Stop 10/29/17 at 05:29; Status DC Labetalol HCl (Normodyne Iv Push) 20 mg PRN Q2HR PRN IVP HYPERTENSION, SEE COMMENTS; Start 10/28/17 at 09:15; Stop 10/29/17 at 23:55; Status DC Magnesium Sulfate 50 ml @ 25 mls/hr 1X ONCE IV Last administered on 10/28/17at 11:29; Start 10/28/17 at 11:30; Stop 10/28/17 at 13:29; Status DC Potassium Chloride (Klor-Con) 40 meq 1X ONCE PO Last administered on 10/28/17at 16:42; Start 10/28/17 at 11:30; Stop 10/28/17 at 11:31; Status DC Furosemide (Lasix) 40 mg DAILY IVP Last administered on 10/29/17at 09:35; Start 10/29/17 at 09:00; Stop 10/29/17 at 14:54; Status DC Iodixanol (Visipaque 320) 100 ml STK-MED ONCE .ROUTE ; Start 10/28/17 at 14:04; Stop 10/28/17 at 14:05; Status DC Lidocaine HCl (Xylocaine-Mpf 1% 2ml Vial) 2 ml STK-MED ONCE .ROUTE ; Start at 14:04; Stop 10/28/17 at 14:05; Status DC Heparin Sodium/ Sodium Chloride 1,000 ml @ As Directed STK-MED ONCE .ROUTE ; Start 10/28/17 at 14:05; Stop 10/28/17 at 14:06; Status DC Fentanyl Citrate (Fentanyl 2ml Vial) 100 mcg STK-MED ONCE .ROUTE ; Start at 15:10; Stop 10/28/17 at 15:11; Status DC Midazolam HCl (Versed) 2 mg STK-MED ONCE .ROUTE ; Start 10/28/17 at 15:10; Stop 10/28/17 at 15:11; Status DC Heparin Sodium (Porcine) (Heparin Sodium) 10,000 unit STK-MED ONCE .ROUTE ; Start 10/28/17 at 15:10; Stop 10/28/17 at 15:11; Status DC Verapamil HCl (Verapamil) 5 mg STK-MED ONCE .ROUTE ; Start 10/28/17 at 15:10; Stop 10/28/17 at 15:11; Status DC Nitroglycerin (Nitroglycerin) 200 mcg STK-MED ONCE .ROUTE ; Start 10/28/17 at 15: 10; Stop 10/28/17 at 15:11; Status DC Nitroglycerin (Nitroglycerin) 200 mcg 1X ONCE IART Last administered on at 15:57; Start 10/28/17 at 16:00; Stop 10/28/17 at 16:01; Status DC Verapamil HCl (Verapamil) 2.5 mg 1X ONCE IART Last administered on 10/28/17at 15 :57; Start 10/28/17 at 16:00; Stop 10/28/17 at 16:01; Status DC Heparin Sodium (Porcine) (Heparin Sodium) 2,500 unit 1X ONCE IART Last administered on 10/28/17at 15:30; Start 10/28/17 at 16:00; Stop 10/28/17 at 16:01; Status DC Heparin Sodium/ Sodium Chloride (HEPARIN for ARTERIAL LINE FLUSH) 1,000 unit 1X ONCE IART Last administered on 10/28/17at 15:56; Start 10/28/17 at 16:00; Stop 10/28/17 at 16:01; Status DC Midazolam HCl (Versed) 2 mg 1X ONCE IV Last administered on 10/28/17at 15:58; Start 10/28/17 at 16:00; Stop 10/28/17 at 16:01; Status DC Fentanyl Citrate (Fentanyl 2ml Vial) 50 mcg 1X ONCE IV Last administered on 10/28/17at 15:58; Start 10/28/17 at 16:00; Stop 10/28/17 at 16:01; Status DC Iodixanol (Visipaque 320) 65 ml 1X ONCE IART Last administered on 10/28/17at 15: 56; Start 10/28/17 at 16:00; Stop 10/28/17 at 16:01; Status DC Lidocaine HCl (Xylocaine-Mpf 1% 2ml Vial) 1 ml 1X ONCE INJ Last administered on 10/28/17at 15:57; Start 10/28/17 at 16:00; Stop 10/28/17 at 16:01; Status DC Info (CONTRAST GIVEN -- Rx MONITORING) 1 each PRN DAILY PRN MC SEE COMMENTS; Start 10/28/17 at 16:00; Stop 10/30/17 at 16:00; Status DC Metoprolol Tartrate (Lopressor) 12.5 mg BID PO Last administered on 10/29/17at 21 :01; Start 10/28/17 at 21:00; Stop 10/29/17 at 23:55; Status DC Potassium Chloride (Klor-Con) 40 meq 1X ONCE PO Last administered on 10/29/17at 09:24; Start 10/29/17 at 09:00; Stop 10/29/17 at 09:01; Status DC Alprazolam (Xanax) 0.25 mg PRN Q8HRS PRN PO ANXIETY / AGITATION Last administered on 10/29/17at 21:00; Start 10/29/17 at 09:15; Stop 10/29/17 at 22:00; Status DC Potassium Chloride 70 meq/ Sodium Bicarbonate 12.5 meq/Lidocaine HCl 24 ml/ Parenteral Electrolytes 571.5 ml @ 571.5 mls/ hr 1X ONCE IRR Last administered on 10/30/17at 10:59; Start 10/30/17 at 06:00; Stop 10/30/17 at 06:59; Status DC Potassium Chloride 15 meq/ Sodium Bicarbonate 12.5 meq/Parenteral Electrolytes 520 ml @ 520 mls/hr 1X ONCE IRR Last administered on 10/30/17at 10:59; Start at 06:00; Stop 10/30/17 at 06:59; Status DC Heparin Sodium (Porcine) 98707 unit/Ringer's Solution 1,020 ml @ 1,020 mls/hr 1X ONCE IRR Last administered on 10/30/17at 08:58; Start 10/30/17 at 06:00; Stop 10/30/17 at 06:59; Status DC Heparin Sodium (Porcine) 800 unit/ Nitroglycerin 4 mg/Verapamil HCl 8 mg/Sodium Bicarbonate 0.34 meq/Ringer's Solution 512.34 ml @ 512.34 mls/hr 1X ONCE IRR ; Start 10/30/17 at 06:00; Stop 10/30/17 at 06:59; Status DC Ondansetron HCl (Zofran) 4 mg PRN Q6HRS PRN IV NAUSEA/VOMITING; Start 10/30/17 at 07:00; Stop 10/31/17 at 06:59; Status DC Fentanyl Citrate (Fentanyl 2ml Vial) 25 mcg PRN Q5MIN PRN IV MILD PAIN; Start 10/30/17 at 07:00; Stop 10/31/17 at 06:59; Status DC Fentanyl Citrate (Fentanyl 2ml Vial) 50 mcg PRN Q5MIN PRN IV MODERATE TO SEVERE PAIN; Start 10/30/17 at 07:00; Stop 10/31/17 at 06:59; Status DC Morphine Sulfate (Morphine Sulfate) 1 mg PRN Q10MIN PRN IV SEVERE PAIN; Start 10/30/17 at 07:00; Stop 10/31/17 at 06:59; Status DC Ringer's Solution 1,000 ml @ 30 mls/hr Q24H IV Last administered on 10/30/17at 17:12; Start 10/30/17 at 07:00; Stop 10/30/17 at 18:59; Status DC Lidocaine HCl (Xylocaine-Mpf 1% 2ml Vial) 2 ml PRN 1X PRN ID IV START; Start at 07:00; Stop 10/31/17 at 06:59; Status DC Hydromorphone HCl (Dilaudid) 0.5 mg PRN Q10MIN PRN IV SEV PAIN, Second choice; Start 10/30/17 at 07:00; Stop 10/31/17 at 06:59; Status DC Prochlorperazine Edisylate (Compazine) 5 mg PACU PRN PRN IV NAUSEA, MRX1; Start 10/30/17 at 07:00; Stop 10/31/17 at 06:59; Status DC Cefazolin Sodium 1 gm/Sodium Chloride 500 ml @ 500 mls/hr 1X ONCE IRR Last administered on 10/30/17at 08:58; Start 10/30/17 at 06:00; Stop 10/30/17 at 06:59; Status DC Etomidate (Amidate) 20 mg STK-MED ONCE IV ; Start 10/30/17 at 06:08; Stop at 06:09; Status DC Lidocaine HCl (Lidocaine Pf 2% Vial) 5 ml STK-MED ONCE .ROUTE ; Start 10/30/17 at 06:08; Stop 10/30/17 at 06:09; Status DC Rocuronium [place] (Zemuron) 100 mg STK-MED ONCE .ROUTE ; Start 10/30/17 at 06:08 ; Stop 10/30/17 at 06:09; Status DC Phenylephrine HCl (Rui-Synephrine Inj) 10 mg STK-MED ONCE .ROUTE ; Start at 06:09; Stop 10/30/17 at 06:10; Status DC Ephedrine Sulfate (ePHEDrine PF IN SALINE SYRINGE) 50 mg STK-MED ONCE IV ; Start 10/30/17 at 06:09; Stop 10/30/17 at 06:10; Status DC Heparin Sodium (Porcine) 30,000 unit STK-MED ONCE .ROUTE ; Start 10/30/17 at 06: 09; Stop 10/30/17 at 06:10; Status DC Aminocaproic Acid (Amicar) 5,000 mg STK-MED ONCE IV ; Start 10/30/17 at 06:09; Stop 10/30/17 at 06:10; Status DC Nitroglycerin/ Dextrose 250 ml @ As Directed STK-MED ONCE IV ; Start 10/30/17 at 06:09; Stop 10/30/17 at 06:10; Status DC Midazolam HCl (Versed) 2 mg STK-MED ONCE .ROUTE ; Start 10/30/17 at 06:11; Stop 10/30/17 at 06:12; Status DC Sufentanil Citrate (Sufenta) 100 mcg STK-MED ONCE .ROUTE ; Start 10/30/17 at 06: 11; Stop 10/30/17 at 06:12; Status DC Lidocaine HCl (Xylocaine-Mpf 2% Vial) 2 ml STK-MED ONCE .ROUTE ; Start 10/30/17 at 07:05; Stop 10/30/17 at 07:06; Status DC Vancomycin HCl (VANCO for OR ONLY) 10 gm STK-MED ONCE .ROUTE Last administered on 10/30/17at 08:58; Start 10/30/17 at 06:06; Stop 10/30/17 at 07:06; Status DC Cellulose (Surgicel Hemostat 4x8) 1 each STK-MED ONCE .ROUTE Last administered on 10/30/17at 08:58; Start 10/30/17 at 06:06; Stop 10/30/17 at 07:06; Status DC Papaverine HCl 60 mg STK-MED ONCE .ROUTE Last administered on 10/30/17at 08:58; Start 10/30/17 at 06:06; Stop 10/30/17 at 07:07; Status DC Aspirin (Aspirin) 300 mg STK-MED ONCE .ROUTE Last administered on 10/30/17at 15: 59; Start 10/30/17 at 06:06; Stop 10/30/17 at 07:07; Status DC Sodium Chloride (SODIUM CHLORIDE 20ml) 20 ml STK-MED ONCE IJ Last administered on 10/30/17at 08:58; Start 10/30/17 at 06:06; Stop 10/30/17 at 07:07; Status DC Sodium Chloride (SODIUM CHLORIDE 20ml) 20 ml STK-MED ONCE IJ Last administered on 10/30/17at 08:58; Start 10/30/17 at 06:06; Stop 10/30/17 at 07:07; Status DC Sodium Chloride (SODIUM CHLORIDE 20ml) 20 ml STK-MED ONCE IJ Last administered on 10/30/17at 08:58; Start 10/30/17 at 06:07; Stop 10/30/17 at 07:07; Status DC Cefazolin Sodium/ Dextrose 50 ml @ 100 mls/hr 1X PREOP PRN IV PRIOR TO SURGERY Last administered on 10/30/17at 08:13; Start 10/30/17 at 08:15; Stop at 13:38; Status DC Rocuronium [place] (Zemuron) 100 mg STK-MED ONCE .ROUTE ; Start 10/30/17 at 08:19 ; Stop 10/30/17 at 08:20; Status DC Sufentanil Citrate (Sufenta) 100 mcg STK-MED ONCE .ROUTE ; Start 10/30/17 at 08: 19; Stop 10/30/17 at 08:20; Status DC Isoflurane (Isoflurane) 90 ml STK-MED ONCE IH ; Start 10/30/17 at 08:22; Stop 10/30/17 at 08:23; Status DC Midazolam HCl (Versed) 2 mg STK-MED ONCE .ROUTE ; Start 10/30/17 at 08:55; Stop 10/30/17 at 08:56; Status DC Cefazolin Sodium/ Dextrose 50 ml @ 100 mls/hr 1X ONCE IV Last administered on 10/30/17at 13:45; Start 10/30/17 at 10:45; Stop 10/30/17 at 11:14; Status DC Epinephrine HCl 4 mg/Sodium Chloride 254 ml @ 3.81 mls/hr 1X ONCE IV Last administered on 10/30/17at 17:14; Start 10/30/17 at 10:45; Stop 11/02/17 at 05:24; Status DC Norepinephrine Bitartrate 250 ml @ 1.875 mls/ hr 1X ONCE IV Last administered on 10/30/17at 17:14; Start 10/30/17 at 10:45; Stop 11/05/17 at 00:04; Status DC Midazolam HCl (Versed) 2 mg STK-MED ONCE .ROUTE ; Start 10/30/17 at 11:03; Stop 10/30/17 at 11:04; Status DC Protamine Sulfate (Protamine) 50 mg STK-MED ONCE IV ; Start 10/30/17 at 11:19; Stop 10/30/17 at 11:20; Status DC Protamine Sulfate (Protamine) 250 mg STK-MED ONCE IV ; Start 10/30/17 at 11:19; Stop 10/30/17 at 11:20; Status DC Midazolam HCl (Versed) 5 mg STK-MED ONCE .ROUTE ; Start 10/30/17 at 11:54; Stop 10/30/17 at 11:55; Status DC Propofol 20 ml @ As Directed STK-MED ONCE IV ; Start 10/30/17 at 12:36; Stop 10/30 at 12:37; Status DC Ringer's Solution 1,000 ml @ 30 mls/hr Q24H IV Last administered on 11/02/17at 04:50; Start 10/30/17 at 13:00; Stop 11/03/17 at 10:47; Status DC Albumin Human 250 ml @ 60 mls/hr PRN Q4HRS PRN IV SEE I/O RECORD Last administered on 10/31/17at 10:49; Start 10/30/17 at 13:00; Stop 11/03/17 at 10:47; Status DC Insulin Human Regular 150 unit/ Sodium Chloride 151.5 ml @ 0 mls/hr CONT PRN PRN IV SEE I/O RECORD Last administered on 10/31/17at 15:36; Start 10/30/17 at 13: 00; Stop 11/03/17 at 10:47; Status DC Dextrose (Dextrose 50%-Water Syringe) 25 gm PRN Q15MIN PRN IV LOW BLOOD SUGAR; Start 10/30/17 at 13:00 Info ([facility]cu Electrolyte Protocol) 1 ea CONT PRN PRN MC SEE COMMENTS; Start at 13:00; Stop 11/03/17 at 10:48; Status DC Magnesium Sulfate/ Dextrose 100 ml @ 100 mls/hr PRN DAILY PRN IV FOR MAG < 2.2 Last administered on 10/30/17at 18:10; Start 10/30/17 at 13:00 Famotidine (Pepcid Vial) 20 mg BID IVP Last administered on 10/31/17at 07:48; Start 10/30/17 at 14:00; Stop 10/31/17 at 14:38; Status DC Ondansetron HCl (Zofran) 4 mg PRN Q4HRS PRN IV NAUSEA/VOMITING 1ST CHOIC; Start 10/30/17 at 13:00 Prochlorperazine Edisylate (Compazine) 10 mg PRN Q6HRS PRN IV NAUSEA/VOMITING 2ND CHOICE; Start 10/30/17 at 13:00 Morphine Sulfate (Morphine Sulfate) 2 mg PRN Q1HR PRN IV MODERATE PAIN Last administered on 10/31/17at 01:19; Start 10/30/17 at 13:00 Acetaminophen (Tylenol) 650 mg PRN Q4HRS PRN PO MILD PAIN / TEMP Last administered on 11/03/17at 09:11; Start 10/30/17 at 13:00 Acetaminophen (Tylenol Supp) 650 mg PRN Q4HRS PRN TX MILD PAIN / TEMP; Start at 13:00; Stop 11/03/17 at 10:48; Status DC Meperidine HCl (Demerol) 12.5 mg PRN Q15MIN PRN IV SHIVERING; Start 10/30/17 at 13:00; Stop 10/31/17 at 13:00; Status DC Propofol 100 ml @ 0 mls/hr CONT PRN PRN IV POSTOP SEDATION UNTIL EXTUBATE Last administered on 10/30/17at 17:11; Start 10/30/17 at 13:00; Stop 10/31/17 at 15:11; Status DC Senna/Docusate Sodium (Senna Plus) 1 tab BID PO Last administered on 11/06/17at 09:11; Start 10/30/17 at 21:00 Bisacodyl (Dulcolax Supp) 10 mg PRN DAILY PRN TX NO BOWEL MOVEMENT; Start at 13:00 Chlorhexidine Gluconate (Peridex) 15 ml BID MM ; Start 10/30/17 at 21:00; Stop at 21:52; Status DC Aspirin (Ecotrin) 325 mg DAILYWBKFT PO Last administered on 11/06/17at 09:12; Start 10/31/17 at 08:00 Aspirin (Aspirin) 300 mg PRN DAILY PRN TX IF UNABLE TO TAKE PO; Start 10/30/17 at 13:00 Albuterol Sulfate (Ventolin Neb Soln) 2.5 mg PRN Q4HRS PRN NEB SHORTNESS OF BREATH Last administered on 11/01/17at 05:41; Start 10/30/17 at 13:00 Metoprolol Tartrate (Lopressor) 25 mg BID PO ; Start 10/31/17 at 09:00; Stop 10/31 at 11:26; Status DC Nicardipine HCl 50 mg/Sodium Chloride 270 ml @ 0 mls/hr CONT PRN PRN IV PER PROTOCOL; Start 10/30/17 at 13:00; Stop 11/03/17 at 10:48; Status DC Oxycodone/ Acetaminophen (Percocet 5/325) 1 tab PRN Q4HRS PRN PO MODERATE PAIN Last administered on 11/01/17at 04:48; Start 10/30/17 at 13:00 Oxycodone/ Acetaminophen (Percocet 5/325) 2 tab PRN Q4HRS PRN PO SEVERE PAIN Last administered on 10/31/17at 21:12; Start 10/30/17 at 13:00 Cefazolin Sodium/ Dextrose 50 ml @ 100 mls/hr Q8H IV Last administered on at 04:16; Start 10/30/17 at 20:00; Stop 11/01/17 at 04:29; Status DC Polyethylene Glycol (miraLAX PACKET) 17 gm DAILYWSUP PO Last administered on 11/02/17at 17:00; Start 10/31/17 at 17:00 Alprazolam (Xanax) 0.25 mg PRN Q8HRS PRN PO ANXIETY / AGITATION Last administered on 11/03/17at 09:11; Start 10/30/17 at 13:00 Heparin Sodium (Porcine) (Heparin Sodium) 10,000 unit STK-MED ONCE .ROUTE ; Start 10/30/17 at 13:36; Stop 10/30/17 at 13:37; Status DC Lidocaine HCl (Lidocaine Pf 2% Vial) 5 ml STK-MED ONCE .ROUTE ; Start 10/30/17 at 13:36; Stop 10/30/17 at 13:37; Status DC Magnesium Sulfate 5 gm STK-MED ONCE .ROUTE ; Start 10/30/17 at 13:36; Stop at 13:37; Status DC Heparin Sodium (Porcine) 30,000 unit STK-MED ONCE .ROUTE ; Start 10/30/17 at 13: 36; Stop 10/30/17 at 13:37; Status DC Mannitol (Mannitol) 12.5 g STK-MED ONCE .ROUTE ; Start 10/30/17 at 13:36; Stop at 13:37; Status DC Albumin Human 100 ml @ As Directed STK-MED ONCE IV ; Start 10/30/17 at 13:36; Stop 10/30/17 at 13:37; Status DC Calcium Chloride (Calcium Chloride) 1,000 mg STK-MED ONCE .ROUTE ; Start at 13:36; Stop 10/30/17 at 13:37; Status DC Sodium Bicarbonate (Sodium Bicarb Adult 8.4% Syr) 50 meq STK-MED ONCE .ROUTE ; Start 10/30/17 at 13:36; Stop 10/30/17 at 13:37; Status DC Heparin Sodium (Porcine) 30,000 unit STK-MED ONCE .ROUTE ; Start 10/30/17 at 13: 38; Stop 10/30/17 at 13:39; Status DC Milrinone Lactate (Primacor) 10 mg STK-MED ONCE IV ; Start 10/30/17 at 13:43; Stop 10/30/17 at 13:44; Status DC Milrinone Lactate/ Dextrose 100 ml @ As Directed STK-MED ONCE IV ; Start at 13:43; Stop 10/30/17 at 13:44; Status DC Epinephrine HCl (EPINEPHrine SYRINGE) 1 mg STK-MED ONCE .ROUTE ; Start 10/30/17 at 13:53; Stop 10/30/17 at 13:54; Status DC Heparin Sodium (Porcine) (Heparin Sodium) 10,000 unit STK-MED ONCE .ROUTE ; Start 10/30/17 at 14:02; Stop 10/30/17 at 14:03; Status DC Midazolam HCl (Versed) 2 mg STK-MED ONCE .ROUTE ; Start 10/30/17 at 14:10; Stop 10/30/17 at 14:11; Status DC Esmolol HCl (Brevibloc) 100 mg STK-MED ONCE IV ; Start 10/30/17 at 14:20; Stop at 14:21; Status DC Protamine Sulfate (Protamine) 50 mg STK-MED ONCE IV ; Start 10/30/17 at 14:44; Stop 10/30/17 at 14:45; Status DC Protamine Sulfate (Protamine) 250 mg STK-MED ONCE IV ; Start 10/30/17 at 14:44; Stop 10/30/17 at 14:45; Status DC Mannitol (Mannitol) 12.5 g STK-MED ONCE .ROUTE ; Start 10/30/17 at 14:53; Stop at 14:54; Status DC Calcium Chloride (Calcium Chloride) 1,000 mg STK-MED ONCE .ROUTE ; Start at 14:53; Stop 10/30/17 at 14:54; Status DC Sodium Bicarbonate (Sodium Bicarb Adult 8.4% Syr) 50 meq STK-MED ONCE .ROUTE ; Start 10/30/17 at 14:53; Stop 10/30/17 at 14:54; Status DC Heparin Sodium (Porcine) (Heparin Sodium) 10,000 unit STK-MED ONCE .ROUTE ; Start 10/30/17 at 14:54; Stop 10/30/17 at 14:55; Status DC Albumin Human 500 ml @ As Directed STK-MED ONCE IV ; Start 10/30/17 at 14:57; Stop 10/30/17 at 14:58; Status DC Albumin Human 500 ml @ As Directed STK-MED ONCE IV ; Start 10/30/17 at 15:16; Stop 10/30/17 at 15:17; Status DC Sodium Bicarbonate (Sodium Bicarb Adult 8.4% Syr) 50 meq STK-MED ONCE .ROUTE ; Start 10/30/17 at 15:24; Stop 10/30/17 at 15:25; Status DC Amiodarone HCl 900 mg/Dextrose 518 ml @ 33 mls/hr CONT PRN IV SEE I/O RECORD; Start 10/30/17 at 15:45; Stop 10/31/17 at 15:11; Status DC Sodium Bicarbonate (Sodium Bicarb Adult 8.4% Syr) 50 meq 1X ONCE IV Last administered on 10/30/17at 17:03; Start 10/30/17 at 17:00; Stop 10/30/17 at 17:01; Status DC Sodium Bicarbonate (Sodium Bicarb Adult 8.4% Syr) 50 meq 1X ONCE IV Last administered on 10/30/17at 17:04; Start 10/30/17 at 17:00; Stop 10/30/17 at 17:01; Status DC Sodium Bicarbonate (Sodium Bicarb Adult 8.4% Syr) 50 meq 1X ONCE IV ; Start 10/30/17 at 17:00; Stop 10/30/17 at 17:01; Status DC Sodium Bicarbonate (Sodium Bicarb Adult 8.4% Syr) 50 meq 1X ONCE IV ; Start 10/30/17 at 17:00; Stop 10/30/17 at 17:01; Status DC Potassium Chloride/Water 50 ml @ 50 mls/hr Q1H IV Last administered on at 19:12; Start 10/30/17 at 18:00; Stop 10/30/17 at 19:59; Status DC Potassium Chloride/Water 50 ml @ 50 mls/hr 1X ONCE IV Last administered on 10/30at 21:44; Start 10/30/17 at 21:45; Stop 10/30/17 at 22:44; Status DC Magnesium Sulfate/ Dextrose 100 ml @ 100 mls/hr 1X ONCE IV Last administered on 10/31/17at 06:37; Start 10/31/17 at 06:45; Stop 10/31/17 at 07:44; Status DC Furosemide (Lasix) 40 mg 1X ONCE IVP Last administered on 10/31/17at 09:32; Start 10/31/17 at 09:15; Stop 10/31/17 at 09:23; Status DC Albuterol Sulfate (Ventolin Neb Soln) 2.5 mg RTQID NEB Last administered on at 10:58; Start 10/31/17 at 10:00 Furosemide (Lasix) 40 mg BID92 IVP Last administered on 10/31/17at 15:40; Start 10/31/17 at 14:00; Stop 10/31/17 at 17:51; Status DC Amiodarone HCl (Cordarone) 200 mg BID PO Last administered on 11/06/17at 09:13; Start 10/31/17 at 15:00 Famotidine (Pepcid) 20 mg BID PO Last administered on 11/01/17at 08:41; Start 10/31/17 at 21:00; Stop 11/01/17 at 15:42; Status DC Hydromorphone HCl (Dilaudid) 0.2 mg PRN Q4HRS PRN IVP SEVERE PAIN; Start at 15:15 Epinephrine HCl 4 mg/Sodium Chloride 254 ml @ 0 mls/hr CONT PRN IV SEE I/O RECORD Last administered on 10/31/17at 15:48; Start 10/31/17 at 15:30; Stop at 10:48; Status DC Furosemide (Lasix) 40 mg TID IVP Last administered on 11/03/17at 09:09; Start at 21:00; Stop 11/03/17 at 10:22; Status DC Famotidine (Pepcid) 20 mg DAILYAC PO Last administered on 11/06/17at 09:12; Start 11/02/17 at 07:30 Magnesium Sulfate/ Dextrose 100 ml @ 100 mls/hr 1X ONCE IV Last administered on 11/02/17at 07:24; Start 11/02/17 at 06:15; Stop 11/02/17 at 07:14; Status DC Potassium Chloride/Water 50 ml @ 50 mls/hr Q1H IV Last administered on at 07:23; Start 11/02/17 at 06:30; Stop 11/02/17 at 08:29; Status DC Atorvastatin Calcium (Lipitor) 40 mg QHS PO Last administered on 11/05/17at 19: 23; Start 11/02/17 at 21:00 Potassium Chloride/Water 50 ml @ 50 mls/hr Q1H IV Last administered on at 09:45; Start 11/03/17 at 08:00; Stop 11/03/17 at 09:59; Status DC Magnesium Sulfate/ Dextrose 100 ml @ 100 mls/hr 1X ONCE IV Last administered on 11/03/17at 09:11; Start 11/03/17 at 07:45; Stop 11/03/17 at 08:44; Status DC Furosemide (Lasix) 40 mg DAILY IVP ; Start 11/04/17 at 09:00; Stop 11/04/17 at 09:00; Status DC Furosemide (Lasix) 40 mg DAILY PO Last administered on 11/06/17at 09:12; Start 11/04/17 at 12:00 Lidocaine HCl (Lidocaine 1% 20ml Vial) 20 ml 1X ONCE INJ ; Start 11/05/17 at 13 :45; Stop 11/05/17 at 13:49; Status DC Cephalexin HCl (Keflex) 500 mg BID PO Last administered on 11/06/17at 09:11; Start 11/05/17 at 14:00 Albumin Human (Albutein) 50 g STK-MED ONCE IV ; Start 11/03/17 at 18:00; Stop at 16:41; Status DC Lidocaine/Sodium Bicarbonate (Buffered Lidocaine 1%) 3 ml 1X ONCE IJ Last administered on 11/06/17at 10:37; Start 11/06/17 at 10:30; Stop 11/06/17 at 10:39 ; Status DC Vitals/I & O Vital Sign - Last 24 Hours 11/05/17 11/05/17 11/05/17 11/05/17 14:56 15:06 15:16 19:24 Pulse 97 91 97 B/P (MAP) 105/58 (74) 99/48 (65) 124/72 Pulse Ox 96 96 97 O2 Delivery Room Air Room Air Room Air 11/05/17 11/05/17 11/05/17 11/05/17 19:27 19:36 20:00 23:18 Temp 97.5 99.4 97.5 99.4 Pulse 98 93 Resp 18 18 B/P (MAP) 124/72 (89) 119/68 (85) Pulse Ox 94 93 96 O2 Delivery Room Air Room Air Room Air Room Air 11/06/17 11/06/17 11/06/17 11/06/17 03:20 07:00 07:16 09:13 Temp 99.4 97.8 99.4 97.8 Pulse 99 94 94 Resp 19 18 B/P (MAP) 125/64 (84) 114/71 (85) 114/71 Pulse Ox 96 98 99 O2 Delivery Room Air Room Air Room Air 11/06/17 11/06/17 11/06/17 11/06/17 10:33 10:37 10:44 10:45 Pulse 77 71 96 Resp 18 17 18 18 B/P (MAP) 108/58 (75) 102/55 (71) 97/57 (70) 102/58 (73) Pulse Ox 97 97 97 O2 Delivery Room Air Room Air Room Air Room Air 11/06/17 10:58 Pulse Ox 97 O2 Delivery Room Air Intake and Output 11/05/17 11/05/17 11/06/17 15:00 23:00 07:00 Intake Total 800 ml Output Total 1100 ml 300 ml Balance -300 ml -300 ml CESARIO BRISENO III DO Nov 06, 2017 12:12
--- NOTE | 2017-11-06 13:22 | RAD ---
EXAM: Chest, single view. HISTORY: Thoracentesis. COMPARISON: 11/06/2017 FINDINGS: A frontal view of the chest is obtained. There are stable small bilateral pleural effusions with bilateral lower lobe atelectasis. There is calcified apical pleural plaque. No convincing pneumothorax is seen. There is mild cardiomegaly and evidence of prior coronary artery bypass grafting. IMPRESSION: 1. Stable small pleural effusions with lower lobe airspace disease. 2. Stable biapical pleural plaque. There is no convincing pneumothorax status post thoracentesis. Electronically signed by: Joslyn Wolff MD (11/06/2017 1:18 PM) [place] [id number]
--- NOTE | 2017-11-06 13:58 | PDOC ---
Progress Note Subjective Subjective Doing well. Had bilateral pleural effusions drainaed (approx 1 lit on each side) . On room air. Normotensive and NSR. Creatinine down to 1,5. CXR looks good. Drainage from right thigh harvest site stopped, minimal drainage from left stab incision site. ROS ROS No nausea No vomiting No pain No rash Vital Sign Vital Signs Vital Signs Date Time Temp Pulse Resp B/P (MAP) Pulse Ox O2 Delivery O2 Flow Rate FiO2 11/06/17 10:58 97 Room Air 11/06/17 10:45 18 102/58 (73) 11/06/17 10:44 96 11/06/17 07:00 97.8 97.8 Labs Lab Laboratory Tests Test 11/06/17 04:25 White Blood Count 8.7 x10^3/uL (4.0-11.0) Red Blood Count 2.60 x10^6/uL (4.30-5.70) Hemoglobin 8.8 g/dL (13.0-17.5) Hematocrit 25.6 % (39.0-53.0) Mean Corpuscular Volume 98 fL (79-100) Mean Corpuscular Hemoglobin 34 pg (25-35) Mean Corpuscular Hemoglobin Concent 35 g/dL (31-37) Red Cell Distribution Width 15.5 % (11.5-14.5) Platelet Count 294 x10^3/uL (140-400) Neutrophils (%) (Auto) 69 % (31-73) Lymphocytes (%) (Auto) 15 % (24-48) Monocytes (%) (Auto) 13 % (0-9) Eosinophils (%) (Auto) 2 % (0-3) Basophils (%) (Auto) 1 % (0-3) Neutrophils # (Auto) 6.0 x10^3uL (1.8-7.7) Lymphocytes # (Auto) 1.3 x10^3/uL (1.0-4.8) Monocytes # (Auto) 1.1 x10^3/uL (0.0-1.1) Eosinophils # (Auto) 0.2 x10^3/uL (0.0-0.7) Basophils # (Auto) 0.1 x10^3/uL (0.0-0.2) Sodium Level 137 mmol/L (136-145) Potassium Level 4.3 mmol/L (3.5-5.1) Chloride Level 103 mmol/L (98-107) Carbon Dioxide Level 21 mmol/L (21-32) Anion Gap 13 (6-14) Blood Urea Nitrogen 26 mg/dL (8-26) Creatinine 1.5 mg/dL (0.7-1.3) Estimated GFR (Cockcroft-Gault) 47.4 Glucose Level 86 mg/dL (70-99) Calcium Level 8.1 mg/dL (8.5-10.1) Objective Assessment POD#7, s/p CABG x 4 (TUCKER to LAD, SVG to LPL, SVG to diag, SVG to RPDA). Severe ischemic cardiomyopathy with EF 20% Doing well. Had bilateral pleural effusions drainaed (approx 1 lit on each side) . On room air. Normotensive and NSR. Creatinine down to 1,5. CXR looks good. Drainage from right thigh harvest site stopped, minimal drainage from left stab incision site. Plan Plan of Care Will apply dermamond onto the stab incision site. Keflex 200mg BID for leg wound for a week Stop Amiodarone before discharge D/c home with 40mg po lasix for 2 weeks with 20meq po KCL every other day D/c home tomorrow SHAY HARRIS MD Nov 06, 2017 13:58
[2017-11-06] MEDS: POLYETHYLENE GLYCOL 3350 17 GM PACKET. PO SCH (17:00)
[2017-11-06] MEDS: ATORVASTATIN CALCIUM 40 MG TABLET. PO SCH (22:46)
[2017-11-06] MEDS: LACTOBACILLUS RHAMNOSUS GG 1 CAPSULE. PO SCH (22:46)
[2017-11-07 03:00] VITALS: BP 99/64
[2017-11-07 05:26] LABS: BASO # 0.1 x10^3/uL (0.0-0.2); BASO % 1 % (0-3); EOS # 0.2 x10^3/uL (0.0-0.7); EOS % 2 % (0-3); HEMATOCRIT 28.4 % (39.0-53.0); HEMOGLOBIN 9.8 g/dL (13.0-17.5); LYMPH # 1.2 x10^3/uL (1.0-4.8); LYMPH % 15 % (24-48); MEAN CORPUSCULAR HEMOGLOBIN 34 pg (25-35); MEAN CORPUSCULAR HGB CONC 34 g/dL (31-37); MEAN CORPUSCULAR VOLUME 99 fL (79-100); MONO % 13 % (0-9); NEUT # 5.5 x10^3uL (1.8-7.7); NEUT % 70 % (31-73); PLATELET COUNT 376 x10^3/uL (140-400); RED BLOOD COUNT 2.87 x10^6/uL (4.30-5.70); RED CELL DISTRIBUTION WIDTH 15.4 % (11.5-14.5); WHITE BLOOD COUNT 7.9 x10^3/uL (4.0-11.0)
[2017-11-07 05:32] LABS: CALCIUM 8.6 mg/dL (8.5-10.1); CREATININE 1.6 mg/dL (0.7-1.3); POTASSIUM 3.6 mmol/L (3.5-5.1)
[2017-11-07 07:00] VITALS: BP 104/62
[2017-11-07] MEDS: ALBUTEROL SULFATE 2.5 MG/3 ML NEBU. NEB SCH ×2 (07:57→11:56)
[2017-11-07] MEDS: CEPHALEXIN 250 MG CAPSULE. PO SCH (08:49)
[2017-11-07] MEDS: LACTOBACILLUS RHAMNOSUS GG 1 CAPSULE. PO SCH (08:49)
[2017-11-07] MEDS: ASPIRIN ENTERIC COATED 325 MG TABLET.DR. PO SCH (08:49)
[2017-11-07 08:50] VITALS: BP 104/62
[2017-11-07] MEDS: FAMOTIDINE 20 MG TABLET. PO SCH (08:50)
[2017-11-07] MEDS: SENNOSIDES/DOCUSATE 8.6/50MG TABLET. PO SCH (08:50)
[2017-11-07] MEDS: AMIODARONE HCL 200 MG TABLET. PO SCH (08:50)
[2017-11-07] MEDS: FUROSEMIDE 40 MG TABLET. PO SCH (08:50)
[2017-11-07] MEDS ORDERED: CEPH250C PO (10:56)
[2017-11-07] MEDS ORDERED: FURO40TA4 PO (10:56)
[2017-11-07] MEDS ORDERED: ASPI325T11 PO (10:56)
[2017-11-07] MEDS ORDERED: ATOR40TA59 PO (10:56)
[2017-11-07] MEDS ORDERED: OXYC1TAB7 PO (10:56)
[2017-11-07] MEDS ORDERED: POTA20TA82 PO (10:56)
--- NOTE | 2017-11-07 11:05 | PDOC ---
CARDIO Progress Notes Date and Time Date of Service 11/07/2017 Time of Evaluation 1059 Subjective Subjective: No Chest Pain, No shortness of breath, No Palpitations, No Dizziness Vitals Vitals Vital Signs Date Time Temp Pulse Resp B/P (MAP) Pulse Ox O2 Delivery O2 Flow Rate FiO2 11/07/17 08:50 97 104/62 11/07/17 07:57 97 Room Air 11/07/17 07:00 98.2 16 98.2 11/06/17 08:00 2.0 Weight Weight [ ] Input and Output Intake and Output Intake and Output 11/07/17 07:00 Intake Total 1150 ml Output Total 1350 ml Balance -200 ml Intake Oral 1150 ml Output Urine Total 400 ml Chest Tube Drainage Total 950 ml # Voids 5 # Bowel Movements 1 Laboratory Labs Laboratory Tests Test 11/07/17 03:30 White Blood Count 7.9 x10^3/uL (4.0-11.0) Red Blood Count 2.87 x10^6/uL (4.30-5.70) Hemoglobin 9.8 g/dL (13.0-17.5) Hematocrit 28.4 % (39.0-53.0) Mean Corpuscular Volume 99 fL (79-100) Mean Corpuscular Hemoglobin 34 pg (25-35) Mean Corpuscular Hemoglobin Concent 34 g/dL (31-37) Red Cell Distribution Width 15.4 % (11.5-14.5) Platelet Count 376 x10^3/uL (140-400) Neutrophils (%) (Auto) 70 % (31-73) Lymphocytes (%) (Auto) 15 % (24-48) Monocytes (%) (Auto) 13 % (0-9) Eosinophils (%) (Auto) 2 % (0-3) Basophils (%) (Auto) 1 % (0-3) Neutrophils # (Auto) 5.5 x10^3uL (1.8-7.7) Lymphocytes # (Auto) 1.2 x10^3/uL (1.0-4.8) Monocytes # (Auto) 1.0 x10^3/uL (0.0-1.1) Eosinophils # (Auto) 0.2 x10^3/uL (0.0-0.7) Basophils # (Auto) 0.1 x10^3/uL (0.0-0.2) Sodium Level 136 mmol/L (136-145) Potassium Level 3.6 mmol/L (3.5-5.1) Chloride Level 100 mmol/L (98-107) Carbon Dioxide Level 23 mmol/L (21-32) Anion Gap 13 (6-14) Blood Urea Nitrogen 27 mg/dL (8-26) Creatinine 1.6 mg/dL (0.7-1.3) Estimated GFR (Cockcroft-Gault) 44.0 Glucose Level 91 mg/dL (70-99) Calcium Level 8.6 mg/dL (8.5-10.1) Review of Systems Constitutional: yes: weakness, alert, oriented Ears/Nose/Throat: Yes: no symptom reported Eyes: Yes: no symptom reported Pulmonary: Yes no symptom reported Cardiovascular: Yes edema Gastrointestional: Yes: no symptom reported Genitourinary: Yes: no symptom reported Musculoskeletal: Yes: muscle stiffness Skin: Yes no symptom reported Psychiatric/Neurological: Yes: no symptom reported Endocrine: Yes: no symptom reported Physical Exam HEENT: Neck Supple W Full Motion Chest: Symmetric LUNGS: Clear to Auscultation Heart: S1S2, RRR, no murmurs, other (tele: SR) Abdomen: Soft N/T Extremities: Other (2-3+ bilateral LE edema) Neurology: alert, oriented, follow commands Assessment Assessment 1. NSTEMI --troponin peaked @ 2.4 --s/p CABG X x 4: free TUCKER to LAD, SVG to LPL, SVG to diagonal, SVG to RPDA --management per CTS; ASA and statins; hold BB due to hypotension; amiodarone for afib prophylaxis --mobilize; daily shower --agreeable with discharge; furosemide 40 mg daily X 14 days and KCL 20 MEq every other day per CTS --f/u with CTS in 3 weeks with CXR and cardiology in 4 weeks 2. ischemic cardiomyopathy --LVEF 20-25% pre-op --LVEF remains ~ 25% on TTE repeated 11/04/2017; have discussed potential LifeVest with patient and provided with written information; he will think about it --no BB due to low normotensive BP and hold ACEI due to renal function 3. HTN --controlled with meds 4. HLD --statin therapy 5. Emphysema with persistent tobacco abuse --CT demonstrates emphysema --cessation advised 6. moderate REIA and JEROME disease 7. acute blood loss anemia, post-operative, expectant --Hgb stable 8. IVAN, post-operative --per nephrology RAMSES SANDOVAL EXTENSION ASSOCIATE Nov 07, 2017 11:05
--- NOTE | 2017-11-07 11:15 | DISCH ---
DISCHARGE WITH HOME HEALTH DISCHARGE INFORMATION: Discharge Date: Nov 07, 2017 Final Diagnosis: 1. ACS; s/p CABG 2. HTN 3. HLD 4. acute systolic CHF 5. tobacco abuse Condition on Discharge: Stable CODE STATUS: Code Status: Full HOME HEALTH: Face to Face: I certify this patient is under my care and that I, or a nurse practitioner or physician's dental assistant instructor working with me, had a face to face encounter that meets the physician face to face encounter requirements with this patient on []. Medical Complications: CABG Physical Therapy For: Evalulation/Treatment Occupational Therapy For: Evaluation/Treatment RETREAD MOLD OPERATOR For: Community Resources Pt Meets Homebound Status: Fatigue w/ amb., Other: (wound care) POST DISCHARGE ORDERS: Activity Instructions for Disc: Activity as tolerated, Progressive ambulation Weight Bearing Status after Di: No restrictions DIET AFTER DISCHARGE: Cardiac Wound/Incision Care: Other, see below (dressing to right upper leg as neeed; otherwise wound open to air; daily shower with soap and water) CHECKS AFTER DISCHARGE: Checks after discharge: Weigh Yourself Daily FOLLOW-UP: Follow up with: Dr. Chou on 11/21/2017 Follow Up With: Dr. Alvarez in 4 weeks; PCP follow up in 7 - 10 days TREATMENT/EQUIPMENT ORDERS: Adaptive Equipment Issued: None CERTIFICATION STATEMENT: Certification Statement: Certification Statement: Based on the above finding, I certify that this patient is confined to the home and needs intermittent residential care, physical therapy and/or speech therapy, or continues to need occupational therapy.~ This patient is under my care, and I have initiated the establishment of the plan of care.~ This patient will be followed by myself or a community physician who will periodically review the plan of care. Home Meds Active Scripts Potassium Chloride (POTASSIUM CHLORIDE) 20 Meq Tablet.er, 20 MEQ PO QODAY for 14 Days, #8 TAB.SR Prov:RAMSES SANDOVAL APRN 11/07/17 Furosemide (FUROSEMIDE) 40 Mg Tablet, 40 MG PO DAILY for 14 Days, #14 TAB 0 Refills Prov:RAMSES SANDOVAL APRN 11/07/17 Oxycodone Hcl/Acetaminophen (OXYCODONE-ACETAMINOPHEN 5-325) 1 Each Tablet, 1 TAB PO PRN Q4-6HRS PRN for MODERATE PAIN, #15 TAB 0 Refills Prov:RAMSES SANDOVAL APRN 11/07/17 Aspirin (ASPIRIN EC) 325 Mg Tablet.dr, 325 MG PO DAILYWBKFT for 90 Days, #90 TAB.SR 1 Refill Prov:RAMSES SANDOVAL APRN 11/07/17 Atorvastatin Calcium (ATORVASTATIN CALCIUM) 40 Mg Tablet, 40 MG PO QHS for 90 Days, #90 TAB 3 Refills Prov:RAMSES SANDOVAL APRN 11/07/17 Cephalexin (CEPHALEXIN) 250 Mg Capsule, 500 MG PO BID for 9 Days, #18 CAP Prov:RAMSES SANDOVAL APRN 11/07/17 RAMSES SANDOVAL APRN Nov 07, 2017 11:15
--- NOTE | 2017-11-07 11:16 | PDOC ---
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 seen and examined Pt. alert and oriented; affect good DW nursing VSS CXR good Creatinine continues to decrease Renal agrees w/ discharge decision Discharged home today Vitals Vitals Vital Signs Date Time Temp Pulse Resp B/P (MAP) Pulse Ox O2 Delivery O2 Flow Rate FiO2 11/07/17 08:50 97 104/62 11/07/17 07:57 97 Room Air 11/07/17 07:00 98.2 16 98.2 11/06/17 08:00 2.0 Physical Exam General: Alert, Oriented X3, Cooperative, No acute distress Heart: Regular rate, Normal S1, Normal S2 Lungs: Clear Abdomen: Soft, No tenderness Extremities: No clubbing, No cyanosis Skin: No rashes, No significant lesion Labs LABS Laboratory Tests Test 11/07/17 03:30 White Blood Count 7.9 x10^3/uL (4.0-11.0) Red Blood Count 2.87 x10^6/uL (4.30-5.70) Hemoglobin 9.8 g/dL (13.0-17.5) Hematocrit 28.4 % (39.0-53.0) Mean Corpuscular Volume 99 fL (79-100) Mean Corpuscular Hemoglobin 34 pg (25-35) Mean Corpuscular Hemoglobin Concent 34 g/dL (31-37) Red Cell Distribution Width 15.4 % (11.5-14.5) Platelet Count 376 x10^3/uL (140-400) Neutrophils (%) (Auto) 70 % (31-73) Lymphocytes (%) (Auto) 15 % (24-48) Monocytes (%) (Auto) 13 % (0-9) Eosinophils (%) (Auto) 2 % (0-3) Basophils (%) (Auto) 1 % (0-3) Neutrophils # (Auto) 5.5 x10^3uL (1.8-7.7) Lymphocytes # (Auto) 1.2 x10^3/uL (1.0-4.8) Monocytes # (Auto) 1.0 x10^3/uL (0.0-1.1) Eosinophils # (Auto) 0.2 x10^3/uL (0.0-0.7) Basophils # (Auto) 0.1 x10^3/uL (0.0-0.2) Sodium Level 136 mmol/L (136-145) Potassium Level 3.6 mmol/L (3.5-5.1) Chloride Level 100 mmol/L (98-107) Carbon Dioxide Level 23 mmol/L (21-32) Anion Gap 13 (6-14) Blood Urea Nitrogen 27 mg/dL (8-26) Creatinine 1.6 mg/dL (0.7-1.3) Estimated GFR (Cockcroft-Gault) 44.0 Glucose Level 91 mg/dL (70-99) Calcium Level 8.6 mg/dL (8.5-10.1) Review of Systems Review of Systems Pt. denies chest pain Pt. 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 Labs Laboratory Tests Test 11/06/17 04:25 11/07/17 03:30 White Blood Count 8.7 x10^3/uL (4.0-11.0) 7.9 x10^3/uL (4.0-11.0) Red Blood Count 2.60 x10^6/uL (4.30-5.70) 2.87 x10^6/uL (4.30-5.70) Hemoglobin 8.8 g/dL (13.0-17.5) 9.8 g/dL (13.0-17.5) Hematocrit 25.6 % (39.0-53.0) 28.4 % (39.0-53.0) Mean Corpuscular Volume 98 fL (79-100) 99 fL (79-100) Mean Corpuscular Hemoglobin 34 pg (25-35) 34 pg (25-35) Mean Corpuscular Hemoglobin Concent 35 g/dL (31-37) 34 g/dL (31-37) Red Cell Distribution Width 15.5 % (11.5-14.5) 15.4 % (11.5-14.5) Platelet Count 294 x10^3/uL (140-400) 376 x10^3/uL (140-400) Neutrophils (%) (Auto) 69 % (31-73) 70 % (31-73) Lymphocytes (%) (Auto) 15 % (24-48) 15 % (24-48) Monocytes (%) (Auto) 13 % (0-9) 13 % (0-9) Eosinophils (%) (Auto) 2 % (0-3) 2 % (0-3) Basophils (%) (Auto) 1 % (0-3) 1 % (0-3) Neutrophils # (Auto) 6.0 x10^3uL (1.8-7.7) 5.5 x10^3uL (1.8-7.7) Lymphocytes # (Auto) 1.3 x10^3/uL (1.0-4.8) 1.2 x10^3/uL (1.0-4.8) Monocytes # (Auto) 1.1 x10^3/uL (0.0-1.1) 1.0 x10^3/uL (0.0-1.1) Eosinophils # (Auto) 0.2 x10^3/uL (0.0-0.7) 0.2 x10^3/uL (0.0-0.7) Basophils # (Auto) 0.1 x10^3/uL (0.0-0.2) 0.1 x10^3/uL (0.0-0.2) Sodium Level 137 mmol/L (136-145) 136 mmol/L (136-145) Potassium Level 4.3 mmol/L (3.5-5.1) 3.6 mmol/L (3.5-5.1) Chloride Level 103 mmol/L (98-107) 100 mmol/L (98-107) Carbon Dioxide Level 21 mmol/L (21-32) 23 mmol/L (21-32) Anion Gap 13 (6-14) 13 (6-14) Blood Urea Nitrogen 26 mg/dL (8-26) 27 mg/dL (8-26) Creatinine 1.5 mg/dL (0.7-1.3) 1.6 mg/dL (0.7-1.3) Estimated GFR (Cockcroft-Gault) 47.4 44.0 Glucose Level 86 mg/dL (70-99) 91 mg/dL (70-99) Calcium Level 8.1 mg/dL (8.5-10.1) 8.6 mg/dL (8.5-10.1) Laboratory Tests Test 11/07/17 03:30 White Blood Count 7.9 x10^3/uL (4.0-11.0) Red Blood Count 2.87 x10^6/uL (4.30-5.70) Hemoglobin 9.8 g/dL (13.0-17.5) Hematocrit 28.4 % (39.0-53.0) Mean Corpuscular Volume 99 fL (79-100) Mean Corpuscular Hemoglobin 34 pg (25-35) Mean Corpuscular Hemoglobin Concent 34 g/dL (31-37) Red Cell Distribution Width 15.4 % (11.5-14.5) Platelet Count 376 x10^3/uL (140-400) Neutrophils (%) (Auto) 70 % (31-73) Lymphocytes (%) (Auto) 15 % (24-48) Monocytes (%) (Auto) 13 % (0-9) Eosinophils (%) (Auto) 2 % (0-3) Basophils (%) (Auto) 1 % (0-3) Neutrophils # (Auto) 5.5 x10^3uL (1.8-7.7) Lymphocytes # (Auto) 1.2 x10^3/uL (1.0-4.8) Monocytes # (Auto) 1.0 x10^3/uL (0.0-1.1) Eosinophils # (Auto) 0.2 x10^3/uL (0.0-0.7) Basophils # (Auto) 0.1 x10^3/uL (0.0-0.2) Sodium Level 136 mmol/L (136-145) Potassium Level 3.6 mmol/L (3.5-5.1) Chloride Level 100 mmol/L (98-107) Carbon Dioxide Level 23 mmol/L (21-32) Anion Gap 13 (6-14) Blood Urea Nitrogen 27 mg/dL (8-26) Creatinine 1.6 mg/dL (0.7-1.3) Estimated GFR (Cockcroft-Gault) 44.0 Glucose Level 91 mg/dL (70-99) Calcium Level 8.6 mg/dL (8.5-10.1) Medications Current Medications Aspirin (Children'S Aspirin) 324 mg 1X ONCE PO Last administered on 10/28/17at 01:28; Start 10/28/17 at :30; Stop 10/28/17 at :31; Status DC Nitroglycerin (Nitro-Bid Oint) 1 inch 1X ONCE TP Last administered on at 01:29; Start 10/28/17 at 01:30; Stop 10/28/17 at :31; Status DC Furosemide (Lasix) 40 mg 1X ONCE IVP Last administered on 10/28/17at :28; Start 10/28/17 at :30; Stop 10/28/17 at :31; Status DC Enoxaparin Sodium (Lovenox Per Pharmacy Treatment Dosing) 1 each PRN DAILY PRN MC SEE COMMENTS; Start 10/28/17 at 01:30; Status Cancel Ondansetron HCl (Zofran) 4 mg PRN Q8HRS PRN IV NAUSEA/VOMITING 1ST CHOICE; Start 10/28/17 at 01:30; Stop 10/29/17 at 01:29; Status DC Fentanyl Citrate (Fentanyl 2ml Vial) 50 mcg PRN Q1HR PRN IV SEVERE PAIN; Start 10/28/17 at 01:30; Stop 10/29/17 at 01:29; Status DC Acetaminophen (Tylenol) 650 mg PRN Q4HRS PRN PO FEVER; Start 10/28/17 at 01:30; Stop 10/29/17 at 01:29; Status DC Heparin Sodium/ Dextrose 500 ml @ 0 mls/hr CONT PRN IV SEE I/O RECORD Last administered on 10/29/17at 02:02; Start 10/28/17 at 01:30; Stop 10/30/17 at 00:05; Status DC Heparin Sodium (Porcine) (Heparin Sodium) 2,000 unit PRN Q6HRS PRN IV FOR UFH LEVEL LESS THAN 0.2 Last administered on 10/28/17at 02:17; Start 10/28/17 at 01:30 ; Stop 10/30/17 at 07:44; Status DC Furosemide (Lasix) 40 mg [id number] IVP ; Start 10/28/17 at 09:00; Stop 10/28/17 at 13: 04; Status DC Furosemide (Lasix) 40 mg 1X ONCE IVP Last administered on 10/28/17at 02:13; Start 10/28/17 at 02:00; Stop 10/28/17 at 02:01; Status DC Info (Anti-Coagulation Monitoring By Pharmacy) 1 each PRN DAILY PRN MC SEE COMMENTS Last administered on 10/29/17at 10:35; Start 10/28/17 at 02:00; Stop at 07:44; Status DC Aspirin (Ecotrin) 325 mg DAILYWBKFT PO Last administered on 10/29/17at 09:24; Start 10/28/17 at 09:30; Stop 10/29/17 at 14:52; Status DC Sodium Chloride 1,000 ml @ 50 mls/hr 1X ONCE IV Last administered on at 11:37; Start 10/28/17 at 09:30; Stop 10/29/17 at 05:29; Status DC Labetalol HCl (Normodyne Iv Push) 20 mg PRN Q2HR PRN IVP HYPERTENSION, SEE COMMENTS; Start 10/28/17 at 09:15; Stop 10/29/17 at 23:55; Status DC Magnesium Sulfate 50 ml @ 25 mls/hr 1X ONCE IV Last administered on 10/28/17at 11:29; Start 10/28/17 at 11:30; Stop 10/28/17 at 13:29; Status DC Potassium Chloride (Klor-Con) 40 meq 1X ONCE PO Last administered on 10/28/17at 16:42; Start 10/28/17 at 11:30; Stop 10/28/17 at 11:31; Status DC Furosemide (Lasix) 40 mg DAILY IVP Last administered on 10/29/17at 09:35; Start 10/29/17 at 09:00; Stop 10/29/17 at 14:54; Status DC Iodixanol (Visipaque 320) 100 ml STK-MED ONCE .ROUTE ; Start 10/28/17 at 14:04; Stop 10/28/17 at 14:05; Status DC Lidocaine HCl (Xylocaine-Mpf 1% 2ml Vial) 2 ml STK-MED ONCE .ROUTE ; Start at 14:04; Stop 10/28/17 at 14:05; Status DC Heparin Sodium/ Sodium Chloride 1,000 ml @ As Directed STK-MED ONCE .ROUTE ; Start 10/28/17 at 14:05; Stop 10/28/17 at 14:06; Status DC Fentanyl Citrate (Fentanyl 2ml Vial) 100 mcg STK-MED ONCE .ROUTE ; Start at 15:10; Stop 10/28/17 at 15:11; Status DC Midazolam HCl (Versed) 2 mg STK-MED ONCE .ROUTE ; Start 10/28/17 at 15:10; Stop 10/28/17 at 15:11; Status DC Heparin Sodium (Porcine) (Heparin Sodium) 10,000 unit STK-MED ONCE .ROUTE ; Start 10/28/17 at 15:10; Stop 10/28/17 at 15:11; Status DC Verapamil HCl (Verapamil) 5 mg STK-MED ONCE .ROUTE ; Start 10/28/17 at 15:10; Stop 10/28/17 at 15:11; Status DC Nitroglycerin (Nitroglycerin) 200 mcg STK-MED ONCE .ROUTE ; Start 10/28/17 at 15: 10; Stop 10/28/17 at 15:11; Status DC Nitroglycerin (Nitroglycerin) 200 mcg 1X ONCE IART Last administered on at 15:57; Start 10/28/17 at 16:00; Stop 10/28/17 at 16:01; Status DC Verapamil HCl (Verapamil) 2.5 mg 1X ONCE IART Last administered on 10/28/17at 15 :57; Start 10/28/17 at 16:00; Stop 10/28/17 at 16:01; Status DC Heparin Sodium (Porcine) (Heparin Sodium) 2,500 unit 1X ONCE IART Last administered on 10/28/17at 15:30; Start 10/28/17 at 16:00; Stop 10/28/17 at 16:01; Status DC Heparin Sodium/ Sodium Chloride (HEPARIN for ARTERIAL LINE FLUSH) 1,000 unit 1X ONCE IART Last administered on 10/28/17at 15:56; Start 10/28/17 at 16:00; Stop 10/28/17 at 16:01; Status DC Midazolam HCl (Versed) 2 mg 1X ONCE IV Last administered on 10/28/17at 15:58; Start 10/28/17 at 16:00; Stop 10/28/17 at 16:01; Status DC Fentanyl Citrate (Fentanyl 2ml Vial) 50 mcg 1X ONCE IV Last administered on 10/28/17at 15:58; Start 10/28/17 at 16:00; Stop 10/28/17 at 16:01; Status DC Iodixanol (Visipaque 320) 65 ml 1X ONCE IART Last administered on 10/28/17at 15: 56; Start 10/28/17 at 16:00; Stop 10/28/17 at 16:01; Status DC Lidocaine HCl (Xylocaine-Mpf 1% 2ml Vial) 1 ml 1X ONCE INJ Last administered on 10/28/17at 15:57; Start 10/28/17 at 16:00; Stop 10/28/17 at 16:01; Status DC Info (CONTRAST GIVEN -- Rx MONITORING) 1 each PRN DAILY PRN MC SEE COMMENTS; Start 10/28/17 at 16:00; Stop 10/30/17 at 16:00; Status DC Metoprolol Tartrate (Lopressor) 12.5 mg BID PO Last administered on 10/29/17at 21 :01; Start 10/28/17 at 21:00; Stop 10/29/17 at 23:55; Status DC Potassium Chloride (Klor-Con) 40 meq 1X ONCE PO Last administered on 10/29/17at 09:24; Start 10/29/17 at 09:00; Stop 10/29/17 at 09:01; Status DC Alprazolam (Xanax) 0.25 mg PRN Q8HRS PRN PO ANXIETY / AGITATION Last administered on 10/29/17at 21:00; Start 10/29/17 at 09:15; Stop 10/29/17 at 22:00; Status DC Potassium Chloride 70 meq/ Sodium Bicarbonate 12.5 meq/Lidocaine HCl 24 ml/ Parenteral Electrolytes 571.5 ml @ 571.5 mls/ hr 1X ONCE IRR Last administered on 10/30/17at 10:59; Start 10/30/17 at 06:00; Stop 10/30/17 at 06:59; Status DC Potassium Chloride 15 meq/ Sodium Bicarbonate 12.5 meq/Parenteral Electrolytes 520 ml @ 520 mls/hr 1X ONCE IRR Last administered on 10/30/17at 10:59; Start at 06:00; Stop 10/30/17 at 06:59; Status DC Heparin Sodium (Porcine) 29355 unit/Ringer's Solution 1,020 ml @ 1,020 mls/hr 1X ONCE IRR Last administered on 10/30/17at 08:58; Start 10/30/17 at 06:00; Stop 10/30/17 at 06:59; Status DC Heparin Sodium (Porcine) 800 unit/ Nitroglycerin 4 mg/Verapamil HCl 8 mg/Sodium Bicarbonate 0.34 meq/Ringer's Solution 512.34 ml @ 512.34 mls/hr 1X ONCE IRR ; Start 10/30/17 at 06:00; Stop 10/30/17 at 06:59; Status DC Ondansetron HCl (Zofran) 4 mg PRN Q6HRS PRN IV NAUSEA/VOMITING; Start 10/30/17 at 07:00; Stop 10/31/17 at 06:59; Status DC Fentanyl Citrate (Fentanyl 2ml Vial) 25 mcg PRN Q5MIN PRN IV MILD PAIN; Start 10/30/17 at 07:00; Stop 10/31/17 at 06:59; Status DC Fentanyl Citrate (Fentanyl 2ml Vial) 50 mcg PRN Q5MIN PRN IV MODERATE TO SEVERE PAIN; Start 10/30/17 at 07:00; Stop 10/31/17 at 06:59; Status DC Morphine Sulfate (Morphine Sulfate) 1 mg PRN Q10MIN PRN IV SEVERE PAIN; Start 10/30/17 at 07:00; Stop 10/31/17 at 06:59; Status DC Ringer's Solution 1,000 ml @ 30 mls/hr Q24H IV Last administered on 10/30/17at 17:12; Start 10/30/17 at 07:00; Stop 10/30/17 at 18:59; Status DC Lidocaine HCl (Xylocaine-Mpf 1% 2ml Vial) 2 ml PRN 1X PRN ID IV START; Start at 07:00; Stop 10/31/17 at 06:59; Status DC Hydromorphone HCl (Dilaudid) 0.5 mg PRN Q10MIN PRN IV SEV PAIN, Second choice; Start 10/30/17 at 07:00; Stop 10/31/17 at 06:59; Status DC Prochlorperazine Edisylate (Compazine) 5 mg PACU PRN PRN IV NAUSEA, MRX1; Start 10/30/17 at 07:00; Stop 10/31/17 at 06:59; Status DC Cefazolin Sodium 1 gm/Sodium Chloride 500 ml @ 500 mls/hr 1X ONCE IRR Last administered on 10/30/17at 08:58; Start 10/30/17 at 06:00; Stop 10/30/17 at 06:59; Status DC Etomidate (Amidate) 20 mg STK-MED ONCE IV ; Start 10/30/17 at 06:08; Stop at 06:09; Status DC Lidocaine HCl (Lidocaine Pf 2% Vial) 5 ml STK-MED ONCE .ROUTE ; Start 10/30/17 at 06:08; Stop 10/30/17 at 06:09; Status DC Rocuronium Henderson (Zemuron) 100 mg STK-MED ONCE .ROUTE ; Start 10/30/17 at 06:08 ; Stop 10/30/17 at 06:09; Status DC Phenylephrine HCl (Rui-Synephrine Inj) 10 mg STK-MED ONCE .ROUTE ; Start at 06:09; Stop 10/30/17 at 06:10; Status DC Ephedrine Sulfate (ePHEDrine PF IN SALINE SYRINGE) 50 mg STK-MED ONCE IV ; Start 10/30/17 at 06:09; Stop 10/30/17 at 06:10; Status DC Heparin Sodium (Porcine) 30,000 unit STK-MED ONCE .ROUTE ; Start 10/30/17 at 06: 09; Stop 10/30/17 at 06:10; Status DC Aminocaproic Acid (Amicar) 5,000 mg STK-MED ONCE IV ; Start 10/30/17 at 06:09; Stop 10/30/17 at 06:10; Status DC Nitroglycerin/ Dextrose 250 ml @ As Directed STK-MED ONCE IV ; Start 10/30/17 at 06:09; Stop 10/30/17 at 06:10; Status DC Midazolam HCl (Versed) 2 mg STK-MED ONCE .ROUTE ; Start 10/30/17 at 06:11; Stop 10/30/17 at 06:12; Status DC Sufentanil Citrate (Sufenta) 100 mcg STK-MED ONCE .ROUTE ; Start 10/30/17 at 06: 11; Stop 10/30/17 at 06:12; Status DC Lidocaine HCl (Xylocaine-Mpf 2% Vial) 2 ml STK-MED ONCE .ROUTE ; Start 10/30/17 at 07:05; Stop 10/30/17 at 07:06; Status DC Vancomycin HCl (VANCO for OR ONLY) 10 gm STK-MED ONCE .ROUTE Last administered on 10/30/17at 08:58; Start 10/30/17 at 06:06; Stop 10/30/17 at 07:06; Status DC Cellulose (Surgicel Hemostat 4x8) 1 each STK-MED ONCE .ROUTE Last administered on 10/30/17at 08:58; Start 10/30/17 at 06:06; Stop 10/30/17 at 07:06; Status DC Papaverine HCl 60 mg STK-MED ONCE .ROUTE Last administered on 10/30/17at 08:58; Start 10/30/17 at 06:06; Stop 10/30/17 at 07:07; Status DC Aspirin (Aspirin) 300 mg STK-MED ONCE .ROUTE Last administered on 10/30/17at 15: 59; Start 10/30/17 at 06:06; Stop 10/30/17 at 07:07; Status DC Sodium Chloride (SODIUM CHLORIDE 20ml) 20 ml STK-MED ONCE IJ Last administered on 10/30/17at 08:58; Start 10/30/17 at 06:06; Stop 10/30/17 at 07:07; Status DC Sodium Chloride (SODIUM CHLORIDE 20ml) 20 ml STK-MED ONCE IJ Last administered on 10/30/17at 08:58; Start 10/30/17 at 06:06; Stop 10/30/17 at 07:07; Status DC Sodium Chloride (SODIUM CHLORIDE 20ml) 20 ml STK-MED ONCE IJ Last administered on 10/30/17at 08:58; Start 10/30/17 at 06:07; Stop 10/30/17 at 07:07; Status DC Cefazolin Sodium/ Dextrose 50 ml @ 100 mls/hr 1X PREOP PRN IV PRIOR TO SURGERY Last administered on 10/30/17at 08:13; Start 10/30/17 at 08:15; Stop at 13:38; Status DC Rocuronium Henderson (Zemuron) 100 mg STK-MED ONCE .ROUTE ; Start 10/30/17 at 08:19 ; Stop 10/30/17 at 08:20; Status DC Sufentanil Citrate (Sufenta) 100 mcg STK-MED ONCE .ROUTE ; Start 10/30/17 at 08: 19; Stop 10/30/17 at 08:20; Status DC Isoflurane (Isoflurane) 90 ml STK-MED ONCE IH ; Start 10/30/17 at 08:22; Stop 10/30/17 at 08:23; Status DC Midazolam HCl (Versed) 2 mg STK-MED ONCE .ROUTE ; Start 10/30/17 at 08:55; Stop 10/30/17 at 08:56; Status DC Cefazolin Sodium/ Dextrose 50 ml @ 100 mls/hr 1X ONCE IV Last administered on 10/30/17at 13:45; Start 10/30/17 at 10:45; Stop 10/30/17 at 11:14; Status DC Epinephrine HCl 4 mg/Sodium Chloride 254 ml @ 3.81 mls/hr 1X ONCE IV Last administered on 10/30/17at 17:14; Start 10/30/17 at 10:45; Stop 11/02/17 at 05:24; Status DC Norepinephrine Bitartrate 250 ml @ 1.875 mls/ hr 1X ONCE IV Last administered on 10/30/17at 17:14; Start 10/30/17 at 10:45; Stop 11/05/17 at 00:04; Status DC Midazolam HCl (Versed) 2 mg STK-MED ONCE .ROUTE ; Start 10/30/17 at 11:03; Stop 10/30/17 at 11:04; Status DC Protamine Sulfate (Protamine) 50 mg STK-MED ONCE IV ; Start 10/30/17 at 11:19; Stop 10/30/17 at 11:20; Status DC Protamine Sulfate (Protamine) 250 mg STK-MED ONCE IV ; Start 10/30/17 at 11:19; Stop 10/30/17 at 11:20; Status DC Midazolam HCl (Versed) 5 mg STK-MED ONCE .ROUTE ; Start 10/30/17 at 11:54; Stop 10/30/17 at 11:55; Status DC Propofol 20 ml @ As Directed STK-MED ONCE IV ; Start 10/30/17 at 12:36; Stop 10/30 at 12:37; Status DC Ringer's Solution 1,000 ml @ 30 mls/hr Q24H IV Last administered on 11/02/17at 04:50; Start 10/30/17 at 13:00; Stop 11/03/17 at 10:47; Status DC Albumin Human 250 ml @ 60 mls/hr PRN Q4HRS PRN IV SEE I/O RECORD Last administered on 10/31/17at 10:49; Start 10/30/17 at 13:00; Stop 11/03/17 at 10:47; Status DC Insulin Human Regular 150 unit/ Sodium Chloride 151.5 ml @ 0 mls/hr CONT PRN PRN IV SEE I/O RECORD Last administered on 10/31/17at 15:36; Start 10/30/17 at 13: 00; Stop 11/03/17 at 10:47; Status DC Dextrose (Dextrose 50%-Water Syringe) 25 gm PRN Q15MIN PRN IV LOW BLOOD SUGAR; Start 10/30/17 at 13:00 Info (Icu Electrolyte Protocol) 1 ea CONT PRN PRN MC SEE COMMENTS; Start at 13:00; Stop 11/03/17 at 10:48; Status DC Magnesium Sulfate/ Dextrose 100 ml @ 100 mls/hr PRN DAILY PRN IV FOR MAG < 2.2 Last administered on 10/30/17at 18:10; Start 10/30/17 at 13:00 Famotidine (Pepcid Vial) 20 mg BID IVP Last administered on 10/31/17at 07:48; Start 10/30/17 at 14:00; Stop 10/31/17 at 14:38; Status DC Ondansetron HCl (Zofran) 4 mg PRN Q4HRS PRN IV NAUSEA/VOMITING 1ST CHOIC; Start 10/30/17 at 13:00 Prochlorperazine Edisylate (Compazine) 10 mg PRN Q6HRS PRN IV NAUSEA/VOMITING 2ND CHOICE; Start 10/30/17 at 13:00 Morphine Sulfate (Morphine Sulfate) 2 mg PRN Q1HR PRN IV MODERATE PAIN Last administered on 10/31/17at 01:19; Start 10/30/17 at 13:00 Acetaminophen (Tylenol) 650 mg PRN Q4HRS PRN PO MILD PAIN / TEMP Last administered on 11/03/17at 09:11; Start 10/30/17 at 13:00 Acetaminophen (Tylenol Supp) 650 mg PRN Q4HRS PRN DC MILD PAIN / TEMP; Start at 13:00; Stop 11/03/17 at 10:48; Status DC Meperidine HCl (Demerol) 12.5 mg PRN Q15MIN PRN IV SHIVERING; Start 10/30/17 at 13:00; Stop 10/31/17 at 13:00; Status DC Propofol 100 ml @ 0 mls/hr CONT PRN PRN IV POSTOP SEDATION UNTIL EXTUBATE Last administered on 10/30/17at 17:11; Start 10/30/17 at 13:00; Stop 10/31/17 at 15:11; Status DC Senna/Docusate Sodium (Senna Plus) 1 tab BID PO Last administered on 11/07/17at 08:50; Start 10/30/17 at 21:00 Bisacodyl (Dulcolax Supp) 10 mg PRN DAILY PRN DC NO BOWEL MOVEMENT; Start at 13:00 Chlorhexidine Gluconate (Peridex) 15 ml BID MM ; Start 10/30/17 at 21:00; Stop at 21:52; Status DC Aspirin (Ecotrin) 325 mg DAILYWBKFT PO Last administered on 11/07/17at 08:49; Start 10/31/17 at 08:00 Aspirin (Aspirin) 300 mg PRN DAILY PRN DC IF UNABLE TO TAKE PO; Start 10/30/17 at 13:00 Albuterol Sulfate (Ventolin Neb Soln) 2.5 mg PRN Q4HRS PRN NEB SHORTNESS OF BREATH Last administered on 11/01/17at 05:41; Start 10/30/17 at 13:00 Metoprolol Tartrate (Lopressor) 25 mg BID PO ; Start 10/31/17 at 09:00; Stop 10/31 at 11:26; Status DC Nicardipine HCl 50 mg/Sodium Chloride 270 ml @ 0 mls/hr CONT PRN PRN IV PER PROTOCOL; Start 10/30/17 at 13:00; Stop 11/03/17 at 10:48; Status DC Oxycodone/ Acetaminophen (Percocet 5/325) 1 tab PRN Q4HRS PRN PO MODERATE PAIN Last administered on 11/01/17at 04:48; Start 10/30/17 at 13:00 Oxycodone/ Acetaminophen (Percocet 5/325) 2 tab PRN Q4HRS PRN PO SEVERE PAIN Last administered on 10/31/17at 21:12; Start 10/30/17 at 13:00 Cefazolin Sodium/ Dextrose 50 ml @ 100 mls/hr Q8H IV Last administered on at 04:16; Start 10/30/17 at 20:00; Stop 11/01/17 at 04:29; Status DC Polyethylene Glycol (miraLAX PACKET) 17 gm DAILYWSUP PO Last administered on 11/02/17at 17:00; Start 10/31/17 at 17:00 Alprazolam (Xanax) 0.25 mg PRN Q8HRS PRN PO ANXIETY / AGITATION Last administered on 11/03/17at 09:11; Start 10/30/17 at 13:00 Heparin Sodium (Porcine) (Heparin Sodium) 10,000 unit STK-MED ONCE .ROUTE ; Start 10/30/17 at 13:36; Stop 10/30/17 at 13:37; Status DC Lidocaine HCl (Lidocaine Pf 2% Vial) 5 ml STK-MED ONCE .ROUTE ; Start 10/30/17 at 13:36; Stop 10/30/17 at 13:37; Status DC Magnesium Sulfate 5 gm STK-MED ONCE .ROUTE ; Start 10/30/17 at 13:36; Stop at 13:37; Status DC Heparin Sodium (Porcine) 30,000 unit STK-MED ONCE .ROUTE ; Start 10/30/17 at 13: 36; Stop 10/30/17 at 13:37; Status DC Mannitol (Mannitol) 12.5 g STK-MED ONCE .ROUTE ; Start 10/30/17 at 13:36; Stop at 13:37; Status DC Albumin Human 100 ml @ As Directed STK-MED ONCE IV ; Start 10/30/17 at 13:36; Stop 10/30/17 at 13:37; Status DC Calcium Chloride (Calcium Chloride) 1,000 mg STK-MED ONCE .ROUTE ; Start at 13:36; Stop 10/30/17 at 13:37; Status DC Sodium Bicarbonate (Sodium Bicarb Adult 8.4% Syr) 50 meq STK-MED ONCE .ROUTE ; Start 10/30/17 at 13:36; Stop 10/30/17 at 13:37; Status DC Heparin Sodium (Porcine) 30,000 unit STK-MED ONCE .ROUTE ; Start 10/30/17 at 13: 38; Stop 10/30/17 at 13:39; Status DC Milrinone Lactate (Primacor) 10 mg STK-MED ONCE IV ; Start 10/30/17 at 13:43; Stop 10/30/17 at 13:44; Status DC Milrinone Lactate/ Dextrose 100 ml @ As Directed STK-MED ONCE IV ; Start at 13:43; Stop 10/30/17 at 13:44; Status DC Epinephrine HCl (EPINEPHrine SYRINGE) 1 mg STK-MED ONCE .ROUTE ; Start 10/30/17 at 13:53; Stop 10/30/17 at 13:54; Status DC Heparin Sodium (Porcine) (Heparin Sodium) 10,000 unit STK-MED ONCE .ROUTE ; Start 10/30/17 at 14:02; Stop 10/30/17 at 14:03; Status DC Midazolam HCl (Versed) 2 mg STK-MED ONCE .ROUTE ; Start 10/30/17 at 14:10; Stop 10/30/17 at 14:11; Status DC Esmolol HCl (Brevibloc) 100 mg STK-MED ONCE IV ; Start 10/30/17 at 14:20; Stop at 14:21; Status DC Protamine Sulfate (Protamine) 50 mg STK-MED ONCE IV ; Start 10/30/17 at 14:44; Stop 10/30/17 at 14:45; Status DC Protamine Sulfate (Protamine) 250 mg STK-MED ONCE IV ; Start 10/30/17 at 14:44; Stop 10/30/17 at 14:45; Status DC Mannitol (Mannitol) 12.5 g STK-MED ONCE .ROUTE ; Start 10/30/17 at 14:53; Stop at 14:54; Status DC Calcium Chloride (Calcium Chloride) 1,000 mg STK-MED ONCE .ROUTE ; Start at 14:53; Stop 10/30/17 at 14:54; Status DC Sodium Bicarbonate (Sodium Bicarb Adult 8.4% Syr) 50 meq STK-MED ONCE .ROUTE ; Start 10/30/17 at 14:53; Stop 10/30/17 at 14:54; Status DC Heparin Sodium (Porcine) (Heparin Sodium) 10,000 unit STK-MED ONCE .ROUTE ; Start 10/30/17 at 14:54; Stop 10/30/17 at 14:55; Status DC Albumin Human 500 ml @ As Directed STK-MED ONCE IV ; Start 10/30/17 at 14:57; Stop 10/30/17 at 14:58; Status DC Albumin Human 500 ml @ As Directed STK-MED ONCE IV ; Start 10/30/17 at 15:16; Stop 10/30/17 at 15:17; Status DC Sodium Bicarbonate (Sodium Bicarb Adult 8.4% Syr) 50 meq STK-MED ONCE .ROUTE ; Start 10/30/17 at 15:24; Stop 10/30/17 at 15:25; Status DC Amiodarone HCl 900 mg/Dextrose 518 ml @ 33 mls/hr CONT PRN IV SEE I/O RECORD; Start 10/30/17 at 15:45; Stop 10/31/17 at 15:11; Status DC Sodium Bicarbonate (Sodium Bicarb Adult 8.4% Syr) 50 meq 1X ONCE IV Last administered on 10/30/17at 17:03; Start 10/30/17 at 17:00; Stop 10/30/17 at 17:01; Status DC Sodium Bicarbonate (Sodium Bicarb Adult 8.4% Syr) 50 meq 1X ONCE IV Last administered on 10/30/17at 17:04; Start 10/30/17 at 17:00; Stop 10/30/17 at 17:01; Status DC Sodium Bicarbonate (Sodium Bicarb Adult 8.4% Syr) 50 meq 1X ONCE IV ; Start 10/30/17 at 17:00; Stop 10/30/17 at 17:01; Status DC Sodium Bicarbonate (Sodium Bicarb Adult 8.4% Syr) 50 meq 1X ONCE IV ; Start 10/30/17 at 17:00; Stop 10/30/17 at 17:01; Status DC Potassium Chloride/Water 50 ml @ 50 mls/hr Q1H IV Last administered on at 19:12; Start 10/30/17 at 18:00; Stop 10/30/17 at 19:59; Status DC Potassium Chloride/Water 50 ml @ 50 mls/hr 1X ONCE IV Last administered on 10/30at 21:44; Start 10/30/17 at 21:45; Stop 10/30/17 at 22:44; Status DC Magnesium Sulfate/ Dextrose 100 ml @ 100 mls/hr 1X ONCE IV Last administered on 10/31/17at 06:37; Start 10/31/17 at 06:45; Stop 10/31/17 at 07:44; Status DC Furosemide (Lasix) 40 mg 1X ONCE IVP Last administered on 10/31/17at 09:32; Start 10/31/17 at 09:15; Stop 10/31/17 at 09:23; Status DC Albuterol Sulfate (Ventolin Neb Soln) 2.5 mg RTQID NEB Last administered on at 07:57; Start 10/31/17 at 10:00 Furosemide (Lasix) 40 mg BID92 IVP Last administered on 10/31/17at 15:40; Start 10/31/17 at 14:00; Stop 10/31/17 at 17:51; Status DC Amiodarone HCl (Cordarone) 200 mg BID PO Last administered on 11/07/17at 08:50; Start 10/31/17 at 15:00 Famotidine (Pepcid) 20 mg BID PO Last administered on 11/01/17at 08:41; Start 10/31/17 at 21:00; Stop 11/01/17 at 15:42; Status DC Hydromorphone HCl (Dilaudid) 0.2 mg PRN Q4HRS PRN IVP SEVERE PAIN; Start at 15:15 Epinephrine HCl 4 mg/Sodium Chloride 254 ml @ 0 mls/hr CONT PRN IV SEE I/O RECORD Last administered on 10/31/17at 15:48; Start 10/31/17 at 15:30; Stop at 10:48; Status DC Furosemide (Lasix) 40 mg TID IVP Last administered on 11/03/17at 09:09; Start at 21:00; Stop 11/03/17 at 10:22; Status DC Famotidine (Pepcid) 20 mg DAILYAC PO Last administered on 11/07/17at 08:50; Start 11/02/17 at 07:30 Magnesium Sulfate/ Dextrose 100 ml @ 100 mls/hr 1X ONCE IV Last administered on 11/02/17at 07:24; Start 11/02/17 at 06:15; Stop 11/02/17 at 07:14; Status DC Potassium Chloride/Water 50 ml @ 50 mls/hr Q1H IV Last administered on at 07:23; Start 11/02/17 at 06:30; Stop 11/02/17 at 08:29; Status DC Atorvastatin Calcium (Lipitor) 40 mg QHS PO Last administered on 11/06/17at 22: 46; Start 11/02/17 at 21:00 Potassium Chloride/Water 50 ml @ 50 mls/hr Q1H IV Last administered on at 09:45; Start 11/03/17 at 08:00; Stop 11/03/17 at 09:59; Status DC Magnesium Sulfate/ Dextrose 100 ml @ 100 mls/hr 1X ONCE IV Last administered on 11/03/17at 09:11; Start 11/03/17 at 07:45; Stop 11/03/17 at 08:44; Status DC Furosemide (Lasix) 40 mg DAILY IVP ; Start 11/04/17 at 09:00; Stop 11/04/17 at 09:00; Status DC Furosemide (Lasix) 40 mg DAILY PO Last administered on 11/07/17at 08:50; Start 11/04/17 at 12:00 Lidocaine HCl (Lidocaine 1% 20ml Vial) 20 ml 1X ONCE INJ ; Start 11/05/17 at 13 :45; Stop 11/05/17 at 13:49; Status DC Cephalexin HCl (Keflex) 500 mg BID PO Last administered on 11/07/17at 08:49; Start 11/05/17 at 14:00 Albumin Human (Albutein) 50 g STInstant AV-MED ONCE IV ; Start 11/03/17 at 18:00; Stop at 16:41; Status DC Lidocaine/Sodium Bicarbonate (Buffered Lidocaine 1%) 3 ml 1X ONCE IJ Last administered on 11/06/17at 10:37; Start 11/06/17 at 10:30; Stop 11/06/17 at 10:39 ; Status DC Lactobacillus Rhamnosus (Culturelle) 1 cap BID PO Last administered on at 08:49; Start 11/06/17 at 21:00 Active Scripts Active Potassium Chloride 20 Meq Tablet.er 20 Meq PO QODAY 14 Days Furosemide 40 Mg Tablet 40 Mg PO DAILY 14 Days Oxycodone-Acetaminophen 5-325 (Oxycodone Hcl/Acetaminophen) 1 Each Tablet 1 Tab PO PRN Q4-6HRS PRN Aspirin Ec (Aspirin) 325 Mg Tablet.dr 325 Mg PO DAILYWBKFT 90 Days Atorvastatin Calcium 40 Mg Tablet 40 Mg PO QHS 90 Days Cephalexin 250 Mg Capsule 500 Mg PO BID 9 Days Vitals/I & O Vital Sign - Last 24 Hours 11/06/17 11/06/17 11/06/17 11/06/17 14:48 15:17 19:13 19:19 Temp 98.8 97.8 98.8 97.8 Pulse 98 95 Resp 18 18 B/P (MAP) 106/63 (77) 101/61 (74) Pulse Ox 98 98 99 98 O2 Delivery Room Air Room Air Room Air 11/06/17 11/06/17 11/06/17 11/07/17 20:00 22:37 22:48 03:00 Temp 97.9 98.3 97.9 98.3 Pulse 98 100 94 Resp 18 20 B/P (MAP) 103/66 (78) 103/66 99/64 (76) Pulse Ox 97 95 O2 Delivery Room Air Room Air Room Air 11/07/17 11/07/17 11/07/17 07:00 07:57 08:50 Temp 98.2 98.2 Pulse 97 97 Resp 16 B/P (MAP) 104/62 (76) 104/62 Pulse Ox 96 97 O2 Delivery Room Air Room Air Intake and Output 11/06/17 11/06/17 11/07/17 15:00 23:00 07:00 Intake Total 950 ml 200 ml Output Total 950 ml 400 ml Balance -950 ml 950 ml -200 ml CESARIO BRISENO III DO Nov 07, 2017 11:16
--- NOTE | 2017-11-07 11:28 | PDOC ---
Renal-Progress Notes Subjective Notes Notes NONE History of Present Illness Hx of present illness STABLE Vitals Vitals Vital Signs Date Time Temp Pulse Resp B/P (MAP) Pulse Ox O2 Delivery O2 Flow Rate FiO2 11/07/17 08:50 97 104/62 11/07/17 07:57 97 Room Air 11/07/17 07:00 98.2 16 98.2 11/06/17 08:00 2.0 Weight Weight [ ] I.O. Intake and Output Intake and Output 11/07/17 07:00 Intake Total 1150 ml Output Total 1350 ml Balance -200 ml Intake Oral 1150 ml Output Urine Total 400 ml Chest Tube Drainage Total 950 ml # Voids 5 # Bowel Movements 1 Labs Labs Laboratory Tests Test 11/07/17 03:30 White Blood Count 7.9 x10^3/uL (4.0-11.0) Red Blood Count 2.87 x10^6/uL (4.30-5.70) Hemoglobin 9.8 g/dL (13.0-17.5) Hematocrit 28.4 % (39.0-53.0) Mean Corpuscular Volume 99 fL (79-100) Mean Corpuscular Hemoglobin 34 pg (25-35) Mean Corpuscular Hemoglobin Concent 34 g/dL (31-37) Red Cell Distribution Width 15.4 % (11.5-14.5) Platelet Count 376 x10^3/uL (140-400) Neutrophils (%) (Auto) 70 % (31-73) Lymphocytes (%) (Auto) 15 % (24-48) Monocytes (%) (Auto) 13 % (0-9) Eosinophils (%) (Auto) 2 % (0-3) Basophils (%) (Auto) 1 % (0-3) Neutrophils # (Auto) 5.5 x10^3uL (1.8-7.7) Lymphocytes # (Auto) 1.2 x10^3/uL (1.0-4.8) Monocytes # (Auto) 1.0 x10^3/uL (0.0-1.1) Eosinophils # (Auto) 0.2 x10^3/uL (0.0-0.7) Basophils # (Auto) 0.1 x10^3/uL (0.0-0.2) Sodium Level 136 mmol/L (136-145) Potassium Level 3.6 mmol/L (3.5-5.1) Chloride Level 100 mmol/L (98-107) Carbon Dioxide Level 23 mmol/L (21-32) Anion Gap 13 (6-14) Blood Urea Nitrogen 27 mg/dL (8-26) Creatinine 1.6 mg/dL (0.7-1.3) Estimated GFR (Cockcroft-Gault) 44.0 Glucose Level 91 mg/dL (70-99) Calcium Level 8.6 mg/dL (8.5-10.1) Review of Systems Constitutional: yes: weakness, alert, oriented Ears/Nose/Throat: Yes: no symptom reported Eyes: Yes: no symptom reported Pulmonary: Yes no symptom reported Cardiovascular: Yes edema Gastrointestional: Yes: no symptom reported Genitourinary: Yes: no symptom reported Musculoskeletal: Yes: muscle stiffness Skin: Yes no symptom reported Psychiatric/Neurological: Yes: no symptom reported Endocrine: Yes: no symptom reported Physical Exam General Appearance: no apparent distress Skin: warm Heart: S1S2 Abdomen: soft Genitourinary: bladder flat Extremities: edema Neurology: alert, oriented, follow commands Assessment Assessment IMP IVAN-RESOLVING WITH CR DOWN TO 1.6 S/P CABG EDEMA DECONDITIONING PLAN PO LASIX D/C PLANS NOTED WILL SIGN OFF DENIZ MCDONALD MD Nov 07, 2017 11:28
== END 2017-11-07 13:15 | disposition home health service (06) | DRG 233 ==
LOC: ER 23:51 → 1 WEST ICU 10-28 01:27 → 2 SOUTH 10-28 08:16 → 1 WEST ICU 10-30 11:40 → 2 SOUTH 11-03 14:56
PROVIDERS: ADMIT Internal Medicine; ATTEND Internal Medicine
PROC: 02100Z9 Bypass Coronary Artery, One Artery from Left Internal Mammary, Open Approach (ICD-10-PCS; principal; 2017-10-28)
PROC: 4A023N7 Measurement of Cardiac Sampling and Pressure, Left Heart, Percutaneous Approach (ICD-10-PCS; 2017-10-28)
PROC: 06BP0ZZ Excision of Right Saphenous Vein, Open Approach (ICD-10-PCS; 2017-10-28)
PROC: 021209W Bypass Coronary Artery, Three Arteries from Aorta with Autologous Venous Tissue, Open Approach (ICD-10-PCS; 2017-10-28)
PROC: B2111ZZ Fluoroscopy of Multiple Coronary Arteries using Low Osmolar Contrast (ICD-10-PCS; 2017-10-28)
PROC: 06BQ4ZZ Excision of Left Saphenous Vein, Percutaneous Endoscopic Approach (ICD-10-PCS; 2017-10-28)
PROC: 03HY32Z Insertion of Monitoring Device into Upper Artery, Percutaneous Approach (ICD-10-PCS; 2017-10-28)
PROC: B246ZZ4 Ultrasonography of Right and Left Heart, Transesophageal (ICD-10-PCS; 2017-10-28)
PROC: 5A1221Z Performance of Cardiac Output, Continuous (ICD-10-PCS; 2017-10-28)
PROC: 5A2204Z Restoration of Cardiac Rhythm, Single (ICD-10-PCS; 2017-10-28)
PROC: 30233L1 Transfusion of Nonautologous Fresh Plasma into Peripheral Vein, Percutaneous Approach (ICD-10-PCS; 2017-10-30)
PROC: 30233N1 Transfusion of Nonautologous Red Blood Cells into Peripheral Vein, Percutaneous Approach (ICD-10-PCS; 2017-10-30)
PROC: 30233R1 Transfusion of Nonautologous Platelets into Peripheral Vein, Percutaneous Approach (ICD-10-PCS; 2017-10-30)
PROC: 30233M1 Transfusion of Nonautologous Plasma Cryoprecipitate into Peripheral Vein, Percutaneous Approach (ICD-10-PCS; 2017-10-30)
PROC: 30233K1 Transfusion of Nonautologous Frozen Plasma into Peripheral Vein, Percutaneous Approach (ICD-10-PCS; 2017-10-30)
PROC: 0W993ZZ Drainage of Right Pleural Cavity, Percutaneous Approach (ICD-10-PCS; 2017-10-30)
DX: I21.4 Non-ST elevation (NSTEMI) myocardial infarction (principal); I50.21 Acute systolic (congestive) heart failure; J96.00 Acute respiratory failure, unspecified whether with hypoxia or hypercapnia; N17.0 Acute kidney failure with tubular necrosis; E87.1 Hypo-osmolality and hyponatremia; D62 Acute posthemorrhagic anemia; F05 Delirium due to known physiological condition; I24.9 Acute ischemic heart disease, unspecified; N18.3 Chronic kidney disease, stage 3 (moderate); K21.9 Gastro-esophageal reflux disease without esophagitis; M19.90 Unspecified osteoarthritis, unspecified site; Z82.49 Family history of ischemic heart disease and other diseases of the circulatory system; F17.210 Nicotine dependence, cigarettes, uncomplicated; E87.6 Hypokalemia; I25.5 Ischemic cardiomyopathy; I25.10 Atherosclerotic heart disease of native coronary artery without angina pectoris; I11.0 Hypertensive heart disease with heart failure; E78.5 Hyperlipidemia, unspecified; J44.9 Chronic obstructive pulmonary disease, unspecified; E11.9 Type 2 diabetes mellitus without complications; Z59.9 Problem related to housing and economic circumstances, unspecified; N99.0 Postprocedural (acute) (chronic) kidney failure; D63.8 Anemia in other chronic diseases classified elsewhere; F28 Other psychotic disorder not due to a substance or known physiological condition; I25.84 Coronary atherosclerosis due to calcified coronary lesion; I95.9 Hypotension, unspecified
CPT/HCPCS: 32555; 36415; 36600; 71045; 71046; 71250; 76604; 80048; 80053; 80061; 80307; 81001; 82803; 82805; 82962; 83735; 83880; 84132; 84443; 84484; 85014; 85018; 85025; 85027; 85347; 85384; 85520; 85610; 85730; 86850; 86900; 86901; 86920; 86927; 87641; 93005; 93306; 93308; 93318; 93320; 93325; 93454; 93880; 93970; 94002; 94640; 94660; 94760; 96374; 96375; 96376; 99152; 99153; 99291; C1769; C1781; C1892; J0171; J0690; J1644; J1815; J1940; J2001; J2150; J2250; J2260; J2270; J2440; J2704; J3010; J3370; J3475; J3480; J3490; J7030; J7040; J7050; J7120; J7613; P9012; P9016; P9017; P9035; P9041; P9045; P9046; S0028; 97110; 97116; 97530; 97535; G0479

== ENCOUNTER → 2017-11-21 | Outpatient (CLI) | payer BC ==
[2017-11-07 08:50] VITALS: BP 104/62
[~2017-11-21] MED LIST: ASPI325T11 PO; ATOR40TA59 PO; CEPH250C PO; FURO40TA4 PO; OXYC1TAB7 PO; POTA20TA82 PO
--- NOTE | 2017-11-21 17:09 | RAD ---
PA and lateral chest radiograph. History: CABG 1 month ago. Comparison: October 27, 2017. Findings: Cardiac silhouette is mildly enlarged. Median sternotomy wires are present. No pneumothorax is identified. Small right and small-moderate left pleural effusions are seen. No failure is identified. Impression: 1. Small right pleural effusion, similar to previous study. 2. Small-moderate left pleural effusion, increased in the interval. Electronically signed by: Jose Chow MD (11/21/2017 5:05 PM) [place] [id number]
== END | disposition home or self-care (01) ==
LOC: RAD 12:33
PROVIDERS: ATTEND Thoracic Surgery (Cardiothoracic Vascular Surgery)
DX: Z09 Encounter for follow-up examination after completed treatment for conditions other than malignant neoplasm (principal); I13.0 Hypertensive heart and chronic kidney disease with heart failure and stage 1 through stage 4 chronic kidney disease, or unspecified chronic kidney disease; E11.22 Type 2 diabetes mellitus with diabetic chronic kidney disease; I50.9 Heart failure, unspecified; N18.3 Chronic kidney disease, stage 3 (moderate); J90 Pleural effusion, not elsewhere classified; E78.5 Hyperlipidemia, unspecified; K21.9 Gastro-esophageal reflux disease without esophagitis; I25.10 Atherosclerotic heart disease of native coronary artery without angina pectoris; M19.90 Unspecified osteoarthritis, unspecified site; Z95.1 Presence of aortocoronary bypass graft; Z82.49 Family history of ischemic heart disease and other diseases of the circulatory system
CPT/HCPCS: 71046

== ENCOUNTER 2017-11-25 06:57 | Outpatient (CLI) | payer BC ==
[~2017-11-25] VITALS: Ht 177.8 cm; Wt 79.4 kg
[2017-11-25 07:35] LABS: HEMATOCRIT 32.5 % (39.0-53.0); HEMOGLOBIN 11.2 g/dL (13.0-17.5); RED BLOOD COUNT 3.36 x10^6/uL (4.30-5.70); WHITE BLOOD COUNT 7.8 x10^3/uL (4.0-11.0)
[2017-11-25 07:44] VITALS: BP 137/84
[2017-11-25 08:58] VITALS: BP 144/82
[2017-11-25 09:19] VITALS: BP 152/96
[2017-11-25 09:35] VITALS: BP 148/92
[2017-11-25 09:50] VITALS: BP 143/75
[2017-11-25 10:30] VITALS: BP 143/81
--- NOTE | 2017-11-25 10:40 | RAD ---
Examination: CHEST AP ONLY History: POST THORACENTESIS Comparison/Correlation: 11/13/2017 two-view chest x-ray exam Findings: Portable upright frontal view of the chest was obtained. Sternal wires and mediastinal clips are present. Moderate-sized left basilar pleural effusion with adjacent atelectasis noted. Small right pleural effusion is present. Old right rib fractures are present. No pneumothorax. Heart size is borderline. Impression: Moderate-sized left pleural effusion. Adjacent atelectasis. No pneumothorax. Pleural effusions bilaterally appear slightly larger than on the prior exam. This may be in part due to differences in patient positioning and technique. Electronically signed by: Alec Chi MD (11/25/2017 10:36 AM) [id number]
--- NOTE | 2017-11-25 13:56 | RAD ---
Ultrasound-guided right-sided thoracentesis 11/25/2017 1:52 PM Indication: PLEURAL EFFUSION Procedure: Informed consent was obtained. A timeout procedure was performed. Sonographic evaluation of the right chest was performed demonstrating moderate pleural effusion. The right posterior chest was prepped and draped in sterile fashion. 1% lidocaine without epinephrine was administered for local anesthesia. Real-time ultrasonographic guidance was used in passing a 5 Persian OwnerListenseh catheter into the right pleural space. 600 cc of serosanguineous pleural fluid was removed. Samples of fluid were sent to the lab for further evaluation per ordering physician request. The catheter was removed and pressure held to achieve hemostasis. A sterile dressing was applied. No immediate complications were identified. The patient tolerated the procedure well. Impression: Right sided ultrasound-guided thoracentesis
== END 2017-11-25 10:49 | disposition home or self-care (01) ==
LOC: INTRAD 06:57
PROVIDERS: ATTEND Thoracic Surgery (Cardiothoracic Vascular Surgery)
DX: J90 Pleural effusion, not elsewhere classified (principal)
CPT/HCPCS: 32555; 36415; 71045; 85027; 85610

== ENCOUNTER → 2017-11-25 | Outpatient (CLI) | payer BC ==
[2017-11-25 10:30] VITALS: BP 143/81
== END | disposition home or self-care (01) ==
LOC: PMGWOUND 10:53
PROVIDERS: ATTEND Emergency Medicine Undersea and Hyperbaric Medicine
DX: T81.31XA Disruption of external operation (surgical) wound, not elsewhere classified, initial encounter (principal); I13.0 Hypertensive heart and chronic kidney disease with heart failure and stage 1 through stage 4 chronic kidney disease, or unspecified chronic kidney disease; E11.22 Type 2 diabetes mellitus with diabetic chronic kidney disease; N18.9 Chronic kidney disease, unspecified; I50.9 Heart failure, unspecified; I25.2 Old myocardial infarction; J44.9 Chronic obstructive pulmonary disease, unspecified; E78.5 Hyperlipidemia, unspecified; I25.10 Atherosclerotic heart disease of native coronary artery without angina pectoris; K21.9 Gastro-esophageal reflux disease without esophagitis; M19.90 Unspecified osteoarthritis, unspecified site; Z87.891 Personal history of nicotine dependence; Z79.82 Long term (current) use of aspirin; Z79.899 Other long term (current) drug therapy; Y83.8 Other surgical procedures as the cause of abnormal reaction of the patient, or of later complication, without mention of misadventure at the time of the procedure; Y92.89 Other specified places as the place of occurrence of the external cause
CPT/HCPCS: 97597; 97598

== ENCOUNTER 2017-11-26 09:44 | Outpatient (CLI) | payer BC ==
[2017-11-26 10:02] VITALS: BP 147/90
[2017-11-26 10:21] VITALS: BP 147/83
[2017-11-26 10:36] VITALS: BP 140/76
[2017-11-26 10:49] VITALS: BP 132/78
[2017-11-26 11:03] VITALS: BP 155/100
[2017-11-26 12:02] VITALS: BP 137/78
--- NOTE | 2017-11-26 12:06 | RAD ---
Single view of the chest. 11/26/2017 11:45 AM Indication: post thoracentesis Comparison: Chest radiograph, yesterday Findings: No pneumothorax is seen. Trace bilateral pleural effusions persist. Mild basilar atelectasis is likely. Heart size is mildly enlarged but stable. Prior median sternotomy noted. No acute osseous changes are identified. IMPRESSION: Trace residual pleural effusions with minimal underlying atelectasis. No pneumothorax. Electronically signed by: Jasper Benjamin MD (11/26/2017 12:02 PM) [id number]
--- NOTE | 2017-11-26 16:30 | RAD ---
Ultrasound-guided left-sided thoracentesis 11/26/2017 4:26 PM Indication: PLEURAL EFFUSION Procedure: Informed consent was obtained. A timeout procedure was performed. Sonographic evaluation of the left chest was performed demonstrating moderate pleural effusion. The left posterior chest was prepped and draped in sterile fashion. 1% lidocaine without epinephrine was administered for local anesthesia. Real-time ultrasonographic guidance was used in passing a 5 Lao Skyengeh catheter into the left pleural space. 1.0 L of serosanguineous pleural fluid was removed. Samples of fluid were sent to the lab for further evaluation per ordering physician request. The catheter was removed and pressure held to achieve hemostasis. A sterile dressing was applied. No immediate complications were identified. The patient tolerated the procedure well. Impression: Left sided ultrasound-guided thoracentesis
== END 2017-11-26 12:31 | disposition home or self-care (01) ==
LOC: INTRAD 09:44
PROVIDERS: ATTEND Thoracic Surgery (Cardiothoracic Vascular Surgery)
DX: J90 Pleural effusion, not elsewhere classified (principal); I25.10 Atherosclerotic heart disease of native coronary artery without angina pectoris; K21.9 Gastro-esophageal reflux disease without esophagitis; E78.5 Hyperlipidemia, unspecified; I13.0 Hypertensive heart and chronic kidney disease with heart failure and stage 1 through stage 4 chronic kidney disease, or unspecified chronic kidney disease; E11.22 Type 2 diabetes mellitus with diabetic chronic kidney disease; N18.3 Chronic kidney disease, stage 3 (moderate); I50.9 Heart failure, unspecified; M19.90 Unspecified osteoarthritis, unspecified site; J44.9 Chronic obstructive pulmonary disease, unspecified; I25.5 Ischemic cardiomyopathy; F17.210 Nicotine dependence, cigarettes, uncomplicated; I25.2 Old myocardial infarction; Z98.890 Other specified postprocedural states; Z79.899 Other long term (current) drug therapy; Z95.1 Presence of aortocoronary bypass graft; Z79.82 Long term (current) use of aspirin
CPT/HCPCS: 32555; 71045

== ENCOUNTER → 2017-11-28 | Outpatient (CLI) | payer BC ==
[2017-11-26 12:02] VITALS: BP 137/78
--- NOTE | 2017-11-28 13:32 | RAD ---
EXAM: Chest, 2 views. HISTORY: Pleural effusion. COMPARISON: 11/26/2017 FINDINGS: 2 views of the chest are obtained. There is stable small bilateral pleural effusions. There is slight decreased lingular and left lower lobe atelectasis or infiltrate. There is stable right lower lobe atelectasis. There is a stable prominent cardiac silhouette and evidence of prior CABG. There is no pneumothorax. There are few calcified granulomas. There are healed right rib fractures. IMPRESSION: 1. Stable small pleural effusions. 2. Slight decreased lingular and left lower lobe atelectasis or infiltrate and stable right lower lobe atelectasis. Electronically signed by: Joslyn Wolff MD (11/28/2017 1:29 PM) [place] [id number]
== END | disposition home or self-care (01) ==
LOC: RAD 12:56
PROVIDERS: ATTEND Thoracic Surgery (Cardiothoracic Vascular Surgery)
DX: J90 Pleural effusion, not elsewhere classified (principal); J98.11 Atelectasis; F17.210 Nicotine dependence, cigarettes, uncomplicated
CPT/HCPCS: 71046

== ENCOUNTER → 2017-12-03 | Outpatient (CLI) | payer BC ==
[2017-11-26 12:02] VITALS: BP 137/78
== END | disposition home or self-care (01) ==
LOC: PMGWOUND 08:11
PROVIDERS: ATTEND Preventive Medicine Undersea and Hyperbaric Medicine
DX: T81.31XD Disruption of external operation (surgical) wound, not elsewhere classified, subsequent encounter (principal); I13.0 Hypertensive heart and chronic kidney disease with heart failure and stage 1 through stage 4 chronic kidney disease, or unspecified chronic kidney disease; E11.22 Type 2 diabetes mellitus with diabetic chronic kidney disease; N18.3 Chronic kidney disease, stage 3 (moderate); I50.21 Acute systolic (congestive) heart failure; J44.9 Chronic obstructive pulmonary disease, unspecified; I25.2 Old myocardial infarction; E78.5 Hyperlipidemia, unspecified; M19.90 Unspecified osteoarthritis, unspecified site; I25.10 Atherosclerotic heart disease of native coronary artery without angina pectoris; K21.9 Gastro-esophageal reflux disease without esophagitis; Z79.82 Long term (current) use of aspirin; Z79.899 Other long term (current) drug therapy; Z95.1 Presence of aortocoronary bypass graft; Z87.891 Personal history of nicotine dependence; Y83.8 Other surgical procedures as the cause of abnormal reaction of the patient, or of later complication, without mention of misadventure at the time of the procedure
CPT/HCPCS: 97597; 97598

== ENCOUNTER → 2017-12-10 | Outpatient (CLI) | payer BC ==
[2017-11-26 12:02] VITALS: BP 137/78
== END | disposition home or self-care (01) ==
LOC: PMGWOUND 09:05
PROVIDERS: ATTEND Preventive Medicine Undersea and Hyperbaric Medicine
DX: T81.31XD Disruption of external operation (surgical) wound, not elsewhere classified, subsequent encounter (principal); I13.0 Hypertensive heart and chronic kidney disease with heart failure and stage 1 through stage 4 chronic kidney disease, or unspecified chronic kidney disease; I50.9 Heart failure, unspecified; E11.22 Type 2 diabetes mellitus with diabetic chronic kidney disease; N18.3 Chronic kidney disease, stage 3 (moderate); J44.9 Chronic obstructive pulmonary disease, unspecified; I25.2 Old myocardial infarction; E78.5 Hyperlipidemia, unspecified; K21.9 Gastro-esophageal reflux disease without esophagitis; M19.90 Unspecified osteoarthritis, unspecified site; I25.10 Atherosclerotic heart disease of native coronary artery without angina pectoris; Z87.891 Personal history of nicotine dependence; Y83.8 Other surgical procedures as the cause of abnormal reaction of the patient, or of later complication, without mention of misadventure at the time of the procedure
CPT/HCPCS: 97597

== ENCOUNTER → 2017-12-12 | Outpatient (CLI) | payer BC ==
[2017-11-26 12:02] VITALS: BP 137/78
--- NOTE | 2017-12-12 13:58 | RAD ---
PA and lateral chest x-ray compared to similar study dated November 28, 2017 for open heart surgery, pleural effusion. FINDINGS: There is a small right pleural effusion and a moderate left pleural effusion. The left pleural effusion is enlarged compared to the prior study. There is a calcified appearing nodular opacity in the right lung base, which is not significantly changed from the most recent study, but was not present on radiographs from October, consistent with benign etiology. No new lung parenchymal abnormalities are seen. Postsurgical changes of the mediastinum are noted. IMPRESSION: 1. Bilateral pleural effusions, left greater than right. The effusion on the left has enlarged. Electronically signed by: Roc Lemos MD (12/12/2017 1:55 PM) [id number]
== END | disposition home or self-care (01) ==
LOC: RAD 13:24
PROVIDERS: ATTEND Thoracic Surgery (Cardiothoracic Vascular Surgery)
DX: J90 Pleural effusion, not elsewhere classified (principal)
CPT/HCPCS: 71046

== ENCOUNTER → 2017-12-17 | Outpatient (CLI) | payer BC ==
[2017-11-26 12:02] VITALS: BP 137/78
== END | disposition home or self-care (01) ==
LOC: PMGWOUND 08:55
PROVIDERS: ATTEND Preventive Medicine Undersea and Hyperbaric Medicine
DX: T81.31XD Disruption of external operation (surgical) wound, not elsewhere classified, subsequent encounter (principal); I13.0 Hypertensive heart and chronic kidney disease with heart failure and stage 1 through stage 4 chronic kidney disease, or unspecified chronic kidney disease; E11.22 Type 2 diabetes mellitus with diabetic chronic kidney disease; N18.3 Chronic kidney disease, stage 3 (moderate); I50.21 Acute systolic (congestive) heart failure; J44.9 Chronic obstructive pulmonary disease, unspecified; I25.2 Old myocardial infarction; E78.5 Hyperlipidemia, unspecified; I25.10 Atherosclerotic heart disease of native coronary artery without angina pectoris; K21.9 Gastro-esophageal reflux disease without esophagitis; Z87.891 Personal history of nicotine dependence; M19.90 Unspecified osteoarthritis, unspecified site; Y83.8 Other surgical procedures as the cause of abnormal reaction of the patient, or of later complication, without mention of misadventure at the time of the procedure
CPT/HCPCS: 99213

== ENCOUNTER 2017-12-19 09:31 | Outpatient (CLI) | payer BC ==
[~2017-12-19] VITALS: Ht 180.3 cm; Wt 77.6 kg
[2017-12-19 09:45] VITALS: BP 132/76
[2017-12-19 10:48] VITALS: BP 126/67
[2017-12-19 10:56] VITALS: BP 129/72
[2017-12-19 11:10] VITALS: BP 140/77
[2017-12-19 11:25] VITALS: BP 127/80
[2017-12-19 11:47] VITALS: BP 136/72
--- NOTE | 2017-12-19 11:56 | RAD ---
Portable chest, 12/19/2017: HISTORY: Postthoracentesis evaluation Comparison is made to a study from 12/12/2017. Sternal wires are present. The heart is enlarged. The pulmonary vascularity is normal. Pleural effusions are no longer evident, although there could be some residual pleural fluid in the posterior gutters not visible on this AP view. There is mild left basilar linear atelectasis. There is no evidence of pneumothorax. Right rib deformities are again noted. IMPRESSION: 1. Bilateral pleural effusions have resolved. 2. Mild left basilar linear atelectasis. 3. No evidence of pneumothorax. Electronically signed by: Will Joaquin MD (12/19/2017 11:53 AM) [facility]
--- NOTE | 2017-12-19 12:51 | RAD ---
Ultrasound Guided Thoracentesis, left side Indication: 62-year-old male with left pleural effusion Sedation: Local anesthesia only Sterility: The procedure was performed in its entirety using appropriate elements of sterile technique. Technique and Findings: Following informed consent, the patient was prepped and draped in the usual sterile fashion. Ultrasound interrogation of the area of interest was performed revealing the presence of a pleural fluid collection. 1% Lidocaine was used to achieve local anesthesia over the area of interest. A small dermatotomy was made and a 5F [id number] catheter was advanced under ultrasound guidance into the pleural space [id number] cc's of thin yellow fluid was removed. The catheter was then removed and hemostasis was achieved with manual compression. Impression: US thoracentesis as described.
== END 2017-12-19 12:09 | disposition home or self-care (01) ==
LOC: INTRAD 09:31
PROVIDERS: ATTEND Thoracic Surgery (Cardiothoracic Vascular Surgery)
DX: J90 Pleural effusion, not elsewhere classified (principal)
CPT/HCPCS: 32555; 71045

== ENCOUNTER → 2017-12-31 | Outpatient (CLI) | payer BC ==
[2017-12-19 11:47] VITALS: BP 136/72
== END | disposition home or self-care (01) ==
LOC: PMGWOUND 08:55
PROVIDERS: ATTEND Preventive Medicine Undersea and Hyperbaric Medicine
DX: T81.31XD Disruption of external operation (surgical) wound, not elsewhere classified, subsequent encounter (principal); I13.0 Hypertensive heart and chronic kidney disease with heart failure and stage 1 through stage 4 chronic kidney disease, or unspecified chronic kidney disease; E11.22 Type 2 diabetes mellitus with diabetic chronic kidney disease; N18.3 Chronic kidney disease, stage 3 (moderate); I50.21 Acute systolic (congestive) heart failure; E78.5 Hyperlipidemia, unspecified; J44.9 Chronic obstructive pulmonary disease, unspecified; K21.9 Gastro-esophageal reflux disease without esophagitis; I25.2 Old myocardial infarction; M19.90 Unspecified osteoarthritis, unspecified site; I25.10 Atherosclerotic heart disease of native coronary artery without angina pectoris; Z87.891 Personal history of nicotine dependence; Y83.8 Other surgical procedures as the cause of abnormal reaction of the patient, or of later complication, without mention of misadventure at the time of the procedure
CPT/HCPCS: 99213

== ENCOUNTER → 2018-01-09 | Outpatient (CLI) | payer BC ==
[2017-12-19 11:47] VITALS: BP 136/72
--- NOTE | 2018-01-09 17:56 | RAD ---
EXAM: PA and Lateral Views of the Chest DATE: 01/09/2018 11:06 AM INDICATION: PLEURAL EFFUSION COMPARISON: 12/19/2017, 12/12/2017 FINDINGS: The heart is not enlarged. Mediastinal and hilar contours are stable. Left lung base parenchymal opacities are seen, possibly atelectasis or consolidation. Small to moderate left pleural effusion. No pneumothorax. Old right rib fractures are seen. IMPRESSION: Left pleural effusion with left lung base opacities, favor atelectasis although consolidation is not excluded. Electronically signed by: Kevyn Borrego MD (01/09/2018 5:52 PM) [facility]
== END | disposition home or self-care (01) ==
LOC: RAD 10:48
PROVIDERS: ATTEND Thoracic Surgery (Cardiothoracic Vascular Surgery)
DX: S22.41XD Multiple fractures of ribs, right side, subsequent encounter for fracture with routine healing (principal); J90 Pleural effusion, not elsewhere classified; J98.11 Atelectasis; X58.XXXD Exposure to other specified factors, subsequent encounter
CPT/HCPCS: 71046

== ENCOUNTER 2018-01-21 10:27 | Day surgery (SDC) | payer BC ==
[~2018-01-21] VITALS: Ht 180.3 cm; Wt 77.6 kg
[~2018-01-21 10:27] MED LIST changes: +HYDROmorphone 2 MG/ML VIAL IV PRN; +IV RINGERS,LACTATED 1000ML 1,000 ML IV SCH; +LIDOCAINE 1% PF 2 ML VIAL. ID PRN; +MORPHINE SULFATE 2 MG/ML VIAL. IV PRN; +ONDANSETRON PF 4 MG/2 ML VIAL. IV PRN; +PROCHLORPERAZINE 10 MG/2 ML VIAL. IV PRN; +fentaNYL PF VIAL 100 MCG/2 ML VIAL IV PRN
[2018-01-21 11:37] LABS: BASO # 0.1 x10^3/uL (0.0-0.2); BASO % 1 % (0-3); EOS # 0.5 x10^3/uL (0.0-0.7); EOS % 7 % (0-3); HEMATOCRIT 39.6 % (39.0-53.0); HEMOGLOBIN 13.6 g/dL (13.0-17.5); LYMPH # 1.9 x10^3/uL (1.0-4.8); LYMPH % 26 % (24-48); MEAN CORPUSCULAR HEMOGLOBIN 32 pg (25-35); MEAN CORPUSCULAR HGB CONC 34 g/dL (31-37); MEAN CORPUSCULAR VOLUME 95 fL (79-100); MONO # 0.7 x10^3/uL (0.0-1.1); MONO % 9 % (0-9); NEUT # 4.2 x10^3uL (1.8-7.7); NEUT % 56 % (31-73); PLATELET COUNT 296 x10^3/uL (140-400); RED BLOOD COUNT 4.19 x10^6/uL (4.30-5.70); RED CELL DISTRIBUTION WIDTH 15.9 % (11.5-14.5); WHITE BLOOD COUNT 7.4 x10^3/uL (4.0-11.0)
[2018-01-21] MEDS ORDERED: LIDOCAINE 1% 20 ML VIAL. ONE (11:42)
[2018-01-21] MEDS ORDERED: BUPIVACAINE MPF 0.5% 30 ML VIAL. ONE (11:42)
[2018-01-21 11:45] LABS: CALCIUM 9.2 mg/dL (8.5-10.1); CREATININE 1.2 mg/dL (0.7-1.3); GFR 61.1; POTASSIUM 4.3 mmol/L (3.5-5.1)
[2018-01-21 11:46] LABS: PROTHROMBIN TIME PATIENT 13.4 SEC (11.7-14.0)
--- NOTE | 2018-01-21 12:21 | RAD ---
Chest, 2 views, 01/21/2018: HISTORY: Preop evaluation for Pleurx catheter placement Comparison is made to a study from 01/09/2018. There has been a previous median sternotomy. The heart size is within normal limits. There is calcific plaquing of the aorta and its branches. A small to moderate volume of left-sided pleural fluid persists with minimal underlying left basilar atelectasis. No right-sided pleural fluid is seen. There is mild parenchymal scarring. No new pulmonary abnormality is seen. IMPRESSION: Unchanged small to moderate size left pleural effusion. Electronically signed by: Will Joaquin MD (01/21/2018 12:17 PM) [facility]
[2018-01-21] MEDS ORDERED: ROCURONIUM 50 MG/5 ML VIAL. ONE (13:21)
[2018-01-21] MEDS ORDERED: LIDOCAINE 2% PF Vial for OR 5 ML VIAL. ONE (13:21)
[2018-01-21] MEDS ORDERED: PROPOFOL 20 ML IV ONE (13:21)
[2018-01-21] MEDS ORDERED: fentaNYL PF VIAL 250 MCG/5 ML VIAL ONE (13:32)
[2018-01-21] MEDS ORDERED: MIDAZOLAM HCL/PF 2 MG/2 ML VIAL. ONE (13:33)
[2018-01-21] MEDS ORDERED: TALC 5 GM VIAL. IPL ONE (14:00)
--- NOTE | 2018-01-21 14:39 | PDOC ---
BRIEF OPERATIVE NOTE Date: Jan 21, 2018 Pre-Op Diagnosis Recurrent left pleural effusion Chronic systolic and diastolic heart failure Ischemic cardiomyopathy Post-Op Diagnosis Recurrent left pleural effusion Chronic systolic and diastolic heart failure Ischemic cardiomyopathy Procedure Performed Insertion of left PleurX catheter Surgeon Shay Harris MD Certified Personal Trainer None Anesthesiologist Dr Orr Anesthesia Type: Local, Conscious Sedation Blood Loss Minimal IV Fluid N/A Urine Output N/A Specimens Obtained None Findings 700 mls of serous pleural effusion drained Complications None SHAY HARRIS MD Jan 21, 2018 14:39
--- NOTE | 2018-01-21 14:40 | PDOC4 ---
Operative Note Operative Note Date Jan 21, 2018 Preoperative diagnosis Recurrent left pleural effusion Chronic systolic and diastolic heart failure Ischemic cardiomyopathy Postoperative diagnosis Recurrent left pleural effusion Chronic systolic and diastolic heart failure Ischemic cardiomyopathy Procedure performed Insertion of left PleurX catheter Surgeon Shay Harris MD Flask Carrier None Anesthesiologist Dr Orr Anesthesia type Local, Conscious Sedation Blood loss Minimal IV fluids N/A Urine output N/A Specimens obtained None Findings 700 mls of serous pleural effusion drained Complications None Indication The patient is a 62-year-old male with known severe ischemic cardiomyopathy and an ejection fraction of 20% who I performed a CABG 4 in October 2017. Ever since he has had recurrent left-sided pleural effusions. He has had a total of 4 outpatient thoracentesis. A left Pleurx catheter was indicated. The risks, benefits and limitations of the procedure were explained to the patient who agreed to proceed. Informed consent was obtained. Operation The patient was seen in the preoperative area where his ID was confirmed using 2 unique identifies. The left chest was appropriately marked. He was then transferred to the operating room and placed supine on the operating table. Intravenous sedation was given by the anesthesiologist. The left chest was prepped and draped in the usual sterile surgical fashion. A timeout was then performed. The entry, exit and tunnel were anesthetized with 20 mL of 1% lidocaine with 0,5% Marcaine. A left chest ultrasound confirmed the presence of a left pleural effusion and the appropriate insertion site was marked. The needle catheter was inserted through the eighth intercostal space and clear pleural fluid was aspirated. The needle was removed and the guidewire was advanced into the pleural space. The Pleurx catheter was then tunneled 5 cm anterior from the entry site, using the tunneler. The insertion track was dilated and a peel-away sheath was then inserted. The guidewire was removed and the Pleurx catheter was inserted into the pleural space through the peel-away sheath which was peeled and removed. The small skin incision at the entry site was closed with a 4-0 subcuticular Monocryl stitch. The Pleurx catheter was secured at the exit site with a 2-0 nylon. A sterile dressing was applied. At the end of procedure the insurance, sponge and needle counts were correct. The patient was transferred to recovery in stable condition having tolerated the procedure very well. SHAY HARRIS MD Jan 21, 2018 14:40
--- NOTE | 2018-01-21 14:48 | PDOC3 ---
Discharge Summary Visit Information Date of Admission: Jan 21, 2018 Date of Discharge: Jan 21, 2018 Admitting Diagnosis: Recurrent left pleural effusion, CHF Brief Hospital Course Allergies Allergies Coded Allergies Type Severity Reaction Last Updated Verified No Known Drug Allergies 01/21/18 No Vital Signs Vital Signs Date Time Temp Pulse Resp B/P (MAP) Pulse Ox O2 Delivery O2 Flow Rate FiO2 01/21/18 11:00 97.8 89 20 99 97.8 01/21/18 10:52 145/82 Room Air Lab Results Laboratory Tests Test 01/21/18 11:30 White Blood Count 7.4 x10^3/uL (4.0-11.0) Red Blood Count 4.19 x10^6/uL (4.30-5.70) Hemoglobin 13.6 g/dL (13.0-17.5) Hematocrit 39.6 % (39.0-53.0) Mean Corpuscular Volume 95 fL (79-100) Mean Corpuscular Hemoglobin 32 pg (25-35) Mean Corpuscular Hemoglobin Concent 34 g/dL (31-37) Red Cell Distribution Width 15.9 % (11.5-14.5) Platelet Count 296 x10^3/uL (140-400) Neutrophils (%) (Auto) 56 % (31-73) Lymphocytes (%) (Auto) 26 % (24-48) Monocytes (%) (Auto) 9 % (0-9) Eosinophils (%) (Auto) 7 % (0-3) Basophils (%) (Auto) 1 % (0-3) Neutrophils # (Auto) 4.2 x10^3uL (1.8-7.7) Lymphocytes # (Auto) 1.9 x10^3/uL (1.0-4.8) Monocytes # (Auto) 0.7 x10^3/uL (0.0-1.1) Eosinophils # (Auto) 0.5 x10^3/uL (0.0-0.7) Basophils # (Auto) 0.1 x10^3/uL (0.0-0.2) Prothrombin Time 13.4 SEC (11.7-14.0) Prothromb Time International Ratio 1.1 (0.8-1.1) Activated Partial Thromboplast Time 27 SEC (24-38) Sodium Level 136 mmol/L (136-145) Potassium Level 4.3 mmol/L (3.5-5.1) Chloride Level 101 mmol/L (98-107) Carbon Dioxide Level 28 mmol/L (21-32) Anion Gap 7 (6-14) Blood Urea Nitrogen 17 mg/dL (8-26) Creatinine 1.2 mg/dL (0.7-1.3) Estimated GFR (Cockcroft-Gault) 61.1 Glucose Level 90 mg/dL (70-99) Calcium Level 9.2 mg/dL (8.5-10.1) Laboratory Tests Test 01/21/18 11:30 White Blood Count 7.4 x10^3/uL (4.0-11.0) Red Blood Count 4.19 x10^6/uL (4.30-5.70) Hemoglobin 13.6 g/dL (13.0-17.5) Hematocrit 39.6 % (39.0-53.0) Mean Corpuscular Volume 95 fL (79-100) Mean Corpuscular Hemoglobin 32 pg (25-35) Mean Corpuscular Hemoglobin Concent 34 g/dL (31-37) Red Cell Distribution Width 15.9 % (11.5-14.5) Platelet Count 296 x10^3/uL (140-400) Neutrophils (%) (Auto) 56 % (31-73) Lymphocytes (%) (Auto) 26 % (24-48) Monocytes (%) (Auto) 9 % (0-9) Eosinophils (%) (Auto) 7 % (0-3) Basophils (%) (Auto) 1 % (0-3) Neutrophils # (Auto) 4.2 x10^3uL (1.8-7.7) Lymphocytes # (Auto) 1.9 x10^3/uL (1.0-4.8) Monocytes # (Auto) 0.7 x10^3/uL (0.0-1.1) Eosinophils # (Auto) 0.5 x10^3/uL (0.0-0.7) Basophils # (Auto) 0.1 x10^3/uL (0.0-0.2) Prothrombin Time 13.4 SEC (11.7-14.0) Prothromb Time International Ratio 1.1 (0.8-1.1) Activated Partial Thromboplast Time 27 SEC (24-38) Sodium Level 136 mmol/L (136-145) Potassium Level 4.3 mmol/L (3.5-5.1) Chloride Level 101 mmol/L (98-107) Carbon Dioxide Level 28 mmol/L (21-32) Anion Gap 7 (6-14) Blood Urea Nitrogen 17 mg/dL (8-26) Creatinine 1.2 mg/dL (0.7-1.3) Estimated GFR (Cockcroft-Gault) 61.1 Glucose Level 90 mg/dL (70-99) Calcium Level 9.2 mg/dL (8.5-10.1) Brief Hospital Course Mr. Alonzo is a 62-year-old male with known severe ischemic cardiomyopathy and an ejection fraction of 20% who I performed a CABG 4 in October 2017. Ever since he has had recurrent left-sided pleural effusions. He has had a total of 4 outpatient thoracentesis. He came today for an elective outpatient Pleurx catheter insertion. The procedure was performed uneventfully the patient tolerated well. A postprocedural chest x-ray showed that the left pleural effusion was completely drained and the Pleurx catheter was in an appropriate position. He was discharged home from recovery. Discharge Information Condition at Discharge: Improved Follow Up: Weeks (3) Disposition/Orders: D/C to Home Scheduled Aspirin (Aspirin Ec) 325 Mg Tablet., 325 MG PO DAILYWBKFT for 90 Days, #90 Ref 1 Prescribed by: RAMSES SANDOVAL on 11/07/17 1056 Last Taken: Unknown Dose on 01/20/18 Last Action: Last Taken Edited on 01/21/18 1109 by CHRIS ELLIOTT Atorvastatin Calcium (Atorvastatin Calcium) 40 Mg Tablet, 40 MG PO QHS for 90 Days, #90 Ref 3 Prescribed by: RAMSES SANDOVAL on 11/07/17 1056 Last Taken: Unknown Dose on 01/20/18 Last Action: Last Taken Edited on 01/21/18 1109 by CHRIS ELLIOTT Scheduled PRN Oxycodone Hcl/Acetaminophen (Oxycodone-Acetaminophen 5-325) 1 Each Tablet, 1 TAB PO PRN Q4-6HRS PRN for MODERATE PAIN, #15 Ref 0 Prescribed by: RAMSES SANDOVAL on 11/07/17 1056 SHAY HARRIS MD Jan 21, 2018 14:48
[2018-01-21 14:52] VITALS: BP 134/74
--- NOTE | 2018-01-21 15:13 | RAD ---
Portable chest, 01/21/2018: HISTORY: Postop Pleurx catheter placement Comparison is made to a study from earlier the same day. A tube overlying the left lower chest apparently represents a pleural drain. The left-sided pleural effusion has been largely evacuated. There is mild residual linear atelectasis in the left base. There is no evidence of significant pneumothorax. The right chest is clear. The heart size is unchanged. IMPRESSION: 1. Interval evacuation of much of the left pleural fluid status post Pleurx catheter placement. 2. Mild residual left basilar atelectasis. Electronically signed by: Will Joaquin MD (01/21/2018 3:10 PM) [facility]
== END 2018-01-21 15:33 | disposition home or self-care (01) ==
LOC: SURG 10:27
PROVIDERS: ATTEND Thoracic Surgery (Cardiothoracic Vascular Surgery)
DX: J90 Pleural effusion, not elsewhere classified (principal); I25.5 Ischemic cardiomyopathy; I25.10 Atherosclerotic heart disease of native coronary artery without angina pectoris; Z95.1 Presence of aortocoronary bypass graft; I11.0 Hypertensive heart disease with heart failure; I50.42 Chronic combined systolic (congestive) and diastolic (congestive) heart failure
CPT/HCPCS: 32550; 36415; 71045; 71046; 80048; 85025; 85610; 85730; 86850; 86900; 86901; A7015; J0690; J2001; J2250; J2704; J3010; J3490; J7040

== ENCOUNTER → 2018-02-13 | Outpatient (CLI) | payer BC, OTHER ==
[2018-01-21 14:52] VITALS: BP 134/74
[~2018-02-13] MED LIST changes: -HYDROmorphone 2 MG/ML VIAL IV PRN; -IV RINGERS,LACTATED 1000ML 1,000 ML IV SCH; -LIDOCAINE 1% PF 2 ML VIAL. ID PRN; -MORPHINE SULFATE 2 MG/ML VIAL. IV PRN; -ONDANSETRON PF 4 MG/2 ML VIAL. IV PRN; -PROCHLORPERAZINE 10 MG/2 ML VIAL. IV PRN; -fentaNYL PF VIAL 100 MCG/2 ML VIAL IV PRN
--- NOTE | 2018-02-13 17:07 | RAD ---
CHEST PA LATERAL Clinical indications: RECURRENT LEFT PLEURAL EFFUSION COMPARISON: January 21, 2018. Findings: Left-sided chest tube remains in place. There is a small left-sided pleural effusion which has developed in the interim. No pneumothorax is seen. Old granulomatous disease is seen. Mild left lung base atelectasis is evident. No new lung consolidation is seen. Heart size is enlarged but stable. Sternotomy is again evident. Mediastinum is unremarkable. Both gunjan and pulmonary vasculature are unremarkable. Old healed right rib cage fractures are evident. IMPRESSION: Left chest tube in place. New small left-sided pleural effusion. Electronically signed by: Jovani Basilio MD (02/13/2018 5:03 PM) [id number]
== END | disposition home or self-care (01) ==
LOC: RAD 12:14
PROVIDERS: ATTEND Thoracic Surgery (Cardiothoracic Vascular Surgery)
DX: J90 Pleural effusion, not elsewhere classified (principal); I51.7 Cardiomegaly; D71 Functional disorders of polymorphonuclear neutrophils; J98.11 Atelectasis
CPT/HCPCS: 71046

== ENCOUNTER → 2018-03-20 | Outpatient (CLI) | payer BC, OTHER ==
--- NOTE | 2018-03-20 17:20 | RAD ---
CHEST PA LATERAL Clinical indications: PLEURAL EFFUSION, PT STATES HAVING NO ISSUES CURRENTLY. COMPARISON: February 13, 2018. Findings: Chronic interstitial lung infiltrates and hyperinflation is seen consistent with COPD. Left-sided chest tube is unchanged in position. Minimal blunting of the left lateral costophrenic angle is seen. Otherwise no significant pleural effusion is seen. No pneumothorax is evident. Old granulomatous disease is seen. No new lung infiltrate is evident. Heart size is enlarged but stable. Sternotomy is evident. Mediastinum and pulmonary vasculature and both gunjan are stable. Old healed right rib cage fractures are evident. IMPRESSION: COPD. Cardiomegaly. Stable chest x-ray. Electronically signed by: Jovani Basilio MD (03/20/2018 5:15 PM) [place] [id number]
== END | disposition home or self-care (01) ==
LOC: RAD 12:30
PROVIDERS: ATTEND Thoracic Surgery (Cardiothoracic Vascular Surgery)
DX: J44.9 Chronic obstructive pulmonary disease, unspecified (principal); I51.7 Cardiomegaly; D71 Functional disorders of polymorphonuclear neutrophils; R91.8 Other nonspecific abnormal finding of lung field
CPT/HCPCS: 71046

== ENCOUNTER → 2018-04-24 | Outpatient (CLI) | payer OTHER ==
--- NOTE | 2018-04-24 17:55 | RAD ---
CHEST PA LATERAL Clinical indications: PLEURAL EFFUSION follow-up study. COMPARISON: March 20, 2018. Findings: Small bilateral pleural effusions are evident. Pleural effusion is stable on the left side. The right-sided pleural effusion is new. Chronic hyperinflation is seen consistent with COPD. There is chronic interstitial lung disease bilaterally. Certainly, superimposed acute interstitial pulmonary edema may be present clinically. Otherwise no new lung consolidation is seen. No pneumothorax is evident. The heart size is enlarged but stable. Sternotomy is again evident. The mediastinum and pulmonary vasculature and both gunjan are stable. Left-sided chest tube is unchanged in position. Old healed right rib cage fractures are evident. IMPRESSION: Stable small left-sided pleural effusion. New small right-sided pleural effusion. Electronically signed by: Jovani Basilio MD (04/24/2018 5:52 PM) [facility]
== END | disposition home or self-care (01) ==
LOC: RAD 12:27
PROVIDERS: ATTEND Thoracic Surgery (Cardiothoracic Vascular Surgery)
DX: J90 Pleural effusion, not elsewhere classified (principal); I51.7 Cardiomegaly; J84.89 Other specified interstitial pulmonary diseases
CPT/HCPCS: 71046

== ENCOUNTER → 2018-05-08 | Day surgery (SDC) | payer OTHER ==
[~2018-05-08] MED LIST changes: +NORMAL SALINE IPL ONE; +TALC IPL ONE
[2018-05-08 13:22] VITALS: BP 147/89
--- NOTE | 2018-05-26 15:30 | PDOC4 ---
Operative Note Operative Note Preoperative diagnosis: recurrent left pleural effusion Postoperative diagnosis: recurrent left pleural effusion Attending: Shay Harris MD FACS Procedure: Talc slurry left pleurodesis Anesthesia: Lidocaine 1% EBL: none Indication: Patient is s/p CABG 8 months ago with recurrent left pleural effusions. PleurX catheter has been placed 2 months ago with persistent drainage. A talc slurry pleurodesis was indicated Description: PleurX catheter connected to syringe with 4gr talc mixed in 50cc NS. Injected into pleural space.PleurX capped. Asked patient to drain PleurX in 4-5 ours at home. SHAY HARRIS MD May 26, 2018 15:30
== END | disposition home or self-care (01) ==
LOC: SURG 12:37
PROVIDERS: ATTEND Thoracic Surgery (Cardiothoracic Vascular Surgery)
DX: J90 Pleural effusion, not elsewhere classified (principal); I25.2 Old myocardial infarction; I11.0 Hypertensive heart disease with heart failure; I50.31 Acute diastolic (congestive) heart failure; I25.5 Ischemic cardiomyopathy; E11.9 Type 2 diabetes mellitus without complications; J44.9 Chronic obstructive pulmonary disease, unspecified; E78.5 Hyperlipidemia, unspecified; F17.210 Nicotine dependence, cigarettes, uncomplicated; Z95.1 Presence of aortocoronary bypass graft; Z79.82 Long term (current) use of aspirin; Z79.899 Other long term (current) drug therapy; Z98.890 Other specified postprocedural states; Z72.89 Other problems related to lifestyle; Z82.49 Family history of ischemic heart disease and other diseases of the circulatory system; Z79.84 Long term (current) use of oral hypoglycemic drugs

== ENCOUNTER → 2018-07-10 | Outpatient (CLI) | payer OTHER ==
[2018-05-08 13:22] VITALS: BP 147/89
[~2018-07-10] MED LIST changes: -NORMAL SALINE IPL ONE; -TALC IPL ONE
--- NOTE | 2018-07-10 12:36 | RAD ---
Chest, 2 views, 07/10/2018: HISTORY: Recurrent left pleural effusion Comparison is made to a study from 04/24/2018. There has been a previous median sternotomy. A tube overlying the left lower chest presumably represents a pleural drain. The heart size and pulmonary vascularity are normal. There is persistent pleural thickening in the left lateral and posterior costophrenic angles compatible with pleural fluid and/or scarring. There is mild streaky atelectasis or scarring in the left lower chest. Previously seen right pleural fluid appears to have cleared. No right lung infiltrate is seen. There is no evidence of pneumothorax. IMPRESSION: Small unchanged left pleural effusion with mild underlying streaky left basilar atelectasis/infiltrate. Electronically signed by: Will Joaquin MD (07/10/2018 12:33 PM) [facility]
== END | disposition home or self-care (01) ==
LOC: RAD 12:02
PROVIDERS: ATTEND Thoracic Surgery (Cardiothoracic Vascular Surgery)
DX: J90 Pleural effusion, not elsewhere classified (principal)
CPT/HCPCS: 71046